=== PATIENT | male | born 2000 | race Caucasian/White ===

== ENCOUNTER 2018-11-22 22:14 | Outpatient (REF) | payer BC, SELFPAY ==
[2018-11-22 22:48] LABS: HCT 47.2 % (40.0-50.0); Mean Corp. HGB Concentration 33.9 g/dL (32.0-36.0); Mean Corpuscular Volume 85.7 fL (80-95); Mean Platelet Volume 8.9 fL (8.0-11.0); Platelet Count 512 x1000/uL (130-400); RBC 5.51 m/cumm (4.50-6.00); White Blood Cell Count 6.08 k/cumm (4.4-10.8)
[2018-11-22 23:18] LABS: Hemoglobin A1C 5.7 % (4.5-6.2)
[2018-11-22 23:30] LABS: ALT 136 U/L (12-78); AST 54 U/L (15-37); Albumin 4.1 g/dL (3.4-5.0); Alkaline Phosphatase 65 U/L (46-116); Anion Gap 12.7 mmol/L (3-11); BUN 15 mg/dL (7-18); Bilirubin, Total 0.6 mg/dL (0.2-1.0); CO2 24.3 mmol/L (21.0-32.0); CREATININE 0.95 mg/dL (0.70-1.30); Calcium 9.6 mg/dL (8.5-10.1); Chloride 103 mmol/L (98-107); Cholesterol 245 mg/dL (50-200); Glucose 86 mg/dL (70-100); HDL Cholesterol 35 mg/dL (40-60); LDL CHOLESTEROL 183 mg/dL (<100); Potassium 4.6 mmol/L (3.5-5.1); Sodium 140 mmol/L (136-145); Triglyceride 199 mg/dL (30-150)
[2018-11-22 23:54] LABS: Total Protein 7.7 g/dL (6.4-8.2)
== END 2018-11-22 22:34 ==
LOC: NCHCN 22:14
PROVIDERS: Visit Provider Family Medicine
DX: E78.1 Pure hyperglyceridemia (principal)
CPT/HCPCS: 80053; 80061; 83721; 85027; 83036

== ENCOUNTER 2019-03-08 21:12 | Outpatient (REF) | payer BC, SELFPAY ==
[2019-03-08 21:24] LABS: ALT 102 U/L (12-78); AST 46 U/L (15-37); Albumin 4.2 g/dL (3.4-5.0); Alkaline Phosphatase 65 U/L (46-116); Bilirubin, Total 0.7 mg/dL (0.2-1.0); Cholesterol 197 mg/dL (50-200); HDL Cholesterol 34 mg/dL (40-60); LDL CHOLESTEROL 144 mg/dL (<100); Total Protein 7.7 g/dL (6.4-8.2); Triglyceride 83 mg/dL (30-150)
[2019-03-08 21:51] LABS: Bilirubin, Direct 0.16 mg/dL (0.00-0.20)
== END 2019-03-08 21:32 ==
LOC: NCHCN 21:12
PROVIDERS: Visit Provider Family Medicine
DX: R74.0 Nonspecific elevation of levels of transaminase and lactic acid dehydrogenase [LDH] (principal); E78.1 Pure hyperglyceridemia
CPT/HCPCS: 80061; 80076; 83721

== ENCOUNTER 2019-08-19 10:47 | Outpatient (REF) | payer BC, SELFPAY ==
[2019-08-19 22:25] LABS: ALT 46 U/L (16-63); AST 21 U/L (15-37); Alkaline Phosphatase 55 U/L (46-116); Anion Gap 9.2 mmol/L (3-11); BUN 17 mg/dL (7-18); CO2 26.8 mmol/L (21.0-32.0); CREATININE 1.03 mg/dL (0.70-1.30); Calcium 9.3 mg/dL (8.5-10.1); Calculated LDL 90 mg/dL; Chloride 104 mmol/L (98-107); Cholesterol 139 mg/dL (50-200); Glucose 96 mg/dL (70-100); HDL Cholesterol 33 mg/dL (40-60); Potassium 4.3 mmol/L (3.5-5.1); Sodium 140 mmol/L (136-145); Total Protein 7.2 g/dL (6.4-8.2); Triglyceride 81 mg/dL (30-150)
== END 2019-08-19 11:07 ==
LOC: NCHCO 10:47
PROVIDERS: Visit Provider Family Medicine
DX: R74.0 Nonspecific elevation of levels of transaminase and lactic acid dehydrogenase [LDH] (principal); R73.9 Hyperglycemia, unspecified; E78.1 Pure hyperglyceridemia; E88.81 Metabolic syndrome and other insulin resistance
CPT/HCPCS: 80053; 80061; 80076

== ENCOUNTER 2021-06-01 14:24 | Outpatient (REF) | payer BC, SELFPAY ==
[2021-06-03 09:51] LABS: HBs Antibody, Quant <3.1 mIU/mL (See Note); Hepatitis B Surface Ab Negative (See Note)
[2021-06-03 10:02] LABS: Hepatitis B Surface Ag Negative (Negative)
[2021-06-03 10:23] LABS: Hepatitis C Ab w Rflx HCV PCR Negative (Negative)
[2021-06-03 10:27] LABS: HIV-1/2 Ag & Ab Screen Negative (Negative)
[2021-06-03 11:02] LABS: Syphilis Serology (RPR) Negative (Negative)
[2021-06-03 15:05] LABS: Chlamydia Result Negative (Negative); GC Result Negative (Negative)
== END 2021-06-01 14:25 | disposition home or self-care (01) ==
LOC: LBN 14:24
PROVIDERS: Visit Provider Nurse Practitioner Family
DX: Z11.3 Encounter for screening for infections with a predominantly sexual mode of transmission (principal); Z11.59 Encounter for screening for other viral diseases; Z11.4 Encounter for screening for human immunodeficiency virus [HIV]
CPT/HCPCS: 86706; 86803; 87340; 87389; 87491; 87591; 86592

== ENCOUNTER 2021-12-22 14:08 | Outpatient (REF) | payer BC, SELFPAY ==
[2021-12-22 16:39] LABS: Abs Immature Grans 0.01 10^3/uL (0.0-0.06); Absolute Basophil Count 0.03 10^3/uL (0.0-0.2); Absolute Eosinophil Count 0.08 10^3/uL (0.0-0.7); Absolute Lymphocyte Count 1.88 10^3/uL (1.2-3.4); Absolute Monocyte Count 0.45 10^3/uL (0.1-0.8); Absolute Neutrophil Count 3.58 10^3/uL (1.2-6.7); Basophils % 0.5; Eosinophils % 1.3; HCT 47.5 % (40.0-50.0); HGB 15.6 g/dL (13.5-17.5); Immature Grans % 0.2; Lymphocytes % 31.2; MCH 28.6 pg (27.0-33.0); MCHC 32.8 % (32.0-36.0); MPV 8.7 fL (8.0-11.0); Monocytes % 7.5; Neutrophils % 59.3; Nucleated RBC 0 %; Platelet Count 518 10^3/uL (130-400); RBC 5.46 10^6/uL (4.36-5.78); RDW-SD 38.3 fL; WBC 6.03 10^3/uL (4.4-10.8)
[2021-12-22 16:59] LABS: Hemoglobin A1C 5.6 % (<5.7)
[2021-12-22 17:30] LABS: ALT 118 U/L (16-63); AST 43 U/L (15-37); Albumin 4.2 g/dL (3.4-5.0); Anion Gap 12.1 mmol/L (3-11); BUN 13 mg/dL (7-18); Bilirubin, Total 0.5 mg/dL (0.2-1.0); CO2 24.9 mmol/L (21.0-32.0); CREATININE 0.9 mg/dL (0.70-1.30); Calcium 9.5 mg/dL (8.5-10.1); Calculated LDL 171 mg/dL (<100); Chloride 103 mmol/L (98-107); Cholesterol 241 mg/dL (<200); Ferritin 114 ng/mL (26-388); Folate 9.6 ng/mL (8.6-20.0); Glucose 92 mg/dL (74-106); HDL Cholesterol 45 mg/dL (40-60); Magnesium 2.1 mg/dL (1.8-2.4); Potassium 4.5 mmol/L (3.5-5.1); Sodium 140 mmol/L (136-145); TSH 1.21 uIU/mL (0.36-3.74); Total Protein 7.9 g/dL (6.4-8.2); Triglyceride 128 mg/dL (<150); Vitamin B12 1178 pg/mL (193-986)
[2021-12-22 17:43] LABS: Alkaline Phosphatase 60 U/L (46-116)
[2021-12-22 18:06] LABS: C-Reactive Protein 0.57 mg/dL (0.0-0.3); FREE T4 0.99 ng/dL (0.76-1.46)
[2021-12-23 00:11] LABS: Vitamin D 25 Total 17.4 ng/mL (30-100)
== END 2021-12-22 14:09 | disposition home or self-care (01) ==
LOC: LBN 14:08
PROVIDERS: Visit Provider Psychiatry & Neurology Psychiatry
DX: F31.12 Bipolar disorder, current episode manic without psychotic features, moderate (principal); Z79.899 Other long term (current) drug therapy
CPT/HCPCS: 80053; 80061; 82306; 82607; 82728; 82746; 83036; 83735; 84439; 84443; 84481; 85025; 86140

== ENCOUNTER 2022-05-02 13:32 | Outpatient (REF) | payer BC, SELFPAY ==
[2022-05-02 23:23] LABS: Lithium < 0.2 mmol/l (0.6-1.2)
== END 2022-05-02 13:33 | disposition home or self-care (01) ==
LOC: NCHCN 13:32
PROVIDERS: Visit Provider Registered Nurse
DX: F31.12 Bipolar disorder, current episode manic without psychotic features, moderate (principal); Z51.81 Encounter for therapeutic drug level monitoring; Z79.899 Other long term (current) drug therapy
CPT/HCPCS: 80178

== ENCOUNTER 2022-07-27 11:17 | Outpatient (REF) | payer BC, SELFPAY ==
[2022-07-27 16:14] LABS: ALT 57 U/L (16-63); AST 30 U/L (15-37); Albumin 3.9 g/dL (3.4-5.0); Alkaline Phosphatase 62 U/L (46-116); Anion Gap 9.1 mmol/L (3-11); BUN 16 mg/dL (7-18); Bilirubin, Total 0.5 mg/dL (0.2-1.0); CO2 26.9 mmol/L (21.0-32.0); CREATININE 0.9 mg/dL (0.70-1.30); Calcium 9.1 mg/dL (8.5-10.1); Chloride 103 mmol/L (98-107); Estimated GFR 122.31 (mL/min/1.73m2); Glucose 92 mg/dL (74-106); Potassium 4.6 mmol/L (3.5-5.1); Sodium 139 mmol/L (136-145); Total Protein 7.8 g/dL (6.4-8.2)
== END 2022-07-27 11:18 | disposition home or self-care (01) ==
LOC: NCHCN 11:17
PROVIDERS: Visit Provider Registered Nurse
DX: R79.89 Other specified abnormal findings of blood chemistry (principal)
CPT/HCPCS: 80053

== ENCOUNTER 2023-09-27 11:05 | Outpatient (REF) | payer BC, SELFPAY ==
[2023-09-27 14:52] LABS: HCT 47.4 % (40.0-50.0); HGB 15.5 g/dL (13.5-17.5); MCH 28.1 pg (27.0-33.0); MCHC 32.7 % (32.0-36.0); MCV 86 fL (80-95); MPV 8.5 fL (8.0-11.0); Platelet Count 524 10^3/uL (130-400); RBC 5.51 10^6/uL (4.36-5.78); RDW 12.8 % (11.8-14.1); RDW-SD 40.2 fL; WBC 6.24 10^3/uL (4.4-10.8)
[2023-09-27 15:07] LABS: Hemoglobin A1C 5.4 % (<5.7)
[2023-09-27 15:15] LABS: ALT 88 U/L (16-63); AST 42 U/L (15-37); Albumin 4.2 g/dL (3.4-5.0); Alkaline Phosphatase 61 U/L (46-116); Anion Gap 9.5 mmol/L (3-11); BUN 17 mg/dL (7-18); Bilirubin, Total 0.5 mg/dL (0.2-1.0); CO2 26.5 mmol/L (21.0-32.0); Calcium 9.8 mg/dL (8.5-10.1); Calculated LDL 132 mg/dL (<100); Chloride 105 mmol/L (98-107); Cholesterol 212 mg/dL (<200); Estimated GFR 107.12 (mL/min/1.73m2); Glucose 97 mg/dL (74-106); HDL Cholesterol 43 mg/dL (40-60); Potassium 4.1 mmol/L (3.5-5.1); Sodium 141 mmol/L (136-145); TSH 1.57 uIU/mL (0.36-3.74); Total Protein 8.2 g/dL (6.4-8.2); Triglyceride 187 mg/dL (<150)
[2023-09-28 10:55] LABS: HIV-1/2 Ag & Ab Screen Negative (Negative)
[2023-09-28 11:18] LABS: Hepatitis C Ab w Rflx HCV PCR Negative (Negative)
[2023-09-28 14:51] LABS: Chlamydia Result Negative (Negative); GC Result Negative (Negative)
== END 2023-09-27 11:06 | disposition home or self-care (01) ==
LOC: NCHCN 11:05
PROVIDERS: PCP Family Medicine; Visit Provider Family Medicine
DX: Z00.00 Encounter for general adult medical examination without abnormal findings; F31.9 Bipolar disorder, unspecified
CPT/HCPCS: 80053; 80061; 82306; 85027; 86803; 87389; 87491; 87591; 83036; 84443

== ENCOUNTER 2024-03-05 06:03 | Day surgery (SDC) | payer OTHER, BC, SELFPAY ==
--- NOTE | 2024-03-04 14:39 | W.PM.HP.N ---
Date of service: 03/05/24 Time of Service: 07:36 Assessment and Plan Assessment and plan (1) Marijuana smoker, episodic: Status: Acute (2) Hyperlipidemia: Status: Acute (3) Right inguinal hernia: Status: Acute Assessment and plan: I discussed the nature of inguinal hernias with the pt and how they form, and consequences of incarceration.? We discussed the warning signs of incarcerations (Severe pain/hardness and inability to reduce the hernia/vomiting/redness and fever) ?and when/how to seek medical attention (our office/PCP or ED).? ?I discussed the surgery in detail and the complications related to the surgery and the anesthesia.? I do recommend that the pt have a nerve block for postop pain control.? We also discussed multi-modality pain management.? Pt. expressed understanding; all questions were answered to the patient satisfaction and they do wish to proceed with surgery.? Risks of the surgery include but are not limited to: Bleeding/infection/pneumonia/damage to blood vessels or bladder or?bowels/blood clots or PE/chronic pain/urinary retention/chronic numbness/reoccurrence/reaction to mesh requiring removal/damage to testicle or sterility/complications of anesthesia.?We also discussed the possibility of postop urinary retention or bruising. ?The pt will have a pre-Op PE to ensure fitness for anesthesia, and preOp cardiac testing as deemed necessary. ?The procedure will be done with abx and under sterile conditions. This is an outpt day surgery.? ??The pt requires a ride home from surgery and someone to stay with the pt for 24 hrs after anesthesia.? No lifting over 5 pounds for 2-3 weeks after surgery.? Also take Miralax postop to avoid constipation. Patient understands the weight restriction and that he may need up to 2 weeks or more off from work depending on his recovery. Although the patient is young and healthy and has no risk factors for prolonged recovery. (4) Smoker: History of Present Illness Narrative: Patient is here today for right inguinal hernia repair. they not having any chest pain or shortness of breath, currently.? They are not experiencing any fever or chills.? They deny any productive cough or upper respiratory tract infection signs or symptoms.? They are not having abdominal pain, or nausea and vomiting.? They have not had any changes in medications, past medical history or past surgical history since previously being seen in the office. They have not had any accidents or have been in the ER since the clinic pre-operative evaluation. ??I reviewed the procedure with the patient today, including risks and benefits of the procedure, and what they could expect at home for recovery.? All questions are answered to the patient?s satisfaction today, and they are stable to proceed with the proposed procedure. No changes in meds or health status Clinic visit 01/06 RN: Pt here area on the lower right that he was told was a hernia. Pt states sometimes he has pain, not all the time. He Was pulling in wires and thinks it happened then. He did not file a workers comp report. He will occ have pain. He denies any problems urinating. He denies any problems with constipation or diarrhea or pain or difficulty moving his bowels. He is a smoker. He was not premature. no prior surgery. He denies any cardiac or pulmonary problems. Pshx wisdom teeth anesthesia - no comp NKDA smoker- / ppd THC- not daily Review of Systems All systems reviewed & are unremarkable except as noted in HPI and below PFSH All Active Problems (Updated 03/05/24 @ 07:02 by Idalia Anand) Marijuana smoker, episodic (Acute) Erectile dysfunction (Acute) Hyperlipidemia (Acute) Right inguinal hernia (Acute) Medical History (Updated 03/05/24 @ 07:02 by Idalia Anand) Psychoactive substance-induced intoxication Smoker Bipolar 1 disorder Metabolic syndrome X pt. unaware of this and asking about it, Seng Son cRNA had discussion with pt. JESSICA (generalized anxiety disorder) History of psychiatric disorder Epididymitis Surgical History Hx of wisdom tooth extraction Social History Smoking/Tobacco Use Status: Current every day Tobacco Type: cigarettes Smoking risk assessment performed?: Yes Alcohol Intake: never Drug use: Occasionally Substance use type: marijuana Details: marijuana: t-2, one bowl Housing: apartment Do you feel safe at home: Yes Do you feel safe in your relationship?: Yes Additional Social history: unable to asssess privately Meds Allergies and Home Medications Allergies Allergy/AdvReac Type Severity Reaction Status Date / Time No Known Drug Allergies Allergy Unknown none Verified 03/05/24 06:27 Home Medications Medication Instructions Recorded Confirmed Type aripiprazole 400 mg intramuscular 400 mg IM QMONTH 12/26/23 02/29/24 History suspension,extended release (Chen Richa) gabapentin 100 mg capsule 100 mg PO TID #42 caps 03/04/24 Rx tramadol 50 mg tablet 50 mg PO Q4H PRN pain (scale score 03/04/24 Rx 7-10) #14 tabs Exam Narrative Exam Narrative: PHYSICAL EXAM GENERAL APPEARANCE: Alert, healthy appearance, oriented, x 3,? in no acute distress HYDRATION: Well hydrated HEAD, EYES, EARS, NECK, THROAT: Head is normocephalic, pupils equal, round, reactive to light and accommodation, ocular movement intact, sclera clear and no jaundice. ?Dentition intact. h pt has a short neck and large bushy rome LUNGS: normal respiration/normal chest excursion. ?Clear to auscultation bilaterally. ?No wheeze. ?HEART: Regular rate and rhythm. no murmurs ABDOMEN: soft and non-tender to palpation.? Normal bowel sounds.? right inguinal herinia Const Other: PHYSICAL EXAM GENERAL APPEARANCE: Alert, healthy appearance, oriented, x 3,? in no acute distress HYDRATION: Well hydrated HEAD, EYES, EARS, NECK, THROAT: Head is normocephalic, pupils equal, round, reactive to light and accommodation, ocular movement intact, sclera clear and no jaundice. ?Dentition intact. LUNGS: normal respiration/normal chest excursion. ?Clear to auscultation bilaterally. ?No wheeze. ?HEART: Regular rate and rhythm. no murmurs ABDOMEN: soft and non-tender to palpation.? Normal bowel sounds.? Right inguinal hernia..? Time Spent Time spent with Patient: <40 minutes Time was spent: preparing to see the patient(eg.review tests), obtaining and/or reviewing separately otained hiistory, ordering medications,tests, procedures, referring, communicating with other health hearing healthcare practitioner, indepentently interpreting results, counseling the patient and care coordination
--- NOTE | 2024-03-04 21:44 | W.PM.DSUDISC ---
Date of service: 03/05/24 Time of Service: 08:59 Discharge Plan Disposition Patient Disposition: Home Condition: Good Discharge Details Reason For Visit: Right inguinal hernia repair Attending Provider: Sarah Liz Primary Care Provider: Hoda Domingo Home Meds and New Rx's Prescriptions: New tramadol 50 mg tablet 50 mg PO Q4H PRN (Reason: pain (scale score 7-10)) Qty: 14 0RF gabapentin 100 mg capsule 100 mg PO TID Qty: 42 2RF Rx Instructions: take daily, not just when you have pain for the next two weeks. Continued Abilify Maintena 400 mg suspension,extended rel recon 400 mg IM QMONTH Discharge Instructions Additional Instructions: Dr. Huber HERNIA REPAIR ? POSTOPERATIVE INSTRUCTIONS Patients who have this type of surgery can usually be expected to return to work within two weeks and have minimal amounts of discomfort. ? ACTIVITY: The day of surgery should be spent resting. However, you can be up for short periods of time, I.E., going to the bathroom or kitchen. Avoid lifting or straining. On the day following surgery, you can be up and about as desired. ? LIFTING: Restrict your lifting to no more than five (5) pounds for two weeks after surgery. ??We will decide when you are done with restrictions and when you can return to work, at your follow-up appointment.? No sexual activity for two weeks.? ? DIET: There are no dietary restrictions following surgery. However, you may want to start with small amounts of liquids to avoid nausea the day of surgery. ? INCISION CARE: You will notice purple skin glue closing the incision.? Do not peel this off- it will wear off on its own.? After 24 hours you may shower. The dressing may be replaced for comfort, but is not necessary. ?An ice bag may be applied to the incision for 72 hours following surgery. ? SIGNS OF INFECTION: It is not unusual to have some black and blue discoloration of the skin around the incision, but also scrotum and penis.? ?It will slowly disappear. If you have any increased redness, drainage, fever (above 100 degrees), please contact your doctor for an examination. ? DISCOMFORT: You may expect to have some mild discomfort at the incision sight. If severe pain develops you should contact your doctor for further instructions. ? URINATION: Patients who have surgery occasionally have problems urinating. If you experience problems and are not able to urinate within 6 hours following your surgery, please call your doctor immediately or go to your nearest Emergency Room for evaluation. ? DRIVING: NO driving for three (3) days after surgery, or if you are still taking narcotic pain medication.? ? MEDICATIONS: Alternate Tylenol 1000mg by mouth every 8 hours and Ibuprofen 600mg every 6 hours. ?Make sure you take ibuprofen with food and not on an empty stomach. ?Take the Tylenol and ibuprofen continuously for the first 72hrs- not just when you have pain.? Use the tramadol for breakthrough pain/pain >7.? Use ICE!?? Twenty minutes on, and then off, continuously for the first 72hours. If you are taking narcotic pain medication, follow the instructions on the label and do not drive. Pain medications can make you very constipated. Make sure you are moving your bowels daily. If not, take Miralax or Milk of Magnesia.?? Anesthesia makes you very constipated.? Take a dose of milk of magnesia the morning after surgery. ? REPORT: Unusual swelling, severe pain, unresolved nausea, signs of infection, or difficulty in urination to your surgeon. Follow up in clinic with Dr. Liz in 2 weeks.? [phone] F/u w/ ENT regarding nodule on vocal chord Activity:: see above Remove Dressings/Wound Care:: 24 hours Shower/Bathe:: 24 hours Diet:: As Tolerated Discharge Orders Discharge Orders: Discharge Order (Routine); Ordered 03/05/24 Ordered By: Sarah Liz DS: Diagnosis Discharge Diagnosis (1) Marijuana smoker, episodic: Status: Acute (2) Hyperlipidemia: Status: Acute (3) Right inguinal hernia: Status: Acute Asessment and Plan: The patient is doing well post-op from their [] surgery.? They are having no nausea or vomiting. They are tolerating liquids and a snack. The pt is not having any chest pain or SOB.? Their pain is adequately controlled. They have been able to urinate.? ?HEENT:? no eye pain/drainage/redness/swelling. Mild sore throat ?Cardio- NSR, no chest pain, BP stable- see VS record ?Pulm: no sob or productive cough. No hemoptysis ?Incision- dressing is c/d/i w/ no excessive bleeding or drainage ?I discussed with the patient the findings at the time of surgery and the patient?s progress. ?We reviewed expectations at home; what the patient could expect for recovery time, and in the post-operative period.? We discussed the importance of walking to avoid blood clots and pneumonia.? We discussed and reviewed the patient's post-operative wound care and dressing needs.?? We reviewed their step-schultz pain management plan, Rx called to the pharmacy of their choice.? We reviewed activity and limitations-see discharge instructions. We reviewed warning signs, and when to seek medical attention- see d/c instructions.?? Patient was given a postoperative follow-up appointment. Patient verbalized understanding of their postoperative instructions, how do to take care of themselves and their incision, and the pain management plan. Please see discharge instructions.? (4) Smoker:
--- NOTE | 2024-03-04 21:52 | W.PM.OP ---
Date of service: 03/05/24 Time of Service: 08:55 Operative Note Operative Note DATE OF PROCEDURE: 03/05/24 PRE-OP DIAGNOSIS: right inguinal hernia POST-OP DIAGNOSIS: same (indirect ) PROCEDURE: open indirect repair w/ mesh SURGEON: Sarah Olivares ELECTRONIC CONSOLE DISPLAY OPERATOR: Maricruz Spencer ANESTHESIA TYPE: Local By Surgeon, General LMA/ETT and Primary Nerve Block Refer to Anesthesia Record ESTIMATED BLOOD LOSS: 5 PATHOLOGY: none sent COMPLICATIONS: None Patient was transported to: same day Patient's condition: stable Procedure Description: INDICATIONS: The pt is here today for surgery regarding symptomatic right inguinal hernia that has failed outpatient conservative medical management and he is here today for repair. Informed consent was obtained, explaining risks and benefits of the procedure including but not limited to bleeding, infection, pneumonia, blood clots, chronic pain, chronic numbness, damage to testicle resulting in removal, recurrence of hernia, reaction to Mesh necessitating removal, and other unforetold complications, and complications of anesthesia-which were addressed by the PRESIDENT [place]. The patient is marked in preOp prior to the procedure DESCRIPTION OF PROCEDURE:? The pt is then brought to the operative room suite. Anesthesia was administered per the Department of Anesthesia. ?A nerve block was performed by anesthesia under US guidance. The patient was prepped and draped in the usual sterile fashion using ChloraPrep scrub solution. Pause for the cause was done. He did receive preop IV antibiotics, and 30 mL of .25% Marcaine w/ epinephrine was used for local anesthetization. A #12 blade was used to make an incision over the external ring. Electrocautery used to provide hemostasis and dissect down to the fascia. The fascia was pretty much obliterated and there was nothing to open. The cord is elevated. The nerve was not identified. There small is a cord lipomas.? Electro-cautery is used to provide hemostasis. A Oliva drain was placed around the cord to assist in mobilization. The cord was explored. ?There was is small hernia sac on the cord. There is no direct hernia pushing through the floor. The hernia sac is dissected off the cord using a combination of blunt dissection and electrocautery.? Electrocautery is used to provide hemostasis.?? There are no contents within the hernia sac.? High ligation of the sac is performed with the 2-0 Vicryl. The hernia sac remnant is than inverted and returned to the abdominal cavity.? A medium size plug is than inserted into the defect through the internal ring, and over sewn to tighten up the ring with 2-0 vicryl.? Please see RN notes from Lot number of the Bard mesh patch/plug.? The cord structures are still able to freely move through the ring itself.? The patch was then placed onto the floor, and using 2-0 Vicryl, sewn into the pubic tubercle and the shelving portions of the inguinal ligament, in the standard Lichenstein fashion.? ?The tails of the mesh are brought around the cord, sewn together w/ 2-0 Vicryl, and tucked under the external oblique.? The wound was copiously irrigated. There was no bleeding noted. The drain was removed. All structures are returned to normal anatomical position. The nerve is not sewn into the mesh, nor caught up in any sutures. The external oblique is re-approximated using 2-0 vicryl in a running fashion. ?Deep tissue was approximated with 3-0 Vicryl in a running fashion, and skin was approximated with 4-0 Monocryl in a running subcuticular fashion. Skin glue and sterile dressings are applied. The patient tolerated the procedure without complications to recovery in stable condition. SARAH OLIVARES, DO
[2024-03-05] VITALS (12 sets, daily range): BP systolic 86–126; BP diastolic 39–83; PULSE 73–105; RESP 18–23; TEMP 36.2–36.6; O2SAT 92–96; BMI 39.0
[2024-03-05] MEDS: Acetaminophen 500 MG TAB 1000 MG PO (06:41)
[2024-03-05] MEDS: Gabapentin 300 MG CAP 600 MG PO (06:42)
[2024-03-05] MEDS: Lactated Ringers 1,000 ML 80 ML IV (07:00)
--- NOTE | 2024-03-05 07:08 | W.ANESPRE ---
General Info Date of Service Date Performed: 03/05/24 Height: 6 ft Weight: 130.7 kg Body Mass Index (BMI): 39.0 Surgical Procedure: Operation Date: 03/05/24 07:40 Proposed Procedure Side Surgeon p Herniorrhaphy Inguinal w/Mesh Right Sarah Liz DO Meds Allergies and Home Medications Allergies Allergy/AdvReac Type Severity Reaction Status Date / Time No Known Drug Allergies Allergy Unknown none Verified 03/05/24 06:27 Home Medication Medication Instructions Recorded aripiprazole 400 mg intramuscular 400 mg IM QMONTH 12/26/23 suspension,extended release (Abilify Maintena) gabapentin 100 mg capsule 100 mg PO TID #42 caps 03/04/24 tramadol 50 mg tablet 50 mg PO Q4H PRN pain (scale score 03/04/24 7-10) #14 tabs Current Visit Medications: Current Medications Generic Name Dose Route Start Last Admin Trade Name Freq PRN Reason Stop Dose Admin Acetaminophen 1,000 mg 03/05/24 06:00 03/05/24 06:41 Acetaminophen 500 Mg Tab PO 04/04/24 05:59 1,000 mg PREOP JARVIS Administration Gabapentin 600 mg 03/05/24 06:00 03/05/24 06:42 Gabapentin 300 Mg Cap PO 04/04/24 05:59 600 mg PREOP JARVIS Administration Ringer's Solution 1,000 mls @ 80 mls/hr 03/05/24 06:00 IV 04/03/24 23:59 INFUSION JARVIS Ondansetron HCl 4 mg/ Sodium 52 mls @ 200 mls/hr 03/04/24 21:41 Chloride IVPB 04/03/24 21:40 Q6H PRN PRN Cefazolin Sodium/Dextrose 2 gm in 50 mls @ 100 mls/hr 03/05/24 06:15 Ancef Duplex IVPB 04/04/24 06:14 PREOP JARVIS IV Miscellaneous Supplies 1 each 03/05/24 06:00 Iv Access IV 04/03/24 23:59 DIRECTED JARVIS Morphine Sulfate 2 mg 03/04/24 21:41 Morphine 4 Mg/Ml Syr IVP 04/03/24 21:40 Q1H PRN PRN Sodium Chloride 0 ml 03/05/24 06:00 Normal Saline Flush 10 Ml Syr IV 04/03/24 23:59 PRN PRN Sodium Chloride 0 ml 03/05/24 06:00 Normal Saline 10 Ml Vial IJ 04/03/24 23:59 DIRECTED PRN Sterile Water 0 ml 03/05/24 06:00 Water,Injection,Sterile 10 Ml Vial IJ 04/03/24 23:59 DIRECTED PRN Tramadol HCl 50 mg 03/04/24 21:41 Tramadol 50 Mg Tab PO 04/03/24 21:40 Q6H PRN PRN Pain PFSH Active Problems Active Problems: Problem Status Onset Code Marijuana smoker, episodic F12.90 Erectile dysfunction N52.9 Hyperlipidemia E78.5 Right inguinal hernia K40.90 Medical History Medical History (Updated 03/05/24 @ 07:02 by Idalia Anand) Psychoactive substance-induced intoxication Smoker Bipolar 1 disorder Metabolic syndrome X pt. unaware of this and asking about it, Seng Son cRNA had discussion with pt. JESSICA (generalized anxiety disorder) History of psychiatric disorder Epididymitis Surgical History Surgical History Hx of wisdom tooth extraction Tobacco Smoking/Tobacco Use Status: Current every day Tobacco Type: cigarettes Alcohol Alcohol Intake: never Substance Use Substance use: Occasionally Substance use type: marijuana Details: marijuana: t-2, one bowl Vital Signs and Lab Results Vital Signs Most Recent Vital Signs in EMR: Most Recent Vital Signs Temp Pulse Resp BP Pulse Ox 36.6 C 105 H 18 118/83 95 03/05/24 06:31 03/05/24 06:31 03/05/24 06:31 03/05/24 06:31 03/05/24 06:31 Lab Results Blood Type / Crossmatch: No Data to Display Complete Blood Count: No Data to Display Complete Metabolic Panel: No Data to Display Liver Function Panel: No Data to Display Coagulation Panel: No Data to Display Cardiac Panel: No Data to Display Arterial Blood Gas: No Data to Display Venous Blood Gas: No Data to Display Pancreas Panel: No Data to Display Thyroid Panel: No Data to Display Infectious Disease: No Data to Display Blood Cultures: No Data to Display Toxicology Panel: No Data to Display Anesthesia Assessment and Plan Anesthesia History Personal History: No History of Anesthesia Complications Family History: No Family History of Anesthesia Complications Exercise Tolerance Exercise Tolerance: Metabolic Equivalents>4 Pertinent Negatives Pertinent Negatives: No Symptoms of GERD Cardiac & Pulmonary Exam Cardiac Exam: Normal S1/S2 Heart Sounds Pulmonary Exam: Clear Bilateral Breath Sounds Implantable Cardiac Device Does patient have a Pacemaker or an ICD?: No Airway Exam Known Difficult Airway: No Mallampati Class: 2 Mouth Opening: Normal (> 3cm) Thyromental Distance: Less than 3 cm Neck Range of Motion: Full ROM Neck Circumference: Normal Teeth Condition: Normal Dentition ASA Classification ASA Score: ASA 2 Emergency Case?: No NPO Status NPO Status: NPO Clears >2 hours, Solids >8 hours Anesthesia Plan Resuscitation Status: Full Code Anesthesia Technique: General Anesthesia Airway Planned: Endotracheal Tube Monitors Used: Standard Monitors and SedLine
[2024-03-05] MEDS: ceFAZolin 2 GM/50 ML BAG IVPB (07:41)
--- NOTE | 2024-03-05 08:22 | W.ANESNERVE ---
Nerve Block Single Injection Procedure Date and Time Date Performed: 03/05/24 Procedure Start: 07:51 Location Where Procedure Performed Procedure Location: Operating Room Procedure Stop: 07:59 Reason Performed: Postoperative Analgesia Requesting Provider: Sarah Liz Timeout Performed Timeout Performed: No Monitoring Used ECG, Blood Pressure, SpO2 and ETCO2 Sterility Sterility: Hand Hygiene, Surgical Cap, Surgical Mask, Sterile Gloves, Eye Protection and Chlorhexidine Sedation Given During Procedure Sedation Given (Indicate Dose Given): No Sedation given Patient Mental Status Patient Mental Status: Performed under general anesthesia Nerve Block 1st Nerve Block: Laterality: Right Block Type: TAP Unilateral (Ilioinguinal Block) Ultrasound Image Saved?: Yes Needle / Catheter Used: 100mm SonoPlex II Local Anesthetic Bolus (Indicate Dose Given): Bupivacaine 0.5% Dose:: 0.5%/10cc (50mg) and Exparel Dose:: 1.33%/10cc (133mg) Additives (Indicate Dose Given): Epinephrine to make 1:200,000 (5mcg/ml) Dose:: 100mcg Ultrasound: Sterile probe cover and gel used Nerve Stimulator: Not Used Paresthesia: None Procedure Tolerated: No Complications and Patient tolerated well Procedure Outcome: Successful Performed By: Agusto Jackson
--- NOTE | 2024-03-05 13:44 | W.ANESPOSTOP ---
Postoperative Evaluation Date, Time and Location Date Performed: 03/05/24 Time Performed: 11:58 Patient Location: Day Surgery Unit Vital Signs Most Recent Imported Vital Signs: Most Recent Vital Signs Temp Pulse Resp BP Pulse Ox 36.3 C L 84 20 126/69 94 03/05/24 11:43 03/05/24 11:43 03/05/24 11:43 03/05/24 11:43 03/05/24 11:43 Pain Score Most Recent Pain Score: Most Recent Pain Score Pain Level 2 03/05/24 11:43 Assessment Mental Status: Awake (Alert & Oriented to Patient Baseline) Airway and Respiratory Function: Patent airway with normal (patient baseline) respiratory exam Cardiovascular Function: Hemodynamically Stable Hydration Status: Adequately Hydrated Nausea & Vomiting: No Nausea or Vomiting Pain: Pain is tolerable per patient Peripheral Nerve Block: Regional nerve block not resolved at time of post operative discharge
== END 2024-03-05 12:07 | disposition home or self-care (01) ==
LOC: SUR 06:03
PROVIDERS: PCP Family Medicine; Visit Provider Surgery
PROC: (CPT 49505; principal; 2024-03-05 07:30)
DX: K40.90 Unilateral inguinal hernia, without obstruction or gangrene, not specified as recurrent; F12.90 Cannabis use, unspecified, uncomplicated; F17.200 Nicotine dependence, unspecified, uncomplicated
CPT/HCPCS: 49505; 76942; C1781; C9290; J0171; J0665; J0690; J1100; J1885; J2001; J2250; J2405; J2704; J3010

== ENCOUNTER 2024-09-10 21:22 | Outpatient (REF) | payer BC, SELFPAY ==
[2024-09-10 15:35] LABS: ALT 126 U/L (16-63); AST 57 U/L (15-37); Albumin 4.1 g/dL (3.4-5.0); Alkaline Phosphatase 65 U/L (46-116); Anion Gap 9.1 mmol/L (3-11); BUN 13 mg/dL (7-18); Bilirubin, Total 0.68 mg/dL (0.2-1.0); CO2 30.9 mmol/L (21.0-32.0); CREATININE 1.1 mg/dL (0.70-1.30); Calcium 10.2 mg/dL (8.5-10.1); Calculated LDL 138 mg/dL (<100); Chloride 103 mmol/L (98-107); Cholesterol 209 mg/dL (<200); Estimated GFR 94.95 (mL/min/1.73m2); Glucose 93 mg/dL (74-106); HDL Cholesterol 46 mg/dL (40-60); Potassium 4.5 mmol/L (3.5-5.1); Sodium 143 mmol/L (136-145); Total Protein 8.6 g/dL (6.4-8.2); Triglyceride 127 mg/dL (<150)
--- OUTSIDE RECORDS SUMMARY | 2024-09-10 21:23 | XMS_ITS | Clinical Summary ---
Author Organization [facility] [place] [address] Care Team Providers Care Supervisor General Name Role Phone Unknown Primary Care Provider Unavailabl e Encounters Date Type Department Care Team Description 08/09/2024 Interpretation Only [facility] in [address] [phone] Lindsey Garcia MD from Last 3 Months Social History Tobacco Use Types Packs/Day Years Used Date Smoking Tobacco: Never Assessed Sex and Gender Information Value Date Recorded Sex Assigned at Not on file Gender Identity Not on file Sexual Orientation Not on file Plan of Treatment Health Maintenance Due Date Last Done Comments HPV vaccine (1 - Male 3-dose series) 2013 HIV screen 2016 Hepatitis C Screening 2016 Hepatitis B vaccine (0-59 yrs) (1) 2017 Tetanus/Diphtheria/Pertussis Vaccines (1 - Tdap) 04/23 Covid-19 Vaccine (1 - 2022- season) 2024 Influenza (Flu) vaccine (1 o f 1 - Influenza standard series) 07/14/2024 Procedures Procedure Name Priority Date/Time Associated Diagnosis Comments XR CHEST PA AND LATERAL STAT 08/09/2024 11:01 AM EDT from Last 3 Months Results * XR Chest PA & Lateral (Generic) (08/09/2024 11:01 AM EDT) PT CLASS E RAD ADMITDTTM [id number] RAD PT RAD INFO [id number]^GARCIA^S AMANTHA RAD EXAM DESC XCXR2^XR CHEST 2V PA AND LATERAL^RIS RAD WORKSTATION ID [id number] RAD Anatomical Region Laterality Modality Chest N/A Radiographic Mary ging Impressions 08/09/2024 11:05 AM EDT No acute cardiopulmonary process. Thank you for letting us participate in the care of this patient. ??If you are a health care provider and have any questions regarding this report, please contact the number below. ??For patients who have questions please contact the health infant caregiver that requested your imaging first. ? Narrative 08/09/2024 11:05 AM EDT EXAMINATION: XR CHEST 2V PA ??AND LATERAL CLINICAL HISTORY: ??Reason for Chest: ??Chest Pain ??Add'l Info: R inferolateral Chest wall pain TECHNIQUE: PA and lateral views of the chest, 2 images COMPARISON: Chest radiograph 12/14/2018 FINDINGS: Azygos fissure within the right upper lobe, a normal anatomic variant. No airspace opacity to suggest pneumonia. No pulmonary vascular congestion. No peribronchial thickening or cuffing. No pneumothorax. No pleural effusions. Normal size of the cardiomediastinal silhouette and josé miguel. No acute osseous findings. No free air beneath the hemidiaphragms. Procedure Note Onesimo Fernandez MD - 08/09/2024 EXAMINATION: XR CHEST 2V PA AND LATERAL CLINICAL HISTORY: Reason for Chest: Chest Pain Add'l Info: Rinferolateral Chest wall pain TECHNIQUE: PA and lateral views of the chest, 2 images COMPARISON: Chest radiograph 12/14/2018 FINDINGS: Azygos fissure within the right upper lobe, a normal anatomic variant.No airspace opacity to suggest pneumonia. No pulmonary vascular congestion.No peribronchial thickening or cuffing. No pneumothorax. No pleuraleffusions. Normal size of the cardiomediastinal silhouette and josé miguel. No acuteosseous findings. No free air beneath the hemidiaphragms. IMPRESSION No acute cardiopulmonary process. Thank you for letting us participate in the care of this patient. If youare a health care provider and have any questions regarding this report,please contact the number below. For patients who have questions please contactthe health infant caregiver that requested your imaging first. Lindsey Garcia MD IMG DX ORDERABLES from Last 3 Months Care Teams Supervisor General Relationship Specialty Start Date End Date Unknown None PCP - General 10/24/18
--- OUTSIDE RECORDS SUMMARY | 2024-09-10 21:23 | XMS_ITS | Encounter Summary ---
Author Organization [facility] [place] [address] Care Team Providers Care Non Categorical Preschool Teacher Name Role Phone Unknown Primary Care Provider Unavailabl e Encounter Details Date Type Department Care Team (Late st Contact Info) Description 08/09/2024 Interpretation Only in [address] [phone] Lindsey Garcia MD [address] [place] [address] [phone] Social History Tobacco Use Types Packs/Day Years Used Date Smoking Tobacco: Never Assessed Sex and Gender Information Value Date Recorded Sex Assigned at Not on file Gender Identity Not on file Sexual Orientation Not on file documented as of this encounter Plan of Treatment Not on file documented as of this encounter Procedures Procedure Name Priority Date/Time Associated Diagnosis Comments XR CHEST PA AND LATERAL STAT 08/09/2024 11:01 AM EDT documented in this encounter Results * XR Chest PA & Lateral (Generic) (08/09/2024 11:01 AM EDT) PT CLASS E RAD ADMITDTTM [id number] RAD PT RAD INFO [id number]^GARCIA^S AMANTHA RAD EXAM DESC XCXR2^XR CHEST 2V PA AND LATERAL^RIS RAD WORKSTATION ID [id number] RAD Anatomical Region Laterality Modality Chest N/A Radiographic Mary ging Impressions 08/09/2024 11:05 AM EDT No acute cardiopulmonary process. Thank you for letting us participate in the care of this patient. ??If you are a health care provider and have any questions regarding this report, please contact the number below. ??For patients who have questions please contact the health care aid that requested your imaging first. ? Narrative [...] patients who have questions please contactthe health care aid that requested your imaging first. Lindsey Garcia MD IMG DX ORDERABLES documented in this encounter Visit Diagnoses Not on filedocumented in this encounter Care Teams Non Categorical Preschool Teacher Relationship Specialty Start Date End Date Unknown None PCP - General 10/24/18 documented as of this encounter
--- OUTSIDE RECORDS SUMMARY | 2024-09-10 21:24 | XMS_ITS ---
Author Organization Unknown Address [address] [place] [address] [phone] Phone Care Team Providers Care Bench Carpenter Name Role Phone RYAN ARAGON Registered Nurse Unavailable BHAVANA Vincent Attending Unavailable DEION Sanchez ER Unavailable BRE Cordova Primary Unavailable UNLISTED PROVIDER - REQUESTED Xhandoff Un available Results XR FINGER(S) 2V OR MORE RT - Completed: 09/10/2023 19:42 LOINC: [place], [place] [address] PACS TIRE BUFFER REPORT Patient Name: ADELAIDA ORTEGA MRN: Sex: : Age: [id number] M 2000 23 Account: Accession: Admit: StayType: [id number] 09/10/2023 E/R Ordered: Order ID: Submitted: Ordering Provider: 09/10/2023 19:31 [id number] VXP RATNA BATEMAN Completed: Technologist: Resulted: 09/10/2023 19:42 CLB 09/11/2023 08:11 Study Description: XR FINGERS 2V OR MORE RT Study Reason: Pain Technique: 2D digital imaging was performed. 3 images were obtained. COMPARISON: Comparison is made with prior examinations. FINDINGS: Bones: No definite acute fracture is identified at this time. No bony destructive lesion is seen. Joints: No dislocation is present. The joint spaces are well maintained. Soft tissues: Unremarkable. IMPRESSION: No definite acute fracture or dislocation at this time. If symptoms persist, a follow-up examination in 7 to 10 days is recommended for further evaluation. Report Digitally Signed by Regan Meraz on 09/11/2023 08:11 AM EDT Social History Type Status Start Date End Date Code Code Syst em Smoking History Current every day smoker 274536777 SNOMED CT Sex Male Vital Signs Vital Sign Value Unit [place] Value [place] Unit Date/Time Recent/Initial? Code Code System Body Mass Index 37.97 kg/m2 09/10/2023 19:25 Initial 76597 -5 [facility] Systolic Blood Pressure 149 mm[Hg] 09/10/2023 19:25 Initial 8480- 6 LOINC Diastolic Blood Pressure 110 mm[Hg] 09/10/2023 19:25 Initial 8462- 4 LOINC Body Surface Area 2.54 m2 09/10/2023 19:25 Initial 3140- 1 LOINC Height 182.880 0 cm 72.00 in 09/10/2023 19:25 Initial 8302- 2 LOINC O2 Saturation 98 % 2022 19:25 Initial 13357 -5 LOINC Pulse 81.0 /min 09/10/2023 19:25 Initial 8867- 4 LOINC Respiration 17 /min 09/10/20 19:25 Initial 9279- 1 LOINC Temperature 36.4 Saira 97.5 F 09/10/20 19:25 Initial 8310- 5 LOINC Weight 127.01 kg 280.00 lbs 09/10/2023 19:25 Initial 11867 -7 [facility] Medications Medication Start Date End Date Route Frequency Dose Code Code System Medication Instructions Home Meds Cyclobenzaprine 10MG Oral Tablet 08/09/2024 Unknown ORAL NEEDED EVERY 12 HOURS 1 TABLET 717837 RxNorm TAKE 1 TABLET ORAL NEEDED EVERY 12 HOURS Hospital Discharge Instructions Should you have any questions prior to discharge, please contact a member of your healthcare team. If you have left the hospital and have any questions, please contact your primary care physician. 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
--- OUTSIDE RECORDS SUMMARY | 2024-09-10 21:24 | XMS_ITS ---
Author Organization Unknown Address [address] [place] [address] [phone] Phone Care Team Providers Care Printing Pressman Name Role Phone ROSA MARIA BRAGG Registered Nurse Unavailable VICKY Cordova Attending Unavailable ANNA TURNER Unavailable BRE Cordova Primary Unavailable UNLISTED PROVIDER - REQUESTED Xhandoff Un available Social History Type Status Start Date End Date Code Code Syst em Smoking History Current every day smoker 339752940 SNOMED CT Sex Male Vital Signs Vital Sign Value Unit Catron Value Catron Unit Date/Time Recent/Initial? Code Code System Body Mass Index 30.21 kg/m2 04/13/2022 18:00 Initial 81883 -5 LOINC Systolic Blood Pressure 126 mm[Hg] 04/13/2022 19:51 Most Recent 8480- 6 LOINC Diastolic Blood Pressure 83 mm[Hg] 04/13/2022 19:51 Most Recent 8462- 4 LOINC Systolic Blood Pressure 140 mm[Hg] 04/13/2022 18:00 Initial 8480- 6 LOINC Diastolic Blood Pressure 101 mm[Hg] 04/13/2022 18:00 Initial 8462- 4 LOINC Body Surface Area 2.65 m2 04/13/2022 18:00 Initial 3140- 1 LOINC Height 203.200 0 cm 80.00 in 04/13/2022 18:00 Initial 8302- 2 LOINC O2 Saturation 99 % 2021 19:51 Most Recent 79884 -5 LOINC O2 Saturation 97 % 2021 18:00 Initial 61685 -5 LOINC Pulse 106.0 /min 04/13/2022 19:51 Most Recent 8867- 4 LOINC Pulse 84.0 /min 04/13/2022 18:00 Initial 8867- 4 LOINC Respiration 15 /min 06/01/20 22 19:51 Most Recent 9279- 1 LOINC Respiration 17 /min 04/13/20 22 18:00 Initial 9279- 1 LOINC Temperature 2.7 Saira 36.9 F 04/13/20 22 19:51 Most Recent 8310- 5 LOINC Temperature 36.3 Saira 97.3 F 04/13/20 22 18:00 Initial 8310- 5 LOINC Weight 124.74 kg 275.00 lbs 04/13/2022 18:00 Initial 74555 -7 LOINC Medications Medication Start Date End Date Route Frequency Dose Code Code System Medication Instructions Home Meds Cyclobenzaprine 10MG Oral Tablet 08/09/2024 Unknown ORAL NEEDED EVERY 12 HOURS 1 TABLET 082660 RxNorm TAKE 1 TABLET ORAL NEEDED EVERY [...] Code Code System BIPOLAR DISORDER 04/13/2022 resolved 88818696 SN OMED-CT HISTORY OF DRUG ABUSE 04/13/2022 resolved 3590041 06 SNOMED-CT Allergies and Adverse Reactions Allergy Substance Reaction Severity Start Date Concern Status Co de Code System No Known Drug Allergies Active 665712777 SNOMED-CT Plan of Treatment Travel 12/15/2020 Encounters Encounter Diagnosis Start Date Code Code Sys tem Unspecified hearing loss, left ear 04/13/2022 SNOMED-CT Personal Care Team Section Performer Name Performer Role Active Date Inactive Da deanna
--- OUTSIDE RECORDS SUMMARY | 2024-09-10 21:25 | XMS_ITS ---
Author Organization Unknown Address [address] [place] [phone] Phone Care Team Providers Care Watch Dial Maker Name Role Phone BHAVANA SEGUNDO MD Attending Unavailable DEION ABBOTT MD ER Unavailable DEBBIE NGUYEN Primary Unavailable Results LIPASE - Collect Date/Time: 05/31/2021 13:02 ID: [id number] [address] [place] [address], [address] LOINC: 3040-3 Test Value Unit Reference Range Code Code System Flag LIPASE 65 U/L L=73 H=393 L COMPREHENSIVE METABOLIC PANE L (CMP) - Collect Date/Time: 05/31/2021 13:02 ID: [id number] [address] [place] [address], [address] LOINC: 36482-7 Test Value Unit Reference Range Code Code System Flag GLUCOSE 99 mg/dL L=70 H=116 2345-7 LOINC BUN 14 mg/dL L=6 H=25 3094-0 LOINC CREATININE 1.06 mg/dL L=0.67 H=1.17 2160-0 LOINC SODIUM SERUM 141 mmol/L L=136 H=145 2951-2 LOINC POTASSIUM SERUM 3.8 mmol/L L=3.4 H=5.2 2823-3 LOINC CHLORIDE SERUM 103 mmol/L L=96 H=110 2075-0 LOINC CARBON DIOXIDE (CO2) 28 mmol/L L=22 H=34 2028-9 LOINC ANION GAP 10.0 mmol/L 20096-5 LOINC CALCIUM SERUM 9.5 mg/dL L=8.2 H=10.2 63292-1 LOINC BILIRUBIN TOTAL 0.7 mg/dL L=0.0 H=1.3 1975-2 LOINC ALK. PHOS. 67 U/L L=46 H=116 6768-6 LOINC SGOT (AST) 26 U/L L=15 H=37 1920-8 LOINC SGPT (ALT) 62 U/L L=12 H=78 1742-6 LOINC TOTAL PROTEIN 8.5 gm/dL L=6.0 H=8.0 2885-2 LOINC H ALBUMIN 4.5 gm/dL L=3.4 H=5.0 1751-7 LOINC AGE 21 years eGFR (non-Afr.Amer.) 87 mL/min 81915-6 LOINC eGFR (Afr-Panamanian) 105 mL/min 50680-5 LOINC TYPE AND SCREEN - Collect Da te/Time: 05/31/2021 13:02 ID: [id number] [address] [place] [address], [address] LOINC: Test Value Unit Reference Range Code Code System Flag Blood Group A 883-9 LOINC Rh (D) POSITIVE 78171-5 LOINC Antibody Screen NEGATIVE 1005-8 LOINC CBC W/ DIFFERENTIAL - Collec t Date/Time: 05/31/2021 13:02 ID: [id number] [address] [place] [address], [address] LOINC: 20961-5 Test Value Unit Reference Range Code Code System Flag WBC 9.19 th/cmm L=5.00 H=10.00 6690-2 LOINC NEUT % 66.7 % L=40.0 H=80.0 LYMPH % 26.0 % L=10.0 H=50.0 MONO % 6.2 % L=2.0 H=12.0 17394-2 LOINC EOS % 0.5 % L=0.0 H=8.0 BASO % 0.3 % L=0.0 H=3.0 IG % 0.3 % L=0.0 H=1.1 2514-8 LOINC NRBC % 0.0 % L=0.0 H=0.0 24900-9 LOINC NEUT abs count 6.1 th/cmm L=1.6 H=8.4 751-8 LOINC LYMPH abs count 2.4 th/cmm L=1.5 H=4.0 731-0 LOINC MONO abs count 0.6 th/cmm L=0.2 H=1.0 742-7 LOINC EOS abs count 0.1 th/cmm L=0.0 H=0.5 711-2 LOINC BASO abs count 0.0 th/cmm L=0.0 H=0.2 704-7 LOINC IG abs count 0.0 th/cmm L=0.0 H=0.1 21094-0 LOINC NRBC abs count 0.0 mil/cmm L=0.0 H=0.0 46649-4 LOINC RBC 5.35 mil/cmm L=4.30 H=6.20 789-8 LOINC HEMOGLOBIN 15.8 gm/dL L=13.0 H=17.0 718-7 LOINC HEMATOCRIT 46 % L=45 H=52 4544-3 LOINC MCV 86 fL L=82 H=92 787-2 LOINC MCH 29.5 pg L=27.0 H=31.0 785-6 LOINC MCHC 34.3 % L=32.0 H=36.0 786-4 LOINC RDW-SD 38.0 fL L=39.0 H=49.0 788-0 LOINC L PLATELET COUNT 498 th/cmm L=150 H=450 777-3 LOINC H Social History Type Status Start Date End Date Code Code Syst em Smoking History Current every day smoker 407648803 SNOMED CT Smoking History Never smoker (Never Smoked) 076169639 SNOMED CT Sex Male Medications Medication Start Date End Date Route Frequency Dose Code Code System Medication Instructions Home Meds Cyclobenzaprine 10MG Oral Tablet 08/09/2024 Unknown ORAL NEEDED EVERY 12 HOURS 1 TABLET 092632 RxNorm TAKE 1 TABLET ORAL NEEDED EVERY [...] Code Code System BIPOLAR DISORDER 04/13/2022 resolved 44901691 SN OMED-CT HISTORY OF DRUG ABUSE 04/13/2022 resolved 2062175 06 SNOMED-CT Allergies and Adverse Reactions Allergy Substance Reaction Severity Start Date Concern Status Co de Code System No Known Drug Allergies Active 990634161 SNOMED-CT Plan of Treatment Travel 12/15/2020 Encounters Encounter Diagnosis Start Date Code Code Sys tem Hematemesis 05/31/2021 SNOMED-CT Personal Care Team Section Performer Name Performer Role Active Date Inactive Da te
--- OUTSIDE RECORDS SUMMARY | 2024-09-10 21:25 | XMS_ITS ---
Author Organization Unknown Address [address] [place] [address] [phone] Phone Care Team Providers Care Military Communications Specialist Name Role Phone RYAN DUENAS Registered Nurse Unavailable EMMY Anderson Attending Unavailable RADHA TURNER Unavailable BRE Cordova Primary Unavailable UNLISTED PROVIDER - REQUESTED Xhandoff Un available Results D-DIMER - Collect Date/Time: 08/09/2024 11:53 [facility] ID: [id number] [address] [place], [place], [address] LOINC: 99376-7 Test Value Unit Reference Range Code Code System Flag D-DIMER 0.33 mg/L L=0.19 H=0.50 74750-7 LOINC XR CHEST 2V PA AND LATERAL - Completed: 08/09/2024 11:01 LOINC: [facility] RADIOLOGY [place], [place] [address] RADIOLOGY ENTRY LEVEL ACCOUNT EXECUTIVE REPORT Patient Name: ADELAIDA ORTEGA MRN: Sex: : Age: [id number] M 2000 24 Account: Accession: Admit: StayType: [id number] 08/09/2024 E Ordered: Order ID: Submitted: Ordering Provider: 08/09/2024 10:37 [id number] SH MADDIE GARCIA Completed: Technologist: Resulted: 08/09/2024 10:42 JJ 08/09/2024 11:05 EXAMINATION: XR CHEST 2V PA AND LATERAL CLINICAL HISTORY: Reason for Chest: Chest Pain Add'l Info: R inferolateral Chest wall pain TECHNIQUE: [...] findings. No free air beneath the hemidiaphragms. IMPRESSION: No acute cardiopulmonary process. Thank you for letting us participate in the care of this patient. If you are a health care provider and have any questions regarding this report, please contact the number below. For patients who have questions please contact the health home care consultant that requested your imaging first. Electronically signed by: Onesimo Fernandez MD [facility] ([phone]), at 08/09/2024 11:05 AM Social History Type Status Start Date End Date Code Code Syst em Smoking History Current every day smoker 444109321 SNOMED CT Sex Male Vital Signs Vital Sign Value Unit [place] Value [place] Unit Date/Time Recent/Initial? Code Code System Body Mass Index 41.37 kg/m2 08/09/2024 10:13 Initial 43281 -5 LOINC Systolic Blood Pressure 140 mm[Hg] 08/09/2024 10:13 Initial 8480- 6 LOINC Diastolic Blood Pressure 84 mm[Hg] 08/09/2024 10:13 Initial 8462- 4 LOINC Body Surface Area 2.65 m2 08/09/2024 10:13 Initial 3140- 1 LOINC Height 182.880 0 cm 72.00 in 08/09/2024 10:13 Initial 8302- 2 LOINC O2 Saturation 96 % 2023 10:13 Initial 15973 -5 LOINC Pulse 108.0 /min 08/09/2024 10:13 Initial 8867- 4 LOINC Respiration 16 /min 08/09/20 10:13 Initial 9279- 1 LOINC Temperature 36.3 Saira 97.3 F 08/09/20 10:13 Initial 8310- 5 LOINC Weight 138.35 kg 305.00 lbs 08/09/2024 10:13 Initial 50776 -7 [facility] Medications Medication Start Date End Date Route Frequency Dose Code Code System Medication Instructions Home Meds Cyclobenzaprine 10MG Oral Tablet 08/09/2024 Unknown ORAL NEEDED EVERY 12 HOURS 1 TABLET 698242 RxNorm TAKE 1 TABLET ORAL NEEDED EVERY 12 HOURS Hospital Discharge Instructions Should you have any questions prior to discharge, please contact a member of your healthcare team. If you have left the hospital and have any questions, please contact your primary care physician. Reason For Referral No Data Found Procedures Procedure Name Date Status Code Code Syste m Right inguinal hernia completed 842223336 SNO MEDCT Problems Problem Start Date Resolved Date Status Code Code System BIPOLAR DISORDER 04/13/2022 resolved 37096966 SN OMED-CT HISTORY OF DRUG ABUSE 04/13/2022 resolved 0096485 06 SNOMED-CT Allergies and Adverse Reactions Allergy Substance Reaction Severity Start Date Concern Status Co de Code System No Known Drug Allergies Active 063214880 SNOMED-CT Plan of Treatment Travel 12/15/2020 Encounters Encounter Diagnosis Start Date Code Code Sys tem Chest pain 08/09/2024 99990694 SNOMED-CT Personal Care Team Section Performer Name Performer Role Active Date Inactive Da te Imaging Narrative Notes [facility] RADIOLOGY [place], [place] [address] RADIOLOGY ENTRY LEVEL ACCOUNT EXECUTIVE REPORT Patient Name: ADELAIDA ORTEGA MRN: Sex: : Age: [id number] M 2000 Account: Accession: Admit: StayType: [id number] 08/09/2024 E Ordered: Order ID: Submitted: Ordering Provider: 08/09/2024 10:37 [id number] MADDIE GARCIA Completed: Technologist: Resulted: 08/09/2024 10:42 JJ 08/09/2024 11:05 EXAMINATION: XR CHEST 2V PA AND LATERAL CLINICAL HISTORY: Reason for Chest: Chest Pain Add'l Info: R inferolateral Chest wall pain TECHNIQUE: [...] findings. No free air beneath the hemidiaphragms. IMPRESSION: No acute cardiopulmonary process. Thank you for letting us participate in the care of this patient. If you are a health care provider and have any questions regarding this report, please contact the number below. For patients who have questions please contact the health home care consultant that requested your imaging first. Electronically signed by: Onesimo Fernandez MD [facility] ([phone]), at 08/09/2024 11:05 AM
--- OUTSIDE RECORDS SUMMARY | 2024-09-10 21:25 | XMS_ITS | Continuity of Care Document ---
Author Organization [place] - [facility], [facility] Address [address] [place] [address] Assessment Encounter Date Assessment Date Assessment LastModified by Organization Details LastModified Time 09/10/2024 09/10/2024 The total time devoted to today's encounter, including both the jmny-jb-dprz time with the patient and/or family/caregi miguelangel and kea-hahr-fk-f julia time I personally spent is 25 minutes in visit, 5 minutes prep, 5 minutes charting; total 35 minutes. [email or web address] Not available 09/10/2024 10:49:20 Plan of Treatment Reminders Order Date Submit Date Provider Last Modified By Organization Details Last Modified Time Details Appointments Follow Up 2023 09:10A M LINH ISAAC Not available Not available Not available Follow Up 2024 09:00A M LINH ISAAC Not available Not available Not available Lab lipid panel, serum - L AC 2023 [facility] [address] [place] [address] [place], [address], 09/10/2024 10:20:35 CMP, serum or plasma - L AC 2023 [facility] (Registration ), [address] [place] [address] [place], [address], 09/10/2024 15:39:41 Referral urologist referral - vasectomy 2023 TIFFANIE Randle MD, [address] [place] [address] Dr, [place], [address], 09/10/2024 11:25:25 Procedures None recorded. Surgeries None recorded. Imaging None recorded. Medication Orders None recorded. Patient TargetsNo targets recorded. Patient Instructions Encounter Date Encounter Id Patient Instructions Last Modified By Organization Details Last Modified Time 09/10/2024 [id number] diet [email or web address] Not available 08/14 10:49:06 exercise [email or web address] Not available 09/10 10:49:06 Reason for Referral Urologist Referral for Vasec santiago requested vasectomy Referring Physician: Linh Gray, Family Medicine, Encounter Date: 09/10/2024 Results Created Date Observation Date Name Description Value Unit Range Abnormal Flag Note LastModifiedBy Organization Detail LastModifiedTime 08/15/20 24 08/09/2024 EKG order addi corral 12 lead Niki Teague [id number] EKG TRANSC [facility] [place] REPORT _ Accoun t: Access ion: Admit: StayTy pe: [id number] E/R Observ ation: Order ID: Submit kee: Chris corral Provid er: 2023 10:40 [id number] BRYCE CALDERÓN _ [place] [id number] Layo Mcclelland al Test Date: 08-09 Pat Name: EMANUEL Rodriguez ment: Layo sheridan ID: [id number] Room: Gender : M Techni dory: : 2000-0 6-11 Reques kee By: CLAIRE GARCIA Order Number : [id number] Zeferino yusuf MD: Tristan gonzalez Measur ements Interv als [place] [facility] Rate: 93 P: 33 MN: 144 QRS: 72 QRSD: 96 T: 0 QT: 352 QTc: 437 Interp retive Statem ents Normal sinus rhythm Possib le Inferi or infarc t , age undete rmined ....si gnific ant Q waves in leads III and aVF with slight ST elevat ions which could be early repola rizati on varian t. No previo us ECG availa ble for compar marisela Electr onical ly Signed On 19:19: 47 EDT by Tristan gonzalez INTERFACE [facility] (Lab) [address] [place] [address], [address], 08/15/2024 01:43:10 Result Notes None recorded. Problems Name Problem SNOMED Code Status Onset Date Resolution Date Notes Provider Name and Address Organization Details Recorded Time Acne 92312320 Active 2013 Ivone mina serrato [facility] 4 09:48:15 Tobacco use cessatio n educatio n Active 2015 [facility] Dayday serrato [facility] 4 09:51:00 [facility] 118575605 [facility] 4 09:50:21 Psychoac tive substanc e-induce d intoxica tion 3211952816 Completed 201603/16/2017 02/16/20 17 - Comments only - Theresa Pettit MD - he admits to recent use of cocaine, hallucin ogenic mushroom s and marijuan a. Agreed to seek further medical and psychiat aj care at [facility] ED. Parents drove him there. ED staff notified and his safe arrival there was confirme d. Problem Code: F19.929; Problem Code Type: ICD-10; Not Available [facility] 3 05:25:52 History of psychiat aj disorder 560872717 Active 2016 [facility] 4 09:49:22 Psychoti c disorder 03870708 Active 2016 [facility] 4 09:50:33 Cannabis abuse 75295338 Active 2016 [facility] 4 09:48:30 Developm ental academic disorder 1306621 Active 2016 [facility] 4 09:48:44 Generali zed anxiety disorder 81733647 Active 2016 [facility] 4 09:49:13 Streptoc occal sore throat 26194691 Completed 201701/10/2018 12/27/19 18 - Comments only - aMrgy godoy APRN, RIG OPERATOR-BC - Patient was treated with penicill in on 12/01/17 - did not take course as prescrib ed. Rapid strep positive today. Recurren t strep pharyngi tis versus strep carrier with viral infectio n. Will treat with augmenti n - reviewed dosing regimen, patient verbaliz ed understa nding. F/U if worsenin g sx, or if sx do not resolve. Problem Code: J02.0; Problem Code Type: ICD-10; Not Available [facility] 3 05:25:53 Pure hypergly ceridemi a 586310736 Active 2017 [facility] 4 09:50:39 Hypergly cemia 87431262 Active 2017 [facility] 4 09:49:26 Liver enzymes level above referenc e range 521864587 Active 2017 [facility] 4 09:49:47 Abnormal weight gain 266162762 [facility] 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 4 09:48:55 Venereal disease screenin g Active 2020 [facility]. 4 09:51:06 Epididym itis 18976774 Active 2020 [facility] 4 09:48:48 Pain of right testicle 46985829272 508165 Active 2020 Ivone serrato, [facility], [facility]. 4 09:50:29 Nausea and vomiting 59856562 Active 2020 Ivone serrato, [facility]. 4 09:50:13 Long-ter m current use of drug therapy 605337945 [facility] 4 09:49:52 COVID-19 078602236 [facility] 4 09:48:38 Adult health examinat ion Active 2021 [facility] 4 09:48:21 Disorder of bone and articula r cartilag e 618270112 Completed 201402/15/2017 Problem Code: 733.99; Problem Code Type: ICD-9; Not Available [facility] 3 05:26:04 Overweig ht 548786446 Completed 201508/09/2023 06/09/20 16 - Comments only - Theresa Pettit MD - mervint jarred gonzalez 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 Problem Code: E66.3; Problem Code Type: ICD-10; Not Available [facility] 3 05:26:04 Elevated blood-pr essure reading without diagnosi s of hyperten buzz 503096214 Completed 201601/26/2018 Problem Code: R03.0; Problem Code Type: ICD-10; [address], [place], [address] , [facility], [facility]. 4 11:05:37 Acute pharyngi tis 697296824 Completed 201704/04/2018 Problem Code: J02.9; Problem Code Type: ICD-10; Not Available [facility] 3 05:26:05 Psychose xual counseli ng Completed 201511/22/2018 Problem Code: Z70.8; Problem Code Type: ICD-10; Not Available [facility] 3 05:26:06 Saman brian 748346594 Completed 201407/29/2015 Problem Code: M79.7; Problem Code Type: ICD-10; Not Available [facility] 3 05:26:06 Adult health examinat ion Completed 201501/26/2018 Problem Code: Z00.00; Problem Code Type: ICD-10; Ivone Naylor [facility] 4 09:48:21 Well child visit Completed 201406/09/2016 Problem Code: Z00.129; Problem Code Type: ICD-10; Not Available [facility] 3 05:26:07 Cannabis dependen ce 78836662 Completed 201608/09/2023 Problem Code: F12.20; Problem Code Type: ICD-10; Not Available [facility] 3 05:26:09 Juvenile [facility] 357790383 Completed 201411/22/2018 Problem Code: M92.50; Problem Code Type: ICD-10; Not Available [facility] 3 05:26:12 Psychoac tive substanc e abuse 48042064 Completed 201608/09/2023 Problem Code: F19.10; Problem Code Type: ICD-10; Not Available [facility] 3 05:26:13 Manic bipolar I disorder in full remissio n 42657405 Completed 201708/09/2023 04/23/20 19 - Comments only - Agusto Vivas - Zohaib in remissio n. Managed by Psychiat ry, Dr. Fahad Madrigal for ariana corral. Problem Code: F31.74; Problem Code Type: ICD-10; Not Available [facility] 3 05:26:14 Anxiety disorder 325257235 Completed 201911/17/2020 Problem Code: F41.9; Problem Code Type: ICD-10; Not Available [facility] 3 05:26:14 Bipolar I disorder 468909901 Active 2022 Ivoneher Naylor [facility] 4 09:49:00 Vitamin D deficien cy 07717306 Active 2022 Ivnoe Dayday [facility] 4 09:51:10 Erectile dysfunct ion 164095809 Active 2022 [facility] 4 09:49:08 Testicul ar finding 314733750 Active 2022 [facility] 4 09:50:54 Hyperlip idemia 12690151 Active 2022 [facility] 4 09:49:39 Right inguinal hernia 253938540 Active 2023 [facility] 4 09:50:43 Smoker 50524950 Active 2023 [facility] 4 09:50:46 Increase d liver function 09855741 Active 2021 [facility] 4 09:52:30 Elevated blood-pr essure reading without diagnosi s of hyperten buzz 543211019 Active 2023 Problem Code: R03.0; Problem Code Type: ICD-10; MAKEDA TORRES [address], [place], [address] , [facility] 4 11:05:37 Injury of penis 883646535 Active 2023 MAKEDA TORRES [address], [place], [address] , [facility] 4 11:02:28 Increase d libido 96224942 Active 2023 MAKEDA TORRES [address], [place], [address] , [facility] 4 11:02:49 Gastroes ophageal reflux disease 821279821 Active 2023 MAKEDA TORRES [address], [place], [address] , [facility] 4 11:04:43 Right upper quadrant pain 484851222 Active [address], [place], [address] , [facility] 4 10:45:09 Problem Notes None recorded. Medical Equipment None Reported. Allergies No known drug allergies Medications Name Sig Start Date Stop Date Status Note LastModified by Organization Details LastModified Time azithromy kevin 250 mg tablet Take 4 tablet by mouth single dose 06/02 completed Not Available Not Available Not Available Zyprexa 10 mg tablet 1 tab q HS 03/[address] Parkinson (psychia [facility] [place]) Not Available Not Available Not Available methylphe nidate 10 mg tablet TAKE ONE TABLET BY MOUTH EVERY DAY AT 1PM. FOR ADHD 09/27 completed Not Available Not Available Not Available methylphe nidate 20 mg tablet TAKE ONE TABLET BY MOUTH EVERY DAY FOR ADHD 09/27 completed Not Available Not Available Not Available Ativan 1 mg tablet 1/2 tab in AM, 1 tab q HS 05/22 completed Not Available Not Available Not Available methylphe nidate 5 mg tablet TAKE 2 TABLETS BY MOUTH DAILY 09/27 completed Not Available Not Available Not Available olanzapin e 5 mg tablet 5 mg in the AM 15 mg in the PM 12/01 completed Not Available Not Available Not Available penicilli n V potassium 500 mg tablet 1 tab twice daily 12/11 completed Not Available Not Available Not Available lithium carbonate 150 mg capsule Take 1 capsule by mouth twice a day 07/27 completed Not Available Not Available Not Available hydroxyzi ne HCl 50 mg tablet TAKE ONE TABLET BY MOUTH AT BEDTIME FOR ANXIETY & INSOMNIA USE 1/2 TABLET IF OVERLY SEDATING 09/27 completed Not Available Not Available Not Available olanzapin e 2.5 mg tablet 09/27 completed Not Available Not Available Not Available omeprazol e 40 mg capsule,d elayed release Take 1 capsule by mouth once a day 06/25 completed Not Available Not Available Not Available tramadol 50 mg tablet TAKE ONE TABLET BY MOUTH EVERY 4 HOURS NEEDED FOR PAIN (SCALE SCOE 7-10) MAXIMUM DAILY DOSE = 6 05/08 completed Not Available Not Available Not Available lorazepam 0.5 mg tablet 1 tab BID prn for anxiety 12/01 completed CV Not Available Not Available Not Available Nicoderm CQ 14 mg/24 hr daily transderm al patch Apply 1 patch external ly daily to hairless area. Rotate skin sites 11/22 completed Not Available Not Available Not Available omeprazol e 20 mg capsule,d elayed release Take 1 capsule by mouth once a day 04/14 completed Not Available Not Available Not Available hydroxyzi ne HCl 25 mg tablet TAKE 1 TABLET BY MOUTH AT BEDTIME NEEDED FOR ANXIETY 05/08 completed through [facility] Not Available Not Available Not Available gabapenti n 100 mg capsule TAKE ONE CAPSULE BY MOUTH THREE TIMES A DAY NOT JUST WHEN YOU HAVE PAIN FOR THE NEXT TWO WEEKS 05/08 completed Not Available Not Available Not Available olanzapin e 20 mg tablet 09/27 completed Not Available Not Available Not Available loratadin e 10 mg tablet 1TAB daily 11/11 completed Not Available Not Available Not Available amoxicill in 875 mg-potass ium clavulana te 125 mg tablet TAKE ONE TABLET BY MOUTH TWICE A DAY FOR 7 DAYS WITH MEALS 05/22 completed Not Available Not Available Not Available Doxycycli ne 100 mg capsule 1TAB twice daily 11/11 completed Not Available Not Available Not Available Ritalin LA 20 mg capsule,e xtended release 1TAB qd 12/26 completed Not Available Not Available Not Available aripipraz ole 20 mg tablet TAKE ONE TABLET BY MOUTH EVERY DAY 09/27 completed Not Available Not Available Not Available aripipraz ole 30 mg tablet TAKE ONE TABLET BY MOUTH AT BEDTIME 09/27 completed Not Available Not Available Not Available Abilify 10 mg tablet Take 2 tabs by mouth daily [address] Parkinson (psychia trist in [place]) ; dose increase d 09/10/19 Not Available Not Available Not Available aripipraz ole 5 mg tablet daily 02/19 completed through [facility] Not Available Not Available Not Available Wellbutri n XL 150 mg 24 hr tablet, extended release 04/14 completed Not Available Not Available Not Available Ritalin LA 10 mg capsule,e xtended release 08/28 completed Not Available Not Available Not Available Benzamyci n gel at bedtime 11/11 completed Not Available Not Available Not Available fluticaso ne propionat e 2 qd 07/02 completed Not Available Not Available Not Available Seroquel 50 mg tablet Take 1 tab by mouth bid prn 11/[address] parkinson 08/01 Not Available Not Available Not Available Abilify Maintena 400 mg suspensio n,extende d rel. intramusc ular syringe monthly active Not Available Not Available Not Available melatonin 10 mg-lemon balm leaf extract 1 mg tablet 2 tabs qhs 2018 active Not Available Not Available Not Avai lable Weekly-D 1,250 mcg (50,000 unit) capsule Take 1 capsule by mouth once a week 09/27 completed Not Available Not Available Not Available Vitals Date Recorded Body height Body mass index (BMI) Body weight Body temperature Oxygen saturation Oxygen saturation in Arterial blood by Pulse oximetry Heart rate Systolic blood pressure Diastolic blood pressure Provider Name and Address Organization Details Last Updated DateTime 4 177.8 cm 43.8 kg/m2 185503. 67 g 98.7 [degF] 98 % 98 % 112 /min 128 mm[Hg] 82 mm[Hg] Jamila Cabrera [facility] 08:59:48 Social History Question Answer Notes LastModified by Organizat ion Details LastModified Time Tobacco Smoking Status Current Every Day Smoker ADOLFO HUSSEIN, [facility] 10/25/2023 08:34:05 What Was The Date Of Your Most Recent Tobacco Screening? 05/22/2024 Information not available 05/22/2024 What Is Your Current Pack Years? 10-19packyea rs Information not available 10/25/2023 At What Age Did You Start Smoking Tobacco? 12 Information not available 10/25/2023 How Much Tobacco Do You Smoke? 0.5 PPD [email or web address] Information not available 02/20/2024 Has Tobacco Cessation Counseling Been Provided? Yes [email or web address] Information not available 11/29/2023 On What Date Was Tobacco Cessation Counseling Provided? 05/22/2024 Declines Information not available 05/22/2024 How Many Years Have You Smoked Tobacco? 11 Information not available 10/25/2023 Do You Or Have You Ever Used Any Other Forms Of Tobacco Or Nicotine? No [email or web address] Information not available 11/29/2023 Sex: Male Functional Status None recorded. Mental Status None recorded. Family History Nothing Reported. Medical History No medical history recorded. Immunizations Vaccine Type Date Status Provider Name and Address Organization Details Recorded Time MMR 04/02/2003 completed Not Available [facility] 04:35:28 MMR 04/30/1999 completed Not Available [facility] 04:35:28 Td (adult), 2 Lf tetanus toxoid, preservative free, adsorbed 07/27/2022 completed Not Available [facility] 09/22/2023 04:35:28 meningococcal MCV4P 06/19/2012 completed Not Available [facility] 09/22/2023 04:35:29 meningococcal MCV4P 08/28/2015 completed Not Available [facility] 09/22/2023 04:35:29 Tdap 07/02/2010 completed Not Available [facility] 04:35:29 Influenza, split virus, quadrivalent, PF 07/27/2022 completed Not Available [facility] 09/22/2023 04:35:29 Pneumococcal Conjugate, unspecified formulation 06/26/2000 completed Not Available [facility] 09/22/2023 04:35:29 Hib, unspecified formulation 1998 completed Not Available [facility] 09/22/2023 04:35:29 Hib, unspecified formulation 1998 completed Not Available [facility] 09/22/2023 04:35:30 DTaP 04/02/2003 completed Not Available [facility] 04:35:30 DTaP 04/30/1999 completed Not Available [facility] 04:35:30 DTaP 1998 completed Not Available [facility] 04:35:30 DTaP 1998 completed Not Available [facility] 04:35:30 DTaP 1998 completed Not Available [facility] 04:35:30 COVID-19, mRNA, LNP-S, PF, 100 mcg/0.5mL dose or 50 mcg/0.25mL dose 07/02/2021 completed Not Available [facility] 09/22/2023 04:35:30 COVID-19, mRNA, LNP-S, PF, 100 mcg/0.5mL dose or 50 mcg/0.25mL dose 07/30/2021 completed Not Available [facility] 09/22/2023 04:35:30 varicella 04/30/1999 completed Not Available [facility] 04:35:31 varicella 06/18/2007 completed Not Available [facility] 04:35:31 pneumococcal polysaccharide PPV23 11/22/2018 completed Not Available [facility] 2022 04:35:31 Hep B, unspecified formulation 1998 completed Not Available [facility] 09/22/2023 04:35:31 Hep B, unspecified formulation 1998 completed Not Available [facility] 09/22/2023 04:35:31 Hep B, unspecified formulation 1998 completed Not Available [facility] 09/22/2023 04:35:31 HPV, quadrivalent 12/06/2013 completed Not Available [facility] 09/22/2023 04:35:31 HPV, quadrivalent 06/03/2013 completed Not Available [facility] 09/22/2023 04:35:32 HPV, quadrivalent 08/05/2013 completed Not Available [facility] 09/22/2023 04:35:32 polio, unspecified formulation 04/02/2003 completed Not Available [facility] 09/22/2023 04:35:32 polio, unspecified formulation 04/30/1999 completed Not Available [facility] 09/22/2023 04:35:32 polio, unspecified formulation 1998 completed Not Available [facility] 09/22/2023 04:35:32 polio, unspecified formulation 1998 completed Not Available [facility] 09/22/2023 04:35:32 polio, unspecified formulation 1998 completed Not Available [facility] 09/22/2023 04:35:32 Past Encounters Encounter ID Performer Location Encounter Start Date Encounter Closed Date Diagnosis/Indication Diagnosis SNOMED-CT Code Diagnosis ICD10 Code [id number] LINH GRAY, [address] [address] 09/10/2024 08:51:45 09/10/2024 09:53:31 Vasectomy requested 596354035 Z30.2 Liver enzy mes level above reference range 456975542 R74.01 Hyperlipidemia 07375680 E78.5 Right uppe r quadrant pain 361518585 R10.11 Obesity 210409753 E66.9 R03.0 Smoker 22543782 F17.200 Bipolar I disorder 35669 6008 F31.9 Health Concerns Section Related Observation LastModified by Organization Detai ls LastModified Time None Recorded Concern Status LastModified by Organization Details LastModified Time None Recorded Payers Encounter Date Sequence Insurance Name Policy Number Policy Daniel Covered Member ID Daniel Member ID Guarantor Name 09/10/2024 1 [place] [facility] [id number] Emanuel S Sweet [id number] Emanuel S Sweet Notes Date Note Type Note Provider Name and Address Organization Details Recorded Time 09/10/2024 text/html HPI Notes: 24-ye ar-old male, reports experiencing intermittent severe cramping pain on his right side, specifically under the right breast area. The pain typically lasts for 15 to 30 seconds but has lasted up to two or three minutes on one occasion, prompting a visit to the ER last month. The patient denies any specific triggers or alleviating factors for the pain, stating that it subsides on its own. He has a history of elevated liver enzymes and cholesterol, as well as being overweight and a current smoker. Expecting his second child soon and is considering a vasectomy. He has a history of penis pain, which resolved on its own after a week. He is currently receiving monthly Abilify injections from [facility] for mood stabilization, which he reports as effective. 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 He plans to take two weeks off from work after the of his second child. He is aware of the need to improve his diet, lose weight, and quit smoking. LINH GRAY, RIG OPERATOR [address], [place], [address], [facility]. 09/10/2024 10:49:30
--- OUTSIDE RECORDS SUMMARY | 2024-09-10 21:25 | XMS_ITS | Data Portability ---
Author Organization [place] - [facility], [facility] Address [address] [place] [address] Assessment Encounter Date Assessment Date Assessment LastModified by Organization Details LastModified Time 02/20/2024 02/20/2024 The total time devoted to today's encounter, including both the morw-ja-snne time with the patient and/or family/caregiv er and hjh-ztbd-qb-fa ce time I personally spent is 30 minutes. [email or web address] Not available 02/20/2024 11:01:48 05/22/2024 05/22/2024 The total time devoted to today's encounter, including both the bnpi-ww-hliw time with the patient and/or family/caregiv er and jwl-mjut-fq-fa ce time I personally spent is 35 minutes. .The patient is a 24-year-old male with a history of obesity, nicotine dependence, and bipolar disorder. His mood is stable on Abilify injections, but he requires attention to his weight management, smoking cessation, and blood pressure control. [email or web address] Not available 05/22/2024 09:36:32 06/11/2024 06/11/2024 The total time devoted to today's encounter, including both the nbdh-zj-yzim time with the patient and/or family/caregiv er and gjy-rzsw-om-fa ce time I personally spent is 30 minutes. The patient is a 24-year-old male presenting with acid reflux, abdominal cramps, back pain, and concerns about a recent penile injury. The acid reflux is likely related to his poor diet, smoking, and caffeine intake, and may be exacerbated by stress. The abdominal cramps and back pain could be due to his occupation or other underlying conditions. The penile injury is causing pain, difficulty getting an erection, and blood in the urine, and may require further evaluation by a urologist. [email or web address] Not available 06/11/2024 11:03:40 09/10/2024 09/10/2024 The total time devoted to today's encounter, including both the kekt-de-aach time with the patient and/or family/caregiv er and chy-uire-my-fa ce time I personally spent is 25 minutes in visit, 5 minutes prep, 5 minutes charting; total 35 minutes. [email or web address] Not available 09/10/2024 10:49:20 Plan of Treatment Reminders Order Date Submit Date Provider Last Modified By Organization Details Last Modified Time Details Appointments Follow Up 2023 09:10A M LINH ISAAC Not available Not available Not available Follow Up 2024 09:00A M LINH ISAAC Not available Not available Not available Lab lipid panel, serum - L AC 2023 024 [facility] (Registration ), [address] [place] [address] , [place], [address], 09/10/2024 10:20:35 CMP, serum or plasma - L AC 2023 024 [facility] (Registration ), [address] [place] [address] [place], [address], 09/10/2024 15:39:41 Referral urologist referral 2023 024 [email or web address] Wellington Condon MD, [address] [facility], [place], [address], 06/17/2024 11:53:54 urologist referral - vasectomy 2023 024 TIFFANIE Randle MD, [address] [place] [address] [place], [address], 09/10/2024 11:25:25 Procedures None recorded. Surgeries None recorded. Imaging None recorded. Medication Orders amoxicill in 875 mg-potass ium clavulana te 125 mg tablet 2023 024 [employer] [address], [place], [address], 05/22/2024 09:00:02 Patient TargetsNo targets recorded. Patient Instructions Encounter Date Encounter Id Patient Instructions Last Modified By Organization Details Last Modified Time 05/22/2024 [id number] It was nice to see you! I recommend getting 30+ mins of exercise most days, maximizing fruit and vegetable intake, eating healthy fats, and limiting carbohydrates, especially simple carbs (soda, pasta, bread, cookies, cereals). - Continue monthly Abilify injections for bipolar disorder management. - Cut down on smoking and consider acupuncture for smoking cessation. - Improve diet and portion control to aid in weight management. - Increase physical activity, such as walking or biking. - Monitor blood pressure and seek medical attention if it worsens. - Attend follow-up appointments to monitor progress and discuss any concerns. Take Care! [email or web address] Not available 05/22/2024 09:35:31 06/11/2024 [id number] - Take hqtr-skm-aveuhql famotidine (Pepcid) as directed for acid reflux - Improve diet, reduce smoking, and address stress - Follow up with a urologist for penile injury evaluation - Monitor and report any worsening or persistent pain in the abdomen, back, or chest [email or web address] Not available 06/11/2024 10:51:42 09/10/2024 [id number] diet [email or web address] Not available 08/14 10:49:06 exercise [email or web address] Not available 09/10 10:49:06 Reason for Referral Urologist Referral for Injur y of penis Referring Physician: [facility], Encounter Date: 06/11/2024 Urologist Referral for Vasec santiago requested vasectomy Referring Physician: [facility], Encounter Date: 09/10/2024 Results Created Date Observation Date Name Description Value Unit Range Abnormal Flag Note LastModifiedBy Organization Detail LastModifiedTime 08/09/20 24 08/09/2024 D-DIM ER D-dimer 0.33 mg/L 0.19 - 0.50 ( Marie l refer ence Not Available [facility] (Lab) [address] [facility], [place], [address], 08/09/2024 18:03:23 07/26/20 24 12/14/2018 XR, chest No observ ation record ed. Not Available 07/26 00:49:50 07/26/20 24 03/16/2021 XR, foot, 3 or more view No observ ation record ed. Not Available 07/26 00:50:55 07/26/20 24 03/17/2021 CT, head + neck, w/o contr ast No observ ation record ed. Not Available 07/26 00:50:58 07/26/20 24 07/21/2021 US, testi aurea No observ ation record ed. Not Available 07/26 00:50:59 07/26/20 24 03/17/2021 CT, chest + abdom en + pelvi s, w/ contr ast No observ ation record ed. Not Available 07/26 00:51:00 07/26/20 24 09/11/2023 XR, finge r(s), 2 or more view No observ ation record ed. Not Available 07/26 00:51:01 08/09/20 24 08/09/2024 xr chest 2V Pa and later al [facility] RADIOL [place] [id number] RADIOL OGY TRANSC RIPTIO N REPORT _ Patien t Name: EMANUEL RIZVI MRN: Sex: : Age: [id number] M [id number] Accoun t: Access ion: Admit: StayTy pe: [id number] 024 E Ordere d: Order ID: Submit kee: Chris Infante er: 2023 10:37 [id number] Patricia DAVIS kee: Techno logist : Result ed: 2023 10:42 JJ 2023 11:05 _ EXAMIN ATION: XR CHEST 2V PA AND LATERA L CLINIC AL HISTOR Y: Reason for Chest: Chest Pain Add'l Info: R infero latera l Chest wall pain TECHNI QUE: PA and latera l views of the chest, 2 images COMPAR SHAINA: Chest radiog raph 12/14/19 19 FINDIN GS: Azygos fissur e within the right upper lobe, a normal anatom ic varian t. No airspa ce opacit y to sugges t pneumo marita. No pulmon deep vascul ar conges tion. No peribr onchia l thicke corina or cuffin g. No pneumo thorax . No pleura l effusi ons. Normal size of the cardio medias tinal silhou ette and josé miguel. No acute osseou s findin gs. No free air beneat h the hemidi aphrag ms. IMPRES ANNA: No acute cardio pulmon deep proces s. Thank you for lettin g us partic ipate in the care of this patien t. If you are a health care [facility] and have any questi ons regard ing this report , please contac t the number below. For patien ts who have questi ons please contac t the health care profes sional that reques kee your imagin g first. Electr onical ly signed by: Crispin garcia MD Radiol josefina howard ([phone]), at 11:05 AM INTERFACE [facility] (Lab) [address] [place], [address], 08/09/2024 18:03:22 08/15/20 24 08/09/2024 EKG order addi corral 12 lead [facility] [place] [id number] EKG TRANSC RIPDALEO N REPORT _ Accoun t: Access ion: Admit: StayTy pe: [id number] 024 E/R Observ ation: Order ID: Submit kee: Chris corral Provid er: 2023 10:40 [id number] BRYCE CALDERÓN _ [place] [id number] [facility] Test Date: 08-09 Pat Name: EMANUEL RIZVI Depart ment: Layo sheridan ID: [id number] Room: Gender : Art Technyandy dory: : [birth year] Reques kee By: CLAIRE GARCIA Order Number : [id number] Zeferino yusfu MD: Tristan Shaw re Measur ements Interv als [place] Rate: 93 P: 33 NC: 144 QRS: 72 QRSD: 96 T: 0 QT: 352 QTc: 437 Interp retive Statem ents Normal sinus rhythm Possib le Inferi or infarc t , age undete rmined ....si gnific ant Q waves in leads III and aVF with slight ST elevat ions which could be early repola rizati on varian t. No previo us ECG availa ble for compar shaina Electr onical ly Signed On 024 19:19: 47 EDT by Tristan gonzalez [facility] (Lab) [address] [place] [address], [address], 08/15/2024 01:43:10 Result Notes None recorded. Problems Name Problem SNOMED Code Status Onset Date Resolution Date Notes Provider Name and Address Organization Details Recorded Time Acne 66971589 [facility] 4 09:48:15 Tobacco use cessatio n educatio n Active 2015 Ivone Dayday [facility] 4 09:51:00 Obesity 745871849 Active 2015 Ivoneher Naylor [facility] 4 09:50:21 Psychoac tive substanc e-induce d intoxica tion 5410174710 Completed 201603/16/2017 02/16/20 17 - Comments only - Theresa Pettit MD - he admits to recent use of cocaine, hallucin ogenic mushroom s and marijuan a. Agreed to seek further medical and psychiat aj care at [facility] ED. Parents drove him there. ED staff notified and his safe arrival there was confirme d. Problem Code: F19.929; Problem Code Type: ICD-10; Not Available [facility] 3 05:25:52 History of psychiat aj disorder 655996972 Active 2016 [facility] 4 09:49:22 Psychoti c disorder 33864443 Active 2016 [facility] Dayday [facility] 4 09:50:33 Cannabis abuse 18448349 Active 2016 Ivone Dayday [facility] 4 09:48:30 Developm ental academic disorder 6271623 Active 2016 Ivone Dayday [facility] 4 09:48:44 Generali zed anxiety disorder 32953343 [facility] 4 09:49:13 Streptoc occal sore throat 53584127 Completed 201701/10/2018 12/27/19 18 - Comments only - Margy godoy APRN, [employer] - Patient was treated with penicill in [...] J02.0; Problem Code Type: ICD-10; Not Available [facility] 3 05:25:53 Pure hypergly ceridemi a 287653413 [facility]. 4 09:50:39 Hypergly cemia 52252230 Active 2017 [facility]. 4 09:49:26 Liver enzymes level above referenc e range 710541315 Active 2017 [facility]. 4 09:49:47 Abnormal weight gain 357193928 Active 2018 [facility]. 4 09:48:09 Metaboli c syndrome X 965225297 Active 2018 [facility]. 4 09:50:01 Headache 06839228 Active 2018 [facility]. 4 09:51:28 Tachycar nevin 3016181 Active 2019 [facility]. 4 09:50:51 Intoxica tion caused by central stimulan t 6769378835 [facility] 4 09:49:44 Melena 3343459 Completed 202011/18/2020 Problem Code: K92.1; Problem Code Type: ICD-10; Not Available [facility] 3 05:25:54 Vomiting 329700686 Active 2020 Ivone Dayday [facility] 4 09:51:17 Diarrhea 51635268 Active 2020 [facility] 4 09:49:05 Left upper quadrant pain 585578502 Completed 202012/18/2020 Problem Code: R10.12; Problem Code Type: ICD-10; Not Available [facility] 3 05:25:54 Gastriti s 5488755 Active 2020 [facility] 4 09:48:55 Venereal disease screenin g Active 2020 [facility] 4 09:51:06 Epididym itis 73213455 Active 2020 [facility] 4 09:48:48 Pain of right testicle 34607076223 464653 [facility] 4 09:50:29 Nausea and vomiting 31289762 Active 2020 [facility] 4 09:50:13 Long-ter m current use of drug therapy 107045572 Active 2021 [facility] 4 09:49:52 COVID-19 656245791 Active 2021 Ivone Seibold null, [facility]. 4 09:48:38 Adult health examinat ion Active 2021 Ivone serrato, [facility] 4 09:48:21 Disorder of bone and articula r cartilag e 590723818 Completed 201402/15/2017 Problem Code: 733.99; Problem Code Type: ICD-9; Not Available [facility] 3 05:26:04 [facility] 959[facility] Completed 201508/09/2023 06/09/20 16 - Comments only - Theresa Pettit MD - wgt jarred gonzalez ed con'd reg phys activity at [facility]. 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 Problem Code: E66.3; Problem Code Type: ICD-10; Not Available [facility] 3 05:26:04 Elevated blood-pr essure reading without diagnosi s of hyperten anna 082178217 Completed 201601/26/2018 Problem Code: R03.0; Problem Code Type: ICD-10; LINH GRAY, [employer] [address], [place], [address] , [facility] 4 11:05:37 Acute pharyngi tis 237372662 Completed 201704/04/2018 Problem Code: J02.9; Problem Code Type: ICD-10; Not Available [facility] 3 05:26:05 Psychose xual counseli ng Completed 201511/22/2018 Problem Code: Z70.8; Problem Code Type: ICD-10; Not Available [facility] 3 05:26:06 Fibromya lgia 513059946 Completed 201407/29/2015 Problem Code: M79.7; Problem Code Type: ICD-10; Not Available [facility] 3 05:26:06 Adult health examinat ion Completed 201501/26/2018 Problem Code: Z00.00; Problem Code Type: ICD-10; Ivone serrato, [facility]. 4 09:48:21 Well child visit Completed 201406/09/2016 Problem Code: Z00.129; Problem Code Type: ICD-10; Not Available [facility] 3 05:26:07 Cannabis dependen ce 83806157 Completed 201608/09/2023 Problem Code: F12.20; Problem Code Type: ICD-10; Not Available [facility] 3 05:26:09 [facility] 513439236 Completed 201411/22/2018 Problem Code: M92.50; Problem Code Type: ICD-10; Not Available [facility] 3 05:26:12 Psychoac tive substanc e abuse 32261136 Completed 201608/09/2023 Problem Code: F19.10; Problem Code Type: ICD-10; Not Available [facility] 3 05:26:13 Manic bipolar I disorder in full [facility] 92074433 Completed 201708/09/2023 04/23/20 19 - Comments only - Agusto Vivas - [facility]ohaib in [facility]. Managed by [facility], Dr. Fahad Madrigal for [facility]. Problem Code: F31.74; Problem Code Type: ICD-10; Not Available [facility] 3 05:26:14 Anxiety disorder 836965243 Completed 201911/17/2020 Problem Code: F41.9; Problem Code Type: ICD-10; Not Available [facility] 3 05:26:14 Bipolar I disorder 188502695 Active 2022 Ivone serrato, [facility]. 4 09:49:00 Vitamin D deficien cy 98363061 Active 2022 Ivone Naylor null, [facility]. 4 09:51:10 Erectile dysfunct ion 467103825 Active 2022 Ivone Naylor null, [facility]. 4 09:49:08 Testicul ar finding 567137166 Active 2022 [facility]. 4 09:50:54 Hyperlip idemia 25914679 Active 2022 [facility] 4 09:49:39 Right inguinal hernia 078104289 [facility] 2023 [facility] 4 09:50:43 Smoker 13357803 Active 2023 [facility] 4 09:50:46 Increase d liver function 01943009 Active 2021 [facility] 4 09:52:30 Elevated blood-pr essure reading without diagnosi s of hyperten anna 463496401 Active 2023 Problem Code: R03.0; Problem Code Type: ICD-10; [address], [place], [address] , [facility] 4 11:05:37 Injury of penis 475886894 Active [address], [place], [address] , [facility] 4 11:02:28 Increase d libido 53892008 Active [address], [place], [address] , [facility]. 4 11:02:49 Gastroes ophageal reflux disease 503812316 Active [address], [place], [address] , [facility]. 4 11:04:43 Right upper quadrant pain 923258361 Active [address], [place], [address] , [place] [facility]. 10:45:09 Problem Notes None recorded. Procedures Surgical History None recorded. Imaging Results Imaging Date Name Status LastModified by Organiz ation Details LastModified Time 12/14/2018 XR, chest completed Information no t available 07/26/2024 00:49:50 03/16/2021 XR, foot, 3 or more view completed Information not available 07/26/2024 00:50:55 03/17/2021 CT, head + neck, w/o contrast completed Information not available 07/26/2024 00:50:58 07/21/2021 US, testicle completed Information not available 07/26/2024 00:50:59 03/17/2021 CT, chest + abdomen + pelvis, w/ contrast completed Information not available 07/26/2024 00:51:00 09/11/2023 XR, finger(s), 2 or more view completed Information not available 07/26/2024 00:51:01 08/09/2024 xr chest 2V Pa and lateral completed [facility] (Lab) [address] [place] [address], [address], 08/09/2024 18:03:22 08/09/2024 EKG order tracing 12 lead completed [facility] (Lab) [address] [place] [address], [address], 08/15/2024 01:43:10 Procedure Notes None recorded. Medical Equipment None Reported. Allergies No known drug allergies Medications Name Sig Start Date Stop Date Status Note LastModified by Organization Details LastModified Time azithromy kevin 250 mg tablet Take 4 tablet by mouth single dose 06/02 completed Not Available Not Available Not Available Zyprexa 10 mg tablet 1 tab q HS 03/[address] Parkinson (psychia trist in [place]) Not Available Not Available Not Available methylphe [...] tab BID prn for anxiety 12/01 completed [facility] Not Available Not Available Not Available Nicoderm [...] BEDTIME NEEDED FOR ANXIETY 05/08 completed through [facility] Not Available Not Available Not Available gabapenti [...] mouth daily [address] Parkinson (psychia [facility] in [place]) ; dose increase d 09/10/19 Not Available Not Available Not Available aripipraz ole 5 mg tablet daily 02/19 completed through [facility] Not Available Not Available Not Available Wellbutri [...] Details Last Updated DateTime 4 177.8 cm 42.2 kg/m2 289429. 16 g 97.9 [degF] 96 % 96 % 97 /min 126 mm[Hg] 90 mm[Hg] RADHA AVELAR RN [facility], [facility] 4 10:04:23 Date Recorded Body height Body mass index (BMI) Body weight Body temperature Oxygen saturation Oxygen saturation in Arterial blood by Pulse oximetry Heart rate Systolic blood pressure Diastolic blood pressure Provider Name and Address Organization Details Last Updated DateTime 4 177.8 cm 42.2 kg/m2 029713. 26 g 97.7 [degF] 96 % 96 % 105 /min 128 mm[Hg] 86 mm[Hg] KARYN THORNTON LPN [facility], [facility] 4 09:27:36 Date Recorded Body height Oxygen saturation Oxygen saturation in Arterial blood by Pulse oximetry Heart rate Body temperature Body mass index (BMI) Body weight Systolic blood pressure Diastolic blood pressure Provider Name and Address Organization Details Last Updated DateTime 4 177.8 cm 96 % 96 % 106 /min 97.5 [degF] 42.2 kg/m2 818941. 16 g 134 mm[Hg] 84 mm[Hg] DONN CASTREJON RN [facility], [facility] 4 09:03:43 Date Recorded Body height Body mass index (BMI) Body weight Body temperature Oxygen saturation Oxygen saturation in Arterial blood by Pulse oximetry Heart rate Systolic blood pressure Diastolic blood pressure Provider Name and Address Organization Details Last Updated DateTime 4 177.8 cm 42.5 kg/m2 384007. 34 g 98 [degF] 96 % 96 % 92 /min 136 mm[Hg] 82 mm[Hg] KARYN THORNTON LPN [facility] 4 10:23:33 Date Recorded Body height Body mass index (BMI) Body weight Body temperature Oxygen saturation Oxygen saturation in Arterial blood by Pulse oximetry Heart rate Systolic blood pressure Diastolic blood pressure Provider Name and Address Organization Details Last Updated DateTime 4 177.8 cm 43.8 kg/m2 187187. 67 g 98.7 [degF] 98 % 98 % 112 /min 128 mm[Hg] 82 mm[Hg] Jamila Rick [facility] 4 08:59:48 Social History Question Answer Notes LastModified by Organizat ion Details LastModified Time Tobacco Smoking Status Current Every Day Smoker KARYN THORNTON LPN [facility] 10/25/2023 08:34:05 What Was The Date Of Your Most Recent Tobacco Screening? 05/22/2024 Information not available 05/22/2024 What Is Your Current Pack Years? 10-19packyea rs Information not available 10/25/2023 At What Age Did You Start Smoking Tobacco? 12 Information not available 10/25/2023 How Much Tobacco Do You Smoke? 0.5 PPD [email or web address] Information not available 02/20/2024 Has Tobacco Cessation Counseling Been Provided? Yes [email or web address] Information not available 11/29/2023 On What Date Was Tobacco Cessation Counseling Provided? 05/22/2024 Declines Information not available 05/22/2024 How Many Years Have You Smoked Tobacco? 11 Information not available 10/25/2023 Do You Or Have You Ever Used Any Other Forms Of Tobacco Or Nicotine? No Information not available 11/29/2023 Sex: Male Functional Status None recorded. Mental Status None recorded. Family History Nothing Reported. Medical History No medical history recorded. Immunizations Vaccine Type Date Status Provider Name and Address Organization Details Recorded Time MMR 04/02/2003 completed Not Available [facility] 04:35:28 MMR 04/30/1999 completed Not Available [facility] 04:35:28 Td (adult), 2 Lf tetanus toxoid, preservative free, adsorbed 07/27/2022 completed Not Available [facility] 09/22/2023 04:35:28 meningococcal MCV4P 06/19/2012 completed Not Available [facility] 09/22/2023 04:35:29 meningococcal MCV4P 08/28/2015 completed Not Available [facility] 09/22/2023 04:35:29 Tdap 07/02/2010 completed Not Available [facility] 04:35:29 Influenza, split virus, quadrivalent, PF 07/27/2022 completed Not Available [facility] 09/22/2023 04:35:29 Pneumococcal Conjugate, unspecified formulation 06/26/2000 completed Not Available [facility] 09/22/2023 04:35:29 Hib, unspecified formulation 1998 completed Not Available [facility] 09/22/2023 04:35:29 Hib, unspecified formulation 1998 completed Not Available [facility] 09/22/2023 04:35:30 DTaP 04/02/2003 completed Not Available [facility] 04:35:30 DTaP 04/30/1999 completed Not Available [facility] 04:35:30 DTaP 1998 completed Not Available [facility] 04:35:30 DTaP 1998 completed Not Available [facility] 04:35:30 DTaP 1998 completed Not Available [facility] 04:35:30 COVID-19, mRNA, LNP-S, PF, 100 mcg/0.5mL dose or 50 mcg/0.25mL dose 07/02/2021 completed Not Available [facility] 09/22/2023 04:35:30 COVID-19, mRNA, LNP-S, PF, 100 mcg/0.5mL dose or 50 mcg/0.25mL dose 07/30/2021 completed Not Available [facility] 09/22/2023 04:35:30 varicella 04/30/1999 completed Not Available [facility] 04:35:31 varicella 06/18/2007 completed Not Available [facility] 04:35:31 pneumococcal polysaccharide PPV23 11/22/2018 completed Not Available [facility] 2022 04:35:31 Hep B, unspecified formulation 1998 completed Not Available [facility] 09/22/2023 04:35:31 Hep B, unspecified formulation 1998 completed Not Available [facility] 09/22/2023 04:35:31 Hep B, unspecified formulation 1998 completed Not Available [facility] 09/22/2023 04:35:31 HPV, quadrivalent 12/06/2013 completed Not Available [facility] 09/22/2023 04:35:31 HPV, quadrivalent 06/03/2013 completed Not Available [facility] 09/22/2023 04:35:32 HPV, quadrivalent 08/05/2013 completed Not Available [facility] 09/22/2023 04:35:32 polio, unspecified formulation 04/02/2003 completed Not Available [facility] 09/22/2023 04:35:32 polio, unspecified formulation 04/30/1999 completed Not Available [facility] 09/22/2023 04:35:32 polio, unspecified formulation 1998 completed Not Available [facility] 09/22/2023 04:35:32 polio, unspecified formulation 1998 completed Not Available [facility] 09/22/2023 04:35:32 polio, unspecified formulation 1998 completed Not Available [facility] 09/22/2023 04:35:32 Past Encounters Encounter ID Performer Location Encounter Start Date Encounter Closed Date Diagnosis/Indication Diagnosis SNOMED-CT Code Diagnosis ICD10 Code [id number] MAKEDA TORRES [address] [address] 09/27/2023 08:12:39 09/27/2023 10:04:46 Bipolar I disorder 912218327 F31.9 Generalize d anxiety disorder 90154526 F41.1 Vitamin D deficiency 347 51114 E55.9 Active or passive immunization 097216025 Z23 [facility] examination 086372652 Z00.00 Venereal d isease screening 291752727 Z11.[id number] [address] 10/25/2023 08:17:01 10/25/2023 09:14:46 Bipolar I disorder 053995792 F31.9 Generalize d anxiety disorder 80324237 F41.1 Obesity 616170164 E66.9 Pain of ri ght testicle 9150759420 7711236 N50.811 Hyperlipidemia 83538036 E78.[id number] [address] 11/28/2023 08:41:10 11/28/2023 09:37:45 Right inguinal hernia 087282935 K40.90 Bipolar I disorder 62559 6008 F31.9 Generalize d anxiety disorder 49661875 F41.1 Hyperlipidemia 54193493 E78.5 Obesity 779564428 E66.[id number] [address] 11/29/2023 10:07:23 11/29/2023 10:44:29 Pain of right testicle 1113320273 5458850 N50.[id number] [address] 02/20/2024 09:50:50 02/20/2024 10:44:40 Bipolar I disorder 156771020 F31.9 Generalize d anxiety disorder 92127483 F41.1 Right inguinal hernia 23 4451526 K40.90 Smoker 84805994 F17.200 Obesity 032619516 E66.9 R03.0 [id number] Valencia Adrian PA-C [address] [address] 05/08/2024 09:21:33 05/08/2024 09:59:04 Acute bilateral otitis media 948820187 H66.93 [id number] DONN CASTREJON RN [address] [address] 05/22/2024 08:54:38 05/22/2024 09:28:00 Obesity 418943514 E66.9 R03.0 Smoker 48842492 F17.200 Bipolar I disorder 76836 6008 F31.9 Elevated blood-pressure reading without diagnosis of hypertension 651289273 R03.[id number] [address] 06/11/2024 10:17:13 06/11/2024 10:52:53 Injury of penis 219452135 S30.93XA Gastroesop hageal reflux disease 425205807 K21.9 [id number] LINH GRAY [address] [address] 09/10/2024 08:51:45 09/10/2024 09:53:31 Vasectomy requested 800735646 Z30.2 Liver enzy mes level above reference range 214575242 R74.01 Hyperlipidemia 75609034 E78.5 Right uppe r quadrant pain 900684986 R10.11 Obesity 102363070 E66.9 R03.0 Smoker 29521975 F17.200 Bipolar I disorder 46264 6008 F31.9 Health Concerns Section Related Observation LastModified by Organization Detai ls LastModified Time None Recorded Concern Status LastModified by Organization Details LastModified Time None Recorded Advance Directives Directive None Recorded Payers Encounter Date Sequence Insurance Name Policy Number Policy Daniel Covered Member ID Daniel Member ID Guarantor Name 02/20/2024 1 [place] [employer] [place] [id number] Emanuel S Sweet [id number] Emanuel S Sweet 05/08/2024 1 [place] [employer] [place] [id number] Emanuel S Sweet [id number] Emanuel S Sweet 05/22/2024 1 [place] [employer] [place] [id number] Emanuel S Sweet [id number] Emanuel S Sweet 06/11/2024 1 [place] [employer] [place] [id number] Emanuel S Sweet [id number] Emanuel Rizvi 09/10/2024 1 [place] [facility] [id number] Emanuel Rizvi [id number] Emanuel Rizvi Notes Date Note Type Note Provider Name and Address Organization Details Recorded Time 02/20/2024 text/html HPI Notes: 23-ye ar-old male patient for follow-up of mood, hypertension and right inguinal hernia. He reports that he has been doing well. Just celebrated his son's birthday. 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 Right inguinal hernia surgery scheduled at [facility] for 03/05. Currently still working but not able to do strenuous activity. Continue with mental health appointments. Changed from every week to every other week. Is only on Abilify monthly injections. Smoking - continues to smoke 1/2 ppd Denies any fever, chills, chest pain, shortness of breath, headache. Denies any GI complaints. LINH GRAY, TINSMITH APPRENTICE [address], [place], [address], [facility]. 02/20/2024 11:50:19 05/08/2024 text/html HPI Notes: Pt is a 24 y/o M here for b/l ear pain that began last night. Described as pressure and radiates to the side of his head. Pt states it is worse in left ear than right. 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 Has tried APAP and ibuprofen without relief. Denies fever, chills, nasal congestion, recent URI, headache, dizziness,decreased hearing, head injury, ear discharge. +smoker. Valencia Adrian PA-C [address], [place], [address], [facility]. 05/08/2024 09:47:41 05/22/2024 text/html HPI Notes: The p atient is here for a routine follow-up and discussion of weight management, smoking cessation, and general health. The patient is a 24-year-old male with a history of obesity, nicotine dependence, and bipolar disorder. He reports no recent concerns regarding his bipolar disorder and confirms that he is receiving monthly Abilify injections, which are helping to stabilize his mood. The patient is a smoker, consuming half a pack of cigarettes per day. He expresses his interest in cutting down his smoking habit and is open to trying acupuncture for smoking cessation. The patient's blood pressure is slightly elevated at 134/84, and he is advised to work on improving his diet and cutting down on smoking to help lower his blood pressure. The patient's weight remains stable at 294 lbs, but his BMI is above 40, indicating obesity. He acknowledges the need to improve his diet and reduce his weight. 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 - He smokes half a pack of cigarettes per day and uses marijuana two to three times a week. - His partner is currently , and they have a 2-year-old son. - Stable housing situation (homeowner for three years) DONN [facility] [place] [facility] 05/22/2024 09:47:49 06/11/2024 text/html HPI Notes: Tony martinez presents with acid reflux, abdominal cramps, back pain, and concerns about a recent penile injury. Acid Reflux: Patient is a 24-year-old male who has been experiencing acid reflux for a couple of weeks. The reflux occurs mostly after eating and is present a lot of the time. The patient's diet is poor, and he is trying to drink more water. He smokes five cigarettes a day but is trying to slow down. He has not taken any kzgo-egv-ryakhye medication for the reflux yet. Abdominal Cramps and Back Pain: The patient has been experiencing cramps on the side of his stomach and back pain, especially when twisting around at work. He believes this is normal due to his job but is concerned about the pain. Chest Pain: The patient occasionally experiences chest pain. Penile Injury: The patient sustained a penile injury during intercourse five days ago, which resulted in pain, difficulty getting an erection, and some blood in the urine. SH - Employment: Works at a job involving twisting motions - Smokin cigarettes per day, trying to cut down - Alcohol: No current alcohol consumption, but craving it - Caffeine: Consumes caffeine - Stress: Expecting second child in September, causing stress LINH GRAY, MAKEDA [address], [place], [address], [facility]. 06/11/2024 11:05:02 09/10/2024 text/html HPI Notes: 24-ye ar-old male, [...] is currently receiving monthly Abilify injections from [facility] for mood stabilization, which he reports as effective. 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 He plans to take two weeks off from work after the of his second child. He is aware of the need to improve his diet, lose weight, and quit smoking. LINH GRAY, MAKEDA [address], [place], [address], [facility]. 09/10/2024 10:49:30
--- OUTSIDE RECORDS SUMMARY | 2024-09-10 21:25 | XMS_ITS | Continuity of Care Document ---
Author Organization [place] [facility], [facility] / [facility] Address [address] [place] [address] Assessment Encounter Date Assessment Date Assessment LastModified by Organization Details LastModified Time 06/11/2024 06/11/2024 The total time devoted to today's encounter, including both the hsin-mi-aodc time with the patient and/or family/caregiv er and tvw-dduw-bz-fa ce time I personally spent is 30 [...] may require further evaluation by a urologist. [email or web address] Not available 06/11/2024 11:03:40 Plan of Treatment Reminders Order Date Submit Date Provider Last Modified By Organization Details Last Modified Time Details Appointments Follow Up 2023 09:10A M LINH ISAAC Not available Not available Not available Follow Up 2024 09:00A M LINH ISAAC Not available Not available Not available Lab None recorded. Referral urologist referral 2023 024 Wellington Condon MD, [address] [facility], [place], [address], 06/17/2024 11:53:54 Procedures None recorded. Surgeries None recorded. Imaging None recorded. Medication Orders None recorded. Patient TargetsNo targets recorded. Patient Instructions Encounter Date Encounter Id Patient Instructions Last Modified By Organization Details Last Modified Time 06/11/2024 [id number] - Take oqur-onn-znaiqxx famotidine (Pepcid) as directed for acid reflux - Improve diet, reduce smoking, and address stress - Follow up with a urologist for penile injury evaluation - Monitor and report any worsening or persistent pain in the abdomen, back, or chest [id number] Not available 06/11/2024 10:51:42 Reason for Referral Urologist Referral for Injur y of penis Referring Physician: Linh Gray, Family Medicine, Encounter Date: 06/11/2024 Results Created Date Observation Date Name Description Value Unit Range Abnormal Flag Note LastModifiedBy Organization Detail LastModifiedTime 07/26/2012/14/2018 XR, chest No observ ation record ed. [...] ation record ed. Not Available 07/26 00:51:00 07/26/2009/11/2023 XR, finge r(s), 2 or more view No observ ation record ed. Not Available 07/26 00:51:01 08/09/20 24 08/09/2024 xr chest 2V Pa and later al [facility] RADIOL O[place] [id number] RADIOL OGY TRANSC RIPTIO N REPORT _ Patien t Name: EMANUEL RIZVI MRN: Sex: : Age: [id number] Accoun t: Access ion: Admit: StayTy pe: [id number] 024 E Ordere d: Order ID: Submit kee: Orderi ng Provid er: 2023 10:37 [id number] Patricia DAVIS kee: Techno logist : Result [...] free air beneat h the hemidi aphrag msGurvinder IMPRES ANNA: No acute cardio pulmon deep proces s. Thank you for katie levi partic ipate in the care of this patien t. If you are a health care [facility] and have any questi ons regard ing this report , please contac t the number below. For kieran ts who have questi ons please contac t the health care dale acuña that reques kee your imagin g first. Electr onical ly signed by: Crispin garcia MD [facility] josefina howard ([phone]), at 024 11:05 AM INTERFACE [facility] (Lab) [address] [place] [address], [address], 08/09/2024 18:03:22 08/15/20 24 08/09/2024 EKG order addi corral 12 lead [facility] [place] Niki quach [id number] EK TRANSC GINA Howard REPORT _ Accoun t: Access ion: Admit: StayTy pe: [id number] 927 024 E/R Observ ation: Order ID: Submit kee: Chris corral Provid er: 2023 10:40 [id number] BRYCE CALDERÓN _ [place] [id number] [facility] Date: 08-09 Pat Name: EMANUEL RIZVI Jennifer ment: Layo sheridan ID: [id number] Room: Gender : Art Scott dory: : [birth year] Reques kee By: CLAIRE GARCIA Order Number : [id number] Zeferino yusuf MD: Tristan gonzalez [employer]asur ements Interv als Warner Rate: 93 P: 33 OR: 144 QRS: 72 QRSD: 96 T: 0 [...] compar shaina Electr onical ly Signed On 19:19: 47 EDT by Tristan gonzalez INTERFACE [facility] (Lab) [address] [place] [address], [address], 08/15/2024 01:43:10 Result Notes None recorded. Problems Name Problem SNOMED Code Status Onset Date Resolution Date Notes Provider Name and Address Organization Details Recorded Time Acne 86178216 Active 2013 Ivone serrato [facility], [facility] 4 09:48:15 Tobacco use cessatio n educatio n Active 2015 Ivone serrato [facility], [facility]. 4 09:51:00 Obesity 893748336 Active 2015 Ivone serrato [facility], [facility]. 4 09:50:21 Psychoac tive substanc e-induce d intoxica tion 0321415119 Completed 201603/16/2017 02/16/20 17 - Comments only - Theresa Pettit MD - he admits to recent use of cocaine, hallucin ogenic mushroom s and marijuan a. Agreed to seek further medical and psychiat aj care [place] [facility] Parents drove him there. ED staff notified and his safe arrival there was confirme d. 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 Active 2016 [facility] 4 09:48:44 Generali zed anxiety disorder 46618882 Active 2016 [facility] 4 09:49:13 Streptoc occal sore throat 04919478 Completed 201701/10/2018 12/27/19 18 - Comments only - MAKEDA Jimenez APRN-BC - Patient was treated with penicill in [...] J02.0; Problem Code Type: ICD-10; Not Available [facility] 3 05:25:53 Pure hypergly ceridemi a 470995163 Active 2017 [facility] 4 09:50:39 Hypergly cemia 79214426 Active 2017 [facility] 4 09:49:26 Liver enzymes level above referenc e range 471075416 Active 2017 [facility] 4 09:49:47 Abnormal weight gain 742061751 Active 2018 [facility] 4 09:48:09 Metaboli c syndrome X 785393900 Active 2018 [facility] 4 09:50:01 Headache 33420183 Active 2018 [facility] 4 09:51:28 Tachycar nevin 9008502 Active 2019 [facility] 4 09:50:51 Intoxica tion caused by central stimulan t 2107593602 Active 2019 [facility] 4 09:49:44 Melena 4761197 Completed 202011/18/2020 Problem Code: K92.1; Problem Code Type: ICD-10; Not Available [facility] 3 05:25:54 Vomiting 262000642 Active 2020 [facility] 4 09:51:17 Diarrhea 58507762 Active 2020 [facility] 4 09:49:05 Left upper quadrant pain 677846154 Completed 202012/18/2020 Problem Code: R10.12; Problem Code Type: ICD-10; Not Available [facility] 3 05:25:54 Gastriti s 8933325 Active 2020 [facility] 4 09:48:55 Venereal disease screenin g Active 2020 [facility] 4 09:51:06 Epididym itis 94339574 Active 2020 [facility] 4 09:48:48 Pain of right testicle 77089450663 021460 Active 2020 [facility] 4 09:50:29 Nausea and vomiting 54858780 Active 2020 Ivone serrato, [facility] 4 09:50:13 Long-ter m current use of drug therapy 298722985 Active 2021 Ivone serrato, [facility] 4 09:49:52 COVID-19 910195912 Active 2021 Ivone serrato, [facility] 4 09:48:38 Adult health examinat ion Active 2021 Ivone serrato, [facility] 4 09:48:21 Disorder of bone and articula r cartilag e 687077140 Completed 201402/15/2017 Problem Code: 733.99; Problem Code Type: ICD-9; Not Available [facility] 3 05:26:04 [place]we[place] ht 910209397 Completed 201508/09/2023 06/09/20 16 - Comments only - Theresa Pettit MD - wgt jarred penny 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 Problem Code: E66.3; Problem Code Type: ICD-10; Not Available [facility] 3 05:26:04 Elevated blood-pr essure reading without diagnosi s of hyperten anna 601378518 Completed 201601/26/2018 Problem Code: R03.0; Problem Code Type: ICD-10; LINH ISAAC, AGRICULTURAL EXTENSION SPECIALIST [address], [place], [address] , [facility] 4 11:05:37 Acute pharyngi tis 816226582 Completed 201704/04/2018 Problem Code: J02.9; Problem Code Type: ICD-10; Not Available [facility] 3 05:26:05 Psychose xual counseli shayna Completed 201511/22/2018 Problem Code: Z70.8; Problem Code Type: ICD-10; Not Available [facility] 3 05:26:06 Fibromya lgia 879624660 Completed 201407/29/2015 Problem Code: M79.7; Problem Code Type: ICD-10; Not Available [facility] 3 05:26:06 Adult health examinat ion Completed 201501/26/2018 Problem Code: Z00.00; Problem Code Type: ICD-10; Ivone serrato [facility] 4 09:48:21 Well child visit Completed 201406/09/2016 Problem Code: Z00.129; Problem Code Type: ICD-10; Not Available [facility] 3 05:26:07 Cannabis dependen ce 70967009 Completed 201608/09/2023 Problem Code: F12.20; Problem Code Type: ICD-10; Not Available [facility] 3 05:26:09 Juvenile [facility]o [facility] y 753491244 Completed 201411/22/2018 Problem Code: M92.50; Problem Code Type: ICD-10; Not Available [facility] 3 05:26:12 Psychoac tive substanc e abuse 30511657 Completed 201608/09/2023 Problem Code: F19.10; Problem Code Type: ICD-10; Not Available [facility] 3 05:26:13 Manic bipolar I disorder in full remiss n 53711590 Completed 201708/09/2023 04/23/20 19 - Comments only - Agusto Penny in remissio n. Managed by Psychiat ry, Dr. Fahad Madrigal for [facility]. Problem Code: F31.74; Problem Code Type: ICD-10; Not Available [facility] 3 05:26:14 Anxiety disorder 432405066 Completed 201911/17/2020 Problem Code: F41.9; Problem Code Type: ICD-10; Not Available [facility] 3 05:26:14 Bipolar I disorder 242970361 [facility] 09:[facility] Vitamin D deficien cy 90466554 Active 2022 Ivone Dayday [facility] 4 09:51:10 Erectile dysfunct ion 478821215 Active 2022 [facility] 4 09:49:08 Testicul ar finding 676325027 Active 2022 [facility] 4 09:50:54 Hyperlip idemia 00463845 Active 2022 [facility] 4 09:49:39 Right inguinal hernia 380964027 Active 2023 [facility] 4 09:50:43 Smoker 19999764 Active 2023 [facility] 4 09:50:46 Increase d liver function 41367163 Active 2021 [facility] 4 09:52:30 Elevated blood-pr essure reading without diagnosi s of hyperten anna 269600302 Active 2023 Problem Code: R03.0; Problem Code Type: ICD-10; [address], [place], [address] , [facility] 4 11:05:37 Injury of penis 383090135 Active [address], [place], [address] , [facility] 4 11:02:28 Increase d libido 24549139 Active [address], [place], [address] , [facility] 4 11:02:49 Gastroes ophageal reflux disease 615144117 Active 2023 MAKEDA TORRES [address], [place], [address] , [facility] 4 11:04:43 Right upper quadrant pain 245693621 Active 2023 MAKEDA TORRES [address], [place], [address] , [facility] 4 10:45:09 Problem Notes None recorded. Medical Equipment None Reported. Allergies No known drug allergies Medications Name Sig Start Date Stop Date Status Note LastModified by Organization Details LastModified Time azithromy kevin 250 mg tablet Take 4 tablet by mouth single dose 06/02 completed Not Available Not Available Not Available Zyprexa 10 mg tablet 1 tab q 03/[address] Parkinson (psychia trist in [place]) Not Available Not Available Not Available methylphe [...] [address] Parkinson (psychia trist in [place]) ; dose increase d 09/10/19 Not Available [...] Updated DateTime 4 177.8 cm 42.5 kg/m2 273766. 34 g 98 [degF] 96 % 96 % 92 /min 136 mm[Hg] 82 mm[Hg] KARYN THORNTON LPN [place] [facility] 4 10:23:33 Social History Question Answer Notes LastModified by Organizat ion Details LastModified Time Tobacco Smoking Status Current Every Day Smoker KARYN THORNTON, DOWEL INSPECTOR null, [place] - [facility]. 10/25/2023 08:34:05 What Was The Date Of Your Most Recent Tobacco Screening? 05/22/2024 Information not available 05/22/2024 What Is Your Current Pack Years? 10-19packyea rs Information not available 10/25/2023 At What Age Did You Start Smoking Tobacco? 12 Information not available 10/25/2023 How Much Tobacco Do You Smoke? 0.5 PPD [email or web address] Information not available 02/20/2024 Has Tobacco Cessation Counseling Been Provided? Yes [email or web address] Information not available 11/29/2023 On What Date Was Tobacco Cessation Counseling Provided? 05/22/2024 Declines Information not available 05/22/2024 How Many Years Have You Smoked Tobacco? 11 Information not available 10/25/2023 Do You Or Have You Ever Used Any Other Forms Of Tobacco Or Nicotine? No [email or web address] Information not available 11/29/2023 Sex: Male Functional Status None recorded. Mental Status None recorded. Family History Nothing Reported. Medical History No medical history recorded. Immunizations Vaccine Type Date Status Provider Name and Address Organization Details Recorded Time MMR 04/02/2003 completed Not Available [facility] 04:35:28 MMR 04/30/1999 completed Not Available [facility] 04:35:28 Td (adult), 2 Lf tetanus toxoid, preservative free, adsorbed 07/27/2022 completed Not Available [facility] 09/22/2023 04:35:28 meningococcal MCV4P 06/19/2012 completed Not Available [facility] 09/22/2023 04:35:29 meningococcal MCV4P 08/28/2015 completed Not Available [facility] 09/22/2023 04:35:29 Tdap 07/02/2010 completed Not Available [facility] 04:35:29 Influenza, split virus, quadrivalent, PF 07/27/2022 completed Not Available [facility] 09/22/2023 04:35:29 Pneumococcal Conjugate, unspecified formulation 06/26/2000 completed Not Available [facility] 09/22/2023 04:35:29 Hib, unspecified formulation 1998 completed Not Available [facility] 09/22/2023 04:35:29 Hib, unspecified formulation 1998 completed Not Available [facility] 09/22/2023 04:35:30 DTaP 04/02/2003 completed Not Available [facility] 04:35:30 DTaP 04/30/1999 completed Not Available [facility] 04:35:30 DTaP 1998 completed Not Available [facility] 04:35:30 DTaP 1998 completed Not Available [facility] 04:35:30 DTaP 1998 completed Not Available [facility] 04:35:30 COVID-19, mRNA, LNP-S, PF, 100 mcg/0.5mL dose or 50 mcg/0.25mL dose 07/02/2021 completed Not Available [facility] 09/22/2023 04:35:30 COVID-19, mRNA, LNP-S, PF, 100 mcg/0.5mL dose or 50 mcg/0.25mL dose 07/30/2021 completed Not Available [facility] 09/22/2023 04:35:30 varicella 04/30/1999 completed Not Available [facility] 04:35:31 varicella 06/18/2007 completed Not Available [facility] 04:35:31 pneumococcal polysaccharide PPV23 11/22/2018 completed Not Available [facility] 2022 04:35:31 Hep B, unspecified formulation 1998 completed Not Available [facility] 09/22/2023 04:35:31 Hep B, unspecified formulation 1998 completed Not Available [facility] 09/22/2023 04:35:31 Hep B, unspecified formulation 1998 completed Not Available [facility] 09/22/2023 04:35:31 HPV, quadrivalent 12/06/2013 completed Not Available [facility] 09/22/2023 04:35:31 HPV, quadrivalent 06/03/2013 completed Not Available [facility] 09/22/2023 04:35:32 HPV, quadrivalent 08/05/2013 completed Not Available [facility] 09/22/2023 04:35:32 polio, unspecified formulation 04/02/2003 completed Not Available [facility] 09/22/2023 04:35:32 polio, unspecified formulation 04/30/1999 completed Not Available [facility] 09/22/2023 04:35:32 polio, unspecified formulation 1998 completed Not Available [facility] 09/22/2023 04:35:32 polio, unspecified formulation 1998 completed Not Available [facility] 09/22/2023 04:35:32 polio, unspecified formulation 1998 completed Not Available [facility] 09/22/2023 04:35:32 Past Encounters Encounter ID Performer Location Encounter Start Date Encounter Closed Date Diagnosis/Indication Diagnosis SNOMED-CT Code Diagnosis ICD10 Code [id number] DONN CASTREJON RN [address] [address] 05/22/2024 08:54:38 05/22/2024 09:28:00 Obesity 458595326 E66.9 R03.0 Smoker 46266066 F17.200 Bipolar I disorder 67514 6008 F31.9 Elevated blood-pressure reading without diagnosis of hypertension 655144269 R03.[id number] [address] 06/11/2024 10:17:13 06/11/2024 10:52:53 Injury of penis 453399854 S30.93XA Gastroesop hageal reflux disease 957616902 K21.9 Health Concerns Section Related Observation LastModified by Organization Detai ls LastModified Time None Recorded Concern Status LastModified by Organization Details LastModified Time None Recorded Payers Encounter Date Sequence Insurance Name Policy Number Policy Daniel Covered Member ID Daniel Member ID Guarantor Name 06/11/2024 1 [place] [facility] [id number] Emanuel Patricia Rizvi [id number] Emanuel S Dmitri Notes Date Note Type Note Provider Name and Address Organization Details Recorded Time 06/11/2024 text/html HPI Notes: Patie nt presents with acid reflux, abdominal cramps, back [...] slow down. He has not taken any zuqd-hcd-adbksaj medication for the reflux yet. Abdominal Cramps [...] child in September, causing stress LINH GRAY, AGRICULTURAL EXTENSION SPECIALIST [address], [place], [address], [place] [facility]. 06/11/2024 11:05:02
--- OUTSIDE RECORDS SUMMARY | 2024-09-10 21:26 | XMS_ITS | Encounter Summary ---
Author Organization [facility] Address [address] [place] [address] Care Team Providers Care Senior Net Software Developer Name Role Phone Theresa Pettit MD Primary Care Provider [phone] Encounter Details Date Type Department Care Team (Late st Contact Info) Description 11/19/2020 Results Only [facility] [phone] Óscar Tapia MD [address] [place] [phone] Social History Tobacco Use Types Packs/Day Years Used Date Smoking Tobacco: Never Assessed Sex and Gender Information Value Date Recorded Sex Assigned at Not on file Gender Identity Male 06/13/2022 9:28 EDT Sexual Orientation Not on file documented as of this encounter Functional Status Functional Status Response Date of Assess ment Because of a physical, menta l, or emotional condition, does this person have difficulty doing errands alone such as visiting a doctor's office or shopping? No 07/23/2015 Cognitive Status Response Date of Assessm ent Because of a physical, menta l, or emotional condition, does this person have serious difficulty concentrating, remembering, or making decisions? No 07/23/2015 documented as of this encounter Plan of Treatment Not on file documented as of this encounter Procedures Procedure Name Priority Date/Time Associated Diagnosis Comments DRUGS OF ABUSE SCREEN, URINE - CV Routine 11/19/2020 10:25 EST URINALYSIS - CV Routine 11/19/2020 10: 21 EST documented in this encounter Results * (ABNORMAL) DRUGS OF ABUSE SCREEN, URINE - CV (11/19/2020 10:25 [facility]) AMPHETAMINES NEG NEG 11/19/2020 10:39 [facility] BARBITURATES,UR - [facility] NEG NEG 11/19/2020 10:39 [facility] BENZODIAZEPINES NEG NEG 10:39 [facility] COCAINE,URINE - [facility] NEG NEG 11/19/2020 10:39 [facility] MAMP (METHAMPHETAMINES - [facility] NEG NEG 11/19/2020 10:39 [facility] MARIJUANA,URINE - [facility] POS(A) NEG 11/19/2020 10:39 [facility] MTD (METHADONE) - [facility] NEG NEG 11/19/2020 10:39 [facility] OPIATES,URINE - [facility] NEG NEG 11/19/2020 10:39 [facility] OXY (OXYCODONE) - [facility] NEG NEG 11/19/2020 10:39 [facility] PCP (PHENCYCLIDINE) - [facility] NEG NEG 11/19/2020 10:39 [facility] PROPOXYPHENE (PPX) - [facility] NEG NEG 11/19/2020 10:39 [facility] TRICYCLIC ANTIDEPRESSANTS - [facility] NEG NEG 11/19/2020 10:39 [facility] Comment: Drug Class ?Cutoff Concentration Amphetamines (AMP) ?500 ng/ml Barbiturates (BAR) ?200 ng/ml Benzodiazepines (BZO) ? 150 ng/ml Cocaine (RAMONA) ? 150 ng/ml Methamphetamine (mAMP) ?500 ng/ml Methadone (MTD) ? 200 ng/ml Opiates (OPI) ? 100 ng/ml Oxycodone (OXY) ? 100 ng/ml Phencyclidine (PCP) ?25 ng/ml Tetrahydrocannabinol (THC) ? 50 ng/ml Propoxyphene (PPX) ?300 ng/ml Tricyclic antidepressants (TCA) ? 300 ng/ml This is a screening assay only, intended for use in clinical monitoring or management of patients. False positive or false negative results can occur. If confirmation testing is needed, please call the lab. Specimens are retained in the laboratory for 7 days. 11/19/2020 10:2 5 EST 11/19/2020 10:25 EST Óscar Tapia MD URINALYSIS ORDER PIPPA Performing Organization Address City/State/[facility] Co de Phone Number [facility] [address] [place] [address] * URINALYSIS - [facility] (11/19/2020 10:21 EST) URINE APPEARANCE - [facility] Clear CLEAR 11/19/2020 12:26 [facility] URINE BILIRUBIN - DIPSTICK - [facility] Negative NEGATIVE 11/19/2020 12:26 [facility] URINE BLOOD - [facility] Negative NEG 11/19/2020 12:26 [facility] URINE COLOR - [facility] Yellow YELLOW 11/19/2020 12:26 [facility] URINE GLUCOSE - DIPSTICK - [facility] Negative NEGATIVE 11/19/2020 12:26 [facility] URINE KETONE - [facility] Negative NEGATIVE 11/19/2020 12:26 [facility] URINE LEUK ESTERASE - [facility] Negative NEG 11/19/2020 12:26 [facility] URINE NITRITE - D[facility] - [facility] Negative NEG 11/19/2020 12:26 [facility] URINE PH - [facility] 7.0 4.0 - 8.0 12:26 [facility] URINE PROTEIN - DIPSTICK - [facility] Negative NEG 11/19/2020 12:26 [facility] URINE SPECIFIC GRAVITY - [facility] <=1.005 1.001 - 1.035 11/19/2020 12:26 [facility] URINE UROBILINOGEN - D[facility] - [facility] 0.2 0.2 - 1.0 11/19/2020 12:26 [facility] 11/19/2020 10:2 1 EST 11/19/2020 12:22 EST Narrative [facility] - 11/19/2020 12:26 EST AOT: 11/19/20 1222: URINALYSIS Óscar Tapia MD CHEMISTRY & BLOO D GAS ORDERABLES [facility] [address] [place] [address] documented in this encounter Visit Diagnoses Not on filedocumented in this encounter Care Teams Senior Net Software Developer Relationship Specialty Start Date End Date Theresa Pettit MD [address] [place] [phone] PCP - General 07/09/15 05/24/22 documented as of this encounter
--- OUTSIDE RECORDS SUMMARY | 2024-09-10 21:26 | XMS_ITS | Encounter Summary ---
Author Organization [facility] Address [address] [place] [address] Care Team Providers Care Manager Customer Service Name Role Phone Theresa Pettit MD Primary Care Provider [phone] Margy uLcero APRN Primary Care Provider + Encounter Details Date Type Department Care Team (Late st Contact Info) Description 03/15/2021 Lab Requisition [facility] Pathology & Laboratory Medicine - [address] [phone] Outr Resulting Lab, Provider Social History Tobacco Use Types Packs/Day Years [...] Procedure Name Priority Date/Time Associated Diagnosis Comments PROLACTIN Routine 03/15/2021 11:58 EDT documented in this encounter Results * (ABNORMAL) PROLACTIN (03/15/2021 11:58 EDT) Prolactin 0.4(L) 2.1 - 17.7 ng/mL 03/15/2021 23:02 EDT [facility] Blood VENOUS BLOOD / Unknown 03/15/2021 11:58 EDT 03/15/2021 21:47 EDT Provider Outr Resulting Lab CHEMISTRY & BLOOD GAS ORDERABLES [facility] [address] [place] [address] documented in this encounter Visit Diagnoses Not on filedocumented in this encounter Care Teams Manager Customer Service Relationship Specialty Start Date End Date Theresa Pettit MD [address] [place] [address] PCP - General 07/09/15 05/24/22 Margy Lucero APRN [address] [place] [address] PCP - General 05/25/22 documented as of this encounter
--- OUTSIDE RECORDS SUMMARY | 2024-09-10 21:26 | XMS_ITS | Clinical Summary ---
Author Organization [facility] Address [address] [place] [address] Care Team Providers Care Director Of Retail Analytics Name Role Phone Margy Lucero Art BRITO Primary Care Provider + Allergies No known active allergies Medications Medication Sig Dispensed Refills Start Date End Date Status ARIPiprazole (ABILIFY) 30 mg tablet Take 1 Tablet by mouth at bedtime. 7 Tablet 06/23/2022 Active hydrOXYzine (ATARAX) 25 mg tablet Take 1 Tablet by mouth every 4 hours as needed for Anxiety. 20 Tablet 06/23/2022 Active methylphenidate HCl (RITALIN;METHYLIN) 10 mg tablet Take 1 Tablet by mouth daily. 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 Resolved Problems Problem Noted Date Diagnosed Date Resolved Date Bipolar affective disorder, current episode mixed ([facility]) 06/22/2022 06/23/2022 Bipolar disorder, current ep isode mixed, moderate ([facility]) 06/22/2022 06/23/2022 Immunizations Name Administration Dates Next Due Covid-19 mRNA Vaccine (MODER NA COVID-19) PF 0.5 ml IM (12 yrs+) 07/30/2021,07/02/2021 Surgical History Surgery Date Site/Laterality Comments WISDOM TOOTH EXTRACTION Medical History Medical History Date Comments Bipolar disorder ([facility]) Social History Tobacco Use Types Packs/Day Years Used Date Smoking Tobacco: Every Day Cigarettes Smokeless Tobacco: Never Tobacco Cessation:Ready to Q uit: Not Asked; Counseling Given: Not Answered Alcohol Use Standard Drinks/Week Comments Not Currently 2 (1 standard drink = 0.6 oz pur e alcohol) Sex and Gender Information Value Date Recorded Sex Assigned at Not on file Gender Identity Male 06/13/2022 9:28 EDT Sexual Orientation Not on file Obstetrics History Last Filed Vital Signs Vital Sign Reading Time Taken Comments Blood Pressure 143/93 07/23/20231934 EDT Pulse 115 07/23/20231934 EDT Temperature 36.9 ??C (98.5 ??F) 07/23/20231934 EDT Respiratory Rate 16 07/23/20231934 EDT Oxygen Saturation 95% 07/23/20231934 EDT Inhaled Oxygen Concentration - - Weight 118.5 kg (261 lb 3.2 oz) 06/22/20222099 EDT Height 184.2 cm (6' 0.5) 06/22/20222099 EDT Body Mass Index 34.94 06/22/20222099 EDT Plan of Treatment Health Maintenance Due Date Last Done Comments Pneumococcal Immunization (1 of 2 - PCV) 2004 Hepatitis B Vaccine (1 of 3 - 19+ 3-dose series) 2017 COVID-19 Vaccine ( - 2022- season) 2023, 07/02/2021 Hepatitis C Screen Completed 09/27/2023, 06/01/2021 Procedures Procedure Name Priority Date/Time Associated Diagnosis Comments HEPATITIS C AB W REFLEX TO HCV RNA BY PCR Routine 09/27/2023 10:00 EST from Last 3 Months or Most Recently Relevant to Health Maintenance Results * HEPATITIS C AB W REFLEX TO HCV RNA BY PCR (09/27/2023 10:00 EST) Hep C Antibody Negative Negative 09/28/2023 11:14 EST [facility] Blood VENOUS BLOOD / Unknown 09/27/2023 10:00 EST 09/27/2023 21:27 EST Provider Outr Resulting Lab CHEMISTRY & BLOOD GAS ORDERABLES [facility] [address] [place] [address] from Last 3 Months or Most Recently Relevant to Health Maintenance Advance Directives For more information, please contact: [phone] * Full Code (Latest Code Status on File) Date Activated Date Inactivated Comments 06/22/2022 21:45 06/23/2022 21:39 Question Answer Comments When the patient has NO PULSE: Full Code / CPR Who Made the Decision? Default/Not Discussed Care Teams Director Of Retail Analytics Relationship Specialty Start Date End Date Margy Lucero APRN [address] [place] [address] PCP - General 05/25/22
--- OUTSIDE RECORDS SUMMARY | 2024-09-10 21:26 | XMS_ITS | Encounter Summary ---
Author Organization [facility] Address [address] [place] [address] Care Team Providers Care Regional Extension Service Specialist Name Role Phone Theresa Pettit MD Primary Care Provider [phone] Encounter Details Date Type Department Care Team (Late st Contact Info) Description 02/14/2017 Historical Results Only [facility] - [address] [place] [address] [place] [address] Lionel Galarza [address] [place] [phone] Social History Tobacco Use Types Packs/Day Years [...] Procedure Name Priority Date/Time Associated Diagnosis Comments ETHYL ALCOHOL - [facility] Routine 02/14/2017 15:20 EDT COMPLETE BLOOD COUNT WITH DIFFERENTIAL (AUTO) Routine 02/14/2017 15:20 EDT THYROID CASCADE Routine 02/14/2017 15:20 EDT COMPREHENSIVE METABOLIC PANEL (CMP) Routine 02/14/2017 15:20 EDT documented in this encounter Results * THYROID CASCADE (02/14/2017 15:20 EDT) Pathologist [facility] TSH 1.30 0.35 - 5.50 uIU/mL 02/14/2017 15:55 EDT [facility] 02/14/2017 15:2 0 EDT 02/14/2017 15:28 EDT Narrative [facility] - 02/14/2017 15:55 EDT Does PT Have a Latex Allergy? UNKNOWN Lionel Galarza CHEMISTRY & BLOOD GA S ORDERABLES Performing Organization Address City/[facility]/ZIP Co de Phone Number [facility] * ETHYL ALCOHOL - [facility] (02/14/2017 15:20 EDT) [facility] ETHYL ALCOHOL - [facility] <3.0 0.0 - 60.0 mg/dL 02/14/2017 15:49 EDT [facility] Comment: *Unconfirmed screening results are to be used for medical purposes only.* 02/14/2017 15:2 0 EDT 02/14/2017 15:28 EDT Narrative [facility] - 02/14/2017 15:55 EDT Does PT Have a Latex Allergy? UNKNOWN Lionel Galarza CHEMISTRY & BLOOD GA S ORDERABLES [facility] * (ABNORMAL) COMPREHENSIVE METABOLIC PANEL (CMP) (02/14/2017 15:20 EDT) Pathologist [facility] Albumin % 4.7 3.4 - 5.0 g/dL 02/14/2017 15:49 EDT [facility] ALKALINE PHOSPHATASE - [facility] 62 42 - 122 U/L 02/14/2017 15:49 EDT [facility] BILIRUBIN TOTAL 1.6(H) 0.0 - 1.0 mg/dL 02/14/2017 15:49 [facility] BUN - [facility] 21(H) 7 - 18 mg/dL 02/14/2017 15:49 [facility] CALCIUM - [facility] 9.3 8.5 - 10.1 mg/dL 02/14/2017 15:49 [facility] Chloride 102 98 - 107 mEq/L 02/14/2017 15:49 [facility] CO2 Total 26 21 - 32 mEq/L 02/14/2017 15:49 [facility] CREATININE 1.07 0.5 - 1.3 mg/dL 02/14/2017 15:49 [facility] Anion Gap 11 5 - 15 02/14/2017 15:49 [facility] GLUCOSE - [facility] 92 70 - 100 mg/dL 02/14/2017 15:49 [facility] Potassium 3.5 3.5 - 5.0 mEq/L 02/14/2017 15:49 [facility] Sodium 139 135 - 145 mEq/L 02/14/2017 15:49 [facility] TOTAL PROTEIN - [facility] 8.8(H) 6.4 - 8.2 gm/dl 02/14/2017 15:49 [facility] SGOT/AST - [facility] 28 10 - 37 U/L 02/14/2017 15:49 [facility] SGPT/ALT - [facility] 69 12 - 78 U/L 02/14/2017 15:49 [facility] 02/14/2017 15:2 0 EDT 02/14/2017 15:28 EDT Narrative [facility] - 02/14/2017 15:55 EDT Does PT Have a Latex Allergy? UNKNOWN Lionel Galarza CHEMISTRY & BLOOD GA S ORDERABLES [facility] * (ABNORMAL) COMPLETE BLOOD COUNT WITH DIFFERENTIAL (AUTO) (02/14/2017 15:20 EDT) ABSOLUTE NEUTROPHIL COUN - [facility] 5.59 1.7 - 7.0 10e3/ul 02/14/2017 15:34 [facility] BASO # - [facility] 0.03 0.0 - 0.3 10e3/uL 02/14/2017 15:34 [facility] BASO % - [facility] 0 0 - 2 % 02/14/2017 15:34 [facility] EOS # - [facility] 0.03(L) 0.05 - 0.5 10e3/uL 02/14/2017 15:34 [facility] EOS % - [facility] 0 0 - 5 % 02/14/2017 15:34 [facility] GRAN % - [facility] 67 40 - 80 % 02/14/2017 15:34 [facility] HEMATOCRIT - [facility] 46.9 36.0 - 52.0 % 02/14/2017 15:34 [facility] HEMOGLOBIN - [facility] 16.2 13.7 - 17.5 g/dl 02/14/2017 15:34 [facility] IG# - [facility] 0.01 0 - 0.07 10e3/uL 02/14/2017 15:34 [facility] IG% - [facility] 0.1 0 - 0.9 % 02/14/2017 15:34 [facility] LYMPH # - [facility] 2.00 0.9 - 2.9 10e3/uL 02/14/2017 15:34 [facility] LYMPH% - [facility] 24 20 - 40 % 02/14/2017 15:34 [facility] MEAN CORPUSCULAR HGB - [facility] 29.1 26 - 34 pg 02/14/2017 15:34 [facility] MEAN CORPUSCULAR HGB CONC - [facility] 34.5 31 - 36 g/dL 02/14/2017 15:34 [facility] MEAN CELL VOLUME - [facility] 84.4 77 - 100 fl 02/14/2017 15:34 [facility] MONO # - [facility] 0.73 0.3 - 0.9 10e3/uL 02/14/2017 15:34 [facility] MONO% - [facility] 9 0 - 12 % 02/14/2017 15:34 EDT [facility] PLATELET COUNT 399 150 - 400 10e3/ul 02/14/2017 15:34 EDT [facility] RED BLOOD COUNT - [facility] 5.56 4.3 - 5.7 10e6/ul 02/14/2017 15:34 EDT [facility] RED CELL DISTRI WIDTH - [facility] 12.4 11.8 - 15.6 % 02/14/2017 15:34 EDT [facility] WHITE BLOOD COUNT - [facility] 8.4 3.5 - 10.5 10e3/ul 02/14/2017 15:34 EDT [facility] 02/14/2017 15:2 0 EDT 02/14/2017 15:28 EDT Narrative [facility] - 02/14/2017 15:34 EDT Does PT Have a Latex Allergy? UNKNOWN Lionel Galarza HEMATOLOGY & PF4 ORD ERABLES [facility] Organization Address City/State/ZIP Co de Phone Number [facility] documented in this encounter Visit Diagnoses Not on filedocumented in this encounter Care Teams Regional Extension Service Specialist Relationship Specialty Start Date End Date Theresa Pettit MD [address] [place] [phone] PCP - General 07/09/15 05/24/22 documented as of this encounter
--- OUTSIDE RECORDS SUMMARY | 2024-09-10 21:26 | XMS_ITS | Encounter Summary ---
Author Organization [facility] Address [address] [place] [address] Care Team Providers Care Tool Analyst Name Role Phone Margy Lucero APRN Primary Care Provider + Encounter Details Date Type Department Care Team (Latest Contact Info) Description 07/23/2023 Travel Social History Tobacco Use Types Packs/Day Years Used Date Smoking Tobacco: Every Day Cigarettes Smokeless Tobacco: Never Alcohol Use Standard Drinks/Week Comments Not Currently 2 (1 standard drink = 0.6 oz pur e alcohol) Sex and Gender Information Value Date Recorded Sex Assigned at Not on file Gender Identity Male 06/13/2022 9:28 EDT Sexual Orientation Not on file documented as of this encounter Functional Status Functional Status Response Date of Assess ment Are you deaf or do you have serious difficulty h earing? No 06/22/2022 Because of a physical, menta l, or [...] on file documented as of this encounter Visit Diagnoses Not on filedocumented in this encounter Care Teams Tool Analyst Relationship Specialty Start Date End Date Margy Lucero APRN [address] [place] [phone] PCP - General 05/25/22 documented as of this encounter
--- OUTSIDE RECORDS SUMMARY | 2024-09-10 21:26 | XMS_ITS | Referral Summary ---
Author Organization [facility] Address [address] [place] [address] Care Team Providers Care Health Care Technician Name Role Phone Margy Lucero Art BRITO [...] Bipolar affective disorder, current episode mixed ([facility]) 06/22/2022 06/23/2022 Bipolar disorder, current ep isode mixed, moderate ([facility]) 06/22/2022 06/23/2022 Immunizations Name Administration Dates Next Due Covid-19 mRNA Vaccine (MODER NA COVID-19) PF 0.5 ml IM (12 yrs+) 07/30/2021,07/02/2021 Social History Tobacco Use Types Packs/Day Years [...] 9:28 EDT Sexual Orientation Not on file Last Filed Vital Signs Vital Sign Reading Time Taken Comments Blood Pressure 143/93 07/23/20231934 EDT Pulse 115 07/23/20231934 EDT Temperature 36.9 ??C (98.5 ??F) 07/23/20231934 EDT Respiratory Rate 16 07/23/20231934 EDT Oxygen Saturation 95% 07/23/20231934 EDT Inhaled Oxygen Concentration - - Weight 118.5 kg (261 lb 3.2 oz) 06/22/20222099 EDT Height 184.2 cm (6' 0.5) 06/22/20222099 EDT Body Mass Index 34.94 06/22/20222099 EDT Functional Status Functional Status Response Date of [...] concentrating, remembering, or making decisions? No 07/23/2015 Plan of Treatment Not on file Procedures Procedure Name Priority Date/Time Associated Diagnosis Comments HEPATITIS C AB W REFLEX TO HCV RNA BY PCR Routine 09/27/2023 10:00 EST from Last 3 Months or Most Recently Relevant to Health Maintenance Results * HEPATITIS C AB W REFLEX TO HCV RNA BY PCR (09/27/2023 10:00 EST) Hep C Antibody Negative Negative 09/28/2023 11:14 EST [facility] Blood VENOUS BLOOD / Unknown 09/27/2023 10:00 EST 09/27/2023 21:27 EST Provider Outr Resulting Lab CHEMISTRY & BLOOD GAS ORDERABLES [facility] [address] [place] [address] from Last 3 Months or Most Recently Relevant to Health Maintenance Advance Directives For more information, please contact: [phone] * Full Code (Latest Code Status on File) Date Activated Date Inactivated Comments 06/22/2022 21:45 06/23/2022 21:39 Question Answer Comments When the patient has NO PULSE: Full Code / CPR Who Made the Decision? Default/Not Discussed Care Teams Health Care Technician Relationship Specialty Start Date End Date Margy Lucero APRN [address] [place] [address] PCP - General 05/25/22
--- OUTSIDE RECORDS SUMMARY | 2024-09-10 21:26 | XMS_ITS | Encounter Summary ---
Author Organization [facility] Address [address] [place] [address] Care Team Providers Care White Sourer Name Role Phone Theresa Petitt MD Primary Care Provider [phone] Encounter Details Date Type Department Care Team (Late st Contact Info) Description 11/19/2020 Results Only [facility] Emergency Department [address] [place] [address] Agusto Otero, PABrayanC [address] [place] [address] Social History Tobacco Use Types Packs/Day [...] Procedure Name Priority Date/Time Associated Diagnosis Comments COVID-19 TESTING Routine 11/19/2020 13:3 0 EST ETHYL ALCOHOL - [facility] Routine 11/19/2020 13:07 EST COMPLETE BLOOD COUNT WITH DIFFERENTIAL (AUTO) Routine 11/19/2020 13:07 EST THYROID CASCADE Routine 11/19/2020 13:07 EST COMPREHENSIVE METABOLIC PANEL (CMP) Routine 11/19/2020 13:07 EST documented in this encounter Results * COVID-19 TESTING (11/19/2020 13:30 EST) Performing Lab [place] [facility] () 11/20/2020 3:35 EST [facility] Comment: Please indicate the Triage Tiertier 1 Test performed or referred by The [address] [address] COVID-19 rt-PCR Result Not Detected Negative 11/20/2020 3:35 EST [facility] Comment: This test has not been FDA cleared or approved. This test has been authorized by FDA under an EUA for use by authorized laboratories. This test has been authorized only for detection of nucleic acid from 2019-nCoV, not for any other viruses or pathogens. This test is only authorized for the duration of the declaration that circumstances exist justifying the authorization of emergency use of in vitro diagnostic tests for detection and/or diagnosis of 2019-nCoV under section 564(b)(1) of Act, 21 U.S.C ? 360bbb-3(b) (1), unless the authorization is terminated or revoked sooner. Negative results do not preclude 2019-nCoV infection and should not be used as the sole basis for treatment or other patient management decisions. Negative results must be combined with clinical observations, patient history, and epidemiological information. Performed on the [facility] [place] Fusion instrument 11/19/2020 13:3 0 EST 11/19/2020 14:16 EST Narrative [facility] - 11/20/2020 3:35 EST TIER 1 [facility] Agusto Otero PA-C MICROBIOLOGY - GENER AL ORDERABLES [facility] [address] [place] [address] * THYROID CASCADE (11/19/2020 13:07 EST) Pathologist [facility] TSH 1.30 0.46 - 4.68 uIU/mL 11/19/2020 15:30 [facility] 11/19/2020 13:0 7 EST 11/19/2020 14:09 EST Agusto Otero PA-C CHEMISTRY & BLOOD GA S ORDERABLES Performing Organization Address City/[facility]/ZIP Co de Phone Number [facility] [address] [place] [address] * ETHYL ALCOHOL - [facility] (11/19/2020 13:07 EST) [facility] ETHYL ALCOHOL - [facility] <10.0 <10 mg/dL 11/19/2020 14:27 [facility] 11/19/2020 13:0 7 EST 11/19/2020 14:09 EST Agusto Otero PA-C CHEMISTRY & BLOOD MS S ORDERABLES Performing Organization Address City/[facility] Co de Phone Number [facility] [address] [place] [address] * (ABNORMAL) COMPREHENSIVE METABOLIC PANEL (CMP) (11/19/2020 13:07 EST) [facility] Albumin % 4.7 3.4 - 4.9 g/dL 11/19/2020 14:27 [facility] ALKALINE PHOSPHATASE - [facility] 58 38 - 126 U/L 11/19/2020 14:27 [facility] BILIRUBIN TOTAL 0.8 0.2 - 1.3 mg/dL 11/19/2020 14:27 [facility] BUN - [facility] 15 10 - 26 mg/dL 11/19/2020 14:27 [facility] CALCIUM - [facility] 10.0 8.5 - 10.5 mg/dL 11/19/2020 14:27 [facility] Chloride 103 96 - 110 mmol/L 11/19/2020 14:27 [facility] CO2 Total 25 21 - 32 mEq/L 11/19/2020 14:27 [facility] CREATININE 0.85 0.66 - 1.25 mg/dL 11/19/2020 14:27 [facility] eGFR >60 11/19/2020 14:27 [facility] Comment: Chronic renal impairment is defined as GFR <60 Multiply result by 1.210 for patients. Anion Gap 11 0 - 18 11/19/2020 14:27 [facility] GLUCOSE - [facility] 95 70 - 100 mg/dL 11/19/2020 14:27 [facility] Potassium 4.2 3.5 - 5.0 mEq/L 11/19/2020 14:27 [facility] Sodium 139 136 - 145 mEq/L 11/19/2020 14:27 [facility] TOTAL PROTEIN - [facility] 7.6 6.2 - 8.2 gm/dL 11/19/2020 14:27 [facility] SGOT/AST - [facility] 34 17 - 59 U/L 11/19/2020 14:27 [facility] SGPT/ALT - [facility] 51(H) 0 - 50 U/L 14:27 [facility] 11/19/2020 13:0 7 EST 11/19/2020 14:09 EST Agusto Otero PA-C CHEMISTRY & BLOOD GA S ORDERABLES Performing Organization Address City/State/[facility] Co de Phone Number [facility] [address] [place] [address] * (ABNORMAL) COMPLETE BLOOD COUNT WITH DIFFERENTIAL (AUTO) (11/19/2020 13:07 EST) ABSOLUTE NEUTROPHIL COUN - [facility] 4.9 2.2 - 8.85 10e3/uL 11/19/2020 14:18 [facility] BASO # - [facility] 0.04 0.01 - 0.11 10e/uL 11/19/2020 14:18 [facility] BASO % - [facility] 1 0 - 2 % 11/19/2020 14:18 [facility] EOS # - [facility] 0.05 0.03 - 0.61 10e3/ul 11/19/2020 14:18 [facility] EOS % - [facility] 1 0 - 5 % 11/19/2020 14:18 [facility] GRAN % - [facility] 64.5 40 - 80 % 11/19/2020 14:18 [facility] HEMATOCRIT - [facility] 45.8 39.5 - 50.2 % 11/19/2020 14:18 [facility] HEMOGLOBIN - [facility] 15.4 13.8 - 17.3 g/dl 11/19/2020 14:18 [facility] IG# - [facility] 0.02 0 - 0.7 10e3/uL 11/19/2020 14:18 [facility] IG% - [facility] 0.3 0 - 0.9 % 11/19/2020 14:18 [facility] LYMPH # - [facility] 2.0 1.09 - 3.3 10e3/ul 11/19/2020 14:18 [facility] LYMPH% - [facility] 26.3 20 - 40 % 11/19/2020 14:18 [facility] MEAN CORPUSCULAR HGB - [facility] 29.2 27.6 - 33.0 pg 11/19/2020 14:18 [facility] MEAN CORPUSCULAR HGB CONC - [facility] 33.6 32.8 - 36.4 g/dL 11/19/2020 14:18 [facility] MEAN CELL VOLUME - [facility] 86.9 81 - 95 fl 11/19/2020 14:18 [facility] MONO # - [facility] 0.6 0.1 - 0.8 10e3/uL 11/19/2020 14:18 [facility] MONO% - [facility] 7.7 0 - 12 % 11/19/2020 14:18 [facility] PLATELET COUNT 444(H) 141 - 377 10e3/ul 11/19/2020 14:18 [facility] RED BLOOD COUNT - [facility] 5.27 4.36 - 5.78 10e3/ul 11/19/2020 14:18 EST [facility] RED CELL DISTRI WIDTH - [facility] 12.0 <14.2 % 11/19/2020 14:18 EST [facility] WHITE BLOOD COUNT - [facility] 7.5 4.0 - 10.4 10e3/ul 11/19/2020 14:18 EST [facility] 11/19/2020 13:0 7 EST 11/19/2020 14:09 EST Agusto Otero PA-C HEMATOLOGY & PF4 ORD ERABLES [facility] [address] [place] [address] documented in this encounter Visit Diagnoses Not on filedocumented in this encounter Care Teams White Sourer Relationship Specialty Start Date End Date Theresa Pettit MD [address] [place] [phone] PCP - General 07/09/15 05/24/22 documented as of this encounter
--- OUTSIDE RECORDS SUMMARY | 2024-09-10 21:26 | XMS_ITS | Encounter Summary ---
Author Organization [facility] Address [address] [place] [address] Care Team Providers Care Disk Grinder Name Role Phone Theresa Pettit MD Primary Care Provider [phone] Encounter Details Date Type Department Care Team (Late st Contact Info) Description 07/10/2015 12:37 EDT - 07/10/2015 23:59 EDT Hospital Encounter [facility] [address] [place] [address] Rigo Salomon MD [address] [place] [phone] Discharge Disposition: Home or Self Care Social History Tobacco Use Types Packs/Day Years Used Date Smoking Tobacco: Never Assessed Sex and Gender Information Value Date Recorded Sex Assigned at Not on file Gender Identity Male 06/13/2022 9:28 EDT Sexual Orientation Not on file documented as of this encounter Discharge Diagnoses Diagnosis V72.5 RADIOLOGICAL EXAM NEC[ICD-9-CM] documented in this encounter Discharge Disposition Disposition Code Departure Means Destination Home or Self Senior Care documented in this encounter Plan of Treatment Not on file documented as of this encounter Visit Diagnoses Not on filedocumented in this encounter Care Teams Disk Grinder Relationship Specialty Start Date End Date Theresa Pettit MD [address] [place] [phone] PCP - General 07/09/15 05/24/22 documented as of this encounter
--- OUTSIDE RECORDS SUMMARY | 2024-09-10 21:26 | XMS_ITS | Encounter Summary ---
Author Organization [facility] Address [address] [place] [address] Care Team Providers Care Acute Care Occupational Therapist Name Role Phone Theresa Pettit MD Primary Care Provider [phone] Encounter Details Date Type Department Care Team (Late st Contact Info) Description 02/19/2017 Historical Results Only [facility] - Main [address] [address] Jesi Chaves [address] [phone] Social History Tobacco Use Types Packs/Day Years [...] Procedure Name Priority Date/Time Associated Diagnosis Comments HEMOGLOBIN A1C Routine 02/19/2017 7:00 EDT BILIRUBIN, TOTAL Routine 02/19/2017 7:00 EDT LIPID PROFILE (INCLUDES CHOLESTEROL, TRIGLYCERIDES, HDL, LDL) Routine 02/19/2017 7:00 EDT BASIC METABOLIC PANEL (BMP) Routine 02/19/2017 7:00 EDT documented in this encounter Results * LIPID PROFILE (INCLUDES CHOLESTEROL, TRIGLYCERIDES, HDL, LDL) (02/19/2017 7:00 EDT) Triglyceride 73 35 - 150 mg/dL 02/19/2017 8:03 EDT [facility] Cholesterol 162 120 - 200 mg/dL 02/19/2017 8:03 EDT [facility] Chol/HDL Ratio 3.4 0 - 5.0 02/19/2017 8:03 EDT [facility] Comment: DESIRABLE RATIO IS LESS THAN 4.1 PATIENTS ARE CONSIDERED AT RISK: WOMEN RATIO >5 MEN RATIO >6 FASTING? - [facility] Unknown 7 7:20 EDT [facility] HDL 47 40 - 60 mg/dL 02/19/2017 8:03 EDT [facility] LDL CHOLESTEROL - [facility] 100 60 - 100 mg/dL 02/19/2017 8:03 EDT [facility] Non HDL Cholesterol 115 mg/dl 02/19/2017 8:03 EDT [facility] Comment: Desirable: ?Less than 130 Borderline High: ??130-159 High: ? 160-189 Very High: ?Greater than or equal to 190 02/19/2017 7:00 EDT 02/19/2017 7:20 EDT Jesi Chaves MATERIAL CHASER CHEMISTRY & BLOOD GAS ORDERABLES [facility] * BILIRUBIN, TOTAL (02/19/2017 7:00 EDT) BILIRUBIN TOTAL 0.9 0.0 - 1.0 mg/dL 02/19/2017 8:03 EDT [facility] 02/19/2017 7:00 EDT 02/19/2017 7:20 EDT Jesi Chaves MATERIAL CHASER CHEMISTRY & BLOOD GAS ORDERABLES [facility] * BASIC METABOLIC PANEL (BMP) (02/19/2017 7:00 EDT) BUN - [facility] 16 7 - 18 mg/dL [facility] - [facility] 9.5 8.5 - 10.1 mg/dL 02/19/2017 8:03 [facility] Chloride 103 98 - 107 mEq/L 02/19/2017 8:03 [facility] CO2 Total 29 21 - 32 mEq/L 02/19/2017 8:03 [facility] CREATININE 1.00 0.5 - 1.3 mg/dL 02/19/2017 8:03 [facility] Anion Gap 8 5 - 15 02/19/2017 8:03 [facility] GLUCOSE - [facility] 93 70 - 100 mg/dL 02/19/2017 8:03 [facility] Potassium 4.0 3.5 - 5.0 mEq/L 02/19/2017 8:03 [facility] Sodium 140 135 - 145 mEq/L 02/19/2017 8:03 [facility] 02/19/2017 7:00 EDT 02/19/2017 7:20 EDT Jesi Chaves MATERIAL CHASER CHEMISTRY & BLOOD GAS ORDERABLES [facility] * HEMOGLOBIN A1C (02/19/2017 7:00 EDT) Hemoglobin A1c 5.7 4.0 - 6.0 % 02/19/2017 20[facility] Est Avg Glucose 117 mg/dL 7 20:34 [facility] 02/19/2017 7:00 EDT 02/19/2017 7:20 EDT Jesi Chaves MATERIAL CHASER CHEMISTRY & BLOOD GAS ORDERABLES [facility] documented in this encounter Visit Diagnoses Not on filedocumented in this encounter Care Teams Acute Care Occupational Therapist Relationship Specialty Start Date End Date Theresa Pettit MD [address] [place] [phone] PCP - General 07/09/15 05/24/22 documented as of this encounter
--- OUTSIDE RECORDS SUMMARY | 2024-09-10 21:26 | XMS_ITS | Encounter Summary ---
Author Organization [facility] Address [address] [place] [address] Care Team Providers Care Rehabilitation Tech Name Role Phone Theresa Pettit MD Primary Care Provider [phone] Margy Lucero APRN Primary Care Provider + Encounter Details Date Type Department Care Team (Late st Contact Info) Description 06/02/2021 Lab Requisition [facility] Pathology & Laboratory Medicine - [address] [phone] Outr Resulting Lab, Provider Social History Tobacco [...] Procedure Name Priority Date/Time Associated Diagnosis Comments CHLAMYDIA/N. GONORRHOEAE AMPLIFIED NUCLEIC ACID Routine 06/01/2021 13:30 EDT documented in this encounter Results * CHLAMYDIA/N. GONORRHOEAE AMPLIFIED RNA (06/01/2021 13:30 EDT) Neisseria gonorrhoeae Result Negative Negative 06/03/2021 14:59 EDT [facility] Chlamydia trachomatis Result Negative Negative 06/03/2021 14:59 EDT [facility] Swab ENTIRE URETHRA / Unknown 06/01/2021 13:30 EDT 06/02/2021 17:14 EDT Provider Outr Resulting Lab MICROBIOLOGY - GENERAL ORDERABLES Performing Organization Address City/State/[facility] Co de Phone Number [facility] [address] [place] [address] documented in this encounter Visit Diagnoses Not on filedocumented in this encounter Care Teams Rehabilitation Tech Relationship Specialty Start Date End Date Theresa Pettit MD [address] [place] [phone] PCP - General 07/09/15 05/24/22 Margy Lucero APRN [address] [place] [phone] PCP - General 05/25/22 documented as of this encounter
--- OUTSIDE RECORDS SUMMARY | 2024-09-10 21:26 | XMS_ITS | Encounter Summary ---
Author Organization [facility] Address [address] [place] [address] Care Team Providers Care Film Cleaner Name Role Phone Theresa Pettit MD Primary Care Provider [phone] Encounter Details Date Type Department Care Team (Late st Contact Info) Description 01/28/2018 Historical Results Only [facility] - Main [address] [id number] Uche Miller MD Social History Tobacco Use Types Packs/Day Years [...] Procedure Name Priority Date/Time Associated Diagnosis Comments COMPLETE BLOOD COUNT WITH DIFFERENTIAL (AUTO) Routine 01/28/2018 9:15 EDT THYROID CASCADE Routine 01/28/2018 9:15 EDT COMPREHENSIVE METABOLIC PANEL (CMP) Routine 01/28/2018 9:15 EDT documented in this encounter Results * (ABNORMAL) COMPREHENSIVE METABOLIC PANEL (CMP) (01/28/2018 9:15 ED) Albumin % 4.8 3.4 - 4.9 g/dL 01/28/2018 10:16 [facility] ALKALINE PHOSPHATASE - [facility] 56 38 - 126 U/L 01/28/2018 10:16 [facility] BILIRUBIN TOTAL 0.8 0.2 - 1.3 mg/dL 01/28/2018 10:16 [facility] BUN - [facility] 12 10 - 26 mg/dL 01/28/2018 10:16 [facility] CALCIUM - [facility] 10.5 8.5 - 10.5 mg/dL 01/28/2018 10:16 [facility] Chloride 104 96 - 110 mmol/L 01/28/2018 10:16 [facility] CO2 Total 23 21 - 32 mEq/L 01/28/2018 10:16 [facility] CREATININE 0.82 0.66 - 1.25 mg/dL 01/28/2018 10:16 [facility] eGFR >60 01/28/2018 10:16 [facility] Comment: Chronic renal impairment is defined as GFR <60 Multiply result by 1.210 for patients. Anion Gap 14 0 - 18 01/28/2018 10:16 [facility] GLUCOSE - [facility] 113(H) 70 - 100 mg/dL 01/28/2018 10:16 [facility] Potassium 4.0 3.5 - 5.0 mEq/L 01/28/2018 10:16 [facility] Sodium 141 136 - 145 mEq/L 01/28/2018 10:16 [facility] TOTAL PROTEIN - [facility] 8.4(H) 6.2 - 8.2 gm/dL 01/28/2018 10:16 [facility] SGOT/AST - [facility] 31 17 - 59 U/L 01/28/2018 10:16 [facility] SGPT/ALT - [facility] 38 21 - 72 U/L 01/28/2018 10:16 [facility] 01/28/2018 9:15 EDT 01/28/2018 9:33 EDT Narrative [facility] - 01/28/2018 10:16 EDT Does PT Have a Latex Allergy? NO Uche Miller MD CHEMISTRY & BLOOD GA S ORDERABLES [facility] * THYROID CASCADE (01/28/2018 9:15 EDT) TSH 0.89 0.46 - 4.68 uIU/mL 01/28/2018 10:47 EDT [facility] 01/28/2018 9:15 EDT 01/28/2018 9:32 EDT Narrative [facility] - 01/28/2018 10:47 EDT Does PT Have a Latex Allergy? NO Uche Miller MD CHEMISTRY & BLOOD GA S ORDERABLES Performing Organization Address City/[facility]/ZIP Co de Phone Number [facility] * (ABNORMAL) COMPLETE BLOOD COUNT WITH DIFFERENTIAL (AUTO) (01/28/2018 9:15 EDT) ABSOLUTE NEUTROPHIL COUN - [facility] 5.91 1.7 - 7.0 10e3/ul 01/28/2018 9:37 EDT [facility] BASO # - [facility] 0.02 0.0 - 0.3 10e3/uL 01/28/2018 9:37 EDT [facility] BASO % - [facility] 0 0 - 2 % 01/28/2018 9:37 EDT [facility] EOS # - [facility] 0.05 0.05 - 0.5 10e3/uL 01/28/2018 9:37 EDT [facility] EOS % - [facility] 1 0 - 5 % 01/28/2018 9:37 EDT [facility] GRAN % - [facility] 70 40 - 80 % 01/28/2018 9:37 EDT [facility] HEMATOCRIT - [facility] 45.0 36.0 - 52.0 % 01/28/2018 9:37 EDT [facility] HEMOGLOBIN - [facility] 15.6 13.7 - 17.5 g/dl 01/28/2018 9:37 [facility] IG# - [facility] 0.01 0 - 0.07 10e3/uL 01/28/2018 9:37 [facility] IG% - [facility] 0.1 0 - 0.9 % 01/28/2018 9:37 [facility] LYMPH # - [facility] 2.06 0.9 - 2.9 10e3/uL 01/28/2018 9:37 [facility] LYMPH% - [facility] 24 20 - 40 % 01/28/2018 9:37 [facility] MEAN CORPUSCULAR HGB - [facility] 29.3 26 - 34 pg 01/28/2018 9:37 [facility] MEAN CORPUSCULAR HGB CONC - [facility] 34.7 31 - 36 g/dL 01/28/2018 9:37 [facility] MEAN CELL VOLUME - [facility] 84.4 77 - 100 fl 01/28/2018 9:37 [facility] MONO # - [facility] 0.45 0.3 - 0.9 10e3/uL 01/28/2018 9:37 [facility] MONO% - [facility] 5 0 - 12 % 01/28/2018 9:37 [facility] PLATELET COUNT 452(H) 150 - 400 10e3/ul 01/28/2018 9:37 [facility] RED BLOOD COUNT - [facility] 5.33 4.3 - 5.7 10e6/ul 01/28/2018 9:37 [facility] RED CELL DISTRI WIDTH - [facility] 12.5 11.8 - 15.6 % 01/28/2018 9:37 [facility] WHITE BLOOD COUNT - [facility] 8.5 3.5 - 10.5 10e3/ul 01/28/2018 9:37 [facility] 01/28/2018 9:15 EDT 01/28/2018 9:33 [facility] - 01/28/2018 9:37 EDT Does PT Have a Latex Allergy? NO Uche Miller MD HEMATOLOGY & PF4 ORD ERABLES [facility] documented in this encounter Visit Diagnoses Not on filedocumented in this encounter Care Teams Film Cleaner Relationship Specialty Start Date End Date Theresa Pettit MD [address] [place] [phone] PCP - General 07/09/15 05/24/22 documented as of this encounter
--- OUTSIDE RECORDS SUMMARY | 2024-09-10 21:26 | XMS_ITS | Encounter Summary ---
Author Organization [facility] Address [address] [place] [address] Care Team Providers Care Packaging Inspector Name Role Phone Margy Lucero DARYL Primary Care Provider + Reason for Visit * Reason Comments Other Desire for Discharge Encounter Details Date Type Department Care Team (Late st Contact Info) Description 07/04/2022 Documentation Visit [facility] Psychiatric Consultation Program - [address] [phone] Monica Qureshi MD [address] [facility] Level [address] [place] [phone] Bipolar I disorder (HCC-CMS) ([facility]) (Primary Dx); Adjustment disorder, unspecified type Social History Tobacco Use Types Packs/Day Years Used Date Smoking Tobacco: Light Smoker Smokeless Tobacco: Never Alcohol Use Standard Drinks/Week Comments Not Currently 0 (1 standard drink = 0.6 oz pur e alcohol) Sex and Gender Information Value Date Recorded Sex Assigned at Not on file Gender Identity Male 06/13/2022 9:28 EDT Sexual Orientation Not on file COVID-19 Exposure Response Date Recorded In the last 10 days, have yo u been in contact with someone who was confirmed or suspected to have Coronavirus/COVID-19? No / Unsure 06/22/2022 15:49 EDT documented as of this encounter Functional Status [...] documented as of this encounter Visit Diagnoses Diagnosis Bipolar I disorder ([facility])- Primary Bipolar I disorder, most recent episode (or current) unspecified Adjustment disorder, unspecified type documented in this encounter Care Teams Packaging Inspector Relationship Specialty Start Date End Date Margy Lucero, DARYL [address] [place] [phone] PCP - General 05/25/22 documented as of this encounter
--- OUTSIDE RECORDS SUMMARY | 2024-09-10 21:26 | XMS_ITS | Encounter Summary ---
Author Organization [facility] Address [address] [place] [address] Care Team Providers Care Business Objects Analyst Name Role Phone Margy Lucero DARYL Primary Care Provider + Encounter Details Date Type Department Care Team (Late st Contact Info) Description 06/23/2022 Plan of Care Documentation [facility] Inpatient Psychiatry [address] [place] [address] Social History Tobacco Use Types Packs/Day Years [...] No 07/23/2015 documented as of this encounter Progress Notes * Leroy Ventura - 06/23/2022 1017 EDT Psychiatry Treatment Plan Admit Date: 06/22/22 Initial Observation Date (if different): 06/22/2022 Hospital day: LOS: 1 day Date of Service: 06/23/2022 Legal Status: Legal status: Voluntary Locus of Harm: Suicidal Ideation with active plan: N Patient's stated reason for hospitalization: need to get back on meds and get my life back Current Stressors: Employment concerns, Relationship issues Target Symptoms: Depressed-reported, Restless-observed Problems being addressed this admission: Depression Identified strengths and barriers: Emanuel Rizvi's Strengths:Interested in / accepting treatment Emanuel Rizvi's Barriers: vulnerability to psychological stress Goals: 1. Emanuel Rizvi will demonstrate stabilization of acute target signs and symptoms 2. Emanuel Rizvi will increase understanding of his illness and treatment interventions 3. Emanuel Rizvi will develop and implement aftercare plan for discharge Interventions / Plans: Psychiatry: Ongoing psychiatric evaluation and counseling Pharmacological management Appropriate medical studies and laboratory monitoring Nursing: See Care Plan documentation Social Work: Assist patient with discharge planning, including identifying discharge options Assisting with referrals Facilitate collaboration with family / support network Conduct treatment groups and encourage participation Collaboration with outpatient providers Advanced Practice Provider: See ARLYN's Assessment and Treatment Plan under History and Physical Outpatient Providers information: Name Number [facility] Psychiatrist Dr. Pickett Therapist Fahad Madrigal [employer] Fighter PCP Margy Lucero Guardian Family Contact Other Pt: Date: MD: Date: AP: Date: RN: Date: SW: Date: documented in this encounter Plan of Treatment Not on file documented as of this encounter Visit Diagnoses Not on filedocumented in this encounter Care Teams Business Objects Analyst Relationship Specialty Start Date End Date Margy Lucero, DARYL [address] [place] [id number] PCP - General 05/25/22 documented as of this encounter
--- OUTSIDE RECORDS SUMMARY | 2024-09-10 21:26 | XMS_ITS | Encounter Summary ---
Author Organization [facility] Address [address] [place] [address] Care Team Providers Care R D Engineer Name Role Phone Theresa Pettit MD Primary Care Provider [phone] Margy Lucero APRN Primary Care Provider + Encounter Details Date Type Department Care Team (Late st Contact Info) Description 11/19/2020 Lab Requisition [facility] Pathology & Laboratory Medicine - [address] [phone] Outr Resulting Lab, Provider Social History Tobacco [...] Procedure Name Priority Date/Time Associated Diagnosis Comments ZZCOVID-19 TEST [facility] PCR Today 11/19/2020 13:30 EST COVID-19 TESTING Routine 11/19/2020 13:3 0 EST documented in this encounter Results * COVID-19 TEST [facility] PCR (11/19/2020 13:30 EST) Swab ENTIRE NASOPHARYNX / Unknown 11/19/2020 13:30 EST 11/19/2020 21:13 EST Provider Outr Resulting Lab MICROBIOLOGY - GENERAL ORDERABLES Performing Organization Address City/[facility] Co de Phone Number [facility] [address] [place] [address] * COVID-19 TESTING (11/19/2020 13:30 EST) COVID-19 rt-PCR Result Negative Negative 11/20/2020 1:06 EST [facility] Comment: This test has not been FDA [...] under section 564(b)(1) of Act, 21 U.S.C ?? 360bbb-3(b) (1), unless the authorization is terminated or revoked sooner. Negative results do not preclude 2019-nCoV infection and should not be used as the sole basis for treatment or other patient management decisions. Negative results must be combined with clinical observations, patient history, and epidemiological information. Performed on the Weher Fusion instrument Performing Lab [facility] 11/20/2020 1:06 EST [facility] Swab 11/19/2020 13:3 0 EST 11/19/2020 21:13 EST Provider Outr Resulting Lab MICROBIOLOGY - GENERAL ORDERABLES Performing Organization Address City/[facility]/ZIP Co de Phone Number [facility] [address] [place] [address] documented in this encounter Visit Diagnoses Not on filedocumented in this encounter Care Teams R D Engineer Relationship Specialty Start Date End Date Theresa Pettit MD [address] [place] [phone] PCP - General 07/09/15 05/24/22 Margy Lucero APRN [address] [place] [phone] PCP - General 05/25/22 documented as of this encounter
--- OUTSIDE RECORDS SUMMARY | 2024-09-10 21:26 | XMS_ITS | Encounter Summary ---
Author Organization [facility] Address [address] [place] [address] Care Team Providers Care Dairy Nutrition Consultant Name Role Phone JazmineMargy Art BRITO Primary Care Provider + Encounter Details Date Type Department Care Team (Late st Contact Info) Description 09/27/2023 Lab Requisition [facility] Pathology & Laboratory Medicine - [address] [address] Outr Resulting Lab, Provider Social History Tobacco [...] Procedure Name Priority Date/Time Associated Diagnosis Comments HIV 1/2 ANTIGEN AND ANTIBODY, 4TH GENERATION Routine 09/27/2023 10:00 EST documented in this encounter Results * HIV 1/2 ANTIGEN AND ANTIBODY, 4TH GENERATION (09/27/2023 10:00 EST) HIV 1 and 2 Antibody/p24 Antigen, 4th Generation Negative Negative 09/28/2023 10:49 EST [facility] Comment:If acute HIV-1 infec tion is suspected in a high risk patient, submit plasma specimen for HIV-1 RNA quantitation test. Blood VENOUS BLOOD / Unknown 09/27/2023 10:00 EST 09/27/2023 21:27 EST Narrative [facility] - 09/28/2023 10:49 EST Fourth Generation assay performed on the Faraaur XPT. Provider Outr Resulting Lab IMMUNOLOGY A ND SEROLOGY ORDERABLES [facility] [address] [place] [address] documented in this encounter Visit Diagnoses Not on filedocumented in this encounter Care Teams Dairy Nutrition Consultant Relationship Specialty Start Date End Date Margy Lucero, HEAD COACH [address] [place] [phone] PCP - General 05/25/22 documented as of this encounter
--- OUTSIDE RECORDS SUMMARY | 2024-09-10 21:26 | XMS_ITS | Encounter Summary ---
Author Organization [facility] Address [address] [place] [address] Care Team Providers Care Veneer Lathe Operator Name Role Phone Theresa Pettit MD Primary Care Provider [phone] Margy Lucero APRN Primary Care Provider + Encounter Details Date Type Department Care Team (Late st Contact Info) Description 06/02/2021 Lab Requisition [facility] Pathology & Laboratory Medicine - [address] [phone] Outr Resulting Lab, Provider Social History Tobacco [...] Procedure Name Priority Date/Time Associated Diagnosis Comments SYPHILIS SEROLOGY Routine 06/01/2021 13: 50 EDT documented in this encounter Results * SYPHILIS SEROLOGY (06/01/2021 13:50 EDT) Syphilis Serology Negative Negative 06/03/2021 10:[address] [facility] Blood VENOUS BLOOD / Unknown 06/01/2021 13:50 EDT 06/02/2021 16:38 EDT Provider Outr Resulting Lab IMMUNOLOGY A ND SEROLOGY ORDERABLES Performing Organization Address City/State/[facility] Co de Phone Number [facility] [address] [place] [address] documented in this encounter Visit Diagnoses Not on filedocumented in this encounter Care Teams Veneer Lathe Operator Relationship Specialty Start Date End Date Theresa Pettit MD [address] [place] [phone] PCP - General 07/09/15 05/24/22 Margy Lucero APRN [address] [place] [phone] PCP - General 05/25/22 documented as of this encounter
--- OUTSIDE RECORDS SUMMARY | 2024-09-10 21:26 | XMS_ITS | Encounter Summary ---
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 declined. Pt requested med to help sleep. Rn notified. * Elsi Vargas - 07/23/20232105 EDT Pt off zoom with psychiatry. Patient asked for cell phone and received. * Elsi Vargas - 07/23/20232041 EDT Pt on zoom with psychiatrist. * Elsi Vargas - 07/23/20232031 EDT Returned to room, given cristhian vic upon request. * Elsi Vargas - 07/23/20232022 EDT Pt returned to hallway, sitting at table. * Elsi Vargas - 07/23/20232012 EDT Pt being seen by [facility] * Elsi Vargas - 07/23/20232009 EDT Pt given another sandwich upon request. Also given water as requested. * Elsi Vargas - 07/23/20232005 EDT Pt returns to room. * Elsi Vargas - 07/23/20232002 EDT Pt asked for a chicken salad sandwich and received. * Elsi Vargas - 07/23/20232000 EDT Pt returns to sit in the hallway. Talking with MHT. * Elsi Vargas - 07/23/20231958 EDT Pt returned to room. Walks back to hallway asking for lights to be dimmed. Returned back to room and started doing push ups. * Elsi Vargas - 07/23/20231954 EDT Pt sitting in hallway, talking with RN. * Melanie Joe RN - 07/23/20231951 EDT Patient has requested that no updates or information be shared with the family at this time he reports that he will text them from his phone once he has rested. He politely requested to have tca staff hold his device until he needed it. Patient wanded by security in triage and was changing into scrubs when RN left the [facility] * Elsi Vargas - 07/23/20231949 EDT Pt went to the bathroom. Returned to room and is laying down in bed. * Tonny Tejeda MD - 07/23/20231946 EDT Emergency Department Visit Medical Decision Making Laboratory data was reviewed. Medical Decision Making Amount and/or Complexity of Data Reviewed Labs: ordered. Risk OTC drugs. Prescription drug management. 23-year-old male with history of bipolar disorder presents requesting psychiatric evaluation. Says that he is feeling more down, angry and disorganized. Feels similar to when he was admitted last year [facility] will be consulted. Of note, there is obvious otitis media with intact tympanic membrane on the right. He was started on Augmentin twice daily. Screening labs ordered per psychiatry's recommendation. They met with the patient and feel that he would best be served by boarding in the emergency department for reevaluation in the morning. Patient signed out to overnight colleague Final diagnoses: Bipolar 1 disorder (HCC) Disposition: No disposition on file Chief complaint: Feeling disorganized and angry HPI Emanuel Rizvi is a 23 y.o. male with history of bipolar 1, cannabis use, nicotine use and learning disability who presents to the ED for evaluation of the above. He was discharged from the psychiatry service on July 04 last year after 12- day admission. Followed by [facility] human services. Saw a therapist in April and was started on Abilify. Due to see a new therapist but not sure when. He denies suicidal ideation. Does state that he feels as though he wants to hurt other people occasionally. No reported ingestions. Says that for the last 2 days he had pain and muffled hearing out of his right ear. Patient's pertinent PMH, FH, SH were reviewed and edited as necessary. Nursing notes reviewed. A medical screening exam was performed. Physical Exam BP (!) 143/93 Pulse (!) 115 Temp 36.9 ??C (98.5 ??F) (Oral) Resp 16 SpO2 95% Physical Exam Vitals and nursing note reviewed. Constitutional: General: He is not in acute distress. Appearance: He is well-developed. HENT: Head: Normocephalic and atraumatic. Eyes: Conjunctiva/sclera: Conjunctivae normal. Pupils: Pupils are equal, round, and reactive to light. Neck: Trachea: No tracheal deviation. Cardiovascular: Rate and Rhythm: Normal rate and regular rhythm. Pulmonary: Effort: Pulmonary effort is normal. No respiratory distress. Musculoskeletal: General: Normal range of motion. Cervical back: Normal range of motion. Skin: General: Skin is dry. Neurological: Mental Status: He is alert and oriented to person, place, and time. Motor: No abnormal muscle tone. Psychiatric: Comments: Flat affect Procedures Procedures * Melanie Joe RN - 07/23/20231946 EDT Patients mother reports to this RN before triage that last admission the patient was started on lithium and it really did not work for him at home. She expressed great concern regarding this medication and asked that he not be placed on it again. This RN reported she would make note. * Elsi Vargas - 07/23/20231945 EDT Pt arrives back to [facility] at 19:43. Willingly changes clothing and talking with MHT. documented in this encounter Plan of Treatment Not on file documented as of this encounter Procedures Procedure Name Priority Date/Time Associated Diagnosis Comments COMPLETE BLOOD COUNT AND DIFFERENTIAL STAT 07/23/2023 20:51 EDT ETHANOL, BLOOD STAT 07/23/2023 20:51 EDT COMPREHENSIVE METABOLIC PANEL (CMP) STAT 07/23/2023 20:51 EDT POCT GLUCOSE, INTERFACED STAT 07/23/2023 20:39 EDT POLYSUBSTANCE USE PANEL, URINE Routine 07/23/2023 20:34 EDT documented in this encounter Results * ETHANOL, BLOOD (07/23/2023 20:51 EDT) [facility] Ethanol, Blood <10 <10 mg/dL mg/dL 07/23/2023 21:14 EDT [facility] Comment:Healthy, non-drinkin g individuals will have an ethanol concentration of <10 mg/dL. Blood VENOUS BLOOD / Unknown Venipuncture / Unknown 07/23/2023 20:51 EDT 07/23/2023 20:53 [facility] - 07/23/2023 21:14 [facility] legal blood alcohol limit = 80 mg/dl (0.08%) Tonny Tejeda MD CHEMISTRY & BLOOD GA S ORDERABLES [facility] [address] [place] [address] * (ABNORMAL) COMPREHENSIVE METABOLIC PANEL (CMP) (07/23/2023 20:51 EDT) Sodium 140 136 - 145 mmol/L 07/23/2023 21:14 [facility] Potassium 3.5 3.5 - 5.0 mmol/L 07/23/2023 21:14 [facility] Chloride 104 96 - 110 mmol/L 07/23/2023 21:14 [facility] CO2 Total 23 22 - 32 mmol/L 07/23/2023 21:14 [facility] Glucose 130(H) 70 - 99 mg/dl 07/23/2023 21:14 [facility] BUN 12 10 - 26 mg/dL 07/23/2023 21:14 [facility] Creatinine 0.87 0.66 - 1.25 mg/dL 07/23/2023 21:14 [facility] eGFR 123 >60 mL/min/1.7 3m2 07/23/2023 21:14 [facility] Total Protein 7.6 6.3 - 8.2 g/dL 07/23/2023 21:14 [facility] Albumin 4.4 3.4 - 4.9 g/dL 07/23/2023 21:14 [facility] Alkaline Phosphatase 67 38 - 126 U/L 07/23/2023 21:14 [facility] AST 35 15 - 46 U/L 07/23/2023 21:14 [facility] ALT 58(H) <50 U/L 07/23/2023 21:14 [facility] Bilirubin, Total 0.8 <1.4 mg/dL 07/23/20 21:14 [facility] Calcium 9.5 8.5 - 10.5 mg/dL 07/23/2023 21:14 [facility] Albumin/Globulin Ratio 1.4 1.0 - 2.5 g/dL 07/23/2023 21:14 [facility] Anion Gap 13 5 - 14 mmol/L 07/23/2023 21:14 [facility] Blood VENOUS BLOOD / Unknown Venipuncture / Unknown 07/23/2023 20:51 EDT 07/23/2023 20:53 EDT Tonny Tejeda MD CHEMISTRY & BLOOD GA S ORDERABLES Performing Organization Address City/State/[facility] Co de Phone Number [facility] [address] [place] [address] * (ABNORMAL) COMPLETE BLOOD COUNT AND DIFFERENTIAL (07/23/2023 20:51 EDT) WBC 11.09(H) 4.00 - 10.40 K/cmm 07/23/2023 20:59 [facility] RBC 5.04 4.36 - 5.78 M/cmm 07/23/2023 20:59 [facility] Hemoglobin 14.4 13.8 - 17.3 g/dL 07/23/2023 20:59 [facility] HCT 42.6 39.5 - 50.2 % 07/23/2023 20:59 [facility] MCV 85 81 - 95 fL 07/23/2023 20:59 [facility] MCH 28.6 27.6 - 33.0 pg 07/23/2023 20:59 [facility] MCHC 33.8 32.8 - 36.4 g/dL 07/23/2023 20:59 [facility] RDW-CV 12.1 <14.2 % 07/23/2023 20:59 [facility] RDW-SD 36.9 <46.0 fl 07/23/2023 20:59 [facility] PLT 523(H) 141 - 377 K/cmm 07/23/2023 20:59 [facility] MPV 8.3(L) 9.5 - 12.7 fL 07/23/2023 20:59 [facility] % Neutrophils 66.5 % 07/23/2023 20:59 [facility] % Lymphocytes 26.5 % 07/23/2023 20:59 [facility] % Monocytes 5.6 % 07/23/2023 20:59 [facility] % Eosinophils 0.6 % 07/23/2023 20:59 [facility] % Basophils 0.5 % 07/23/2023 20:59 [facility] % Immature Grans 0.3 % 07/23/20 20:59 [facility] Absolute Neutrophils 7.37 2.20 - 8.85 K/cmm 07/23/2023 20:59 [facility] Absolute Lymphocytes 2.94 1.09 - 3.30 K/cmm 07/23/2023 20:59 [facility] Absolute Monocytes 0.62 0.10 - 0.80 K/cmm 07/23/2023 20:59 [facility] Absolute Eosinophils 0.07 0.03 - 0.61 K/cmm 07/23/2023 20:59 [facility] ABS Basophils 0.06 0.01 - 0.11 K/cmm 07/23/2023 20:59 [facility] Absolute Immature Grans 0.03 0.00 - 0.06 K/cmm 07/23/2023 20:59 [facility] Type of Differential: Auto 07/23/2023 20:59 [facility] Blood VENOUS BLOOD / Unknown Venipuncture / Unknown 07/23/2023 20:51 EDT 07/23/2023 20:53 EDT Tonny Tejeda MD PACKAGES & DNA PROBE ORDERABLES Performing Organization Address City/[facility]/ZIP Co de Phone Number [facility] [address] [place] [address] * (ABNORMAL) POCT GLUCOSE, INTERFACED (07/23/2023 20:39 EDT) Glucose, POC 127(H) 70 - 100 mg/dL 07/23/2023 20:42 EDT [facility] HN LAB POC COMMENT (GLUCOSE) Test Performed in ED 07/23/2023 20:42 EDT [facility] Blood CAPILLARY BLOOD / Unknown 07/23/2023 20:39 EDT 07/23/2023 20:42 EDT Tonny Tejeda MD POINT OF CARE TEST O RDERABLES Performing Organization Address City/[facility]/ZIP Co de Phone Number [facility] [address] [place] [address] * (ABNORMAL) POLYSUBSTANCE USE PANEL, URINE (07/23/2023 20:34 EDT) Buprenorphine Screen, Urine Negative <5 ng/mL 07/25/2023 11:27 EDT [facility] Oxycodone Screen, Urine Negative <100 ng/mL 07/25/2023 11:27 EDT [facility] Cotinine Screen, Urine Positive(A) <500 ng/mL 07/25/2023 11:27 EDT [facility] Benzodiazepines Screen, Urine Negative <200 ng/mL 07/25/2023 11:27 EDT [facility] Amphetamines Screen, Urine Negative <1000 ng/mL 07/25/2023 11:27 EDT [facility] Cocaine Metabolite Screen, Urine Negative <150 ng/mL 07/25/2023 11:27 EDT [facility] THC Metabolites Screen, Urine Positive(A) <50 ng/mL 07/25/2023 11:27 EDT [facility] Barbiturates Screen, Urine Negative <200 ng/mL 07/25/2023 11:27 EDT [facility] Opiates Screen, Urine Negative <300 ng/mL 07/25/2023 11:27 EDT [facility] Alcohol Metabolite (EtG) Screen, Urine Negative <500 ng/mL 07/25/2023 11:27 EDT [facility] Methadone Screen, Urine Negative <300 ng/mL 07/25/2023 11:27 EDT [facility] Fentanyl Screen with Reflex to Confirmation, U Negative <1 ng/mL 07/25/2023 11:27 EDT [facility] Urine URINE / Unknown Urine Collect / Unknown 07/23/2023 20:34 EDT 07/23/2023 20:37 EDT Narrative [facility] - 07/25/2023 11:27 EDT [facility] [address] [place] [address], [facility], [place] [address] Orthopedic Technician: Ortega Martin MD; CLIA # [id number] Tonny Tejeda MD GEN LAB UNIT COLLECT ORDERABLES [facility] [address] [place] [address], [facility] [address] [place] [address], [facility] [phone] documented in this encounter Visit Diagnoses Diagnosis Bipolar 1 disorder (HCC)- Primary Bipolar I disorder, most recent episode (or current) unspecified Bipolar 1 disorder (HCC-CMS) Bipolar I disorder, most recent episode (or current) unspecified Depression, unspecified depression type Acute otitis media, unspecified otitis media type documented in this encounter Administered Medications Inactive Administered Medications - up to 3 most recent administrations Medication Order MAR Action Action Date Dose Rate Site acetaminophen (TYLENOL) tablet 650 mg 650 mg, oral, NOW X1, 1 dose, On 07/23/23 at 2014, Routine Given 07/23/2023 20:31 EDT 650 mg amoxicillin-clavulanate (AUGMENTIN) 875-125 mg per tablet 1 Tablet 1 Tablet, oral, 2 TIMES DAILY, 14 doses, First dose on 07/23/23 at 2014, Last dose on 07/30/23 at 0900, STAT Given 07/24/2023 8:27 EDT 1 Tablet Given 07/23/2023 20:31 EDT 1 Tablet ARIPiprazole (ABILIFY) tablet 30 mg 30 mg, oral, AT BEDTIME, First dose on 07/23/23 at 2215, Until Discontinued, Routine Given 07/23/2023 22:06 EDT 3 0 mg hydrOXYzine (ATARAX) tablet 25 mg 25 mg, oral, EVERY 4 HOURS PRN, Starting on 07/23/23 at 2151, Until 07/24/23 at 1209, Anxiety, Routine Given 07/23/2023 22:06 EDT 25 mg LORazepam (ATIVAN) tablet 1 mg 1 mg, oral, NOW X1, 1 dose, On 07/23/23 at 2145, STAT Given 07/23/2023 21:47 EDT 1 mg nicotine (NICOTROL) 10 mg inhaler 1 Inhaler 1 Inhaler, inhalation, EVERY 2 HOURS PRN, Starting on 07/23/23 at 2120, Until 07/24/23 at 1209, Smoking Cessation, Routine Given 07/24/2023 7:21 EDT 1 Inhaler Given 07/24/2023 5:42 EDT 1 Inhaler Given 07/23/2023 21:47 EDT 1 Inhaler nicotine inhaler (delivery device) 1 dose, Starting on 07/23/23 at 2129, Until 07/24/23 at 1209 olanzapine zydis (ZYPREXA) disintegrating tablet 10 mg 10 mg, oral, NOW X1, 1 dose, On 07/23/23 at 2300, STAT Given 07/23/2023 22:48 EDT 10 mg documented in this encounter Historical Medications * This list may reflect changes made after this encounter. Medication Sig Dispensed Refills Start Date End Date methylphenidate HCl (RITALIN;METHYLIN) 10 mg tablet Take 1 Tablet by mouth daily. Daily Max: 10 mg 06/05/2023 added in this encounter Active and Recently Administered Medications Times are shown in EDT. Scheduled Medication Order 07/22/2023 07/23/2023 07/24/2023 acetaminophen (TYLENOL) tablet 650 mg (COMPLETED) 650 mg, oral, NOW X1, 1 dose, On 07/23/23 at 2015, Routine 2030 (Given - Provider: Ayesha Feldman RN) amoxicillin-clavulanate (AUGMENTIN) 875-125 mg per tablet 1 Tablet 1 Tablet, oral, 2 TIMES DAILY, 14 doses, First dose on 07/23/23 at 2015, Last dose on Mon07/30/23 at 0900, STAT 2030 (Given - Provider: Ayesha Feldman RN) 0827 (Given - Provider: Kate De La Garza, RN) ARIPiprazole (ABILIFY) tablet 30 mg 30 mg, oral, AT BEDTIME, First dose on Mon07/23/23 at 2215, Until Discontinued, Routine 2205 (Given - Provider: Ayesha Feldman RN) LORazepam (ATIVAN) tablet 1 mg (COMPLETED) 1 mg, oral, NOW X1, 1 dose, On 07/23/23 at 2145, STAT 2147 (Given - Provider: Ayesha Feldman RN) LORazepam (ATIVAN) tablet 1 mg 1 mg, oral, NOW X1, 1 dose, On Mon07/24/23 at 0545, STAT 0542 (Not Given - Provider: Lina James RN - Reason: Patient/family refused) olanzapine zydis (ZYPREXA) disintegrating tablet 10 mg (COMPLETED) 10 mg, oral, NOW X1, 1 dose, On 07/23/23 at 2300, STAT 2248 (Given - Provider: Ayesha Feldman RN) PRN Medication Order 07/22/2023 07/23/2023 07/24/2023 hydrOXYzine (ATARAX) tablet 25 mg 25 mg, oral, EVERY 4 HOURS PRN, Starting on 07/23/23 at 2151, Until Mon07/24/23 at 1209, Anxiety, Routine 2205 (Given - Provider: Ayesha Feldman, IRENE) nicotine (NICOTROL) 10 mg inhaler 1 Inhaler 1 Inhaler, inhalation, EVERY 2 HOURS PRN, Starting on 07/23/23 at 2120, Until Mon07/24/23 at 1209, Smoking Cessation, Routine 2146 (Given - Provider: Ayesha Feldman RN) 0542 (Given - Provider: Lina James, IRENE)0721 (Given - Provider: Kate De La Garza, RN) No Frequency Medication Order 07/22/2023 07/23/2023 07/24/2023 nicotine inhaler (delivery device) 1 dose, Starting on 07/23/23 at 2129, Until 07/24/23 at 1209 documented in this encounter Orders Medications Ordered That Timbo ht Not Have Been Administered Count Last Ordered Date First Ordered Date LORazepam (ATIVAN) tablet 1 mg 1 07/24/2023 nicotine inhaler (delivery device) 1 2022 olanzapine zydis (ZYPREXA) d isintegrating tablet 10 mg 1 07/23/2023 Nursing Count Last Ordered Date First Orde red Date CALL [facility]/SCREENER 1 07/23/2023 documented in this encounter Care Teams Dietary Aide Teacher Relationship Specialty Start Date End Date Margy Lucero, MEDICAID ELIGIBILITY SPECIALIST [address] [place] [phone] PCP - General 05/25/22 documented as of this encounter
--- OUTSIDE RECORDS SUMMARY | 2024-09-10 21:26 | XMS_ITS | Encounter Summary ---
Author Organization [facility] Address [address] [place] [address] Care Team Providers Care Electrical Design Technologist Name Role Phone Theresa Pettit MD Primary Care Provider [phone] Margy Lucero APRN Primary Care Provider + Encounter Details Date Type Department Care Team (Late st Contact Info) Description 06/02/2021 Lab Requisition [facility] Pathology & Laboratory Medicine - [address] [phone] Outr Resulting Lab, Provider Social History Tobacco [...] REFLEX TO HCV RNA BY PCR Routine 06/01/2021 13:50 EDT HEPATITIS B SURFACE ANTIBODY Routine 06/01/2021 13:50 EDT HEPATITIS B SURFACE ANTIGEN Routine 06/01/2021 13:50 EDT documented in this encounter Results * HEPATITIS B SURFACE ANTIBODY (06/01/2021 13:50 EDT) Pathologist [facility] Hep B Surface Ab, Quantitative <3.1 See Note mIU/mL 06/03/2021 9:47 EDT [facility] Comment: Reference Range for Hep B Surface Ab, Quant: Positive: >= 10.0 mIU/mL Negative: ??< 10.0 mIU/mL Patient is presumed to not be immune to infection with Hepatitis B Virus. Hep B Surface Ab, Qualitative Negative See Note 06/03/2021 9:47 EDT [facility] Comment: Reference Range for Hep B Surface Ab, Qual: Unvaccinated: ??Negative Vaccinated: ??Positive Blood VENOUS BLOOD / Unknown 06/01/2021 13:50 EDT 06/02/2021 16:38 EDT Provider Outr Resulting Lab CHEMISTRY & BLOOD GAS ORDERABLES Performing Organization Address [facility] Co de Phone Number [facility] [address] [place] [address] * HEPATITIS B SURFACE ANTIGEN (06/01/2021 13:50 EDT) Pathologist [facility] Hep B Surface Ag Negative Negative 06/03/2021 9:57 EDT [facility] Blood VENOUS BLOOD / Unknown 06/01/2021 13:50 EDT 06/02/2021 16:38 EDT Provider Outr Resulting Lab CHEMISTRY & BLOOD GAS ORDERABLES Performing Organization Address City/[facility]/ZIP Co de Phone Number [facility] [address] [place] [address] * HEPATITIS C AB W REFLEX TO HCV RNA BY PCR (06/01/2021 13:50 EDT) Pathologist [facility] Hep C Antibody Negative Negative 06/03/2021 10:18 EDT [facility] Blood VENOUS BLOOD / Unknown 06/01/2021 13:50 EDT 06/02/2021 16:38 EDT Provider Outr Resulting Lab CHEMISTRY & BLOOD GAS ORDERABLES [facility] [address] [place] [address] documented in this encounter Visit Diagnoses Not on filedocumented in this encounter Care Teams Electrical Design Technologist Relationship Specialty Start Date End Date Theresa Pettit MD [address] [place] [address] PCP - General 07/09/15 05/24/22 Margy Lucero APRN [address] [place] [address] PCP - General 05/25/22 documented as of this encounter
--- OUTSIDE RECORDS SUMMARY | 2024-09-10 21:26 | XMS_ITS | Encounter Summary ---
Author Organization [facility] Address [address] [place] [address] Care Team Providers Care Fiberglass Grinder Name Role Phone Theresa Pettit MD Primary Care Provider Encounter Details Date Type Department Care Team (Late st Contact Info) Description 11/19/2020 Results Only [facility] - Main [address] [address] Tonny Tejeda MD [address] [place] [phone] Social History Tobacco Use Types Packs/Day [...] Procedure Name Priority Date/Time Associated Diagnosis Comments [place] [facility] [place] 11/19/2020 13:20 EST [place]C W/[place] [facility] [place] 11/19/2020 13:07 EST documented in this encounter Results * [place]C W/[place] [facility] [place]11/19/2020 13:20 EST) SPEC W/O [facility] SEE NOTE 11/19/2020 13:50 EST [facility] Comment: ?Emergency Room Specimen(s) without Orders These specimens will be discarded in 4 hours: GENERAL OFFICE DISPATCHER SWAB 11/19/2020 13:2 0 EST 11/19/2020 13:50 EST Tonny Tejeda MD CHEMISTRY & BLOOD GA S ORDERABLES Performing Organization Address [facility] Co de Phone Number [facility] [address] [place] [id number] * SPEC W/O ORDERS [facility] (11/19/2020 13:07 EST) SPEC W/O [facility] SEE NOTE 11/19/2020 13:25 EST [facility] Comment: ?Emergency Room Specimen(s) without Orders These specimens will be discarded in 4 hours: Gold, green, purple and blue 11/19/2020 13:0 7 EST 11/19/2020 13:25 EST Tonny Tejeda MD CHEMISTRY & BLOOD GA S ORDERABLES Performing Organization Address City/[facility] Co de Phone Number [facility] [address] [place] [phone] documented in this encounter Visit Diagnoses Not on filedocumented in this encounter Care Teams Fiberglass Grinder Relationship Specialty Start Date End Date Theresa Pettit MD [address] [place] [phone] PCP - General 07/09/15 05/24/22 documented as of this encounter
--- OUTSIDE RECORDS SUMMARY | 2024-09-10 21:26 | XMS_ITS | Encounter Summary ---
Author Organization [facility] Address [address] [place] [address] Care Team Providers Care Elocution Teacher Name Role Phone Theresa Pettit MD Primary Care Provider [phone] Margy Lucero APRN Primary Care Provider + Encounter Details Date Type Department Care Team (Late st Contact Info) Description 12/23/2021 Lab Requisition [facility] Pathology & Laboratory Medicine - [address] [phone] Outr Resulting Lab, Provider Social History Tobacco [...] Procedure Name Priority Date/Time Associated Diagnosis Comments T3 FREE Routine 12/22/2021 8:55 EST documented in this encounter Results * T3 FREE (12/22/2021 8:55 EST) T3, Free 4.0 2.8 - 5.3 pg/mL 12/23/2021 17:45 EST [facility] Blood VENOUS BLOOD / Unknown 12/22/2021 8:55 EST 12/23/2021 17:07 EST Provider Outr Resulting Lab CHEMISTRY & BLOOD GAS ORDERABLES [facility] [address] [place] [address] documented in this encounter Visit Diagnoses Not on filedocumented in this encounter Care Teams Elocution Teacher Relationship Specialty Start Date End Date Theresa Pettit MD [address] [place] [phone] PCP - General 07/09/15 05/24/22 Margy Lucero APRN [address] [place] [phone] PCP - General 05/25/22 documented as of this encounter
--- OUTSIDE RECORDS SUMMARY | 2024-09-10 21:26 | XMS_ITS | Encounter Summary ---
Author Organization [facility] Address [address] [place] [address] Care Team Providers Care Spot Billing Clerk Name Role Phone Margy Lucero APRN Primary Care Provider + Encounter Details Date Type Department Care Team (Latest Contact Info) Description 05/25/2022 Travel Social History Tobacco Use Types Packs/Day [...] suspected to have Coronavirus/COVID-19? No / Unsure 05/25/2022 1:33 EDT documented as of this encounter Functional [...] on filedocumented in this encounter Care Teams Spot Billing Clerk Relationship Specialty Start Date End Date Margy Lucero APRN [address] [facility] [place] [address] PCP - General 05/25/22 documented as of this encounter
--- OUTSIDE RECORDS SUMMARY | 2024-09-10 21:26 | XMS_ITS ---
Author Organization Unknown Address [address] [place] [phone] Phone Care Team Providers Care Business Banking Representative Name Role Phone BRE MOYA Attending Unavailable Results US TESTICULAR - Completed: 0 07/20/2021 16:40 LOINC: Both testicles exhibit manasa l size and homogeneous internal echo architecture. There are no intratesticular masses. Vascular flow was demonstrated in both testicles, including arterial wave forms. No large hydroceles although there is a small right hydrocele. Two tiny epididymal head cysts are noted on the right side, both measuring 1-2 mm. No large varicoceles. IMPRESSION: 1. No evidence of testicular mass nor testicular torsion. 2. Two tiny right epididymal head cysts measuring 2 mm. 3. Small right hydrocele. Dictated by: CANDICE LOVE M.D. RADIOLOGIST Transcribed by: NATE 07/21/21/11:10 D Tuesday, July 20, 2021 4:39:03 PM [id number] Electronically Reviewed and Signed By: RENO LOVE M.D. RADIOLOGIST 07/21/21 21:58 Copy for: BRE MOYA via link Social History Type Status Start Date End Date Code Code Syst em Smoking History Current every day smoker 911212592 SNOMED CT Smoking History Never smoker (Never Smoked) 694627631 SNOMED CT Sex Male Medications Medication Start Date End Date Route Frequency Dose Code Code System Medication Instructions Home Meds Cyclobenzaprine 10MG Oral Tablet 08/09/2024 Unknown ORAL NEEDED EVERY 12 HOURS 1 TABLET 632361 RxNorm TAKE 1 TABLET ORAL NEEDED EVERY [...] Code Code System BIPOLAR DISORDER 04/13/2022 resolved [id number] SN OMED-CT HISTORY OF DRUG ABUSE 04/13/2022 resolved [id number] SNOMED-CT Allergies and Adverse Reactions Allergy Substance Reaction Severity Start Date Concern Status Co de Code System No Known Drug Allergies Active 050376449 SNOMED-CT Plan of Treatment Travel 12/15/2020 Encounters Encounter Diagnosis Start Date Code Code Sys tem Epididymitis 07/20/2021 [id number] SNOMED-CT Personal Care Team Section Performer Name Performer Role Active Date Inactive Da te
--- OUTSIDE RECORDS SUMMARY | 2024-09-10 21:26 | XMS_ITS | Encounter Summary ---
Author Organization [facility] Address [address] [place] [address] Care Team Providers Care Mold Yard Supervisor Name Role Phone Theresa Pettit MD Primary Care Provider [phone] Reason for Referral * PT/OT/ST (Routine) - Closed Specialty Diagnoses / Procedures Referred By Mary Grace sheridan Referred To Contact Rehab Therapies Diagnoses Right knee pain Daphne Rios MD [address] [place] [phone] Referral ID Status Reason Start Date Expiration Date V isits Requested Visits Authorized [id number] Closed Specialty Services Required 07/23/2015 1 1 Question Answer Reason for Request: pes bursitis Comments Please evaluate and treat per symptoms. No activity or weight bearing restrictions. Reason for Visit * Reason Comments Leg Pain left leg pain doi 8. 11.15 * Consult, Test and Treat (Routine) - Closed Specialty Diagnoses / Procedures Referred By [facility] Referred To Contact Orthopedic Surgery Diagnoses Left knee pain Theresa Pettit MD [address] [place] [phone] [facility] [address] [place] [id number] Referral ID Status Reason Start Date Expiration Date Visits Re quested Visits Authorized [id number] Closed 1 1 Encounter Details Date Type Department Care Team (Late st Contact Info) Description 07/23/2015 11:10 EDT [facility] [address] [address] Daphne Rios MD [address] [place] [address] Right knee pain (Primary Dx); Nonossifying fibroma Social History Tobacco Use Types Packs/Day Years [...] as of this encounter Progress Notes * Ilir García MD - 07/23/2015 1325 EDT CHIEF COMPLAINT: Left knee pain. HISTORY OF PRESENT ILLNESS: Emanuel Rizvi is a 15-year-old otherwise healthy male who twisted his leftknee while playing soccer 3 weeks ago. He had immediate swelling and he was unable to bear weight initially, but after things calmed down he was able to ambulate. He followed up at [facility] where radiographs were obtained. A bone lesion in the proximal metaphysis of the tibia was noted. An MRI was ordered and he was referred to us for further evaluation and management. In the interim, he was placed in a hinged knee brace, given crutches and instructed to be partial weightbearing on his left leg. Of note, he has had knee pain prior to this injury. Specifically, over the summer when he was playing traveling basketball, he had a lot of anterior knee pain around the tibial tubercle and just medial to that. He has never had any prior injuries or fractures to his knee. In the interim, he has not had any physical therapy, pharmacy customer care specialist, injections or other interventions. PAST MEDICAL HISTORY: None. PAST SURGICAL HISTORY: Ear tubes as a child, wisdom teeth removal. MEDICATIONS: Claritin p.r.n. ALLERGIES: No known drug allergies. SOCIAL HISTORY: He lives in [place], [place]. He is a senior in high school. Lives with his parents. Normal growth and development. REVIEW OF SYSTEMS: Per PRISM chart reported negative. OBJECTIVE: On exam, young male in no acute distress, alert and oriented, normal mood and communication. No evidence of cyanosis. Nonlabored breathing, no audible wheezing. His left knee has full flexion and extension. He is stable to varus and valgus stress at full extension and 30 degrees of flexion. He has mild tenderness over the tibial tubercle, moderate tenderness over the pes anserinus. He has a negative Eladio's, negative posterior drawer. He does not have any pain or clicking with Mayank test on the posteromedial and posterolateral joint line. He is neurovascularly intact distally.He ambulates without antalgia. IMAGING: An MRI of his left knee demonstrates no cartilage lesions, an intact ACL, PCL, MCL and LCL. There is increased signal at the patellar tendon insertion and the tibia tubercle suggestive of patellar tendon apophysitis. There is increased signal in the posterior horn of the medial meniscus, but this could simply be artifact. There is also posterior medially cortical based metaphyseal lesionin the proximal femur with isointense signal. No calcifications. No plain films were obtained today. 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 PLAN: We discussed a nonossifying fibroma with the patient and his parents. He can be weightbearingas tolerated and activity as tolerated. He can discontinue the brace and does not need to continue to use the crutches. We discussed the natural history of the disease. All of their questions were answered pertaining to the bone lesion. With respect to his knee pain, he may simply have a combination of pes bursitis and residual Seibert-Schlatter disease. There is mild increased signal on the sagittal view of the medial meniscus, specifically in the posterior horn. This most likely represents nothing but it may be meniscus pathology. 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 If he continues to improve and his pain resolves, he will follow up with us on a p.r.n. basis only. If his pain persists, we will have him follow up with the sports medicine service for further evaluation of his knee pain. Parents will call if this is needed. All his questions were answered and he endorsed understanding. The patient was seen and examined with Dr Rios. ATTENDING ATTESTATION: I saw and examined the patient with the resident. I agree with the findings and plan of care documented in the resident's note. Daphne Rios MD documented in this encounter Plan of Treatment Pending Results Name Type Priority Associated Diagnoses Date /Time OUTSIDE IMAGES - PLAIN FILM MSK Imaging 07/23/2015 13:53 EDT Scheduled Referrals Name Type Priority Associated Diagnoses Orde r Schedule AMB CONS/FOLLOW UP PHYSICAL THERAPY Outpatient Referral Routine Right knee pain Ordered: 07/23/2015 documented as of this encounter Visit Diagnoses Diagnosis Right knee pain- Primary Pain in joint, lower leg Nonossifying fibroma documented in this encounter Historical Medications * This list may reflect changes made after this encounter. Medication Sig Dispensed Refills Start Date End Date LORATADINE (CLARITIN ORAL) Take by mouth daily 06/23/20 22 added in this encounter Care Teams Mold Yard Supervisor Relationship Specialty Start Date End Date Theresa Pettit MD [address] [place] [address] PCP - General 07/09/15 05/24/22 documented as of this encounter
--- OUTSIDE RECORDS SUMMARY | 2024-09-10 21:26 | XMS_ITS | Encounter Summary ---
Author Organization [facility] Address [address] [place] [address] Care Team Providers Care Event Management Consultant Name Role Phone Theresa Pettit MD Primary Care Provider [phone] Reason for Visit * Reason Onset Date Comments Appointment Related 07/24/2015 Encounter Details Date Type Department Care Team (Late st Contact Info) Description 07/24/2015 Telephone [facility] Rehabilitation Therapy - [address] [address] Therapy, Physical Appointment Related Social History Tobacco Use Types Packs/Day Years [...] No 07/23/2015 documented as of this encounter Miscellaneous Notes * Telephone Encounter - Chelsi Turner - 07/24/2015 9403 EDT [facility] REHABILITATION THERAPY - [address] [address] Received therapy referral. Contacted Mr. Rizvi to schedule. Mr. Rizvi states he plans to seek therapy services elsewhere. Chelsi Turner 07/24/2015 14:43 documented in this encounter Plan of Treatment Not on file documented as of this encounter Visit Diagnoses Not on filedocumented in this encounter Care Teams Event Management Consultant Relationship Specialty Start Date End Date Theresa Pettit MD [address] [place] [address] PCP - General 07/09/15 05/24/22 documented as of this encounter
--- OUTSIDE RECORDS SUMMARY | 2024-09-10 21:26 | XMS_ITS | Encounter Summary ---
Author Organization [facility] Address [address] [place] [address] Care Team Providers Care Steel Burner Name Role Phone Margy Lucero APRN Primary Care Provider + Encounter Details Date Type Department Care Team (Latest Contact Info) Description 06/13/2022 Travel Social History Tobacco Use Types Packs/Day [...] suspected to have Coronavirus/COVID-19? No / Unsure 06/13/2022 9:31 EDT documented as of this encounter Functional Status Functional Status Response Date of Assess ment Are you deaf or do you have serious difficulty h earing? No 06/13/2022 Because of a physical, menta l, or [...] on filedocumented in this encounter Care Teams Steel Burner Relationship Specialty Start Date End Date Margy Lucero APRN [address] [facility] [place] [address] PCP - General 05/25/22 documented as of this encounter
--- OUTSIDE RECORDS SUMMARY | 2024-09-10 21:26 | XMS_ITS | Encounter Summary ---
Author Organization [facility] Address [address] [place] [address] Care Team Providers Care Test Administrator Name Role Phone Theresa Pettit MD Primary Care Provider [phone] Encounter Details Date Type Department Care Team (Late st Contact Info) Description 02/05/2018 Historical Results Only [facility] - Main [address] [address] [address]i Chaves [address] [address] Social History Tobacco Use Types [...] Procedure Name Priority Date/Time Associated Diagnosis Comments LIPID PROFILE (INCLUDES CHOLESTEROL, TRIGLYCERIDES, HDL, LDL) Routine 02/05/2018 7:08 EDT documented in this encounter Results * LIPID PROFILE (INCLUDES CHOLESTEROL, TRIGLYCERIDES, HDL, LDL) (02/05/2018 7:08 EDT) Triglyceride 255 <150 mg/dL 02/05/2018 7:39 EDT [facility] Comment: Adult: Normal: ?<150 mg/dl ? Borderline High: 150-199 mg/dl ? High: ?200-499 mg/dl ? Very High: >jn=410 Cholesterol 178 <200 mg/dL 02/05/2018 7:39 EDT [facility] Comment: Acceptable: ??<200 Borderline: ??200-239 High: ?> or = 240 Chol/HDL Ratio 4.2 0 - 5.0 02/05/2018 7:39 [facility] Comment: DESIRABLE RATIO IS LESS THAN 4.1 PATIENTS ARE CONSIDERED AT RISK: WOMEN RATIO >5 MEN RATIO >6 FASTING? - [facility] Unknown 8 7:08 [facility] HDL 42 40 - 60 mg/dL 02/05/2018 7:39 [facility] Comment: ?? Reference Range Low: ? < 40 ??mg/dL Normal: ??40-60 mg/dL High: ?>= 60 mg/dL LDL CHOLESTEROL - [facility] 85 60 - 100 mg/dL 02/05/2018 7:39 [facility] Non HDL Cholesterol 136 mg/dl 02/05/2018 7:39 [facility] Comment: Desirable: ?Less than 130 Borderline High: ??130-159 High: ? 160-189 Very High: ?Greater than or equal to 190 02/05/2018 7:08 EDT 02/05/2018 7:08 EDT Jesi Chaves FOOTWEAR SALES REPRESENTATIVE CHEMISTRY & BLOOD GAS ORDERABLES [facility] documented in this encounter Visit Diagnoses Not on filedocumented in this encounter Care Teams Test Administrator Relationship Specialty Start Date End Date Theresa Pettit MD [address] [place] [phone] PCP - General 07/09/15 05/24/22 documented as of this encounter
--- OUTSIDE RECORDS SUMMARY | 2024-09-10 21:26 | XMS_ITS | Encounter Summary ---
Author Organization [facility] Address [address] [place] [address] Care Team Providers Care Head Shipper Name Role Phone Theresa Pettit MD Primary Care Provider [phone] Encounter Details Date Type Department Care Team (Late st Contact Info) Description 07/09/2015 Results Only Imaging [facility] Emergency Department - [facility] [address] [place], [place] [address] Tip Preciado, PABrayanC [address] [place], [place] [address] Social History Tobacco Use Types Packs/Day Years Used Date Smoking Tobacco: Never Assessed Sex and Gender Information Value Date Recorded Sex Assigned at Not on file Gender Identity Male 06/13/2022 9:28 EDT Sexual Orientation Not on file documented as of this encounter Plan of Treatment Not on file documented as of this encounter Procedures Procedure Name Priority Date/Time Associated Diagnosis Comments MR EXTREMITY KNEE W/WO CONTRAST 07/10/2015 15:21 EDT documented in this encounter Results * MR EXTREMITY KNEE W/WO CONTRAST (07/10/2015 15:21 EDT) Anatomical Region Laterality Modality Other 07/10/2015 15:2 1 EDT 07/11/2015 14:00 EDT Narrative 07/11/2015 14:00 EDT MR EXTREMITY KNEE W/WO CONTRAST ??07/10/2015 3:21 PM Clinical History/Comments: Left knee pain, metadiaphyseal bony lesion.. Comparison: None available Technique: Long and short TE TR images of the left lower extremity were obtained. The cglej-[id number] is centered on the proximal tibial metaphysis. IV contrast was administered. Findings: There is an elongated, cortically based lesion within the posterior aspect of the proximal tibial metadiaphysis. This lesion measures approximately 1.7 cm x 1.3 cm x 4.3 cm and demonstrates multiple hypointense septations, as well as a well-defined peripheral margin of hypointense signal. The lesion is mostly isointense to skeletal muscle on T1-weighted imaging, though scattered tiny areas of hyperintense signal are present as well. On T2-weighted imaging, the lesion is mostly hyperintense. There is probable minimal internal enhancement, best seen on the subtraction images. No associated periosteal reaction, cortical breakthrough, or extraosseous soft tissue component is identified. No surrounding marrow edema is seen. The tibial tuberosity demonstrates a somewhat irregular appearance, with small amount of ill-defined bone marrow edema and enhancement at the tibial tuberosity. In addition, there are mild findings of distal patellar tendinosis with a small peritendinous edema and enhancement. These findings are compatible with clinical diagnosis of Fairbank-Schlatter's disease. Mild proximal patellar tendinosis is also evident. Although not specifically evaluated, the ACL, PCL, medial meniscus, lateral meniscus, medial supporting structures, and lateral supporting structures are grossly intact. No sizable knee joint effusion is seen. Impression: 1. Elongated cortically based lesion within the posterior aspect of the proximal tibial metadiaphysis, as described above. Based on the location of the lesion and lack of associated aggressive features, this abnormality may represent a nonossifying fibroma. However, a specific diagnosis is not possible on MRI as correlation with radiographs is essential. Also, clinical correlation is needed as these lesions should not be painful. In addition, serial radiographic followup is recommended in order to ensure stability. 2. Findings which suggest Santos-Schlatter disease, as described above. Please correlate. I have personally reviewed the images and the above interpretation and agree with the findings. Procedure Note Uche Ramos MD - 07/11/2015 MR EXTREMITY KNEE W/WO CONTRAST 07/10/2015 3:21 PM Clinical History/Comments: Left knee pain, metadiaphyseal bony lesion.. Comparison: None available Technique: Long and short TE TR images of the left lower extremity were obtained. The bqyzd-zq-gcpe is centered on the proximal tibial metaphysis. IV contrast was administered. Findings: There is an elongated, cortically based lesion within the posterior aspect of the proximal tibial metadiaphysis. This lesion measures approximately 1.7 cm x 1.3 cm x 4.3 cm and demonstrates multiple hypointense septations, as well as a well-defined peripheral margin of hypointense signal. The lesion is mostly isointense to skeletal muscle on T1-weighted imaging, though scattered tiny areas of hyperintense signal are present as well. On T2-weighted imaging, the lesion is mostly hyperintense. There is probable minimal internal enhancement, best seen on the subtraction images. No associated periosteal reaction, cortical breakthrough, or extraosseous soft tissue component is identified. No surrounding marrow edema is seen. The tibial tuberosity demonstrates a somewhat irregular appearance, with small amount of ill-defined bone marrow edema and enhancement at the tibial tuberosity. In addition, there are mild findings of distal patellar tendinosis with a small peritendinous edema and enhancement. These findings are compatible with clinical diagnosis of Santos-Schlatter's disease. Mild proximal patellar tendinosis is also evident. Although not specifically evaluated, the ACL, PCL, medial meniscus, lateral meniscus, medial supporting structures, and lateral supporting structures are grossly intact. No sizable knee joint effusion is seen. Impression: 1. Elongated cortically based lesion within the posterior aspect of the proximal tibial metadiaphysis, as described above. Based on the location of the lesion and lack of associated aggressive features, this abnormality may represent a nonossifying fibroma. However, a specific diagnosis is not possible on MRI as correlation with radiographs is essential. Also, clinical correlation is needed as these lesions should not be painful. In addition, serial radiographic followup is recommended in order to ensure stability. 2. Findings which suggest Fairbank-Schlatter disease, as described above. Please correlate. I have personally reviewed the images and the above interpretation and agree with the findings. Tip Preciado PA-C IMG MRI ORDERABLES documented in this encounter Visit Diagnoses Not on filedocumented in this encounter Care Teams Head Shipper Relationship Specialty Start Date End Date Theresa Pettit MD [address] [place] [address] PCP - General 07/09/15 05/24/22 documented as of this encounter
--- OUTSIDE RECORDS SUMMARY | 2024-09-10 21:26 | XMS_ITS | Encounter Summary ---
Author Organization [facility] Address [address] [place] [address] Care Team Providers Care Brake Repairer Railroad Name Role Phone Margy Lucero APRN Primary Care Provider + Encounter Details Date Type Department Care Team (Latest Contact Info) Description 06/22/2022 Travel Social History Tobacco Use Types Packs/Day [...] on filedocumented in this encounter Care Teams Brake Repairer Railroad Relationship Specialty Start Date End Date Margy Lucero APRN [address] [place] [address] PCP - General 05/25/22 documented as of this encounter
--- OUTSIDE RECORDS SUMMARY | 2024-09-10 21:26 | XMS_ITS | Encounter Summary ---
Author Organization [facility] Address [address] [place] [address] Care Team Providers Care New Business Clerk Name Role Phone JazmineMargy Art BRITO Primary Care Provider + Encounter Details Date Type Department Care Team (Late st Contact Info) Description 09/27/2023 Lab Requisition [facility] Pathology & Laboratory Medicine - [address] [address] Outr Resulting Lab, Provider Social History Tobacco [...] RNA BY PCR Routine 09/27/2023 10:00 EST documented in this encounter Results * HEPATITIS C AB W REFLEX TO HCV RNA BY PCR (09/27/2023 10:00 EST) Hep C Antibody Negative Negative 09/28/2023 11:14 EST [facility] Blood VENOUS BLOOD / Unknown 09/27/2023 10:00 EST 09/27/2023 21:27 EST Provider Outr Resulting Lab CHEMISTRY & BLOOD GAS ORDERABLES Performing Organization Address City/State/[facility] Co de Phone Number [facility] [address] [place] [address] documented in this encounter Visit Diagnoses Not on filedocumented in this encounter Care Teams New Business Clerk Relationship Specialty Start Date End Date Margy Lucero APRN [address] [place] [address] PCP - General 05/25/22 documented as of this encounter
--- OUTSIDE RECORDS SUMMARY | 2024-09-10 21:26 | XMS_ITS | Encounter Summary ---
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 prescribed one pill AM/PM, been taking both pills at night because taking it in AM makes pt tired. Encounter Details Date Type Department Care Team (Late st Contact Info) Description 05/25/2022 1:36 EDT - 05/25/2022 2:48 EDT Emergency [facility] Emergency Department [address] [place] [id number] Farhan Fraser MD [address] [place] [address] Abnormal lithium level in blood (Primary Dx) Discharge Disposition: Home or Self Care Social [...] 1:33 EDT documented as of this encounter Last Filed Vital Signs Vital Sign Reading Time Taken Comments Blood Pressure 131/85 05/25/2022 0133 EDT Pulse 91 05/25/2022 0133 EDT Temperature - - Respiratory Rate 18 05/25/2022 0133 EDT Oxygen Saturation 97% 05/25/2022132 EDT Inhaled Oxygen Concentration - - Weight [...] this encounter Discharge Instructions * Discharge Instructions* Farhan Fraser MD - 05/25/2022 2:41 EDT Take #3 tablets - 450mg of Burden nightly Follow-up with PCP regarding repeat Burden level blood draw Return for worsening symptoms or any other concerns. documented in this encounter Medications at Time of Discharge Medication Sig Dispensed Refills Start Date End Date lithium carbonate 150 mg capsuleIndications:mix ed bipolar I disorder Take 150 mg by mouth daily. 06/23/22: last filled per [facility] 05/26/22 30 day supply. Prescribed by Tristan Waterman [phone]. 06/23/2022 LORATADINE (CLARITIN ORAL) Take by mouth daily 06/23/20 documented as of this encounter Discharge Disposition Disposition Code Departure Means Destination Comment s Home or Self Group Home pt discharged to home, parents to accompany. documented in this encounter ED Notes * Natalie Lr RN - 05/25/2022 0231 EDT Pt parents at bedside; parents reporting pt has been trying to contact psychiatrist (Dr Pickett in [place]) for med adjustment for weeks and has not received a call back. Pt and family requesting referral to new psychiatrist. MD notified. * Farhan Fraser MD - 05/25/2022 0227 EDT This patient received an evaluation and medical screening exam for emergent medical conditions at Emergency Department on 05/25/2022 ED Course/Medical Decision Making 22-year-old male with a history of bipolar presents stating that his mind keeps racing even after taking his lithium. Patient was prescribed 150 mg twice daily 3 weeks ago. Patient states he has beentaking 300 mg nightly because it typically causes him to be too tired during the day if he takes itin the morning. Patient states that otherwise he has been compliant with his medications. Patient was trying to contact his psychiatrist this last week but has been unable to make contact. Patient isnot scheduled to follow-up until July. Patient is planning to have a blood draw for his lithium level tomorrow. Burden level drawn and is subtherapeutic at 0.2. Patient states that he has been compliant with his medication. Advised patient to take 450 daily and follow-up with PCP for repeat lithium level blood draw in the next 1 to 2 weeks. Additional 150 mg of Burden taken in the ED. Patient discharged home with his parents. Return precautions provided. Final diagnoses: Abnormal lithium level in blood Data Reviewed this visit No current facility-administered medications for this encounter. Current Outpatient Medications Medication Sig Dispense Refill ??? lithium carbonate 150 mg capsule Take 300 mg by mouth. ??? LORATADINE (CLARITIN ORAL) Take by mouth daily History of Present Illness HPI Emanuel Rizvi is a 22 y.o. male with a history of bipolar presents stating that his mind keeps racing even after taking his lithium. Patient was prescribed 150 mg twice daily 3 weeks ago. Patient stateshe has been taking 300 mg nightly because it typically causes him to be too tired during the day ifhe takes it in the morning. Patient states that otherwise he has been compliant with his medications. Patient was trying to contact his psychiatrist this last week but has been unable to make contact. Patient is not scheduled to follow-up until July. Patient is planning to have a blood draw for his lithium level tomorrow. Review of Symptoms ROS A 6-point review of systems was performed. The historian answered negative to all questions with the exceptions of those explicitly detailed as positives in the HPI. Pertinent negatives are also explicitly stated. Physical Exam Vital Signs Pulse: 91 Resp: 18 SpO2: 97 % BP: 131/85 BP MAP: 96 mm Hg BP Device: BP Machine BP Patient Position: Sitting BP Cuff Location: Left arm O2 Device: None (Room air) Nursing notes and vital signs were reviewed. Physical Exam Vitals and nursing note reviewed. Constitutional: Appearance: Normal appearance. HENT: Head: Normocephalic and atraumatic. Right Ear: External ear normal. Left Ear: External ear normal. Mouth/Throat: Mouth: Mucous membranes are moist. Eyes: Extraocular Movements: Extraocular movements intact. Conjunctiva/sclera: Conjunctivae normal. Pupils: Pupils are equal, round, and reactive to light. Pulmonary: Effort: Pulmonary effort is normal. Musculoskeletal: General: Normal range of motion. Cervical back: Normal range of motion. Skin: General: Skin is warm and dry. Neurological: General: No focal deficit present. Mental Status: He is alert and oriented to person, place, and time. Psychiatric: Attention and Perception: He is inattentive. Mood and Affect: Mood is anxious and elated. Behavior: Behavior normal. Thought Content: Thought content normal. Cognition and Memory: Cognition normal. Judgment: Judgment normal. Procedures Procedures Data Interpretation/Results Laboratory results independently reviewed, significant for: Labs Reviewed LITHIUM - Abnormal Result Value Status Burden 0.2 (*) Final Imaging obtained was reviewed and independently interpreted: No orders to display Disposition Discharged Disposition decisions were made weighing risks and benefits of hospitalization vs. outpatient treatment, the risk for further decompensation, and the patient???s wishes. - If discharged: the patient was stable, improved, or requested discharge. Prior to discharge my usual and customary return precautions were reviewed with the patient and/or family. This included follow-up instructions and reasons to return to the Emergency Department if condition worsens, does notimprove as expected, or other new concerns arise. - If admitted: the patient???s condition was severe enough to require additional inpatient evaluation and treatment, or the patient was at risk of sudden decompensation. documented in this encounter Plan of Treatment Not on file documented as of this encounter Procedures Procedure Name Priority Date/Time Associated Diagnosis Comments LITHIUM STAT 05/25/2022 1:48 EDT documented in this encounter Results * (ABNORMAL) LITHIUM (05/25/2022 1:48 EDT) Burden 0.2(L) 0.6 - 1.2 mmol/L 05/25/2022 2:05 EDT [facility] Comment: 18 years and older: Therapeutic range: 0.6 - 1.2 mEq/L Potentially toxic: >1.5 mEq/L Therapeutic range not established for individuals <18 years old. Blood VENOUS BLOOD / Unknown Venipuncture / Unknown 05/25/2022 1:48 EDT 05/25/2022 1:50 EDT Farhan Fraser MD CHEMISTRY & BL OOD GAS ORDERABLES [facility] [address] [place] [address] documented in this encounter Visit Diagnoses Diagnosis Abnormal lithium level in blood- Primary Other abnormal blood chemistry documented in this encounter Historical Medications * This list may reflect changes made after this encounter. Medication Sig Dispensed Refills Start Date End Date lithium carbonate 150 mg capsuleIndications:mix ed bipolar I disorder Take 150 mg by mouth daily. 06/23/22: last filled per [facility] 05/26/22 30 day supply. Prescribed by Tristan Waterman [phone]. 06/23/2022 added in this encounter Care Teams Team Physician Relationship Specialty Start Date End Date Margy Lucero APRN [address] [place] [id number] PCP - General 05/25/22 documented as of this encounter
--- OUTSIDE RECORDS SUMMARY | 2024-09-10 21:26 | XMS_ITS | Encounter Summary ---
Author Organization [facility] Address [address] [place] [address] Care Team Providers Care Pta Name Role Phone Theresa Pettit MD Primary Care Provider [phone] Margy Lucero APRN Primary Care Provider + Encounter Details Date Type Department Care Team (Late st Contact Info) Description 06/02/2021 Lab Requisition [facility] Pathology & Laboratory Medicine - [address] [phone] Outr Resulting Lab, Provider Social History Tobacco [...] 1/2 ANTIGEN AND ANTIBODY, 4TH GENERATION Routine 06/01/2021 13:50 EDT documented in this encounter Results * HIV 1/2 ANTIGEN AND ANTIBODY, 4TH GENERATION (06/01/2021 13:50 EDT) HIV 1 and 2 Antibody/p24 Antigen, 4th Generation Negative Negative 06/03/2021 10:22 EDT [facility] Comment: If acute HIV-1 infection is suspected in a high risk ??patient, submit plasma specimen for HIV-1 RNA quantitation test. Fourth Generation assay performed on the Siemens Centaur. Blood VENOUS BLOOD / Unknown 06/01/2021 13:50 EDT 06/02/2021 16:38 EDT Provider Outr Resulting Lab IMMUNOLOGY A ND SEROLOGY ORDERABLES [facility] [address] [place] [address] documented in this encounter Visit Diagnoses Not on filedocumented in this encounter Care Teams Pta Relationship Specialty Start Date End Date Theresa Pettit MD [address] [place] [phone] PCP - General 07/09/15 05/24/22 Margy Lucero APRN [address] [place] [phone] PCP - General 05/25/22 documented as of this encounter
--- OUTSIDE RECORDS SUMMARY | 2024-09-10 21:26 | XMS_ITS | Encounter Summary ---
Author Organization [facility] Address [address] [place] [address] Care Team Providers Care Sole Layer Name Role Phone Theresa Pettit MD Primary Care Provider [phone] Encounter Details Date Type Department Care Team (Late st Contact Info) Description 01/27/2018 Historical Results Only [facility] Lab - Main [address] [address] Farhan Fraser MD [address] [place] [phone] Social History Tobacco Use Types Packs/Day [...] Procedure Name Priority Date/Time Associated Diagnosis Comments DRUG SCREEN, PRESCRIPTION/OTC, URINE Routine 01/27/2018 1:25 EDT URINE CHEMICAL (DIP) & SEDIMENT (MICRO) WITHOUT REFLEX TO CULTURE Routine 01/27/2018 1:25 EDT documented in this encounter Results * UA, CHEMICAL AND SEDIMENT ANALYSIS (DIPSTICK AND MICROSCOPIC) (01/27/2018 1:25 EDT) URINE APPEARANCE - [facility] Clear CLEAR 01/27/2018 2:[address] [facility] URINE BILIRUBIN - DIPSTICK - [facility] 1+ NEGATIVE [facility]2018 [facility]: Unable to confirm positive urine bilirubin. If clinical correlation is inconsistent, consider serum bilirubin. URINE BLOOD - [facility] Negative NEG 01/27/2018 2:[address] [facility] URINE COLOR - [facility] Yellow YELLOW 01/27/2018 2:20 [facility] URINE GLUCOSE - DIPSTICK - [facility] Negative NEGATIVE 01/27/2018 2:20 [facility] URINE KETONE - [facility] 2+ NEGATIVE 01/27/2018 2:20 [facility] URINE LEUK ESTERASE - [facility] Negative NEG 01/27/2018 2:20 [facility] URINE NITRITE - DIPSTICK - [facility] Negative NEG 01/27/2018 2:20 [facility] URINE PH - [facility] 6.5 4.0 - 8.0 8 2:20 [facility] URINE PROTEIN - DIPSTICK - [facility] Negative NEG 01/27/2018 2:20 [facility] URINE SPECIFIC GRAVITY - [facility] 1.020 1.001 - 1.035 01/27/2018 2:20 [facility] URINE UROBILINOGEN - DIPSTICK - [facility] 0.2 0.2 - 1.0 01/27/2018 2:20 [facility] 01/27/2018 1:25 EDT 01/27/2018 2:[address] [facility] - 01/27/2018 2:22 EDT Does PT Have a Latex Allergy? NO Farhan Fraser MD URINALYSIS ORD ERABLES [facility] * (ABNORMAL) DRUG SCREEN, PRESCRIPTION/OTC, URINE (01/27/2018 1:25 EDT) [facility] Signature AMPHETAMINES NEG NEG 01/27/2018 [facility] BARBITURATES,UR - [facility] NEG NEG 01/27/2018 2:28 [facility] BENZODIAZEPINES NEG NEG 8 2:28 [facility] COCAINE,URINE - [facility] NEG NEG 01/27/2018 2:28 [facility] MAMP (METHAMPHETAMINES - [facility] NEG NEG 01/27/2018 2:28 [facility] MARIJUANA,URINE - [facility] POS(A) NEG 01/27/2018 2:28 [facility] MTD (METHADONE) - [facility] NEG NEG 01/27/2018 2:28 [facility] OPIATES,URINE - [facility] NEG NEG 01/27/2018 2:28 [facility] OXY (OXYCODONE) - [facility] NEG NEG 01/27/2018 2:28 [facility] PCP (PHENCYCLIDINE) - [facility] NEG NEG 01/27/2018 2:28 [facility] PROPOXYPHENE (PPX) - [facility] NEG NEG 01/27/2018 2:28 [facility] TRICYCLIC ANTIDEPRESSANTS - [facility] NEG NEG 01/27/2018 2:28 [facility] Comment: Drug Class ?Cutoff Concentration [...] retained in the laboratory for 7 days. 01/27/2018 1:25 EDT 01/27/2018 2:[address] [facility] - 01/27/2018 2:28 EDT Does PT Have a Latex Allergy? NO Farhan Fraser MD URINALYSIS ORD ERABLES [facility] documented in this encounter Visit Diagnoses Not on filedocumented in this encounter Care Teams Sole Layer Relationship Specialty Start Date End Date Theresa Pettit MD [address] [place] [phone] PCP - General 07/09/15 05/24/22 documented as of this encounter
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
--- OUTSIDE RECORDS SUMMARY | 2024-09-10 21:26 | XMS_ITS | Encounter Summary ---
Author Organization [facility] Address [address] [place] [address] Care Team Providers Care Social Service Director Name Role Phone Theresa Pettit MD Primary Care Provider [phone] Encounter Details Date Type Department Care Team (Late st Contact Info) Description 02/05/2018 Historical Results Only [facility] - Main [place] [address] [place] [id number] [address] Chaves [address] [address] Social History Tobacco Use Types [...] Procedure Name Priority Date/Time Associated Diagnosis Comments GLUCOSE, SERUM Routine 02/05/2018 7:08 EDT documented in this encounter Results * GLUCOSE, SERUM (02/05/2018 7:08 EDT) [facility] 86 70 - 100 mg/dL 02/05/2018 7:39 EDT [facility] 02/05/2018 7:08 EDT 02/05/2018 7:08 EDT Jesi Anderson Andie DRAPERY HEAD FORMER CHEMISTRY & BLOOD GAS ORDERABLES [facility] documented in this encounter Visit Diagnoses Not on filedocumented in this encounter Care Teams Social Service Director Relationship Specialty Start Date End Date Theresa Pettit MD [address] [place] [phone] PCP - General 07/09/15 05/24/22 documented as of this encounter
--- OUTSIDE RECORDS SUMMARY | 2024-09-10 21:26 | XMS_ITS | Encounter Summary ---
Author Organization [facility] Address [address] [place] [address] Care Team Providers Care Computer Hardware Designer Name Role Phone JazmineMargy Art BRITO Primary Care Provider + Encounter Details Date Type Department Care Team (Late st Contact Info) Description 09/27/2023 Lab Requisition [facility] Pathology & Laboratory Medicine - [address] [address] Outr Resulting Lab, Provider Social History Tobacco [...] Comments CHLAMYDIA/N. GONORRHOEAE AMPLIFIED NUCLEIC ACID Routine 09/27/2023 10:00 EST documented in this encounter Results * CHLAMYDIA/N. GONORRHOEAE AMPLIFIED RNA (09/27/2023 10:00 EST) Neisseria gonorrhoeae Result Negative Negative 09/28/2023 14:46 EST [facility] Chlamydia trachomatis Result Negative Negative 09/28/2023 14:46 EST [facility] Urine URINE / Unknown 09/27/2023 1 0:00 EST 09/27/2023 22:01 EST Provider Outr Resulting Lab MICROBIOLOGY - GENERAL ORDERABLES [facility] [address] [place] [address] documented in this encounter Visit Diagnoses Not on filedocumented in this encounter Care Teams Computer Hardware Designer Relationship Specialty Start Date End Date Margy Lucero APRN [address] [place] [id number] PCP - General 05/25/22 documented as of this encounter
--- OUTSIDE RECORDS SUMMARY | 2024-09-10 21:26 | XMS_ITS | Encounter Summary ---
Author Organization [facility] Address [address] [place] [address] Care Team Providers Care Biologics Specialist Name Role Phone Margy Lucero DARYL Primary Care Provider + Reason for Visit * Reason Comments Psychiatric Evaluation pt states that he needs to be seen for his manic bipolar. denies HI/SI. states that he feels that he needs to be admitted and get some rest * Auth/Cert Specialty Diagnoses / Procedures Referred By Mary Grace sheridan Referred To Contact Diagnoses Bipolar disorder, current episode mixed, moderate (HCC-CMS) Bipolar affective disorder, current episode mixed, current episode severity unspecified (HCC-CMS) Referral ID Status Reason Start Date Expiration Date Visits Re quested Visits Authorized [id number] 06/22/2022 06/23/2022 1 1 Encounter Details Date Type Department Care Team (Latest Contact Info) Description 06/22/2022 15:54 EDT - 06/23/2022 19:15 EDT Hospital Encounter [facility] Inpatient Psychiatry [address] [place] [address] Tonny Tejeda MD [address] [place] [address] Marimar Porter MD [address] [place] [address] Bipolar disorder, current episode mixed, moderate (HCC-CMS) ([facility]) (Primary Dx); Tobacco dependence Discharge Disposition: Home or Self Care Social [...] 15:49 EDT documented as of this encounter Last Filed Vital Signs Vital Sign Reading Time Taken Comments Blood Pressure 139/76 06/23/2022 1017 EDT Pulse 85 06/23/2022 1017 EDT Temperature 36.7 ??C (98 ??F) 06/23/2022 1017 EDT Respiratory Rate 18 06/23/2022 1017 EDT Oxygen Saturation 96% 06/23/2022 1017 EDT Inhaled Oxygen Concentration - - Weight 118.5 kg (261 lb 3.2 oz) 06/22/20222099 EDT Height 184.2 cm (6' 0.5) 06/22/2022 2100 EDT Body Mass Index 34.94 06/22/2022 2100 EDT documented in this encounter Functional Status [...] 07/23/2015 documented as of this encounter Discharge Summaries * Monica Qureshi MD - 07/04/2022 1332 EDT [facility] Discharge Summary Date of Admission: 06/22/11 Date of Discharge: 06/23/22 Admission Diagnoses: 1--Bipolar I disorder, some mixed features 2--Cannabis use disorder 3--Nicotine use disorder 4--History of learning disability. Discharge Diagnoses: 1--Bipolar disorder, admission episode possibly mixed. 2--Adjustment disorder, feeling overwhelmed with new fatherhood and associated stressors. [Also no change in #2, 3, 4 above.] Reason for admission: Mr Rizvi presented to [facility] ED with CC: Anxiety I need to help to get better. This was one of several presentations to [facility] ED in the weeks leading up to admission. Per Dr Porter: [He] has been coming several times to the ED over the last few weeks concern about becoming depressed and feeling stressed with his 4-month-old baby. 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 Mr. Rizvi was previously hospitalized here in February 2017 and in January 2019 and both were involuntary admissions and the main diagnoses have been psychosis NOS. When I ask about his bipolar diagnosis he says that his bipolar is in remission. Patient is talkative but disorganized and is difficult to get full history... When asked about mood he talks about being anxious and concerned when he thinks that his son and his says crying all the time, he talks about needing some peace and quiet. He is irritable at times having difficulties with questions and clearly distracted with noises from another patient in the [facility].He denies suicidal or homicidal ideation but on the other side he reports hopelessness and helplessness. He says that he smokes marijuana that helps him calm down and denies any negative effects likedifficulties with motivation or paranoia. Dr Porter's admission summary was as follows: 22 y.o. significant other man with a history of psychosis and diagnosis of bipolar affective disorder, type I who has not been consistently takingmedications due to concern of side effects or becoming depressed and now he feels hopeless helplessfeeling that things are not right and not clear how to make things better he wants to be observed on the medication to make sure that he gets well and he is able to get back to his girlfriend and son. His sleep and appetite are stable, he is anxiety is increased and his mood appears unstable he reports depression but I observed irritability as well. He was seen in the ED several times over the last few weeks with recommendations to follow-up with his outpatient psychiatrist but he has not been able to do that, he did start taking Abilify 20 mg at bedtime bad he feels that that has not been helping enough. He smokes marijuana daily and she reports that helps him calm down... ?? Psychiatric Diagnoses (including Personality Traits/Disorders): Patient presentation and history isconsistent with bipolar affective disorder and she is now presenting with some mixed features; marijuana use disorder; nicotine use disorder and a history of learning disability. Suicide Risk Assessments: Admission: Modifiable Risk Factors: Agitation;Despair;Psychic distress/anxiety/pain;Decreased self esteem;Substance abuse / dependence;Impulsivity;Hopelessness;Helplessness Non-modifiable risk factors: Male;;Mood disorder;Family history of psychiatric illness Protective factors: Children in home;Sense of responsibility to family & social supports/connections;Positive problem solving;Capacity to establish therapeutic alliance;Capacity for self-observation;Capacity to self-regulate;Willingness to comply with treatment plan;Outpatient care in place;Positive coping skills/potential Overall Acute Risk Rating: moderate Overall Chronic Risk Rating: moderate Describe how level of risk was determined: patient report and record review Discharge: Acute: Low. Long-term: Moderate. Relative to above: Reduction in depression, anxiety, hopelessness and helplessness. Expressed lack of suicidal ideation, intent or plan. Expressed commitment to outpatient follow up. Hospital Course: Mr Rizvi was admitted to [facility] inpatient psychiatry on a voluntary basis. He restarted taking aripiprazole, at a dose of 30 mg at bedtime, and was given oral hydroxyzine 25 mg every 4hours as needed for anxiety. Mr Rizvi evaluated from a general medical perspective by Maria Guadalupe Munson NP, on 06/23/22. Impression was of a generally healthy adult, with tobacco dependence, history of asymptomatic covid, and need for health maintenance activities. He met with Laura Winn DO, and Leroy Ventura, case coordinator. Dr Winn's impression was: Emanuel Rizvi is a 22 y.o. year old man with a history of mood disorder, psychosis, and cannabis use disorder who presented to the hospital with increasing depressive and anxiety symptoms in the settingof stopping Abilify abruptly 3 weeks ago and continued daily cannabis use. Mr Rizvi was adherent to the medication program. His behavior was appropriate. There were no behavioral emergencies or expressed violent ideation toward self or others. On the evening of 06/23/22, Mr Rizvi expressed difficulty being in the environment of inpatient psychiatry. He spoke with Isael Lacey RN, and was reassured. He subsequently said that his father had come to pick him up and requested discharge. He was evaluated by Dr Qureshi and discharged as per his req uest. His father came to inpatient psychiatry and participated in the discharge process, with Yan Bell RN. Mental Status at time of discharge: Alert, participatory. Speech normal in rate, volume, articulation, coherence, spontaneity. Psychomotor activity nl level. No abnl movements observed. Mood as above. Affect euthymic, calm. No evidence of response to internal stimuli. Thought process linear. Content relevant, as above. No evidence of danger toward self or others. Associations. Insight, judgment at least partially intact. He seemed unaware that this is not a desirable way of arranging discharge,but understood the need for mental health follow up and was clear and convincing in his statements that he would obtain this, as described above. Normal expressive and receptive use of language. Gricelo maxine recall of pertinent information, such as details about his outpatient care, as described above. His statements and descriptions had a very straightforward, simple quality, but were well organized, suggesting improvement relative to admission. C-SSRS completed in Flowsheets. Data: No new or pending studies. Discharge instructions: Diet: General. Activity: As tolerated. Medications: 1--Aripiprazole (Abilify) 30 mg by mouth at night. 2--Hydroxyzine 25 mg every 4 hours as needed for anxiety. The following prescriptions were phoned to the [facility]: 1--Aripiprazole 30 mg, 1 by mouth at night, #7. 2--Hydroxyzine 25 mg mg by mouth q 4 h PRN anxiety, #20. Follow up: With Tristan Pickett MD, and the other clinicians at [facility]. Please call Dr Pickett's office tomorrow morning to arrange follow up. ??He, or another member of [facility], may want to see you earlier than your next scheduled appointment. Ask Dr Pickett about any other medications that you should take. ?? If thoughts of harming yourself or anyone else, or any other serious symptom develops, please proceed to your closest hospital emergency department, or call?or [phone]. The need to seek help right away if symptoms worsen, especially thoughts of harm toward himself or anyone else, was emphasized. He volunteered that he would do so, as described above. Mr Rizvi was discharged improved condition. Monica Qureshi MD, MPH Developer Designer Psychiatric Physician documented in this encounter Discharge Instructions * Discharge Instr - AVS First Page* Monica Qureshi MD - 06/23/2022 18:45 EDT You are being discharged home tonight at your request. Please call Dr Pickett's office tomorrow morning to arrange follow up. He, or another member of [facility], may want to see you earlier than your next scheduled appointment. Your medications: 1--Aripiprazole (Abilify) 30 mg by mouth at night. 2--Hydroxyzine 25 mg every 4 hours as needed for anxiety. A short-term prescription for these will be called to [facility] in [place] for you to pickle cutter tonight. Ask Dr Pickett about any other medications that you should take. If thoughts of harming yourself or anyone else, or any other serious symptom develops, please proceed to your closest hospital emergency department, or call or [phone]. * Discharge Instr - Activity* Monica Qureshi MD - 06/23/2022 19:15 EDT General activitity * Discharge Instr - Diet* Monica Qureshi MD - 06/23/2022 19:15 EDT General diet documented in this encounter Medications at Time of Discharge Medication Sig Dispensed Refills Start Date End Date ARIPiprazole (ABILIFY) 30 mg tablet Take 1 Tablet by mouth at bedtime. 7 Tablet 06/23/2022 hydrOXYzine (ATARAX) 25 mg tablet Take 1 Tablet by mouth every 4 hours as needed for Anxiety. 20 Tablet 06/23/2022 documented as of this encounter Ordered Prescriptions Prescription Sig Dispensed Refills Start Date End Da te hydrOXYzine (ATARAX) 25 mg tablet Take 1 Tablet by mouth every 4 hours as needed for Anxiety. 20 Tablet 06/23/2022 ARIPiprazole (ABILIFY) 30 mg tablet Take 1 Tablet by mouth at bedtime. 7 Tablet 06/23/2022 documented in this encounter Discharge Disposition Disposition Code Departure Means Destination Home or Self Care Car Home documented in this encounter Progress Notes * Monica Qureshi MD - 06/23/2022 1831 EDT Developer Designer Note 06/23/22 Call received from Peter Bell RN, at 18:15: Patient Emanuel Rizvi, would like to leave [facility]. His ride is here. Would you like to come up and talk tohim I met with Mr Rizvi via remote access with audio and visual components (Zoom) to which he consented. Location of patient: Inpatient Psychiatry. Location of physician: Office at [facility]. Others present:Yan Bell RN, to set up the IPad for the remote access visit. CC: Desire to return home. S: Mr Rizvi reported that he would like to return to his home. He had already made arrangements fortransportation to his home in [place]. He said that he thought that his father was the one picking him up, and that he was in the hospital, downstairs. Mr Rizvi stated, I have a family. I have a good home life. I want to get back to that. He reported that he had been sent a picture of his 4 month old baby, and wanted to return to his family. With regard to the circumstances that led to his admission, he concurred that he had felt overwhelmed at the time. He said that he felt better: You guys gave me a very good space to clear my head. He said that the medications he had been taking did help and that he was willing to keep taking them. He reported that he had a follow up appointment with his outpatient psychiatrist, Tristan Pickett MD, and was willing to contact the office tomorrow. Specific symptoms were explored. Mood was described as honestly, great; I feel very relaxed. He volunteered that he felt tired andnot manic. He reported no pain. When asked about thoughts of harming himself, or ending his life, and how strong those thoughts might be, he replied: Zero, I don't have those thoughts. He was clear, straightforward and convincingin that regard. He also denied any thoughts of harming any other person, including the baby. He stated, I'm just missing my home. I think it would be best for me. He also said that he had stuff going on, at home that he wanted to attend to, such as paying bills. Outpatient treatment was reviewed. He reported that he sees Tristan Pickett MD, at [facility], and Margy Lucero [CARE CONSULTANT] at the [facility]. He said that Fahad Madrigal is his counselor Medication program was reviewed. He has been taking aripiprazole (Abilify) 30 mg nightly, increasedfrom his previous dose of 20 mg nightly.ydroxyzine 25 mg every 4 hours as needed for anxieity/calmness. He said that these both had been helpful. He volunteered that his pharmacy is the [facility] in [place] and that he could pickle cutter new prescriptions there. When asked about back up plans, ie, what he would do if he again felt overwhelmed, or experienced thoughts of suicide or other serious symptoms, he replied, honestly, come seek help again as he hadthis time. Collateral information: Case d/w Dr Winn prior to this visit. He reported no factors identifiable on admission or during this hospitalization that would preclude discharge. Case d/w Ms Bell. She reported no behavior today or tonight that would suggest heightened risk. O: VS: Blood pressure 139/76, pulse 85, temperature 36.7 ??C (98 ??F), resp. rate 18, height 184.2 cm (72.5), weight (!) 118.5 kg (261 lb 3.2 oz), SpO2 96 %. Gen: WD adult NAPD. Mental status: Alert, participatory. Speech normal in rate, volume, articulation, coherence, spontaneity. Psychomotor activity nl level. No abnl movements observed. Mood as above. Affect euthymic, calm. No evidence of response to internal stimuli. Thought process linear. Content relevant, as above.No evidence of danger toward self or others. Associations. Insight, judgment at least partially intact. He seemed unaware that this is not a desirable way of arranging discharge, but understood the need for mental health follow up and was clear and convincing in his statements that he would obtain t his, as described above. Normal expressive and receptive use of language. Reasonable recall of pertinent information, such as details about his outpatient care, as described above. His statements anddescriptions had a very straightforward, simple quality, but were well organized, suggesting improvement relative to admission. C-SSRS completed in Flowsheets. Data: No new or pending studies. Assessment: 1--Bipolar disorder, admission episode possibly mixed. 2--Adjustment disorder, feeling overwhelmed with new fatherhood and associated stressors. 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 4--Improvement in mood, organization and apparently coping with resumption/dose increase in aripiprazole, supportive and contained environment, and lack of substance use. 5--No detectable reasons to prevent discharge tonight. Plan: 1--Discharge to home. 2--Instructions to Mr Rizvi: You are being discharged home tonight at your request. ?? Please call Dr Pickett's office tomorrow morning to arrange follow up. He, or another member of [facility], may want to see you earlier than your next scheduled appointment. ?? Your medications: 1--Aripiprazole (Abilify) 30 mg by mouth at night. 2--Hydroxyzine 25 mg every 4 hours as needed for anxiety. ?? A short-term prescription for these will be called to [facility] in [place] for you to pickle cutter tonight. Ask Dr Pickett about any other medications that you should take. ?? If thoughts of harming yourself or anyone else, or any other serious symptom develops, please proceed to your closest hospital emergency department, or call or [phone]. 3--I called the following prescriptions to the [facility]: A--Aripiprazole 30 mg, 1 by mouth at night, #7. B--Hydroxyzine 25 mg mg by mouth q 4 h PRN anxiety, #20. 4--The need to seek help right away if symptoms worsen, especially thoughts of harm toward himself or anyone else, was emphasized. He volunteered that he would do so, as described above. > 30 min including discussion with patient and other clinicians, as described above, plus prescriptions and documentation, as above. Monica Qureshi MD, MPH * Scott Winn, DO - 06/23/2022 1158 EDT Inpatient Psychiatry Daily Progress Note Date of Service: 06/23/2022 Admit Date: 06/22/22 Hospital day: LOS: 1 day Legal Status: Legal status: Voluntary Observation Level: Frequent Locus/Risk of Harm: 4 Reason for Admission/Chief Complaint: I need help Patient was admitted voluntarily yesterday evening. Patient noted to have disorganized thought patterns and had difficulty articulating reasons for coming to the hospital. He states that adjustment to being a father has been difficult and he has been under stress. He reports stopping Abilify 3 weeks ago because he was feeling good and his mood and stress levels have increased since. He denies SI, HI. He was restarted on Abilify 30mg po at bedtime yesterday evening. Current Facility-Administered Medications Medication Route Frequency ??? acetaminophen (TYLENOL) tablet 650 mg oral Q4H PRN ??? ARIPiprazole (ABILIFY) tablet 30 mg oral QHS ??? hydrOXYzine (ATARAX) tablet 25 mg oral Q4H PRN ??? LORazepam (ATIVAN) tablet 1 mg oral Q6H PRN ??? melatonin tablet 3 mg oral AT BEDTIME PRN ??? nicotine (NICOTROL) 10 mg inhaler kit 1 Inhaler inhalation Q2H PRN ??? nicotine inhaler (delivery device) ??? nicotine inhaler (delivery device) ??? pantoprazole (PROTONIX) tablet 40 mg oral DAILY BEFORE BREAKFAST Review of Systems: (need 2 systems; may include sleep, appetite, medication side-effects) He denies problems with appetite or medication adverse side effects. Mental Status Exam: (need at least 9 findings) Appearance: appropriate, well-groomed Behavior: tense, good Eye contact Psychomotor activity: increased Musculoskeletal: normal tone, normal bulk and no abnormal movements Gait: steady Speech: normal rate, normal rhythm and normal volume Mood: Concerned Affect: restricted Perceptions: no perceptual disturbances Thought Process: disorganized Thought Content: no overt delusions Impulses: no suicidal ideation Sensorium: alert Orientation: person, place, time and situation Attention: intact Concentration: intact, able to spell world backwards Short Term Memory: intact Prison Memory: intact Language: normal Fund of Knowledge: branch customer service representative of education level Capacity for Abstraction: intact Insight: Fair he recognizes that he has difficulties but is not clear or able to describe his main problems Judgement: fair Physical Exam: BP 139/76 (BP Cuff Location: Right arm, BP Patient Position: Sitting) Pulse 85 Temp 36.7 ??C (98 ??F) Resp 18 Ht 184.2 cm (72.5) Wt (!) 118.5 kg (261 lb 3.2 oz) SpO2 96% BMI 34.94 kg/m?? Data Review: Labs: Results for orders placed or performed during the hospital encounter of 06/22/22 (from the past 24 hour(s)) COVID-19 TESTING Specimen: Nasopharynx; Swab Result Value Ref Range COVID-19 rt-PCR Result Negative Negative Performing Lab [employer] [facility] Lab Other studies: N/A Assessment/Formulation: (include vol/invol, mode of transport to hosp, who referred, risk to self/others) Emanuel Rizvi is a 22 y.o. year old Man with a history of mood disorder, psychosis, and cannabis use disorder who presented to the hospital with increasing depressive and anxiety symptoms in the settingof stopping Abilify abruptly 3 weeks ago and continued daily cannabis use. He would benefit from continued inpatient treatment. Emanuel Rizvi meets criteria for acute level of care. Diagnostic Impression w/ Differential Diagnosis Psychiatric Diagnoses (including Personality Traits/Disorders): Unspecified bipolar disorder (likely bipolar 1 disorder, current episode mixed) Cannabis use disorder, severe Learning disability (per history) Plan: (comment on changes in Level of Observation or Locus Risk of Harm) -Continue Abilify 30mg po at bedtime -Provide structure on unit -encouraged groups Discharge Plan: Discharge planning per multidisciplinary team rounds. Time Specifier:??I spent a total of 35minutes with this patient and in direct floor time today. ??Over 50% of this time was spent in counseling and coordination of care as described in the note. Scott Winn DO 06/23/2022 11:59 * Rao Muhammad - 06/22/20222051 EDT PT was visited first by his father, and then by his mother. Both parents have left. PT is currentlyrelaxing in his bed. * Rao Muhammad - 06/22/20222004 EDT PT is sitting at the table in the milieu relaxing and talking on the telephone. * Rao Muhammad - 06/22/2022 192 EDT PT requested the lights off and is resting calmly on his bed. documented in this encounter H&P Notes * Zack Carias MD - 06/23/2022 0825 EDT Date of Service: 06/23/22 Admit Date : 06/22/2022 PCP: Margy Lucero ([facility]) Subjective: Chief Complaint: Medication management Patient is a 22 y.o. male with bipolar disorder voluntarily admitted to inpatient psychiatry on 06/22/22 for depression management. He reports that lithium started by PCP since couldn't get in with psychiatrist. With use he felt sedated stopepd a few weeks ago. He is a new father to a 4 month old and wants to focus on med management. His son was noted to have poor kidney function in utero and has surgery coming up 07/13. He has previously been admitted to [facility] 2017 and 2019. See psychiatrist intake for further details. Therapist: Ruth Madrigal since 2017 Outpatient psychiatrist: Tristan Pickett network operations project manager: n/a Physically reports the following: +Fatigue- always on the go +trouble sleeping - melatonin 40mg helpful in the past -asymptomatic covid Diana, hx primary series covid Past Medical History: Diagnosis Date ??? Bipolar disorder (HCC) No past surgical history on file. Medications Prior to Admission Medication Sig Dispense Refill Last Dose ??? ARIPiprazole (ABILIFY) 20 mg tablet Take 20 mg by mouth at bedtime. 06/21/2022 ??? lithium carbonate 150 mg capsule Take 300 mg by mouth. (Patient not taking: Reported on 06/22/2022) Not Taking ??? 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 Works for [employer] E[employer]h: less than weekly Tobacco: 1ppd Marijuana: calms down, setivas -smoke about 2x weekly, occ edible for sleep/chill Other substance use: in the past - cocaine- 'not that jerson anymore' Review of Systems A ten point review of systems was performed and was negative except for pertinent positives noted in the HPI Objective: VS: Patient Vitals for the past 24 hrs: BP Temp Temp src Pulse Resp SpO2 Height Weight 06/22/22 2100 135/86 36.8 ??C (98.3 ??F) Temporal 78 18 95 % 184.2 cm (72.5) (!) 118.5 kg (261 lb 3.2 oz)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 Number [facility] [address] [place] [phone] documented in this encounter Visit Diagnoses Diagnosis Bipolar disorder, current episode mixed, moderate ([facility])- Primary Bipolar I disorder, most recent episode (or current) mixed, moderate Bipolar disorder, current episode mixed, moderate (HCC-CMS) Bipolar I disorder, most recent episode (or current) mixed, moderate Tobacco dependence Tobacco use disorder Bipolar disorder (HCC-CMS) Bipolar disorder, unspecified Bipolar affective disorder, current episode mixed (HCC-CMS) Bipolar I disorder, most recent episode (or current) mixed, unspecified documented in this encounter Administered Medications Inactive Administered Medications - up to 3 most recent administrations Medication Order MAR Action Action Date Dose Rate Site ARIPiprazole (ABILIFY) tablet 30 mg 30 mg, oral, AT BEDTIME, First dose on Mon06/22/22 at 2215, Until Discontinued, Routine Given 06/22/2022 22:07 EDT 30 mg hydrOXYzine (ATARAX) tablet 25 mg 25 mg, oral, EVERY 4 HOURS PRN, Starting on Mon06/22/22 at 2145, Until Tova 06/23/22 at 2134, Anxiety, Routine Given 06/23/2022 17:50 EDT 25 mg LORazepam (ATIVAN) tablet 1 mg 1 mg, oral, NOW X1, 1 dose, On Mon06/22/22 at 1900, STAT Given 06/22/2022 18:50 EDT 1 mg LORazepam (ATIVAN) tablet 1 mg 1 mg, oral, EVERY 6 HOURS PRN, Starting on Mon06/22/22 at 2145, Until Mon06/23/22 at 1211, Anxiety, or Agitation, Routine Given 06/23/2022 2:12 EDT 1 mg melatonin tablet 3 mg 3 mg, oral, AT BEDTIME PRN, Starting on Mon06/22/22 at 2145, Until Tova 06/23/22 at 2134, Sleep, Routine Given 06/23/2022 17:51 EDT 3 mg Given 06/22/2022 22:24 EDT 3 mg nicotine (NICOTROL) 10 mg inhaler kit 1 Inhaler 1 Inhaler, inhalation, EVERY 2 HOURS PRN, Starting on Mon06/22/22 at 2149, Until Mon06/23/22 at 2134, Smoking Cessation, Routine Given 06/23/2022 17:51 EDT 1 Inhaler Given 06/23/2022 16:05 EDT 1 Inhaler Given 06/23/2022 13:13 EDT 1 Inhaler nicotine inhaler (delivery device) 1 dose, Starting on Mon06/22/22 at 2205, Until Tova 06/23/22 at 2134 nicotine inhaler (delivery device) 1 dose, Starting on Mon06/23/22 at 0213, Until Mon06/23/22 at 2134 pantoprazole (PROTONIX) tablet 40 mg 40 mg, oral, DAILY BEFORE BREAKFAST, First dose on Mon06/23/22 at 0700, Until Discontinued, Routine Given 06/23/2022 6:37 EDT 40 mg documented in this encounter Discontinued Medications Medication Sig Discontinue Reason Start Date End Da te LORATADINE (CLARITIN ORAL) Take by mouth daily 06/23/2022 lithium carbonate 150 mg capsuleIndications:mix ed bipolar I disorder Take 150 mg by mouth daily. 06/23/22: last filled per [facility] 05/26/22 30 day supply. Prescribed by Tristan Waterman [phone]. 06/23/2022 ARIPiprazole (ABILIFY) 20 mg tablet Take 20 mg by mouth at bedtime. 06/23/22: last filled per [facility] 06/16/22 30day supply. Prescribed by Tristan Pickett [phone]. 06/23/2022 lithium (ESKALITH) 450 mg CR tablet Take 450 mg by mouth at bedtime. 06/23/22: Last filled per [facility] 05/26/22 30day supply. Prescribed by Tristan Pickett [phone]. 06/23/2022 documented as of this encounter Historical Medications * This list may reflect changes made after this encounter. Medication Sig Dispensed Refills Start Date End Date lithium (ESKALITH) 450 mg CR tablet Take 450 mg by mouth at bedtime. 06/23/22: Last filled per [facility] 05/26/22 30day supply. Prescribed by Tristan Pickett [phone]. 06/23/2022 ARIPiprazole (ABILIFY) 20 mg tablet Take 20 mg by mouth at bedtime. 06/23/22: last filled per [facility] 06/16/22 30day supply. Prescribed by Tristan Pickett [phone]. 06/23/2022 added in this encounter Active and Recently Administered Medications Times are shown in EDT. Scheduled Medication Order 06/21/2022 06/22/2022 06/23/2022 ARIPiprazole (ABILIFY) tablet 30 mg 30 mg, oral, AT BEDTIME, First dose on Mon06/22/22 at 2215, Until Discontinued, Routine 2207 (Given - Provider: Sakshi Alba RN) 2100 (Canceled Entry - Provider: Batch Job User Admin - Comment: Automatically canceled at discontinue of medication order) LORazepam (ATIVAN) tablet 1 mg (COMPLETED) 1 mg, oral, NOW X1, 1 dose, On Mon06/22/22 at 1900, STAT 1850 (Given - Provider: Qian Callahan RN) pantoprazole (PROTONIX) tablet 40 mg 40 mg, oral, DAILY BEFORE BREAKFAST, First dose on Mon06/23/22 at 0700, Until Discontinued, Routine 0637 (Given - Provid er: Sakshi Alba RN) PRN Medication Order 06/21/2022 06/22/2022 06/23/2022 acetaminophen (TYLENOL) tablet 650 mg 650 mg, oral, EVERY 4 HOURS PRN, Starting on Mon06/22/22 at 2145, Until Tova 06/23/22 at 2134, Mild Pain 1-3, Routine hydrOXYzine (ATARAX) tablet 25 mg 25 mg, oral, EVERY 4 HOURS PRN, Starting on Mon06/22/22 at 2145, Until Mon06/23/22 at 2134, Anxiety, Routine 1750 (Given - Provid er: Chasidy Lacey RN) LORazepam (ATIVAN) tablet 1 mg (CANCELED) 1 mg, oral, EVERY 6 HOURS PRN, Starting on Mon06/22/22 at 2145, Until Tova 06/23/22 at 1211, Anxiety, or Agitation, Routine 0212 (Given - Provid er: Sakshi Alba RN) melatonin tablet 3 mg 3 mg, oral, AT BEDTIME PRN, Starting on Mon06/22/22 at 2145, Until Mon06/23/22 at 2134, Sleep, Routine 2224 (Given - Provider: Sakshi Alba RN) 1751 (Given - Provider: Chasidy Lacey RN) nicotine (NICOTROL) 10 mg inhaler kit 1 Inhaler 1 Inhaler, inhalation, EVERY 2 HOURS PRN, Starting on Mon06/22/22 at 2149, Until Tova 06/23/22 at 2134, Smoking Cessation, Routine 2207 (Given - Provider: Sakshi Alba, RN) 0213 (Given - Provider: Sakshi Alba, RN)0651 (Given - Provider: Sakshi Alba, RN)0915 (Given - Provider: Chasidy Lacey, RN)1136 (Given - Provider: Chasidy Lacey, RN)1313 (Given - Provider: Chasidy Lacey, RN)1605 (Given - Provider: Chasidy Lacey, IRENE)1751 (Given - Provider: Chasidy Lacey, IRENE) No Frequency Medication Order 06/21/2022 06/22/2022 06/23/2022 nicotine inhaler (delivery device) 1 dose, Starting on Mon06/22/22 at 2205, Until Tova 06/23/22 at 2134 nicotine inhaler (delivery device) 1 dose, Starting on Mon06/23/22 at 0213, Until Tova 06/23/22 at 2134 documented in this encounter Orders Medications Ordered That Timbo ht Not Have Been Administered Count Last Ordered Date First Ordered Date nicotine inhaler (delivery device) 2 202106/22/2022 acetaminophen (TYLENOL) tablet 650 mg 1 08/2022 LORazepam (ATIVAN) tablet 1 mg 1 06/22/2022 Nursing Count Last Ordered Date First Orde red Date CALL PHYSICIAN SPECIALTY CONSULT 06/22/20 CALL [facility]/SCREENER 1 06/22/2022 PATIENT AT LOW RISK FOR VTE: RISK OF MECHANICAL PROPHYLAXIS OUTWEIGHS 1 06/22/2022 Admission Count Last Ordered Date First Orde red Date ADMIT TO IP PSYCH 1 06/22/2022 PSYCH BED REQUEST 1 06/22/2022 Discharge Count Last Ordered Date First Orde red Date DISCHARGE PATIENT 1 06/23/2022 documented in this encounter Care Teams Biologics Specialist Relationship Specialty Start Date End Date Margy Lucero, FAMILY DAY CARE PROVIDER [address] [place] [address] PCP - General 05/25/22 documented as of this encounter
== END 2024-09-10 21:23 | disposition home or self-care (01) ==
LOC: NCHCN 21:22
PROVIDERS: PCP Family Medicine; Visit Provider Family Medicine
DX: R74.01 Elevation of levels of liver transaminase levels (principal); E78.5 Hyperlipidemia, unspecified
CPT/HCPCS: 80053; 80061

== ENCOUNTER 2024-10-08 18:22 | Outpatient (REF) | payer BC, SELFPAY ==
[2024-10-08 14:45] LABS: Abs Immature Grans 0.02 10^3/uL (0.0-0.06); Absolute Basophil Count 0.05 10^3/uL (0.0-0.2); Absolute Monocyte Count 0.59 10^3/uL (0.1-0.8); Absolute Neutrophil Count 5.08 10^3/uL (1.2-6.7); Basophils % 0.6 %; Eosinophils % 1.1 %; HCT 47.4 % (40.0-50.0); HGB 15.4 g/dL (13.5-17.5); Immature Grans % 0.2 %; Lymphocytes % 33.2 %; MCH 28.7 pg (27.0-33.0); MCHC 32.5 % (32.0-36.0); MCV 88 fL (80-95); MPV 8.6 fL (8.0-11.0); Monocytes % 6.8 %; Neutrophils % 58.1 %; Platelet Count 487 10^3/uL (130-400); RBC 5.36 10^6/uL (4.36-5.78); RDW 12.4 % (11.8-14.1); RDW-SD 40.2 fL; WBC 8.74 10^3/uL (4.4-10.8)
[2024-10-08 14:53] LABS: ALT 164 U/L (16-63); AST 68 U/L (15-37); Albumin 4.2 g/dL (3.4-5.0); Alkaline Phosphatase 58 U/L (46-116); Anion Gap 10.7 mmol/L (3-11); BUN 16 mg/dL (7-18); Bilirubin, Total 0.73 mg/dL (0.2-1.0); CO2 27.3 mmol/L (21.0-32.0); Chloride 104 mmol/L (98-107); Estimated GFR 106.45 (mL/min/1.73m2); Glucose 100 mg/dL (74-106); Lipase 23 U/L (<78); Potassium 4.1 mmol/L (3.5-5.1); Sodium 142 mmol/L (136-145); Total Protein 8.3 g/dL (6.4-8.2)
[2024-10-08 14:57] LABS: Calcium 9.7 mg/dL (8.5-10.1)
--- OUTSIDE RECORDS SUMMARY | 2024-10-08 18:25 | XMS_ITS | Encounter Summary ---
Author Organization [facility] [place] [address] Care Team Providers Care X Ray Operator Name Role Phone Unknown Primary Care Provider Unavailabl e Encounter Details Date Type Department Care Team (Late st Contact Info) Description 08/09/2024 Interpretation Only [facility] in [address] [phone] Lindsey Garcia MD [address] [place] [address] [phone] Social History Tobacco Use Types Packs/Day Years [...] AM EDT) PT CLASS E RAD ADMITDTTM [id number] RAD PT RAD INFO [id number]^GARCIA^S AMANTHA RAD EXAM DESC XCXR2^XR CHEST 2V PA AND LATERAL^RIS RAD WORKSTATION ID [id number] RAD Anatomical Region Laterality Modality Chest N/A Radiographic Mary ging Impressions 08/09/2024 11:05 AM EDT No acute cardiopulmonary process. Thank you for letting us participate in the care of this patient. ??If you are a health care provider and have any questions regarding this report, please contact the number below. ??For patients who have questions please contact the health child care that requested your imaging first. ? Electronically signed by: Onesimo Fernandez MD, [facility] ([phone]), at 08/09/2024 11:05 AM Narrative 08/09/2024 11:05 AM EDT EXAMINATION: XR [...] patients who have questions please contactthe health child care that requested your imaging first. Electronically signed by: Onesimo Fernandez MD, [facility] [place]([phone]), at 08/09/2024 11:05 AM Lindsey Garcia MD IMG DX ORDERABLES documented in this encounter Visit Diagnoses Not on filedocumented in this encounter Care Teams X Ray Operator Relationship Specialty Start Date End Date Unknown None PCP - General 10/24/18 documented as of this encounter
--- OUTSIDE RECORDS SUMMARY | 2024-10-08 18:25 | XMS_ITS ---
Author Organization Unknown Address [address] [place] [phone] Phone Care Team Providers Care Windmill Technician Name Role Phone RYAN DUENAS Registered Nurse Unavailable EMMY Anderson Attending Unavailable RADHA TURNER Unavailable BRE Cordova Primary Unavailable UNLISTED PROVIDER - REQUESTED Xhandoff Un available Results D-DIMER - Collect Date/Time: 08/09/2024 11:53 [facility] ID: [id number] - [id number] [address] [place], [place], [address] LOINC: 33962-2 Test Value Unit Reference Range Code Code System Flag D-DIMER 0.33 mg/L L=0.19 H=0.50 49778-8 LOINC XR CHEST 2V PA AND LATERAL - Completed: 08/09/2024 11:01 LOINC: [facility] [place], [place] [address] RADIOLOGY ELEMENTARY VOCAL MUSIC TEACHER REPORT Patient Name: ADELAIDA ORTEGA MRN: Sex: : Age: [id number] M 2000 Account: Accession: Admit: StayType: [id number] 08/09/2024 E Ordered: Order ID: Submitted: Ordering Provider: 08/09/2024 10:37 [id number] SH MADDIE GARCIA Completed: Technologist: Resulted: 08/09/2024 [...] who have questions please contact the health customer care voice consultant that requested your imaging first. Electronically signed by: Onesimo Fernandez MD [facility] ([phone]), at 08/09/2024 11:05 AM Social History Type Status Start Date End Date Code Code Syst em Smoking History Current every day smoker 390298771 SNOMED CT Sex Male Vital Signs Vital Sign Value Unit [place] Value [place] Unit Date/Time Recent/Initial? Code Code System Body Mass Index 41.37 kg/m2 08/09/2024 10:13 Initial 59709 -5 LOINC Systolic Blood Pressure 140 mm[Hg] 08/09/2024 10:13 Initial 8480- 6 LOINC Diastolic Blood Pressure 84 mm[Hg] 08/09/2024 10:13 Initial 8462- 4 LOINC Body Surface Area 2.65 m2 08/09/2024 10:13 Initial 3140- 1 LOINC Height 182.880 0 cm 72.00 in 08/09/2024 10:13 Initial 8302- 2 LOINC O2 Saturation 96 % 2023 10:13 Initial 62892 -5 LOINC Pulse 108.0 /min 08/09/2024 10:13 Initial 8867- 4 LOINC Respiration 16 /min 08/09/20 10:13 Initial 9279- 1 LOINC Temperature 36.3 Saira 97.3 F 08/09/20 10:13 Initial 8310- 5 LOINC Weight 138.35 kg 305.00 lbs 08/09/2024 10:13 [facility] 58828 -7 [facility]ations Medication Start Date End Date Route Frequency Dose Code Code System Medication Instructions Home Meds Cyclobenzaprine 10MG Oral Tablet 08/09/2024 Unknown ORAL NEEDED EVERY 12 HOURS 1 TABLET 159781 RxNorm TAKE 1 TABLET ORAL NEEDED EVERY 12 HOURS Hospital Discharge Instructions Should you have any questions prior to discharge, please contact a member of your healthcare team. If you have left the hospital and have any questions, please contact your primary care physician. Reason For Referral No Data Found Procedures Procedure Name Date Status Code Code Syste m Right inguinal hernia completed 711064842 SNO MEDCT Problems Problem Start Date Resolved Date Status Code Code System BIPOLAR DISORDER 04/13/2022 resolved 26626008 SN OMED-CT HISTORY OF DRUG ABUSE 04/13/2022 resolved 4814583 06 SNOMED-CT Allergies and Adverse Reactions Allergy Substance Reaction Severity Start Date Concern Status Co de Code System No Known Drug Allergies Active 807125250 SNOMED-CT Plan of Treatment Travel 12/15/2020 Encounters Encounter Diagnosis Start Date Code Code Sys tem Chest pain 08/09/2024 97302145 SNOMED-CT Personal Care Team Section Performer Name Performer Role Active Date Inactive Da te Imaging Narrative Notes [facility] [place], [place] [address] RADIOLOGY ELEMENTARY VOCAL MUSIC TEACHER REPORT Patient Name: ADELAIDA ORTEGA MRN: Sex: : Age: [id number] M 2000 Account: Accession: Admit: StayType: [id number] 08/09/2024 E Ordered: Order ID: Submitted: Ordering Provider: 08/09/2024 10:37 [id number] MADDIE GARCIA Completed: Technologist: Resulted: 08/09/2024 10:42 [...] who have questions please contact the health customer care voice consultant that requested your imaging first. Electronically signed by: Onesimo Fernandez MD [facility] ([phone]), at 08/09/2024 11:05 AM
--- OUTSIDE RECORDS SUMMARY | 2024-10-08 18:25 | XMS_ITS | Clinical Summary ---
Author Organization [facility] [place] [address] Care Team Providers Care Assembly Machine Set Up Mechanic Name Role Phone Unknown Primary Care Provider Unavailabl e Encounters Date Type Department Care Team Description 08/09/2024 Interpretation Only [facility] in [address] [phone] Lindsey Garcia MD from Last [...] - Tdap) 04/23 Covid-19 Vaccine (1 - 2023- season) 2024 Influenza (Flu) vaccine (1 o f 1 - Influenza standard series) 07/14/2024 Procedures Procedure Name Priority Date/Time Associated Diagnosis Comments XR CHEST PA AND LATERAL STAT 08/09/2024 11:01 AM EDT from Last 3 Months Results * XR Chest PA & Lateral (Generic) (08/09/2024 11:01 AM EDT) PT CLASS E RAD ADMITDTTM [id number] RAD PT RAD INFO [id number]^GARCIA^S AMANTHA RAD EXAM DESC XCXR2^XR CHEST 2V PA AND LATERAL^RIS RAD WORKSTATION ID [id number] RAD Anatomical Region Laterality Modality Chest N/A Radiographic Mary ging Impressions 08/09/2024 11:05 AM EDT No acute cardiopulmonary process. Thank you for letting us participate in the care of this patient. ??If you are a health care provider and have any questions regarding this report, please contact the number below. ??For patients who have questions please contact the health direct care counselor that requested your imaging first. ? Electronically signed by: Onesimo Fernandez MD, [facility] ([phone]), at 08/09/2024 11:05 AM Narrative 08/09/2024 11:05 [...] patients who have questions please contactthe health direct care counselor that requested your imaging first. Electronically signed by: Onesimo Fernandez MD, [facility]([phone]), at 08/09/2024 11:05 AM Lindsey Garcia MD IMG DX ORDERABLES from Last 3 Months Care Teams Assembly Machine Set Up Mechanic Relationship Specialty Start Date End Date Unknown None PCP - General 10/24/18
--- OUTSIDE RECORDS SUMMARY | 2024-10-08 18:25 | XMS_ITS ---
Author Organization Unknown Address [address] [place] [phone] Phone Care Team Providers Care Orchard Manager Name Role Phone RYAN ARAGON Registered Nurse Unavailable BHAVANA Vincent Attending Unavailable DEION Sanchez [facility] Unavailable BRE Cordova Primary Unavailable UNLISTED PROVIDER - REQUESTED Xhandoff Un available Results XR FINGER(S) 2V OR MORE RT - Completed: 09/10/2023 19:42 LOINC: [place], [place] [address] PACS REHAB/PRE VOCATIONAL COUNSELOR REPORT Patient Name: ADELAIDA ORTEGA MRN: Sex: : Age: [id number] M 2000 23 Account: Accession: Admit: StayType: [id number] 09/10/2023 E/R Ordered: Order ID: Submitted: Ordering Provider: 09/10/2023 19:31 [id number] VXP RATNA BATEMAN Completed: Technologist: Resulted: 09/10/2023 [...] em Smoking History Current every day smoker 341142367 SNOMED CT Sex Male Vital Signs Vital Sign Value Unit [place] Value [place] Unit Date/Time Recent/Initial? Code Code System Body Mass Index 37.97 kg/m2 09/10/2023 19:25 Initial 22494 -5 [facility] Systolic Blood Pressure 149 mm[Hg] 09/10/2023 19:25 Initial 8480- 6 LOINC Diastolic Blood Pressure 110 mm[Hg] 09/10/2023 19:25 Initial 8462- 4 LOINC Body Surface Area 2.54 m2 09/10/2023 19:25 Initial 3140- 1 LOINC Height 182.880 0 cm 72.00 in 09/10/2023 19:25 Initial 8302- 2 LOINC O2 Saturation 98 % 2022 19:25 Initial 44500 -5 LOINC Pulse 81.0 /min 09/10/2023 19:25 Initial 8867- 4 LOINC Respiration 17 /min 09/10/20 19:25 Initial 9279- 1 LOINC Temperature 36.4 Saira 97.5 F 09/10/20 19:25 Initial 8310- 5 LOINC Weight 127.01 kg 280.00 lbs 09/10/2023 19:25 Initial 57508 -7 [facility] Medications Medication Start Date End Date Route Frequency Dose Code Code System Medication Instructions Home Meds Cyclobenzaprine 10MG Oral Tablet 08/09/2024 Unknown ORAL NEEDED EVERY 12 HOURS 1 TABLET 737834 RxNorm TAKE 1 TABLET ORAL NEEDED EVERY [...] Code Code System BIPOLAR DISORDER 04/13/2022 resolved 52302475 SN OMED-CT HISTORY OF DRUG ABUSE 04/13/2022 resolved 3607451 06 SNOMED-CT Allergies and Adverse Reactions Allergy Substance Reaction Severity Start Date Concern Status Co de Code System No Known Drug Allergies Active 506337773 SNOMED-CT Plan of Treatment Travel 12/15/2020 Encounters Encounter Diagnosis Start Date Code Code Sys tem 09/10/2023 30206901154816558 SNOMED-CT Personal Care Team Section Performer Name Performer Role Active Date Inactive Da te
--- OUTSIDE RECORDS SUMMARY | 2024-10-08 18:25 | XMS_ITS ---
Author Organization Unknown Address [address] [place] [phone] Phone Care Team Providers Care Institute Scientist Name Role Phone ROSA MARIA BRAGG Registered Nurse Unavailable VICKY Cordova Attending Unavailable ANNA TURNER Unavailable BRE Cordova Primary Unavailable UNLISTED PROVIDER - REQUESTED Xhandoff Un available Social History Type Status Start Date End Date Code Code Syst em Smoking History Current every day smoker 393130228 SNOMED CT Sex Male Vital Signs Vital Sign Value Unit [place] Value [place] Unit Date/Time Recent/Initial? Code Code System Body Mass Index 30.21 kg/m2 04/13/2022 18:00 Initial 40481 -5 LOINC Systolic Blood Pressure 126 mm[Hg] [...] Saturation 99 % 2021 19:51 Most Recent 75297 -5 LOINC O2 Saturation 97 % 2021 18:00 Initial 20041 -5 LOINC Pulse 106.0 /min 04/13/2022 19:51 [...] 124.74 kg 275.00 lbs 04/13/2022 18:00 Initial 08680 -7 LOINC Medications Medication Start Date End Date Route Frequency Dose Code Code System Medication Instructions Home Meds Cyclobenzaprine 10MG Oral Tablet 08/09/2024 Unknown ORAL NEEDED EVERY 12 HOURS 1 TABLET 668272 RxNorm TAKE 1 TABLET ORAL NEEDED EVERY [...] Code Code System BIPOLAR DISORDER 04/13/2022 resolved 00159994 SN OMED-CT HISTORY OF DRUG ABUSE 04/13/2022 resolved 7084217 06 SNOMED-CT Allergies and Adverse Reactions Allergy Substance Reaction Severity Start Date Concern Status Co de Code System No Known Drug Allergies Active 941310920 SNOMED-CT Plan of Treatment Travel 12/15/2020 Encounters Encounter Diagnosis Start Date Code Code Sys tem Unspecified hearing loss, left ear 04/13/2022 SNOMED-CT Personal Care Team Section Performer Name Performer Role Active Date Inactive Da deanna
--- OUTSIDE RECORDS SUMMARY | 2024-10-08 18:26 | XMS_ITS | Data Portability ---
Author Organization [place] - [facility], [facility] Address [address] [place] [address] Assessment Encounter Date Assessment Date Assessment LastModified by Organization Details LastModified Time 02/20/2024 02/20/2024 The total time devoted to today's encounter, including both the ayof-rt-egsb time with the patient and/or family/caregiv er and mxf-yafs-df-fa ce time I personally spent is 30 minutes. [email or web address] Not available 02/20/2024 11:01:48 05/22/2024 05/22/2024 The total time devoted to today's encounter, including both the cfdp-rt-tvsv time with the patient and/or family/caregiv er and lfi-fwju-eq-fa ce time I personally spent is 35 minutes. .The patient is a 24-year-old male with a history of obesity, nicotine dependence, and bipolar disorder. His mood is stable on Abilify injections, but he requires attention to his weight management, smoking cessation, and blood pressure control. [email or web address] Not available 05/22/2024 09:36:32 06/11/2024 06/11/2024 The total time devoted to today's encounter, including both the thjw-sh-agkl time with the patient and/or family/caregiv er and wcx-flgy-ai-fa ce time I personally spent is 30 [...] may require further evaluation by a urologist. [email or web address] Not available 06/11/2024 11:03:40 09/10/2024 09/10/2024 The total time devoted to today's encounter, including both the ulvz-gz-xxmj time with the patient and/or family/caregiv er and ymx-aioa-xk-fa ce time I personally spent is 25 minutes in visit, 5 minutes prep, 5 minutes charting; total 35 minutes. [email or web address] Not available 09/10/2024 10:49:20 Plan of Treatment Reminders Order Date Submit Date Provider Last Modified By Organization Details Last Modified Time Details Appointments Acute 2023 10:20A M JUDIE ANDERSON Not available Not available Not available Follow Up 2024 09:00A M LINH ISAAC Not available Not available Not available Lab lipid panel, serum - L AC 2023 024 oss2 [facility] (Registration ), [address] [place] [address] , [place], [address], 09/19/2024 13:29:21 CMP, serum or plasma - L AC 2023 024 [facility] (Registration ), [address] [place] [address] [place], [address], 09/10/2024 15:39:41 Referral urologist referral 2023 024 [email or web address] Wellington Condon MD, [address] [facility], [place], [address], 06/17/2024 11:53:54 urologist referral - vasectomy 2023 024 TIFFANIE Randle MD, [address] [place] [address] [place], [address], 09/10/2024 11:25:25 Procedures None recorded. Surgeries None recorded. Imaging None recorded. Medication Orders amoxicill in 875 mg-potass ium clavulana te 125 mg tablet 2023 024 [employer], [address], [place], [address], 05/22/2024 09:00:02 Patient TargetsNo targets recorded. Patient Instructions Encounter Date Encounter Id Patient Instructions Last Modified By Organization Details Last Modified Time 05/22/2024 [id number] It was nice to see you! I [...] progress and discuss any concerns. Take Care! [email or web address] Not available 05/22/2024 09:35:31 06/11/2024 [id number] - Take vnmk-dku-rwhjpcr famotidine (Pepcid) as directed for acid reflux - Improve diet, reduce smoking, and address stress - Follow up with a urologist for penile injury evaluation - Monitor and report any worsening or persistent pain in the abdomen, back, or chest [email or web address] Not available 06/11/2024 10:51:42 09/10/2024 [id number] diet [email or web address] Not available 08/14 10:49:06 exercise [email or web address] Not available 09/10 10:49:06 Reason for Referral Urologist Referral for Injur y of penis Referring Physician: [facility], Encounter Date: 06/11/2024 Urologist Referral for Vasec santiago requested vasectomy Referring Physician: [facility], Encounter Date: 09/10/2024 Results Created Date Observation Date Name Description Value Unit Range Abnormal Flag Note LastModifiedBy Organization Detail LastModifiedTime 08/09/20 24 08/09/2024 D-DIM ER D-dimer 0.33 mg/L 0.19 - 0.50 ( Marie l refer ence Not Available [facility] (Lab) [address] [place] [address], [address], 08/09/2024 18:03:23 09/10/20 24 09/10/2024 COMPR EHENS APRIL METAB OLIC PANEL calcium 10.2 mg/dL 8.5-10 .1 high Not Available [address] [place], [address] 09/10/2024 15:39:41 09/10/2009/10/2024 COMPR EHENS APRIL METAB OLIC PANEL glucose 93 mg/dL 74-106 normal Not Available Eloisa neal [address] [place], [address] 09/10/2024 15:39:41 09/10/2009/10/2024 COMPR EHENS APRIL METAB OLIC PANEL BUN 13 mg/dL 7-18 normal Not Available Eloisa neal [address] [place], [address] 09/10/2024 15:39:41 09/10/2009/10/2024 COMPR EHENS APRIL METAB OLIC PANEL creatinine 1.1 mg/dL 0.70-1 .30 normal Not Available [address] [place], [address] 09/10/2024 15:39:41 09/10/2009/10/2024 COMPR EHENS APRIL METAB OLIC PANEL estimated GFR 94.95 mL/min /1.73M 2 The eGFR is calcu lated from a serum creat inine using the CKD-E PI 2020 equat ion. Other varia bles requi red for the equat ion are gende r and age; this equat ion does not inclu de a race coeff icien t. This equat ion has simil ar overa ll perfo rmanc e to previ ous equat ions excep t value s may diffe r, in parti cular , in patie nts with highe r value s of eGFR and young er-ag ed adult s. Not Available [address] [place], [address] 09/10/2024 15:39:41 09/10/2009/10/2024 COMPR EHENS APRIL METAB OLIC PANEL total protein 8.6 g/dL 6.4-8. 2 high Not Available [address] [place], [address] 09/10/2024 15:39:41 09/10/2009/10/2024 COMPR EHENS APRIL METAB OLIC PANEL albumin 4.1 g/dL 3.4-5. 0 normal Not Available [address] [place], [address] 09/10/2024 15:39:41 09/10/2009/10/2024 COMPR EHENS APRIL METAB OLIC PANEL bilirubin, total 0.68 mg/dL 0.2-1. 0 normal Not Available [address] [place], [address] 09/10/2024 15:39:41 09/10/2009/10/2024 COMPR EHENS APRIL METAB OLIC PANEL alk phos 65 U/L 46-116 normal Not Available [address] [place], [address] 09/10/2024 15:39:41 09/10/2009/10/2024 COMPR EHENS APRIL METAB OLIC PANEL sodium 143 mmol/ L 136-14 5 normal Not Available [address] [place], [address] 09/10/2024 15:39:41 09/10/2009/10/2024 COMPR EHENS APRIL METAB OLIC PANEL potassium 4.5 mmol/ L 3.5-5. 1 normal Not Available [address] [place], [address] 09/10/2024 15:39:41 09/10/2009/10/2024 COMPR EHENS APRIL METAB OLIC PANEL chloride 103 mmol/ L 98-107 normal Not Available [address] [place], [address] 09/10/2024 15:39:41 09/10/20 24 09/10/2024 COMPR EHENS APRIL METAB OLIC PANEL CO2 30.9 mmol/ L 21.0-3 2.0 normal Not Available [address] [place], [address] 09/10/2024 15:39:41 09/10/2009/10/2024 COMPR EHENS APRIL METAB OLIC PANEL anion gap 9.1 mmol/ L 3-11 normal Not Available [address] [place], [address] 09/10/2024 15:39:41 09/10/2009/10/2024 COMPR EHENS APRIL METAB OLIC PANEL AST 57 U/L 15-37 high Not Available Eloisa [address] [place], [address] 09/10/2024 15:39:41 09/10/2009/10/2024 COMPR EHENS APRIL METAB OLIC PANEL ALT 126 U/L 16-63 high Not Available Eloisa [address] [place], [address] 09/10/2024 15:39:41 09/10/2009/10/2024 LIPID 2 cholesterol 209 mg/dL <200 high Not Available [address] [place], [address] 09/10/2024 15:39:42 09/10/2009/10/2024 LIPID 2 triglyceride 127 mg/dL <150 Not Available [address] [place], [address] 09/10/2024 15:39:42 09/10/2009/10/2024 LIPID 2 HDL cholesterol 46 mg/dL 40-60 Not Available [address] [place], [address] 09/10/2024 15:39:42 09/10/2009/10/2024 LIPID 2 calculated LDL 138 mg/dL <100 high Natio nal Brooke stero l Educa tion Progr am (NCEP -ATPI II) class ifica tions : Brooke stero l <200 mg/dL Charley able Brooke stero l 200-2 39 mg/dL Borde rline High Brooke stero l >or=2 40 mg/dL High HDL <40 mg/dL Low HDL >or=6 0 mg/dL High LDL <100 mg/dL Optim al LDL 100-1 29 mg/dL Near Optim al/Ab ove Optim al LDL 130-1 59 mg/dL Borde rline High LDL 160-1 89 mg/dL High LDL >or=1 90 mg/dL Very High *The above refer ence range is for adult s 18 years or older . Not Available [facility] [address] [facility] [place], [address] 09/10/2024 15:39:42 10/08/2010/08/2024 urina lysis , dipst ick Leukocytes Negati ve Not Available [address], [address], 10/08/2024 11:28:08 10/08/20 24 10/08/2024 urina lysis , dipst ick Nitrite negati ve Not Available [address], [address], 10/08/2024 11:28:08 10/08/20 24 10/08/2024 urina lysis , dipst ick Urobilinogen .2 Not Available [address], [address], 10/08/2024 11:28:08 10/08/20 24 10/08/2024 urina lysis , dipst ick Protein Trace Not Available [address], [address], 10/08/2024 11:28:08 10/08/20 24 10/08/2024 urina lysis , dipst ick pH 6.5 Not Available [address], [address], 10/08/2024 11:28:08 10/08/20 24 10/08/2024 urina lysis , dipst ick Blood Negati ve Not Available [address], [address], 10/08/2024 11:28:08 10/08/20 24 10/08/2024 urina lysis , dipst ick Specific Castle 1.015 Not Available [address], [address], 10/08/2024 11:28:08 10/08/2010/08/2024 urina lysis , dipst ick Ketone Small Not Available [address], [address], 10/08/2024 11:28:08 10/08/20 24 10/08/2024 urina lysis , dipst ick Bilirubin Negati ve Not Available [address], [address], 10/08/2024 11:28:08 10/08/2010/08/2024 urina lysis , dipst ick Glucose Negati ve Not Available [address], [address], 10/08/2024 11:28:08 10/08/20 24 10/08/2024 urina lysis , dipst ick Appearance Slight ly Cloudy Not Available [address], [address], 10/08/2024 11:28:08 10/08/20 24 10/08/2024 urina lysis , dipst ick Color Yellow Not Available [address], [address], 10/08/2024 11:28:08 07/26/20 24 12/14/2018 XR, chest No observ ation record ed. Not Available 07/26 00:49:50 07/26/20 24 03/16/2021 XR, foot, 3 or more view No observ ation record ed. Not Available 07/26 00:50:55 07/26/20 24 03/17/2021 CT, head + neck, w/o contr ast No observ ation record ed. Not Available 07/26 00:50:58 07/26/20 24 07/21/2021 US, testi aurea No observ ation [facility] ed. [email or web address] Not Available 07/26 00:50:59 07/26/20 24 03/17/2021 CT, chest + abdom en + pelvi s, w/ contr ast No observ ation record ed. [email or web address] Not Available 07/26 00:51:00 07/26/20 24 09/11/2023 XR, finge r(s), 2 or more view No observ ation record ed. [email or web address] Not Available 07/26 00:51:01 08/09/20 24 08/09/2024 xr chest 2V Pa and later al [facility] [place] [id number] RADIOL OGY TRANSC RIPTIO N REPORT _ Patien t Name: EMANUEL RIZVI MRN: Sex: : Age: [id number] Accoun t: Access ion: Admit: StayTy pe: [id number] 024 E Jaime d: Order ID: Submit kee: Chris Infante er: 2023 10:37 [id number] Patricia GARCIA kee: Techno logist : Result ed: 2023 [...] t. If you are a health care [facility] er and have any questi ons regard ing this report , please contac t the number below. For patien ts who have questi ons please contac t the [facility] that reques kee your imagin g first. Electr onical ly signed by: Crispin garcia MD Radiol josefina howard ([phone]), at 024 11:05 AM [facility] (Lab) [address] [place] [address], [address], 08/09/2024 18:03:22 08/15/20 24 08/09/2024 EKG order addi ng 12 lead [facility] [place] [id number] EKG TRANSC RIPGIAN N REPORT _ Accoun t: Access ion: Admit: StayTy pe: [id number] 927 024 E/R Observ ation: Order ID: Submit kee: Chris corral Provid er: 2023 10:40 [id number] BRYCE CALDERÓN N _ [place] [id number] [facility]: 08-09 Pat Name: EMANUEL RIZVI Jennifer ment: Layo sheridan ID: [id number] Room: Gender : Art Scott dory: : [birth year] Reques kee By: CLAIRE GARCIA Order Number : [id number] Zeferino yusuf MD: Tristan gonzalez Measur ements Interv als [place] Rate: 93 P: 33 MI: 144 QRS: 72 QRSD: 96 T: 0 [...] 024 19:19: 47 EDT by Tristan gonzalez INTERFACE [facility] (Lab) [address] [place] [address], [address], 08/15/2024 01:43:10 Result Notes None recorded. Problems Name Problem SNOMED Code Status Onset Date Resolution Date Notes Provider Name and Address Organization Details Recorded Time Acne 39291682 [facility] 09:48[facility]15 Tobacco use cessatio n educatio n Active 2015 [facility] 09:51:00 Obesity 821324317 Active 2015 [facility] 4 09:50[facility]21 Psychoac tive substanc e-induce d intoxica tion 4270044615 Completed 201603/16/2017 02/16/20 17 - Comments only - Theresa Pettit MD - he admits to recent use of cocaine, hallucin ogenic mushroom s and marijuan a. Agreed to seek further medical and psychiat aj care at [facility]. Parents drove him there. ED staff notified and his safe arrival there was confirme d. Problem Code: F19.929; Problem Code Type: ICD-10; Not Available [facility] 3 05:25:52 History of psychiat aj disorder 557938574 Active 2016 [facility]oneher [facility] 4 09:49:22 Psychoti c disorder 02403411 Active 2016 Ivone Dayday [facility] 4 09:50:33 Cannabis abuse 08610979 Active 2016 [facility] 4 09:48:30 Developm ental academic disorder 3287606 [facility] 4 09:48:44 Generali zed anxiety disorder 37962115 [facility] 4 09:49:13 Streptoc occal sore throat 76448671 Completed 201701/10/2018 12/27/19 18 - Comments only - MAKEDA Jimenez APRN- - Patient was treated with penicill in [...] J02.0; Problem Code Type: ICD-10; Not Available [facility] 3 05:25:53 Pure hypergly ceridemi a 663891143 Active 2017 [facility], [facility]. 4 09:50:39 Hypergly cemia 06608079 Active 2017 [facility], [facility], [facility]. 4 09:49:26 Liver enzymes level above referenc e range 942056326 Active 2017 [facility], [facility] 4 09:49:47 Abnormal weight gain 463178036 Active 2018 [facility], [facility] 4 09:48:09 Metaboli c syndrome X 069677464 Active 2018 [facility], [facility] 4 09:50:01 Headache 13375699 Active 2018 [facility], [facility], [facility]. 4 09:51:28 Tachycar nevin 6405758 Active 2019 [facility], [facility]. 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 4 09:49:44 Melena 0994351 Completed 202011/18/2020 Problem Code: K92.1; Problem Code Type: ICD-10; Not Available [facility] 3 05:25:54 Vomiting 295699514 Active 2020 [facility] 4 09:51:17 Diarrhea 72337732 Active 2020 [facility] 4 09:49:05 Left upper quadrant pain 444700293 Completed 202012/18/2020 Problem Code: R10.12; Problem Code Type: ICD-10; Not Available [facility] 3 05:25:54 Gastriti s 1175190 [facility] 4 09:48:55 Venereal disease screenin g Active 2020 [facility] 4 09:51:06 Epididym itis 01990791 Active 2020 [facility] 4 09:48:48 Pain of right testicle 78463043600 836809 [facility] 4 09:50:29 Nausea and vomiting 77629568 Active [facility] 4 09:50:13 Long-ter m current use of drug therapy 160340236 Active 2021 Ivone [facility] 4 09:49:52 COVID-19 648923502 Active 2021 [facility] 4 09:48:38 Adult health examinat ion Active 2021 Ivone [facility] 4 09:48:21 Disorder of bone and articula r cartilag e 287012109 Completed 201402/15/2017 Problem Code: 733.99; Problem Code Type: ICD-9; Not Available [facility] 3 05:26:04 Overwe[place] ht 933020265 Completed 201508/09/2023 06/09/20 16 - Comments only - Theresa Pettit MD - wgt jarred penny 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 Problem Code: E66.3; Problem Code Type: ICD-10; Not Available [facility] 3 05:26:04 Elevated blood-pr essure reading without diagnosi s of hyperten anna 097745359 Completed 201601/26/2018 Problem Code: R03.0; Problem Code Type: ICD-10; LINH GRAY, DAY CARE SUPERVISOR [address], [place], [address] [facility]. 4 11:05:37 Acute pharyngi tis 913114382 Completed 201704/04/2018 Problem Code: J02.9; Problem Code Type: ICD-10; Not Available [facility] 3 05:26:05 Psychose xual counseli ng Completed 201511/22/2018 Problem Code: Z70.8; Problem Code Type: ICD-10; Not Available [facility] 3 05:26:06 Fibromya lgia 086009713 Completed 201407/29/2015 Problem Code: M79.7; Problem Code Type: ICD-10; Not Available [facility] 3 05:26:06 Adult health examinat ion Completed 201501/26/2018 Problem Code: Z00.00; Problem Code Type: ICD-10; Ivone serrato, [facility]. 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 Managed by Psychiat ry, Dr. Fahad Madrigal for [facility]. Problem Code: F31.74; Problem Code Type: ICD-10; Not Available [facility] 3 05:26:14 Anxiety disorder 717006144 Completed 201911/17/2020 Problem Code: F41.9; Problem Code Type: ICD-10; Not Available [facility] 3 05:26:14 Bipolar I disorder 117864264 Active 2022 Ivone mina null, [facility]. 4 09:49:00 Vitamin D deficien cy 11434816 Active 2022 Ivone mohitradha null, [facility], [facility]. 4 09:51:10 Erectile dysfunct ion 942494137 Active 2022 Ivone mina null, [facility]. 4 09:49:08 Testicul ar finding 416604432 Active 2022 Ivone mohitradha null, [facility]. 4 09:50:54 Hyperlip idemia 52213084 Active 2022 [facility] 4 09:49:39 Right inguinal hernia 812176323 Active 2023 [facility] 09:50:43 Smoker 21598257 Active 2023 [facility] 09:50:46 Increase d liver function 88856004 Active 2021 [facility] 09:52:30 Elevated blood-pr essure reading without diagnosi s of hyperten anna 271817718 Active 2023 Problem Code: R03.0; Problem Code Type: ICD-10; MAKEDA TORRES [address], [place], [address] , [facility] 11:05:37 Injury of penis 379762377 Active [address], [place], [address] , [facility] 11:02:28 Increase d libido 08949627 Active [address], [place], [address] , [facility] 4 11:02:49 Gastroes ophageal reflux disease 855557997 Active [address], [place], [address] , [facility] 4 11:04:43 Right upper quadrant pain 558792367 Active [address], [place], [address] , [facility] 10:45:09 Problem Notes None recorded. Procedures Surgical History None recorded. Imaging Results Imaging Date Name Status LastModified by [facility]iz [facility] Details LastModified Time 12/14/2018 XR, chest completed [...] xr chest 2V Pa and lateral completed [facility] (Lab) [address] [place] [address], [address], 08/09/2024 18:03:22 08/09/2024 EKG order tracing 12 lead completed [facility] (Lab) [address] [place] [address], [address], 08/15/2024 01:43:10 Procedure Notes None recorded. Medical Equipment None Reported. Allergies No known drug allergies Medications Name Sig Start Date Stop Date Status Note LastModified by Organization Details LastModified Time cyclobenz aprine 10 mg tablet Take 1 tablet 3 times a day by oral route as needed, for chest wall pain. 2023 active Not Available Not Available Not Avai lable azithromy kevin 250 mg tablet Take 4 tablet by mouth single dose 06/02 completed Not Available Not Available Not Available Zyprexa 10 mg tablet 1 tab q HS 03/[address] Parkinson ([facility] in [place]) Not Available Not Available Not Available methylphe nidate 10 mg tablet TAKE ONE TABLET BY MOUTH EVERY DAY AT 1PM. FOR ADHD 11/15 /2023 completed Not Available Not Available Not Available [...] by mouth daily [address] [facility] [facility] [place] ; dose increase d 09/10/19 Not Available Not Available Not Available aripipraz ole 5 mg tablet daily 02/19 completed through [facility] Not Available Not Available Not Available Wellbutri [...] Updated DateTime 4 177.8 cm 42.2 kg/m2 677798. 16 g 97.9 [degF] 96 % 96 % 97 /min 126 mm[Hg] 90 mm[Hg] RADHA AVELAR RN [facility] 4 10:04:23 Date Recorded Body height Body mass index (BMI) Body weight Body temperature Oxygen saturation Oxygen saturation in Arterial blood by Pulse oximetry Heart rate Systolic blood pressure Diastolic blood pressure Provider Name and Address Organization Details Last Updated DateTime 4 177.8 cm 42.2 kg/m2 579340. 26 g 97.7 [degF] 96 % 96 % 105 /min 128 mm[Hg] 86 mm[Hg] KARYN THORNTON LPN [facility] 4 09:27:36 Date Recorded Body height Oxygen saturation Oxygen saturation in Arterial blood by Pulse oximetry Heart rate Body temperature Body mass index (BMI) Body weight Systolic blood pressure Diastolic blood pressure Provider Name and Address Organization Details Last Updated DateTime 4 177.8 cm 96 % 96 % 106 /min 97.5 [degF] 42.2 kg/m2 848305. 16 g 134 mm[Hg] 84 mm[Hg] DONN CASTREJON RN [facility] 4 09:03:43 Date Recorded Body height Body mass index (BMI) Body weight Body temperature Oxygen saturation Oxygen saturation in Arterial blood by Pulse oximetry Heart rate Systolic blood pressure Diastolic blood pressure Provider Name and Address Organization Details Last Updated DateTime 4 177.8 cm 42.5 kg/m2 027685. 34 g 98 [degF] 96 % 96 [...] Updated DateTime 4 177.8 cm 43.8 kg/m2 234227. 67 g 98.7 [degF] 98 % 98 % 112 /min 128 mm[Hg] 82 mm[Hg] Jamila Oscarniecyrancho [facility] 4 08:59:48 Date Recorded Body height Oxygen saturation Oxygen saturation in Arterial blood by Pulse oximetry Heart rate Body temperature Body mass index (BMI) Body weight Systolic blood pressure Diastolic blood pressure Provider Name and Address Organization Details Last Updated DateTime 4 177.8 cm 95 % 95 % 107 /min 97.1 [degF] 44.8 kg/m2 231616. 82 g 142 mm[Hg] 84 mm[Hg] DONN CASTREJON RN [facility] 4 10:16:58 Social History Question Answer Notes LastModified by Organizat ion Details LastModified Time Tobacco Smoking Status Current Every Day Smoker KARYN THORNTON LPN [facility], [facility], [facility] 10/25/2023 08:34:05 What Was The Date Of Your Most Recent Tobacco Screening? 10/08/2024 Information not available 10/08/2024 What Is Your Current Pack Years? 10-19packyea rs Information not available 10/25/2023 At What Age Did You Start Smoking Tobacco? 12 Information not available 10/25/2023 How Much Tobacco Do You Smoke? 0.5 PPD [email or web address] Information not available 02/20/2024 Has Tobacco Cessation Counseling Been Provided? Yes Information not available 11/29/2023 On What Date Was Tobacco Cessation Counseling Provided? 10/08/2024 Declines Information not available 10/08/2024 How Many Years Have You Smoked Tobacco? [...] Recorded Time MMR 04/02/2003 completed Not Available [facility] 04:35:28 MMR 04/30/1999 completed Not Available [facility] 04:35:28 Td (adult), 2 Lf tetanus toxoid, preservative free, adsorbed 07/27/2022 completed Not Available [facility] 09/22/2023 04:35:28 meningococcal MCV4P 06/19/2012 completed Not Available [facility] 09/22/2023 04:35:29 meningococcal MCV4P 08/28/2015 completed Not Available [facility] 09/22/2023 04:35:29 Tdap 07/02/2010 completed Not Available [facility] 04:35:29 Influenza, split virus, quadrivalent, PF 07/27/2022 completed Not Available [facility] 09/22/2023 04:35:29 Pneumococcal Conjugate, unspecified formulation 06/26/2000 completed Not Available [facility] 09/22/2023 04:35:29 Hib, unspecified formulation 1998 completed Not Available [facility] 09/22/2023 04:35:29 Hib, unspecified formulation 1998 completed Not Available [facility] 09/22/2023 04:35:30 DTaP 04/02/2003 completed Not Available [facility] 04:35:30 DTaP 04/30/1999 completed Not Available [facility] 04:35:30 DTaP 1998 completed Not Available [facility] 04:35:30 DTaP 1998 completed Not Available [facility] 04:35:30 DTaP 1998 completed Not Available [facility] 04:35:30 COVID-19, mRNA, LNP-S, PF, 100 mcg/0.5mL dose or 50 mcg/0.25mL dose 07/02/2021 completed Not Available [facility] 09/22/2023 04:35:30 COVID-19, mRNA, LNP-S, PF, 100 mcg/0.5mL dose or 50 mcg/0.25mL dose 07/30/2021 completed Not Available [facility] 09/22/2023 04:35:30 varicella 04/30/1999 completed Not Available [facility] 04:35:31 varicella 06/18/2007 completed Not Available [facility] 04:35:31 pneumococcal polysaccharide PPV23 11/22/2018 completed Not Available [facility] 2022 04:35:31 Hep B, unspecified formulation 1998 completed Not Available [facility] 09/22/2023 04:35:31 Hep B, unspecified formulation 1998 completed Not Available [facility] 09/22/2023 04:35:31 Hep B, unspecified formulation 1998 completed Not Available [facility] 09/22/2023 04:35:31 HPV, quadrivalent 12/06/2013 completed Not Available [facility] 09/22/2023 04:35:31 HPV, quadrivalent 06/03/2013 completed Not Available [facility] 09/22/2023 04:35:32 HPV, quadrivalent 08/05/2013 completed Not Available [facility] 09/22/2023 04:35:32 polio, unspecified formulation 04/02/2003 completed Not Available [facility] 09/22/2023 04:35:32 polio, unspecified formulation 04/30/1999 completed Not Available [facility] 09/22/2023 04:35:32 polio, unspecified formulation 1998 completed Not Available [facility] 09/22/2023 04:35:32 polio, unspecified formulation 1998 completed Not Available [facility] 09/22/2023 04:35:32 polio, unspecified formulation 1998 completed Not Available [facility] 09/22/2023 04:35:32 Past Encounters Encounter ID Performer Location Encounter Start Date Encounter Closed Date Diagnosis/Indication Diagnosis SNOMED-CT Code Diagnosis ICD10 Code [id number] [address] [address] 09/27/2023 08:12:39 09/27/2023 10:04:46 Bipolar I disorder 397567767 F31.9 Generalize d anxiety disorder 95288385 F41.1 Vitamin D deficiency 347 27710 E55.9 Active or passive immunization 919146717 Z23 Adult heal th examination 438481207 Z00.00 Venereal d isease screening 109913119 Z11.[id number] [address] 10/25/2023 08:17:01 10/25/2023 09:14:46 Bipolar I disorder 740299496 F31.9 Generalize d anxiety disorder 67182990 F41.1 Obesity 278467295 E66.9 Pain of ri ght testicle 7540055294 9117198 N50.811 Hyperlipidemia 13101593 E78.[id number] [address] 11/28/2023 08:41:10 11/28/2023 09:37:45 Right inguinal hernia 899070275 K40.90 Bipolar I disorder 97244 6008 F31.9 Generalize d anxiety disorder 66512452 F41.1 Hyperlipidemia 28707778 E78.5 Obesity 451123679 E66.[id number] [address] 5 11/29/2023 10:07:23 11/29/2023 10:44:29 Pain of right testicle 6029288329 5309862 N50.[id number] [address] 02/20/2024 09:50:50 02/20/2024 10:44:40 Bipolar I disorder 055084794 F31.9 Generalize d anxiety disorder 09239474 F41.1 Right inguinal hernia 23 9357772 K40.90 Smoker 39468771 F17.200 Obesity 446326902 E66.9 R03.0 [id number] Valencia Adrian PA-C [address] [address] 05/08/2024 09:21:33 05/08/2024 09:59:04 Acute bilateral otitis media 082806963 H66.93 [id number] DONN CASTREJON RN [address] [address] 05/22/2024 08:54:38 05/22/2024 09:28:00 Obesity 087679677 E66.9 R03.0 Smoker 59557432 F17.200 Bipolar I disorder 14030 6008 F31.9 Elevated blood-pressure reading without diagnosis of hypertension 673157058 R03.[id number] [address] 06/11/2024 10:17:13 06/11/2024 10:52:53 Injury of penis 387714197 S30.93XA Gastroesop hageal reflux disease 489085185 K21.9 [id number] MAKEDA TORRES [address] [address] 09/10/2024 08:51:45 09/10/2024 09:53:31 Vasectomy requested 496283540 Z30.2 Liver enzy mes level above reference range 594670184 R74.01 Hyperlipidemia 08660867 E78.5 Right uppe r quadrant pain 813532373 R10.11 Obesity 098510355 E66.9 R03.0 Smoker 42579583 F17.200 Bipolar I disorder 04884 6008 F31.9 [id number] JUDIE ANDERSON MD [address] [address] 10/08/2024 10:08:45 10/08/2024 11:41:11 Hydronephrosis 89381073 N13.30 Left upper quadrant pain 831645725 R10.12 Chest wall pain 26344528 6 R07.89 Increased liver function 46611418 R94.5 Dysuria 38880815 R30.0 Health Concerns Section Related Observation LastModified by Organization Detai ls LastModified Time None Recorded Concern Status LastModified by Organization Details LastModified Time None Recorded Advance Directives Directive None Recorded Payers Encounter Date Sequence Insurance Name Policy Number Policy Daniel Covered Member ID Daniel Member ID Guarantor Name 02/20/2024 1 [place] [employer] [place] [id number] Emanuel S Sweet [id number] Emanuel S Sweet 05/08/2024 1 [place] [employer] [place] [id number] Emanuel S Sweet [id number] Emanuel S Sweet 05/22/2024 1 [place] [employer] [place] [id number] Emanuel S Sweet [id number] Emanuel S Sweet 06/11/2024 1 [place] [employer] [place] [id number] Emanuel S Sweet [id number] Emanuel S Sweet 09/10/2024 1 [place] [employer] [place] [id number] Emanuel S Sweet [id number] Emanuel S Sweet Notes Date Note Type Note Provider Name and Address Organization Details Recorded Time 02/20/2024 text/html 23-year-old male patient for follow-up of mood, hypertension and right inguinal hernia. He reports that he has been doing well. Just celebrated his son's birthday. 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 Right inguinal hernia surgery scheduled at [facility] for 03/05. Currently still working but not able to do strenuous activity. Continue with mental health appointments. Changed from every week to every other week. Is only on Abilify monthly injections. Smoking - continues to smoke 1/2 ppd Denies any fever, chills, chest pain, shortness of breath, headache. Denies any GI complaints. LINH GRAY, MAKEDA [address], [place], [address], [place] - [facility]. 02/20/2024 11:50:19 05/08/2024 text/html Pt is a 24 y/o M here [...] dizziness,decreased hearing, head injury, ear discharge. +smoker. [address], [place], [address], [place] - [facility]. 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 05/22/2024 09:47:49 06/11/2024 text/html Patient presents with acid reflux, abdominal cramps, back [...] slow down. He has not taken any [id number] medication for the reflux yet. Abdominal Cramps [...] Expecting second child in September, causing stress [address], [place], [address], [facility]. 06/11/2024 11:05:02 09/10/2024 text/html 24-year-old male , reports experiencing intermittent severe cramping pain on [...] is currently receiving monthly Abilify injections from [facility] for mood stabilization, which he reports as effective. 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 He plans to take two weeks off from work after the of his second child. He is aware of the need to improve his diet, lose weight, and quit smoking. [address], [place], [address], [facility] 09/10/2024 10:49:30
--- OUTSIDE RECORDS SUMMARY | 2024-10-08 18:26 | XMS_ITS | Continuity of Care Document ---
Author Organization [place] - [facility], [facility] Address [address] [place] [address] Assessment Encounter Date Assessment Date Assessment LastModified by Organization Details LastModified Time 09/10/2024 09/10/2024 The total time devoted to today's encounter, including both the drhg-xc-vpdt time with the patient and/or family/caregi miguelangel and hgk-weqd-kd-f julia time I personally spent is 25 minutes in visit, 5 minutes prep, 5 minutes charting; total 35 minutes. [email or web address] Not available 09/10/2024 10:49:20 Plan of Treatment Reminders Order Date Submit Date Provider Last Modified By Organization Details Last Modified Time Details Appointments Acute 20 2023 10:20A M JUDIE ANDERSON Not available Not available Not available Follow Up 2024 09:00A M LINH ISAAC Not available Not available Not available Lab lipid panel, serum - L AC [address] [facility] (Registration ), [address] [place] [address] [place], [address], 09/19/2024 13:29:21 CMP, serum or plasma - L AC 2023 024 [facility] (Registration ), [address] [place] [address] [place], [address], 09/10/2024 15:39:41 Referral urologist referral - vasectomy 2023 TI[address]le MD[address], [place], [address], 09/10/2024 11:25:25 Procedures None recorded. Surgeries None recorded. Imaging None recorded. Medication Orders None recorded. Patient TargetsNo targets recorded. Patient Instructions Encounter Date Encounter Id Patient Instructions Last Modified By Organization Details Last Modified Time 09/10/2024 [id number] diet [email or web address] Not available 08/14 10:49:06 exercise [email or web address] Not available 09/10 10:49:06 Reason for Referral Urologist Referral for Vasec santiago requested vasectomy Referring Physician: Linh [place], Family Medicine, Encounter Date: 09/10/2024 Results Created Date Observation Date Name Description Value Unit Range Abnormal Flag Note LastModifiedBy Organization Detail LastModifiedTime 08/15/20 24 08/09/2024 EKG order addi corral 12 lead Niki Teague [id number] EKG TRANSC BRENDA Austin REPORT _ Accoun t: Access ion: Admit: StayTy pe: [id number] 25 [id number] 927 024 E/R Observ ation: Order ID: Submit kee: Chris corral Provid er: 2023 10:40 [id number] BRYCE CALDERÓN _ [place] [id number] Layo Mcclelland al Test Date: 08-09 Pat Name: EMANUEL Rodriguez ment: Layo sheridan ID: [id number] Room: Gender : M Techni dory: : 2000-0 6-11 Reques kee By: CLAIRE GARCIA Order Number : [id number] Zeferino yusuf MD: Tristan gonzalez Measur ements Interv als [place] Rate: 93 P: 33 [place]: 144 QRS: 72 QRSD: 96 T: 0 [...] 19:19: 47 EDT by Tristan gonzalez INTERFACE [facility] (Lab) [address] [place] [address], [address], 08/15/2024 01:43:10 Result Notes None recorded. Problems Name Problem SNOMED Code Status Onset Date Resolution Date Notes Provider Name and Address Organization Details Recorded Time Acne 80917982 Active 2013 Ivone mina serrato [facility] 4 09:48:15 Tobacco use cessatio n educatio n Active 2015 [facility] mina serrato [facility] 4 09:51:00 Obesity 988185185 [facility] [place] [facility] 4 09:50:21 Psychoac tive substanc e-induce d intoxica tion 7638854410 Completed 201603/16/2017 02/16/20 17 - Comments only - Theresa Pettit MD - he admits to recent use of cocaine, hallucin ogenic mushroom s and marijuan a. Agreed to seek further medical and psychiat aj care at [facility]. Parents drove him there. ED staff notified and his safe arrival there was confirme d. Problem Code: F19.929; Problem Code Type: ICD-10; Not Available [facility] 3 05:25:52 History of psychiat aj disorder 807756214 Active 2016 [facility] 4 09:49:22 Psychoti c disorder 20901502 Active 2016 [facility] 4 09:50:33 Cannabis abuse 96546315 Active 2016 [facility] 4 09:48:30 Developm ental academic disorder 3239917 Active 2016 [facility] 4 09:48:44 Generali zed anxiety disorder 54782478 Active 2016 [facility] 4 09:49:13 Streptoc occal sore throat 44334583 Completed 201701/10/2018 12/27/19 18 - Comments only - Margy godoy APRN, [employer] - Patient was treated with penicill in [...] J02.0; Problem Code Type: ICD-10; Not Available [facility] 3 05:25:53 Pure hypergly ceridemi a 245084457 Active 2017 [facility] 4 09:50:39 Hypergly cemia 67521563 Active 2017 [facility] 4 09:49:26 Liver enzymes level above referenc e range 118337601 Active 2017 [facility] 4 09:49:47 Abnormal weight gain 831494020 Active 2018 [facility]. 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 6658251733 Active 2019 [facility] 4 09:49:44 Melena 2166843 Completed 202011/18/2020 Problem Code: K92.1; Problem Code Type: ICD-10; Not Available [facility] 3 05:25:54 Vomiting 068328728 Active 2020 [facility] 4 09:51:17 Diarrhea 09578525 Active 2020 [facility] 4 09:49:05 Left upper quadrant pain 044530638 Completed 202012/18/2020 Problem Code: R10.12; Problem Code Type: ICD-10; Not Available [facility] 3 05:25:54 Gastriti s 5412586 Active 2020 [facility] 4 09:48:55 Venereal disease screenin g Active 2020 [facility] 4 09:51:06 Epididym itis 24067035 Active 2020 [facility] 4 09:48:48 Pain of right testicle 79919631953 539596 [facility] 4 09:50:29 Nausea and vomiting 84253506 Active 2020 Ivone serrato, [facility]. 4 09:50:13 Long-ter m current use of drug therapy 075292618 [facility] 4 09:49:52 COVID-19 583208640 [facility] 4 09:48:38 Adult health examinat ion Active [facility] 4 09:48:21 Disorder of bone and articula r cartilag e 257236040 Completed 201402/15/2017 Problem Code: 733.99; Problem Code Type: ICD-9; Not Available [facility] 3 05:26:04 [place] ht 493701116 Completed 201508/09/2023 06/09/20 16 - Comments only - Theresa Pettit MD - mervint jarred gonzalez 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 Problem Code: E66.3; Problem Code Type: ICD-10; Not Available [facility] 3 05:26:04 Elevated blood-pr essure reading without diagnosi s of hyperten buzz 638717773 Completed 201601/26/2018 Problem Code: R03.0; Problem Code Type: ICD-10; LINH GRAY, MA[address], [place], [address] , [facility]. 4 11:05:37 Acute pharyngi tis 949726495 Completed 201704/04/2018 Problem Code: J02.9; Problem Code Type: ICD-10; Not Available [facility] 3 05:26:05 Psychose xual counseli ng Completed 201511/22/2018 Problem Code: Z70.8; Problem Code Type: ICD-10; Not Available [facility] 3 05:26:06 Fibromya lgia 787668396 Completed 201407/29/2015 Problem Code: M79.7; Problem Code Type: ICD-10; Not Available [facility] 3 05:26:06 Adult health examinat ion Completed 201501/26/2018 Problem Code: Z00.00; Problem Code Type: ICD-10; 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 Managed by Psychiat ry, Dr. Fahad Madrigal for ariana corral. Problem Code: F31.74; Problem Code Type: ICD-10; Not Available [facility] 3 05:26:14 Anxiety disorder 741576312 Completed 201911/17/2020 Problem Code: F41.9; Problem Code Type: ICD-10; Not Available [facility] 3 05:26:14 Bipolar I disorder 021079252 Active 2022 Ivone Dayday [facility] 4 09:49:00 Vitamin D deficien cy 44577505 Active 2022 [facility] 4 09:51:10 Erectile dysfunct ion 560675967 Active 2022 [facility] 4 09:49:08 Testicul ar finding 768399849 Active 2022 [facility] 4 09:50:54 Hyperlip idemia 39400451 Active 2022 [facility] 4 09:49:39 Right inguinal hernia 541836094 Active 2023 [facility] 4 09:50:43 Smoker 21907164 Active 2023 [facility] 4 09:50:46 Increase d liver function 55303251 Active 2021 [facility] 4 09:52:30 Elevated blood-pr essure reading without diagnosi s of hyperten buzz 539880987 Active 2023 Problem Code: R03.0; Problem Code Type: ICD-10; MAKEDA TORRES [address], [place], [address] , [facility] 4 11:05:37 Injury of penis 582428854 Active 2023 MAKEDA TORRES [address], [place], [address] , [facility] 4 11:02:28 Increase d libido 86115116 Active 2023 MAKEDA TORRES [address], [place], [address] , [facility] 4 11:02:49 Gastroes ophageal reflux disease 779008114 Active [address], [place], [address] , [facility] 4 11:04:43 Right upper quadrant pain 609317911 Active [address], [place], [address] , [facility] 4 10:45:09 Problem Notes None recorded. Medical [...] q HS 03/[address] Parkinson (psychia [facility] [place]) Not Available Not Available Not Available methylphe [...] [address] Parkinson (psychia [facility] in [place]) ; dose increase d 09/10/19 Not Available Not Available Not Available aripipraz ole 5 mg tablet daily 02/19 completed through [facility] Not Available Not Available Not Available Wellbutri [...] Updated DateTime 4 177.8 cm 43.8 kg/m2 732995. 67 g 98.7 [degF] 98 % 98 % 112 /min 128 mm[Hg] 82 mm[Hg] Jamila Cabrera [facility] 08:59:48 Social History Question Answer Notes LastModified by Organizat ion Details LastModified Time Tobacco Smoking Status Current Every Day Smoker KARYN THORNTON LPN null, [facility] 10/25/2023 08:34:05 What Was The Date Of Your Most Recent Tobacco Screening? 10/08/2024 Information not available 10/08/2024 What Is Your Current Pack Years? 10-19packyea rs Information not available 10/25/2023 At What Age Did You Start Smoking Tobacco? 12 Information not available 10/25/2023 How Much Tobacco Do You Smoke? 0.5 PPD [email or web address] Information not available 02/20/2024 Has Tobacco Cessation Counseling Been Provided? Yes [email or web address] Information not available 11/29/2023 On What Date Was Tobacco Cessation Counseling Provided? 10/08/2024 Declines Information not available 10/08/2024 How Many Years Have You Smoked Tobacco? 11 Information not available 10/25/2023 Do You Or Have You Ever Used Any Other Forms Of Tobacco Or Nicotine? No [email or web address] Information not available 11/29/2023 Sex: Male Functional Status None recorded. Mental Status None recorded. Family History Nothing Reported. Medical History No medical history recorded. Immunizations Vaccine Type Date Status Provider Name and Address Organization Details Recorded Time MMR 04/02/2003 completed Not Available [facility] 04:35:28 MMR 04/30/1999 completed Not Available [facility] 04:35:28 Td (adult), 2 Lf tetanus toxoid, preservative free, adsorbed 07/27/2022 completed Not Available [facility] 09/22/2023 04:35:28 meningococcal MCV4P 06/19/2012 completed Not Available [facility] 09/22/2023 04:35:29 meningococcal MCV4P 08/28/2015 completed Not Available [facility] 09/22/2023 04:35:29 Tdap 07/02/2010 completed Not Available [facility] 04:35:29 Influenza, split virus, quadrivalent, PF 07/27/2022 completed Not Available [facility] 09/22/2023 04:35:29 Pneumococcal Conjugate, unspecified formulation 06/26/2000 completed Not Available [facility] 09/22/2023 04:35:29 Hib, unspecified formulation 1998 completed Not Available [facility] 09/22/2023 04:35:29 Hib, unspecified formulation 1998 completed Not Available [facility] 09/22/2023 04:35:30 DTaP 04/02/2003 completed Not Available [facility] 04:35:30 DTaP 04/30/1999 completed Not Available [facility] 04:35:30 DTaP 1998 completed Not Available [facility] 04:35:30 DTaP 1998 completed Not Available [facility] 04:35:30 DTaP 1998 completed Not Available [facility] 04:35:30 COVID-19, mRNA, LNP-S, PF, 100 mcg/0.5mL dose or 50 mcg/0.25mL dose 07/02/2021 completed Not Available [facility] 09/22/2023 04:35:30 COVID-19, mRNA, LNP-S, PF, 100 mcg/0.5mL dose or 50 mcg/0.25mL dose 07/30/2021 completed Not Available [facility] 09/22/2023 04:35:30 varicella 04/30/1999 completed Not Available [facility] 04:35:31 varicella 06/18/2007 completed Not Available [facility] 04:35:31 pneumococcal polysaccharide PPV23 11/22/2018 completed Not Available [facility] 2022 04:35:31 Hep B, unspecified formulation 1998 completed Not Available [facility] 09/22/2023 04:35:31 Hep B, unspecified formulation 1998 completed Not Available [facility] 09/22/2023 04:35:31 Hep B, unspecified formulation 1998 completed Not Available [facility] 09/22/2023 04:35:31 HPV, quadrivalent 12/06/2013 completed Not Available [facility] 09/22/2023 04:35:31 HPV, quadrivalent 06/03/2013 completed Not Available [facility] 09/22/2023 04:35:32 HPV, quadrivalent 08/05/2013 completed Not Available [facility] 09/22/2023 04:35:32 polio, unspecified formulation 04/02/2003 completed Not Available [facility] 09/22/2023 04:35:32 polio, unspecified formulation 04/30/1999 completed Not Available [facility] 09/22/2023 04:35:32 polio, unspecified formulation 1998 completed Not Available [facility] 09/22/2023 04:35:32 polio, unspecified formulation 1998 completed Not Available [facility] 09/22/2023 04:35:32 polio, unspecified formulation 1998 completed Not Available [facility] 09/22/2023 04:35:32 Past Encounters Encounter ID Performer Location Encounter Start Date Encounter Closed Date Diagnosis/Indication Diagnosis SNOMED-CT Code Diagnosis ICD10 Code [id number] MAKEDA TORRES [address] [address] 09/10/2024 08:51:45 09/10/2024 09:53:31 Vasectomy requested 559719449 Z30.2 Liver enzy mes level above reference range 580331658 R74.01 Hyperlipidemia 31313202 E78.5 Right uppe r quadrant pain 951977588 R10.11 Obesity 271828304 E66.9 R03.0 Smoker 97876866 F17.200 Bipolar I disorder 96151 6008 F31.9 Health Concerns Section Related Observation LastModified by Organization Detai ls LastModified Time None Recorded Concern Status LastModified by Organization Details LastModified Time None Recorded Payers Encounter Date Sequence Insurance Name Policy Number Policy Daniel Covered Member ID Daniel Member ID Guarantor Name 09/10/2024 1 [place] [employer] [place] [id number] Emanuel Rizvi [id number] Emanuel S Sweet Notes Date Note Type Note Provider Name and Address Organization Details Recorded Time 09/10/2024 text/html 24-year-old male , reports experiencing [...] is currently receiving monthly Abilify injections from [facility] for mood stabilization, which he reports as effective. 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 He plans to take two weeks off from work after the of his second child. He is aware of the need to improve his diet, lose weight, and quit smoking. LINH GRAY, [employer] [address], [place], [address], [facility]. 09/10/2024 10:49:30
--- OUTSIDE RECORDS SUMMARY | 2024-10-08 18:26 | XMS_ITS ---
Author Organization Unknown Address [address] [place] [address] [phone] Phone Care Team Providers Care Lay Out Inspector Name Role Phone BHAVANA SEGUNDO MD Attending Unavailable DEION ABBOTT MD ER Unavailable DEBBIE NGUYEN Primary Unavailable Results LIPASE - Collect Date/Time: 05/31/2021 13:02 [facility] ID: [id number] [address] [place] [address], [address] LOINC: 3040-3 Test Value Unit Reference Range Code Code System Flag LIPASE 65 U/L L=73 H=393 L COMPREHENSIVE METABOLIC PANE L (CMP) - Collect Date/Time: 05/31/2021 13:02 [facility] ID: [id number] [address] [place] [address], [address] LOINC: 98128-2 Test Value Unit Reference Range Code Code [...] H=34 2028-9 LOINC ANION GAP 10.0 mmol/L 33580-3 LOINC CALCIUM SERUM 9.5 mg/dL L=8.2 H=10.2 22478-6 LOINC BILIRUBIN TOTAL 0.7 mg/dL L=0.0 H=1.3 1975-2 LOINC ALK. PHOS. 67 U/L L=46 H=116 6768-6 LOINC SGOT (AST) 26 U/L L=15 H=37 1920-8 LOINC SGPT (ALT) 62 U/L L=12 H=78 1742-6 LOINC TOTAL PROTEIN 8.5 gm/dL L=6.0 H=8.0 2885-2 LOINC H ALBUMIN 4.5 gm/dL L=3.4 H=5.0 1751-7 LOINC AGE 21 years eGFR (non-Afr.Amer.) 87 mL/min 59670-0 LOINC eGFR (Afr-Greek) 105 mL/min 37839-5 LOINC TYPE AND SCREEN - Collect Da te/Time: 05/31/2021 13:02 [facility] ID: [id number] [address] [place] [address], [address] LOINC: Test Value Unit Reference Range Code Code System Flag Blood Group A 883-9 LOINC Rh (D) POSITIVE 00895-2 LOINC Antibody Screen NEGATIVE 1005-8 LOINC CBC W/ DIFFERENTIAL - Collec t Date/Time: 05/31/2021 13:02 [facility] ID: [id number] [address] [place] [address], [address] LOINC: 37848-7 Test Value Unit Reference Range Code Code System Flag WBC 9.19 th/cmm L=5.00 H=10.00 6690-2 LOINC NEUT % 66.7 % L=40.0 H=80.0 LYMPH % 26.0 % L=10.0 H=50.0 MONO % 6.2 % L=2.0 H=12.0 83710-0 LOINC EOS % 0.5 % L=0.0 H=8.0 BASO % 0.3 % L=0.0 H=3.0 IG % 0.3 % L=0.0 H=1.1 2514-8 LOINC NRBC % 0.0 % L=0.0 H=0.0 72673-1 LOINC NEUT abs count 6.1 th/cmm L=1.6 H=8.4 751-8 LOINC LYMPH abs count 2.4 th/cmm L=1.5 H=4.0 731-0 LOINC MONO abs count 0.6 th/cmm L=0.2 H=1.0 742-7 LOINC EOS abs count 0.1 th/cmm L=0.0 H=0.5 711-2 LOINC BASO abs count 0.0 th/cmm L=0.0 H=0.2 704-7 LOINC IG abs count 0.0 th/cmm L=0.0 H=0.1 38773-0 LOINC NRBC abs count 0.0 mil/cmm L=0.0 H=0.0 76274-8 LOINC RBC 5.35 mil/cmm L=4.30 H=6.20 789-8 [...] em Smoking History Current every day smoker 731551829 SNOMED CT Smoking History Never smoker (Never Smoked) 315098696 SNOMED CT Sex Male Medications Medication Start Date End Date Route Frequency Dose Code Code System Medication Instructions Home Meds Cyclobenzaprine 10MG Oral Tablet 08/09/2024 Unknown ORAL NEEDED EVERY 12 HOURS 1 TABLET 916024 RxNorm TAKE 1 TABLET ORAL NEEDED EVERY [...] Code Code System BIPOLAR DISORDER 04/13/2022 resolved 53127807 SN OMED-CT HISTORY OF DRUG ABUSE 04/13/2022 resolved 4829617 06 SNOMED-CT Allergies and Adverse Reactions Allergy Substance Reaction Severity Start Date Concern Status Co de Code System No Known Drug Allergies Active 861466860 SNOMED-CT Plan of Treatment Travel 12/15/2020 Encounters Encounter Diagnosis Start Date Code Code Sys tem Hematemesis 05/31/2021 SNOMED-CT Personal Care Team Section Performer Name Performer Role Active Date Inactive Da te
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
--- OUTSIDE RECORDS SUMMARY | 2024-10-08 18:27 | XMS_ITS | Encounter Summary ---
Author Organization [facility] Address [address] [place] [address] Care Team Providers Care Placing Judge Name Role Phone Theresa Pettit MD Primary Care Provider [phone] Margy Lucero APRN Primary Care Provider + Encounter Details Date Type Department Care Team (Late st Contact Info) Description 06/02/2021 Lab Requisition [facility] Pathology & Laboratory Medicine - [address] [id number] Outr Resulting Lab, Provider Social History Tobacco Use Types Packs/Day Years Used Date Smoking Tobacco: Never Assessed Sex and Gender Information Value Date Recorded Sex Assigned at Not on file Legal Sex Male 18:21 EST Gender Identity Male 06/13/2022 9:28 EDT Sexual Orientation Not on file documented as of this encounter Functional Status * Because of a physical, mental, or emotional condition, does this person have difficulty doing errands alone such as visiting a doctor's office or shopping? Answer Date of Assessment Author No 07/23/2015 11:05 EDT documented as of this encounter Mental Status * Because of a physical, mental, or emotional condition, does this person have serious difficulty concentrating, remembering, or making decisions? Answer Entry Date Author No 07/23/2015 11:05 EDT documented in this encounter Plan of Treatment [...] HEPATITIS B SURFACE ANTIBODY (06/01/2021 13:50 EDT) Hep B Surface Ab, Quantitative <3.1 See Note mIU/mL 06/03/2021 9:47 EDT [facility] Comment: Reference Range for Hep B Surface Ab, Quant: Positive: >= 10.0 mIU/mL Negative: ??< 10.0 mIU/mL Patient is presumed to not be immune to infection with Hepatitis B Virus. Hep B Surface Ab, Qualitative Negative See Note 06/03/2021 9:47 EDT [facility] Comment: Reference Range for Hep B Surface Ab, Qual: Unvaccinated: ??Negative Vaccinated: ??Positive Blood VENOUS BLOOD / Unknown 06/01/2021 13:50 EDT 06/02/2021 16:38 EDT us Provider Outr Resulting Lab CHEMISTRY & BLOOD GA S ORDERABLES Final Result Performing Organization Address City/[facility]/ZIP Co de Phone Number [facility] [address] [place] [address] * HEPATITIS B SURFACE ANTIGEN (06/01/2021 13:50 EDT) Hep B Surface Ag Negative Negative 06/03/2021 9:57 EDT [facility] Blood VENOUS BLOOD / Unknown 06/01/2021 13:50 EDT 06/02/2021 16:38 EDT us Provider Outr Resulting Lab CHEMISTRY & BLOOD GA S ORDERABLES Final Result [facility] [address] [place] [address] * HEPATITIS C AB W REFLEX TO HCV RNA BY PCR (06/01/2021 13:50 EDT) Hep C Antibody Negative Negative 06/03/2021 10:18 EDT [facility] Blood VENOUS BLOOD / Unknown 06/01/2021 13:50 EDT 06/02/2021 16:38 EDT us Provider Outr Resulting Lab CHEMISTRY & BLOOD GA S ORDERABLES Final Result Performing Organization Address City/State/[facility] Co de Phone Number [facility] [address] [place] [address] documented in this encounter Visit Diagnoses Not on filedocumented in this encounter Care Teams Placing Judge Relationship Specialty Start Date End Date Theresa Pettit MD [address] [place] [address] PCP - General 07/09/15 05/24/22 Margy Lucero APRN [address] [place] [address] PCP - General 05/25/22 documented as of this encounter
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
--- OUTSIDE RECORDS SUMMARY | 2024-10-08 18:27 | XMS_ITS | Encounter Summary ---
Author Organization [facility] Address [address] [place] [address] Care Team Providers Care Hydrocrane Operator Name Role Phone Margy Lucero DARYL Primary [...] as of this encounter Functional Status * Are you deaf or do you have serious difficulty hearing? Answer Date of Assessment Author No 06/13/2022 9:27 EDT Fidel Broderick, IRENE * Because of a physical, mental, or [...] on filedocumented in this encounter Care Teams Hydrocrane Operator Relationship Specialty Start Date End Date Margy Lucero, EYEGLASS MAKER [address] [place] [phone] PCP - General 05/25/22 documented as of this encounter
--- OUTSIDE RECORDS SUMMARY | 2024-10-08 18:27 | XMS_ITS | Encounter Summary ---
Author Organization [facility] Address [address] [place] [address] Care Team Providers Care Patient Office Rep Name Role Phone Margy Lucero DARYL Primary [...] 9:48 EDT - 06/13/2022 11:48 EDT Emergency [facility] Emergency Department [address] [place] [address] Maggy Flores, PA-C [address] [facility], [address] [place] [address] Bipolar affective disorder, remission status unspecified (HCC-CMS) ([facility]) (Primary Dx) Discharge Disposition: Home or Self [...] EDT documented in this encounter Functional Status * Are you deaf or do you have serious difficulty hearing? Answer Date of Assessment Author No 06/13/2022 9:27 EDT Fidel Broderick RN * Because of a physical, mental, [...] us speak with your parents. Please contact [facility] as needed, please return to the ED if you develop suicidal ideation or other concerning symptoms. documented in this encounter Medications at Time of Discharge lithium carbonate 150 mg capsuleIndicatio ns:mixed bipolar I disorder Take 150 mg by mouth daily. 06/23/22: last filled per [facility] 05/26/22 30 day supply. Prescribed by Tristan Waterman [phone]. 2 LORATADINE (CLARITIN ORAL) Take by mouth daily 2 documented as of this encounter Discharge Disposition Disposition Code Departure Means Destination Home or Self Senior Living documented in this encounter Consult Notes * [...] with 2 previous psychiatric hospitalizations to [facility], most recently [id number], who presents to the Emergency Department with [...] History: Hospitalization: 2 previous hospitalizations to [facility] Diagnoses: Probable bipolar disorder, cannabis use disorder, nicotine use disorder, learning disorder Outpatient Providers: Dr. Pickett at [facility] for med management; See Fahad Madrigal in [...] Differential: Auto LITHIUM Result Value Ref Range [place] <0.2 (L) 0.6 - 1.2 mmol/L COMPREHENSIVE [...] with 2 previous psychiatric hospitalizations to [facility], most recently in 2018, who presents to [...] outpatient servicesin place, including a psychiatrist at [facility] and an individual counselor. He is agreeable to recommendation for discharge and follow up with Dr. Pickett to discuss resumption of aripiprazole. Furthermore, he is agreeable to calling [facility] crisis or returning to the ED if [...] aripiprazole or an alternative. -Patient to use [facility] service, [facility], or present to the closest [...] diagnoses: Bipolar affective disorder, remission status unspecified ([facility]) ([facility]) Disposition: Discharged Chief complaint: psychiatric evaluation HPI [...] si. no hi. Procedures Procedures * Felipe Ash, RN - 06/13/2022 1100 EDT Urine requested, [...] encounter Results * TSH (06/13/2022 10:37 EDT) TSH 0.94 0.47 - 4.68 mIU/L 06/13/2022 11:38 EDT [facility] Blood VENOUS BLOOD / Unknown Venipuncture / Unknown 06/13/2022 10:37 EDT 06/13/2022 10:42 EDT Narrative [facility] - 06/13/2022 11:38 EDT The results of this assay can be falsely lowered due to the consumption of Biotin. us Maggy Flores PA-C CHEMISTRY & BLOOD GAS O RDERABLES Final Result [facility] [address] [place] [address] * (ABNORMAL) COMPREHENSIVE METABOLIC PANEL (CMP) (06/13/2022 10:37 [facility]) Sodium 143 136 - 145 mmol/L 06/13/2022 11:03 [facility] Potassium 4.0 3.5 - 5.0 mmol/L 06/13/2022 11:03 [facility] Chloride 105 96 - 110 mmol/L 06/13/2022 11:03 [facility] CO2 Total 24 22 - 32 mmol/L 06/13/2022 11:03 [facility] Glucose 96 70 - 100 mg/dL 06/13/2022 11:03 [facility] BUN 20 10 - 26 mg/dL 06/13/2022 11:03 [facility] Creatinine 0.86 0.66 - 1.25 mg/dL 06/13/2022 11:03 [facility] eGFR 124 >60 mL/min/1.7 3m2 06/13/2022 11:03 [facility] Total Protein 8.1 6.3 - 8.2 g/dL 06/13/2022 11:03 [facility] Albumin 5.0(H) 3.4 - 4.9 g/dL 06/13/2022 11:03 [facility] Alkaline Phosphatase 62 38 - 126 U/L 06/13/2022 11:03 [facility] AST 54(H) 15 - 46 U/L 06/13/2022 11:03 [facility] ALT 71(H) <50 U/L 06/13/2022 11:03 [facility] Bilirubin, Total 1.1 <1.4 mg/dL 06/13/20 11:03 [facility] Calcium 10.2 8.5 - 10.5 mg/dL 06/13/2022 11:03 [facility] Albumin/Globulin Ratio 1.6 1.0 - 2.5 06/13/2022 11:03 [facility] Anion Gap 14 5 - 14 06/13/2022 11:03 [facility] Blood VENOUS BLOOD / Unknown Venipuncture / Unknown 06/13/2022 10:37 EDT 06/13/2022 10:42 EDT Maggy LARKIN-C CHEMISTRY & BLOOD GAS O RDERABLES Final Result Performing Organization Address [facility] de Phone Number [facility] [address] [place] [address] * (ABNORMAL) LITHIUM (06/13/2022 10:37 EDT) [place] <0.2(L) 0.6 - 1.2 mmol/L 06/13/2022 11:03 EDT [facility] Comment: 18 years and older: Therapeutic range: 0.6 - 1.2 mEq/L Potentially toxic: >1.5 mEq/L Therapeutic range not established for individuals <18 years old. Blood VENOUS BLOOD / Unknown Venipuncture / Unknown 06/13/2022 10:37 EDT 06/13/2022 10:42 EDT Maggy LARKIN-C CHEMISTRY & BLOOD GAS O RDERABLES Final Result Performing Organization Address [facility] [place] [facility] de Phone Number [facility] [address] [place] [address] * (ABNORMAL) COMPLETE BLOOD COUNT AND DIFFERENTIAL (06/13/2022 10:36 EDT) WBC 9.84 4.00 - 10.40 K/cmm 06/13/2022 10:46 EDT [facility] RBC 5.24 4.36 - 5.78 M/cmm 06/13/2022 10:46 EDT [facility] Hemoglobin 15.3 13.8 - 17.3 gm/dL 06/13/2022 10:46 EDT [facility] HCT 45.4 39.5 - 50.2 % 06/13/2022 10:46 EDT [facility] MCV 87 81 - 95 fl 06/13/2022 10:46 EDT [facility] MCH 29.2 27.6 - 33.0 pg 06/13/2022 10:46 [facility] MCHC 33.7 32.8 - 36.4 gm/dL 06/13/2022 10:46 [facility] RDW-CV 12.6 <14.2 % 06/13/2022 10:46 [facility] RDW-SD 39.7 <46.0 fl 06/13/2022 10:46 [facility] PLT 493(H) 141 - 377 K/cmm 06/13/2022 10:46 [facility] MPV 8.4(L) 9.5 - 12.7 fl 06/13/2022 10:46 [facility] % Neutrophils 61.8 % 06/13/2022 10:46 [facility] % Lymphocytes 27.5 % 06/13/2022 10:46 [facility] % Monocytes 8.9 % 06/13/2022 10:46 [facility] % Eosinophils 1.2 % 06/13/2022 10:46 [facility] % Basophils 0.4 % 06/13/2022 10:46 [facility] % Immature Grans 0.2 % 06/13/20 10:46 [facility] Absolute Neutrophils 6.07 2.20 - 8.85 K/cmm 06/13/2022 10:46 [facility] Absolute Lymphocytes 2.71 1.09 - 3.30 K/cmm 06/13/2022 10:46 [facility] Absolute Monocytes 0.88(H) 0.10 - 0.80 K/cmm 06/13/2022 10:46 [facility] Absolute Eosinophils 0.12 0.03 - 0.61 K/cmm 06/13/2022 10:46 [facility] ABS Basophils 0.04 0.01 - 0.11 K/cmm 06/13/2022 10:46 [facility] Absolute Immature Grans 0.02 0.00 - 0.06 K/cmm 06/13/2022 10:46 EDT [facility] Type of Differential: Auto 06/13/2022 10:46 EDT [facility] Blood VENOUS BLOOD / Unknown Venipuncture / Unknown 06/13/2022 10:36 EDT 06/13/2022 10:42 EDT Maggy Flores PA-C PACKAGES & DNA PROBE OR DERABLES Final Result [facility] [address] [place] [address] documented in this encounter Visit Diagnoses Diagnosis Bipolar affective disorder, remission status unspecified (HCC-CMS)- Primary documented in this encounter Orders Nursing Count Last Ordered Date First Orde red Date CALL PHYSICIAN SPECIALTY CONSULT 1 06/13/20 22 documented in this encounter Care Teams Patient Office Rep Relationship Specialty Start Date End Date Margy Lucero, HAND SALTER [address] [place] [phone] PCP - General 05/25/22 documented as of this encounter
--- OUTSIDE RECORDS SUMMARY | 2024-10-08 18:27 | XMS_ITS | Encounter Summary ---
Author Organization [facility] Address [address] [place] [address] Care Team Providers Care Motion Picture Equipment Supervisor Name Role Phone Theresa Pettit MD Primary Care Provider [phone] Encounter Details Date Type Department Care Team (Late st Contact Info) Description 02/05/[address] [facility] - Main [address] [address] Jesi Chaves FNP [address] [place] [phone] Social History Tobacco Use Types Packs/Day [...] Triglyceride 255 <150 mg/dL 02/05/2018 7:39 EDT [facility] Comment: Adult: Normal: ?<150 mg/dl ? Borderline High: 150-199 mg/dl ? High: ?200-499 mg/dl ? Very High: >rv=280 Cholesterol 178 <200 mg/dL 02/05/2018 7:39 EDT [facility] Comment: Acceptable: ??<200 Borderline: ??200-239 High: ?> or = 240 Chol/HDL Ratio 4.2 0 - 5.0 02/05[facility]2018 [facility] Comment: DESIRABLE RATIO IS LESS THAN 4.1 PATIENTS ARE CONSIDERED AT RISK: WOMEN RATIO >5 MEN RATIO >6 FASTING? - [facility] Unknown 8 7:08 EDT [facility] HDL 42 40 - 60 mg/dL 02/05/2018 7:39 [facility] Comment: ?? Reference Range Low: ? < 40 ??mg/dL Normal: ??40-60 mg/dL High: ?>= 60 mg/dL LDL CHOLESTEROL - [facility] 85 60 - 100 mg/dL 02/05/2018 7[facility] Non HDL Cholesterol 136 mg/dl 02/05/2018 7:39 T [facility] Comment: Desirable: ?Less than 130 Borderline High: ??130-159 High: ? 160-189 Very High: ?Greater than or equal to 190 02/05/2018 7:08 EDT 02/05/2018 7:08 EDT us Jesi Chaves HEMSTITCHING MACHINE OPERATOR CHEMISTRY & BLOOD GAS GELY CABALLERO Final Result [facility] documented in this encounter Visit Diagnoses Not on filedocumented in this encounter Care Teams Motion Picture Equipment Supervisor Relationship Specialty Start Date End Date Theresa Pettit MD [address] [place] [phone] PCP - General 07/09/15 05/24/22 documented as of this encounter
--- OUTSIDE RECORDS SUMMARY | 2024-10-08 18:27 | XMS_ITS | Encounter Summary ---
Author Organization [facility] Address [address] [place] [address] Care Team Providers Care Biology Instructor Name Role Phone Margy Lucero APRN Primary [...] on filedocumented in this encounter Care Teams Biology Instructor Relationship Specialty Start Date End Date Margy Lucero APRN [address] [facility] [place] [address] PCP - General 05/25/22 documented as of this encounter
--- OUTSIDE RECORDS SUMMARY | 2024-10-08 18:27 | XMS_ITS | Encounter Summary ---
Author Organization [facility] Address [address] [place] [address] Care Team Providers Care Risk Management Consultant Name Role Phone LuceroMargy Art BRITO Primary Care Provider + Encounter Details Date Type Department Care Team (Late st Contact Info) Description 09/27/2023 Lab Requisition [facility] Pathology & Laboratory Medicine - [facility] [address] [place] [address] Outr Resulting Lab, Provider Social History Tobacco [...] 4th Generation Negative Negative 09/28/2023 10:49 EST [facility] Comment:If acute HIV-1 infec tion is suspected in a high risk patient, submit plasma specimen for HIV-1 RNA quantitation test. Blood VENOUS BLOOD / Unknown 09/27/2023 10:00 EST 09/27/2023 21:27 EST Narrative [facility] - 09/28/2023 10:49 EST Fourth Generation assay performed on the Siemens Centaur XPT. us Provider Outr Resulting Lab IMMUNOLOGY AND SEROL OGY ORDERABLES Final Result [facility] [address] [place] [address] documented in this encounter Visit Diagnoses Not on filedocumented in this encounter Care Teams Risk Management Consultant Relationship Specialty Start Date End Date Margy Lucero, LABOR SUPERVISOR [address] [place] [address] PCP - General 05/25/22 documented as of this encounter
--- OUTSIDE RECORDS SUMMARY | 2024-10-08 18:27 | XMS_ITS | Encounter Summary ---
Author Organization [facility] Address [address] [place] [address] Care Team Providers Care Wheel Installer Name Role Phone LuceroMargy Art BRITO Primary Care Provider + Encounter Details Date Type Department Care Team (Late st Contact Info) Description 09/27/2023 Lab Requisition [facility] Pathology & Laboratory Medicine - [address] [address] Outr Resulting Lab, Provider Social History Tobacco [...] gonorrhoeae Result Negative Negative 09/28/2023 14:46 EST [facility] Chlamydia trachomatis Result Negative Negative 09/28/2023 14:46 EST [facility] Urine URINE / Unknown 09/27/2023 1 0:00 EST 09/27/2023 22:01 EST us Provider Outr Resulting Lab MICROBIOLOGY - GENER AL ORDERABLES Final Result Performing Organization Address City/State/[facility] Co de Phone Number [facility] [address] [place] [address] documented in this encounter Visit Diagnoses Not on filedocumented in this encounter Care Teams Wheel Installer Relationship Specialty Start Date End Date Margy Lucero, DARYL [address] [place] [address] PCP - General 05/25/22 documented as of this encounter
--- OUTSIDE RECORDS SUMMARY | 2024-10-08 18:27 | XMS_ITS | Clinical Summary ---
Author Organization [facility] Address [address] [place] [address] Care Team Providers Care Mandarin Teacher Name Role Phone Margy Lucero Art BRITO Primary Care Provider + Allergies No known active allergies Medications ARIPiprazole (ABILIFY) 30 mg tablet Take 1 Tablet by mouth at bedtime. 7 Tablet 06/23/2022 Active hydrOXYzine (ATARAX) 25 mg tablet Take 1 Tablet by mouth every 4 hours as needed for Anxiety. 20 Tablet 06/23/2022 Active methylphenidate HCl (RITALIN;METHYLI N) 10 mg tablet Take 1 Tablet by mouth daily. 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) 06/22/2022 06/23/2022 Bipolar disorder, current ep isode mixed, moderate ([facility]) 06/22/2022 06/23/2022 Immunizations Name Administration Dates Next Due Covid-19 mRNA Vaccine (MODER NA COVID-19) PF 0.5 ml IM (12 yrs+) 07/30/2021,07/02/2021 Surgical History Surgery Date Site/Laterality Comments WISDOM TOOTH EXTRACTION Medical History Medical History Date Comments Bipolar disorder ([facility]) Social History Tobacco Use Types Packs/Day [...] 19+ 3-dose series) 2017 COVID-19 Vaccine ( season) 2024, 07/02/2021 Hepatitis C Screen Completed 09/27/2023, 06/01/2021 Procedures Procedure Name Priority Date/Time Associated Diagnosis Comments HEPATITIS C AB W REFLEX TO HCV RNA BY PCR Routine 09/27/2023 10:00 EST from Last 3 Months or Most Recently Relevant to Health Maintenance Results * HEPATITIS C AB W REFLEX TO HCV RNA BY PCR (09/27/2023 10:00 EST) Hep C Antibody Negative Negative 09/28/2023 11:14 EST [facility] Blood VENOUS BLOOD / Unknown 09/27/2023 10:00 EST 09/27/2023 21:27 EST us Provider Outr Resulting Lab CHEMISTRY & BLOOD GA S ORDERABLES Final Result [facility] [address] [place] [address] from Last 3 Months or Most Recently Relevant to Health Maintenance Insurance [facility] Advance Directives For more information, please contact: [phone] * Full Code (Latest Code Status on File) Date Activated Date Inactivated Comments 06/22/2022 21:45 06/23/2022 21:39 Question Answer Comments When the patient has NO PULSE: Full Code / CPR Who Made the Decision? Default/Not Discussed Care Teams Mandarin Teacher Relationship Specialty Start Date End Date Margy Lucero, DARYL [address] [place] [address] PCP - General 05/25/22
--- OUTSIDE RECORDS SUMMARY | 2024-10-08 18:27 | XMS_ITS | Encounter Summary ---
Author Organization [facility] Address [address] [place] [address] Care Team Providers Care Assistant Service Manager Name Role Phone Theresa Pettit MD Primary Care Provider [phone] Margy Lucero APRN Primary Care Provider + Encounter Details Date Type Department Care Team (Late st Contact Info) Description 03/15/2021 Lab Requisition [facility] Pathology & Laboratory Medicine - [address] [id number] Outr Resulting Lab, Provider Social History Tobacco [...] 2.1 - 17.7 ng/mL 03/15/2021 23:02 EDT [facility] Blood VENOUS BLOOD / Unknown 03/15/2021 11:58 EDT 03/15/2021 21:47 EDT us Provider Outr Resulting Lab CHEMISTRY & BLOOD GA S ORDERABLES Final Result Performing Organization Address City/State/[facility] Co de Phone Number [facility] [address] [place] [address] documented in this encounter Visit Diagnoses Not on filedocumented in this encounter Care Teams Assistant Service Manager Relationship Specialty Start Date End Date Theresa Pettit MD [address] [place] [place] [address] PCP - General 07/09/15 05/24/22 Margy Lucero APRN [address] [place] [address] PCP - General 05/25/22 documented as of this encounter
--- OUTSIDE RECORDS SUMMARY | 2024-10-08 18:27 | XMS_ITS | Encounter Summary ---
Author Organization [facility] Address [address] [place] [address] Care Team Providers Care Nurse Discharge Name Role Phone Theresa Pettit MD Primary Care Provider Encounter Details Date Type Department Care Team (Late st Contact Info) Description 11/19/2020 Results Only [facility] - Main [address] [address] Tonny Tejeda MD [address] [place] [phone] Social History Tobacco Use Types Packs/Day [...] Associated Diagnosis Comments SPEC W/O ORDERS - [facility] Routine 11/19/2020 13:20 EST SPEC W/O ORDERS - [facility] Routine 11/19/2020 13:07 EST documented in this encounter Results * SPEC W/O ORDERS [facility] (11/19/2020 13:20 EST) [facility] W/O [facility] SEE NOTE 11/19/2020 13:50 EST [facility] Comment: ?Emergency Room Specimen(s) without Orders These specimens will be discarded in 4 hours: RECEPTION CENTRE MANAGER SWAB 11/19/2020 13:2 0 EST 11/19/2020 13:50 EST Tonny Tejeda MD CHEMISTRY & BLOOD GAS ORDERAB LES Final Result Performing Organization Address City/[facility]/ZIP Co de Phone Number [facility] [address] [place] [phone] * SPEC W/O ORDERS [facility] (11/19/2020 13:07 EST) [facility] SEE NOTE 11/19/2020 13:25 EST [facility] Comment: ?Emergency Room Specimen(s) without Orders These specimens will be discarded in 4 hours: Gold, green, purple and blue 11/19/2020 13:0 7 EST 11/19/2020 13:25 EST Tonny Tejeda MD CHEMISTRY & BLOOD GAS ORDERAB LES Final Result Performing Organization Address City/[facility]/ZIP Co de Phone Number [facility] [address] [place] [address] documented in this encounter Visit Diagnoses Not on filedocumented in this encounter Care Teams Nurse Discharge Relationship Specialty Start Date End Date Theresa Pettit MD [address] [place] [phone] PCP - General 07/09/15 05/24/22 documented as of this encounter
--- OUTSIDE RECORDS SUMMARY | 2024-10-08 18:27 | XMS_ITS | Encounter Summary ---
Author Organization [facility] Address [address] [place] [address] Care Team Providers Care Environmental Lawyer Name Role Phone Theresa Pettit MD Primary Care Provider [phone] Margy Lucero APRN Primary Care Provider + Encounter Details Date Type Department Care Team (Late st Contact Info) Description 06/02/2021 Lab Requisition [facility] Pathology & Laboratory Medicine - [address] [address] Outr Resulting Lab, Provider Social History Tobacco [...] gonorrhoeae Result Negative Negative 06/03/2021 14:59 EDT [facility] Chlamydia trachomatis Result Negative Negative 06/03/2021 14:59 EDT [facility] Swab ENTIRE URETHRA / Unknown 06/01/2021 13:30 EDT 06/02/2021 17:14 EDT us Provider Outr Resulting Lab MICROBIOLOGY - GENER AL ORDERABLES Final Result [facility] [address] [place] [address] documented in this encounter Visit Diagnoses Not on filedocumented in this encounter Care Teams Environmental Lawyer Relationship Specialty Start Date End Date Theresa Pettit MD [address] [place] [address] PCP - General 07/09/15 05/24/22 Margy Lucero APRN [address] [place] [address] PCP - General 05/25/22 documented as of this encounter
--- OUTSIDE RECORDS SUMMARY | 2024-10-08 18:27 | XMS_ITS | Encounter Summary ---
Author Organization [facility] Address [address] [place] [address] Care Team Providers Care Infantry Indirect Fire Crewmember Name Role Phone Margy Lucero DARYL Primary Care Provider + Encounter Details Date Type Department Care Team (Late st Contact Info) Description 06/23/2022 Plan of Care Documentation [facility] Inpatient Psychiatry [address] [place] [address] Social History Tobacco Use Types [...] 07/23/2015 11:05 EDT documented in this encounter Progress Notes * Leroy Ventura [...] RADHIKA Psychiatrist Dr. Pickett Therapist Fahad Madrigal Cattle Sprayer PCP Margy Lucero Guardian Family Contact Other Pt: Date: MD: Date: AP: Date: RN: Date: SW: Date: documented in this encounter Plan of Treatment Not on file documented as of this encounter Visit Diagnoses Not on filedocumented in this encounter Care Teams Infantry Indirect Fire Crewmember Relationship Specialty Start Date End Date Margy Lucero, DARYL [address] [place] [phone] PCP - General 05/25/22 documented as of this encounter
--- OUTSIDE RECORDS SUMMARY | 2024-10-08 18:27 | XMS_ITS | Encounter Summary ---
Author Organization [facility] Address [address] [place] [address] Care Team Providers Care Director Business Systems Name Role Phone Theresa Pettit MD Primary Care Provider [phone] Margy Lucero APRN Primary Care Provider + Encounter Details Date Type Department Care Team (Late st Contact Info) Description 11/19/2020 Lab Requisition [facility] Pathology & Laboratory Medicine - [address] [id number] Outr Resulting Lab, Provider Social History Tobacco [...] Priority Date/Time Associated Diagnosis Comments ZZCOVID-19 TEST [facility] PCR Today 11/19/2020 13:30 EST COVID-19 TESTING Routine 11/19/2020 13:3 0 EST documented in this encounter Results * COVID-19 TEST [facility] PCR (11/19/2020 13:30 EST) Swab ENTIRE NASOPHARYNX / Unknown 11/19/2020 13:30 EST 11/19/2020 21:13 EST Provider Outr Resulting Lab MICROBIOLOGY - GENER AL ORDERABLES Final Result Performing Organization Address [facility] Co de Phone Number [facility] [address] [place] [address] * COVID-19 TESTING (11/19/2020 13:30 EST) COVID-19 rt-PCR Result Negative Negative 11/20/2020 1:06 EST [facility] Comment: This test has [...] history, and epidemiological information. Performed on the [employer] Fusion instrument Performing Lab [employer] [facility] 11/20/2020 1:06 EST [facility] Swab 11/19/2020 13:3 0 EST 11/19/2020 21:13 EST us Provider Outr Resulting Lab MICROBIOLOGY - GENER AL ORDERABLES Final Result Performing Organization Address [facility] Co de Phone Number [facility] [address] [place] [address] documented in this encounter Visit Diagnoses Not on filedocumented in this encounter Care Teams Director Business Systems Relationship Specialty Start Date End Date Theresa Pettit MD [address] [place] [place] [address] PCP - General 07/09/15 05/24/22 Margy Lucero APRN [address] [place] [address] PCP - General 05/25/22 documented as of this encounter
--- OUTSIDE RECORDS SUMMARY | 2024-10-08 18:27 | XMS_ITS | Encounter Summary ---
Author Organization [facility] Address [address] [place] [address] Care Team Providers Care Electric Motor Mechanic Name Role Phone Theresa Pettit MD Primary Care Provider [phone] Encounter Details Date Type Department Care Team (Late st Contact Info) Description 11/19/2020 Results Only [facility] [phone] Óscar Tapia MD [address] [place] [phone] Social History Tobacco Use Types Packs/Day [...] Comments DRUGS OF ABUSE SCREEN, URINE - [facility] Routine 11/19/2020 10:25 EST URINALYSIS - [facility] Routine 11/19/2020 10: 21 EST documented in this encounter Results * (ABNORMAL) DRUGS OF ABUSE SCREEN, URINE - [facility] (11/19/2020 10:25 EST) AMPHETAMINES NEG NEG 11/19/2020 10:39 [facility] BARBITURATES,UR - [facility] NEG NEG 11/19/2020 10:39 [facility] BENZODIAZEPINES NEG NEG 10:39 [facility] COCAINE,URINE - [facility] NEG NEG 11/19/2020 10:39 [facility] MAMP (METHAMPHETAMINES - [facility] NEG NEG 11/19/2020 10:39 [facility] MARIJUANA,URINE - [facility] POS(A) NEG 11/19/2020 10:39 [facility] MTD (METHADONE) - [facility] NEG NEG 11/19/2020 10:39 [facility] OPIATES,URINE - [facility] NEG NEG 11/19/2020 10:39 [facility] OXY (OXYCODONE) - [facility] NEG NEG 11/19/2020 10:39 [facility] PCP (PHENCYCLIDINE) - [facility] NEG NEG 11/19/2020 10:39 [facility] PROPOXYPHENE (PPX) - [facility] NEG NEG 11/19/2020 10:39 [facility] TRICYCLIC ANTIDEPRESSANTS - [facility] NEG NEG 11/19/2020 10:39 [facility] Comment: Drug Class ?Cutoff Concentration [...] 11/19/2020 10:25 EST Óscar Tapia MD URINALYSIS ORDERABLES Fi nal Result Performing Organization Address City/State/[facility] Co de Phone Number [facility] [address] [place] [address] * URINALYSIS - [facility] (11/19/2020 10:21 EST) URINE APPEARANCE - [facility] Clear CLEAR 11/19/2020 12:26 EST [facility] URINE BILIRUBIN - DIPSTICK - [facility] Negative NEGATIVE 11/19/2020 12:26 EST [facility] URINE BLOOD - [facility] Negative NEG 11/19/2020 12:26 [facility] URINE COLOR - [facility] Yellow YELLOW 11/19/2020 12:26 [facility] URINE GLUCOSE - DIPSTICK - [facility] Negative NEGATIVE 11/19/2020 12:26 [facility] URINE KETONE - [facility] Negative NEGATIVE 11/19/2020 12:26 EST [facility] URINE LEUK ESTERASE - [facility] Negative NEG 11/19/2020 12:26 EST [facility] URINE NITRITE - DIPSTICK - [facility] Negative NEG 11/19/2020 12:26 [facility] URINE PH - [facility] 7.0 4.0 - 8.0 12:26 [facility] URINE PROTEIN - DIPSTICK - [facility] Negative NEG 11/19/2020 12:26 [facility] URINE SPECIFIC GRAVITY - [facility] <=1.005 1.001 - 1.035 11/19/2020 12:26 [facility] URINE UROBILINOGEN - DIPSTICK - [facility] 0.2 0.2 - 1.0 11/19/2020 12:26 [facility] 11/19/2020 10:2 1 EST 11/19/2020 12:22 EST Narrative [facility] - 11/19/2020 12:26 EST AOT: 11/19/20 1222: URINALYSIS us Óscarjayne Tapia MD CHEMISTRY & BLOOD GAS OR DERABLES Final Result Performing Organization Address City/State/[facility] Co de Phone Number [facility] [address] [place] [phone] documented in this encounter Visit Diagnoses Not on filedocumented in this encounter Care Teams Electric Motor Mechanic Relationship Specialty Start Date End Date Theresa Pettit MD [address] [place] [phone] PCP - General 07/09/15 05/24/22 documented as of this encounter
--- OUTSIDE RECORDS SUMMARY | 2024-10-08 18:27 | XMS_ITS | Encounter Summary ---
Author Organization [facility] Address [address] [place] [address] Care Team Providers Care Short Story Writer Name Role Phone Theresa Pettit MD Primary Care Provider [phone] Margy Lucero APRN Primary Care Provider + Encounter Details Date Type Department Care Team (Late st Contact Info) Description 12/23/2021 Lab Requisition [facility] Pathology & Laboratory Medicine - [address] [id number] Outr Resulting Lab, Provider Social History Tobacco [...] 2.8 - 5.3 pg/mL 12/23/2021 17:45 EST [facility] Blood VENOUS BLOOD / Unknown 12/22/2021 8:55 EST 12/23/2021 17:07 EST us Provider Outr Resulting Lab CHEMISTRY & BLOOD GA S ORDERABLES Final Result Performing Organization Address City/State/[facility] Co de Phone Number [facility] [address] [place] [phone] documented in this encounter Visit Diagnoses Not on filedocumented in this encounter Care Teams Short Story Writer Relationship Specialty Start Date End Date Theresa Pettit MD [address] [place] [phone] PCP - General 07/09/15 05/24/22 Margy Lucero APRN [address] [place] [address] PCP - General 05/25/22 documented as of this encounter
--- OUTSIDE RECORDS SUMMARY | 2024-10-08 18:27 | XMS_ITS | Encounter Summary ---
Author Organization [facility] Address [address] [place] [address] Care Team Providers Care Applications Sales Representative Name Role Phone Theresa Pettit MD Primary Care Provider [phone] Encounter Details Date Type Department Care Team (Late st Contact Info) Description 02/05/2018 Historical Results Only [facility] - Main [address] [address] Jesi Chaves FNP [address] [place] [phone] Social History Tobacco Use Types Packs/Day [...] Results * GLUCOSE, SERUM (02/05/2018 7:08 EDT) GLUCOSE - [facility] 86 70 - 100 mg/dL 02/05/2018 7:39 EDT [facility] 02/05/2018 7:08 EDT 02/05/2018 7:08 EDT us Jesi Chaves FOOD SERVICE SUPERVISOR CHEMISTRY & BLOOD GAS GELY CABALLERO Final Result [facility] documented in this encounter Visit Diagnoses Not on filedocumented in this encounter Care Teams Applications Sales Representative Relationship Specialty Start Date End Date Theresa Pettit MD [address] [place] [phone] PCP - General 07/09/15 05/24/22 documented as of this encounter
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
--- OUTSIDE RECORDS SUMMARY | 2024-10-08 18:27 | XMS_ITS | Encounter Summary ---
Author Organization [facility] Address [address] [place] [address] Care Team Providers Care Director Retirement Name Role Phone Margy Lucero DARYL Primary Care Provider + Reason for Visit * Reason Comments Other Desire for Discharge Encounter Details Date Type Department Care Team (Late st Contact Info) Description 07/04/2022 Documentation Visit [facility] Psychiatric Consultation Program - [address] [phone] Monica Qureshi MD [address] [facility] [address] [place] [address] Bipolar I disorder (HCC-CMS) ([facility]) (Primary Dx); Adjustment disorder, unspecified type Social [...] encounter Visit Diagnoses Diagnosis Bipolar I disorder ([facility])- Primary Bipolar I disorder, most recent episode (or current) unspecified Adjustment disorder, unspecified type documented in this encounter Care Teams Director Retirement Relationship Specialty Start Date End Date Margy Lucero, CTE TEACHER [address] [place] [address] PCP - General 05/25/22 documented as of this encounter
--- OUTSIDE RECORDS SUMMARY | 2024-10-08 18:27 | XMS_ITS | Referral Summary ---
Author Organization [facility] Address [address] [place] [address] Care Team Providers Care Lockstitch Machine Operator Name Role Phone Margy Lucero Art BRITO [...] Bipolar affective disorder, current episode mixed ([facility]) 06/22/2022 06/23/2022 Bipolar disorder, current ep isode mixed, moderate ([facility]) 06/22/2022 06/23/2022 Immunizations Name Administration Dates Next [...] Mass Index 34.94 06/22/20222099 EDT Functional Status * Are you deaf or do you have serious difficulty hearing? Answer Date of Assessment Author No 06/22/2022 15:50 EDT Paulo Cox RN * Because of a physical, mental, or emotional condition, does this person have difficulty doing errands alone such as visiting a doctor's office or shopping? Answer Date of Assessment Author No 07/23/2015 11:05 EDT Mental Status * Because of a physical, mental, or emotional condition, does this person have serious difficulty concentrating, remembering, or making decisions? Answer Entry Date Author No 07/23/2015 11:05 EDT Plan of Treatment Not on file Procedures Procedure Name Priority Date/Time Associated Diagnosis Comments HEPATITIS C AB W REFLEX TO HCV RNA BY PCR Routine 09/27/2023 10:00 EST from Last 3 Months or Most Recently Relevant to Health Maintenance Results * HEPATITIS C AB W REFLEX TO HCV RNA BY PCR (09/27/2023 10:00 EST) Hep C Antibody Negative Negative 09/28/2023 11:14 EST [facility] Blood VENOUS BLOOD / Unknown 09/27/2023 10:00 EST 09/27/2023 21:27 EST us Provider Outr Resulting Lab CHEMISTRY & BLOOD GA S ORDERABLES Final Result [facility] [address] [place] [address] from Last 3 Months or Most Recently Relevant to Health Maintenance Insurance [facility] Address: [address] [address] Advance Directives For more information, please contact: [phone] * Full Code (Latest Code Status on File) Date Activated Date Inactivated Comments 06/22/2022 21:45 06/23/2022 21:39 Question Answer Comments When the patient has NO PULSE: Full Code / CPR Who Made the Decision? Default/Not Discussed Care Teams Lockstitch Machine Operator Relationship Specialty Start Date End Date Margy Lucero, DARYL [address] [place] [address] PCP - General 05/25/22
--- OUTSIDE RECORDS SUMMARY | 2024-10-08 18:27 | XMS_ITS | Encounter Summary ---
Author Organization [facility] Address [address] [place] [address] Care Team Providers Care Oil Well Fishing Tool Technician Name Role Phone Theresa Pettit MD Primary Care Provider [phone] Margy Lucero APRN Primary Care Provider + Encounter Details Date Type Department Care Team (Late st Contact Info) Description 06/02/2021 Lab Requisition [facility] Pathology & Laboratory Medicine - [address] [id number] Outr Resulting Lab, Provider Social History Tobacco [...] 4th Generation Negative Negative 06/03/2021 10:22 EDT [facility] Comment: If acute HIV-1 infection is suspected in a high risk ??patient, submit plasma specimen for HIV-1 RNA quantitation test. Fourth Generation assay performed on the Siemens MogoTixaur. Blood VENOUS BLOOD / Unknown 06/01/2021 13:50 EDT 06/02/2021 16:38 EDT us Provider Outr Resulting Lab IMMUNOLOGY AND SEROL OGY ORDERABLES Final Result [facility] [address] [place] [id number] documented in this encounter Visit Diagnoses Not on filedocumented in this encounter Care Teams Oil Well Fishing Tool Technician Relationship Specialty Start Date End Date Theresa Pettit MD [address] [place] [address] PCP - General 07/09/15 05/24/22 Margy Lucero APRN [address] [place] [address] PCP - General 05/25/22 documented as of this encounter
--- OUTSIDE RECORDS SUMMARY | 2024-10-08 18:27 | XMS_ITS | Encounter Summary ---
Author Organization [facility] Address [address] [place] [address] Care Team Providers Care Delivery Technician Name Role Phone Theresa Pettit MD Primary Care Provider [phone] Encounter Details Date Type Department Care Team (Late st Contact Info) Description 11/19/2020 Results Only [facility] Emergency Department [address] [place] [address] Agusto Otero, PABrayanC [address] [place] [address] Social History Tobacco Use Types [...] 11/19/2020 13:3 0 EST ETHYL ALCOHOL - [facility] Routine 11/19/2020 13:07 EST COMPLETE BLOOD COUNT WITH DIFFERENTIAL (AUTO) Routine 11/19/2020 13:07 EST THYROID CASCADE Routine 11/19/2020 13:07 EST COMPREHENSIVE METABOLIC PANEL (CMP) Routine 11/19/2020 13:07 EST documented in this encounter Results * COVID-19 TESTING (11/19/2020 13:30 EST) Performing Lab [place] [facility] () 11/20/2020 3:35 EST [facility] Comment: Please indicate the Triage Tiertier 1 Test performed or referred by [facility] [place] [phone] COVID-19 rt-PCR Result Not Detected Negative 11/20/2020 3:35 EST [facility] Comment: This test has not been [...] history, and epidemiological information. Performed on the eSofther Fusion instrument 11/19/2020 13:3 0 EST 11/19/2020 14:16 EST Narrative [facility] - 11/20/2020 3:35 EST TIER 1 UV PANTHER us Agusto Otero PA-C MICROBIOLOGY - GENERAL ORDER PIPPA Final Result [facility] [address] [place] [address] * THYROID CASCADE (11/19/2020 13:07 EST) [facility] TSH 1.30 0.46 - 4.68 uIU/mL 11/19/2020 15:30 [facility] 11/19/2020 13:0 7 EST 11/19/2020 14:09 EST Agusto Otero PA-C CHEMISTRY & BLOOD GAS ORDERA BLES Final Result Performing Organization Address [facility]/ZIP Co de Phone Number [facility] [address] [place] [address] * ETHYL ALCOHOL - [facility] (11/19/2020 13:07 EST) [facility] ETHYL ALCOHOL - [facility] <10.0 <10 mg/dL 11/19/2020 14:27 [facility] 11/19/2020 13:0 7 EST 11/19/2020 14:09 EST Agusto Otero PA-C CHEMISTRY & BLOOD GAS ORDERA BLES Final Result Performing Organization Address City/[facility]/ZIP Co de Phone Number [facility] [address] [place] [address] * (ABNORMAL) COMPREHENSIVE METABOLIC PANEL (CMP) (11/19/2020 13:07 EST) [facility] Albumin % 4.7 3.4 - 4.9 g/dL 11/19/2020 14:27 [facility] ALKALINE PHOSPHATASE - [facility] 58 38 - 126 U/L 11/19/2020 14:27 [facility] BILIRUBIN TOTAL 0.8 0.2 - 1.3 mg/dL 11/19/2020 14:27 [facility] BUN - [facility] 15 10 - 26 mg/dL 11/19/2020 14:27 [facility] CALCIUM - [facility] 10.0 8.5 - 10.5 mg/dL 11/19/2020 14:27 [facility] Chloride 103 96 - 110 mmol/L 11/19/2020 14:27 [facility] CO2 Total 25 21 - 32 mEq/L 11/19/2020 14:27 [facility] CREATININE 0.85 0.66 - 1.25 mg/dL 11/19/2020 14:27 [facility] eGFR >60 11/19/2020 14:27 [facility] Comment: Chronic renal impairment is defined as GFR <60 Multiply result by 1.210 for patients. Anion Gap 11 0 - 18 11/19/2020 14:27 [facility] GLUCOSE - [facility] 95 70 - 100 mg/dL 11/19/2020 14:27 [facility] Potassium 4.2 3.5 - 5.0 mEq/L 11/19/2020 14:27 [facility] Sodium 139 136 - 145 mEq/L 11/19/2020 14:27 [facility] TOTAL PROTEIN - [facility] 7.6 6.2 - 8.2 gm/dL 11/19/2020 14:27 [facility] SGOT/AST - [facility] 34 17 - 59 U/L 11/19/2020 14:27 [facility] SGPT/ALT - [facility] 51(H) 0 - 50 U/L 14:27 [facility] 11/19/2020 13:0 7 EST 11/19/2020 14:09 EST us Agusto Otero PA-C CHEMISTRY & BLOOD GAS ORDERA BLES Final Result [facility] [address] [place] [address] * (ABNORMAL) COMPLETE BLOOD COUNT WITH DIFFERENTIAL (AUTO) (11/19/2020 13:07 EST) ABSOLUTE NEUTROPHIL COUN - [facility] 4.9 2.2 - 8.85 10e3/uL 11/19/2020 14:18 [facility] BASO # - [facility] 0.04 0.01 - 0.11 10e/uL 11/19/2020 14:18 [facility] BASO % - [facility] 1 0 - 2 % 11/19/2020 14:18 [facility] EOS # - [facility] 0.05 0.03 - 0.61 10e3/ul 11/19/2020 14:18 [facility] EOS % - [facility] 1 0 - 5 % 11/19/2020 14:18 [facility] GRAN % - [facility] 64.5 40 - 80 % 11/19/2020 14:18 [facility] HEMATOCRIT - [facility] 45.8 39.5 - 50.2 % 11/19/2020 14:18 [facility] HEMOGLOBIN - [facility] 15.4 13.8 - 17.3 g/dl 11/19/2020 14:18 [facility] IG# - [facility] 0.02 0 - 0.7 10e3/uL 11/19/2020 14:18 [facility] IG% - [facility] 0.3 0 - 0.9 % 11/19/2020 14:18 [facility] LYMPH # - [facility] 2.0 1.09 - 3.3 10e3/ul 11/19/2020 14:18 [facility] LYMPH% - [facility] 26.3 20 - 40 % 11/19/2020 14:18 [facility] MEAN CORPUSCULAR HGB - [facility] 29.2 27.6 - 33.0 pg 11/19/2020 14:18 [facility] MEAN CORPUSCULAR HGB CONC - [facility] 33.6 32.8 - 36.4 g/dL 11/19/2020 14:18 [facility] MEAN CELL VOLUME - [facility] 86.9 81 - 95 fl 11/19/2020 14:18 [facility] MONO # - [facility] 0.6 0.1 - 0.8 10e3/uL 11/19/2020 14:18 [facility] MONO% - [facility] 7.7 0 - 12 % 11/19/2020 14:18 [facility] PLATELET COUNT 444(H) 141 - 377 10e3/ul 11/19/2020 14:18 [facility] RED BLOOD COUNT - [facility] 5.27 4.36 - 5.78 10e3/ul 11/19/2020 14:18 [facility] RED CELL DISTRI WIDTH - [facility] 12.0 <14.2 % 11/19/2020 14:18 [facility] WHITE BLOOD COUNT - [facility] 7.5 4.0 - 10.4 10e3/ul 11/19/2020 14:18 [facility] 11/19/2020 13:0 7 EST 11/19/2020 14:09 EST us Agusto Otero PA-C HEMATOLOGY & PF4 ORDERABLES Final Result Performing Organization Address City/State/[facility] Co de Phone Number [facility] [address] [place] [address] documented in this encounter Visit Diagnoses Not on filedocumented in this encounter Care Teams Delivery Technician Relationship Specialty Start Date End Date Theresa Pettit MD [address] [place] [phone] PCP - General 07/09/15 05/24/22 documented as of this encounter
--- OUTSIDE RECORDS SUMMARY | 2024-10-08 18:27 | XMS_ITS | Encounter Summary ---
Author Organization [facility] Address [address] [place] [address] Care Team Providers Care Supervisor Mending Name Role Phone Margy Lucero DARYL Primary [...] on filedocumented in this encounter Care Teams Supervisor Mending Relationship Specialty Start Date End Date Margy Lucero, DARYL [address] [place] [phone] PCP - General 05/25/22 documented as of this encounter
--- OUTSIDE RECORDS SUMMARY | 2024-10-08 18:27 | XMS_ITS | Encounter Summary ---
Author Organization [facility] Address [address] [place] [address] Care Team Providers Care Digital Printer Name Role Phone Theresa Pettit MD Primary Care Provider [phone] Encounter Details Date Type Department Care Team (Late st Contact Info) Description 01/28/2018 Historical Results Only [facility] - Main [place] [address] [place] [address] [id number] Uche Miller MD Social History Tobacco Use [...] (ABNORMAL) COMPREHENSIVE METABOLIC PANEL (CMP) (01/28/2018 9:15 EDT) Albumin % 4.8 3.4 - 4.9 g/dL 01/28/2018 10:16 [facility] ALKALINE PHOSPHATASE - [facility] 56 38 - 126 U/L 01/28/2018 10:16 [facility] BILIRUBIN TOTAL 0.8 0.2 - 1.3 mg/dL 01/28/2018 10:16 [facility] BUN - [facility] 12 10 - 26 mg/dL 01/28/2018 10:16 [facility] CALCIUM - [facility] 10.5 8.5 - 10.5 mg/dL 01/28/2018 10:16 [facility] Chloride 104 96 - 110 mmol/L 01/28/2018 10:16 [facility] CO2 Total 23 21 - 32 mEq/L 01/28/2018 10:16 [facility] CREATININE 0.82 0.66 - 1.25 mg/dL 01/28/2018 10:16 [facility] eGFR >60 01/28/2018 10:16 [facility] Comment: Chronic renal impairment is defined as GFR <60 Multiply result by 1.210 for patients. Anion Gap 14 0 - 18 01/28/2018 10:16 [facility] GLUCOSE - [facility] 113(H) 70 - 100 mg/dL 01/28/2018 10:16 [facility] Potassium 4.0 3.5 - 5.0 mEq/L 01/28/2018 10:16 [facility] Sodium 141 136 - 145 mEq/L 01/28/2018 10:16 [facility] TOTAL PROTEIN - [facility] 8.4(H) 6.2 - 8.2 gm/dL 01/28/2018 10:16 [facility] SGOT/AST - [facility] 31 17 - 59 U/L 01/28/2018 10:16 [facility] SGPT/ALT - [facility] 38 21 - 72 U/L 01/28/2018 10:16 EDT [facility] 01/28/2018 9:15 EDT 01/28/2018 9:33 EDT Narrative [facility] - 01/28/2018 10:16 EDT Does PT Have a Latex Allergy? NO Uche Miller MD CHEMISTRY & BLOOD GAS ORDERABLE S Final Result [facility] * THYROID CASCADE (01/28/2018 9:15 EDT) TSH 0.89 0.46 - 4.68 uIU/mL 01/28/2018 10:47 EDT [facility] 01/28/2018 9:15 EDT 01/28/2018 9:32 EDT Narrative [facility] - 01/28/2018 10:47 EDT Does PT Have a Latex Allergy? NO us Uche Miller MD CHEMISTRY & BLOOD GAS ORDERABLE S Final Result [facility] * (ABNORMAL) COMPLETE BLOOD COUNT WITH DIFFERENTIAL (AUTO) (01/28/2018 9:15 EDT) Pathologist [facility] ABSOLUTE NEUTROPHIL COUN - [facility] 5.91 1.7 - 7.0 10e3/ul 01/28/2018 9:37 EDT [facility] BASO # - [facility] 0.02 0.0 - 0.3 10e3/uL 01/28/2018 9:37 EDT [facility] BASO % - [facility] 0 0 - 2 % 01/28/2018 9:37 EDT [facility] EOS # - [facility] 0.05 0.05 - 0.5 10e3/uL 01/28/2018 9:37 EDT [facility] EOS % - [facility] 1 0 - 5 % 01/28/2018 9:37 EDT [facility] GRAN % - [facility] 70 40 - 80 % 01/28/2018 9:37 EDT [facility] HEMATOCRIT - [facility] 45.0 36.0 - 52.0 % 01/28/2018 9:37 [facility] HEMOGLOBIN - [facility] 15.6 13.7 - 17.5 g/dl 01/28/2018 9:37 [facility] IG# - [facility] 0.01 0 - 0.07 10e3/uL 01/28/2018 9:37 [facility] IG% - [facility] 0.1 0 - 0.9 % 01/28/2018 9:37 [facility] LYMPH # - [facility] 2.06 0.9 - 2.9 10e3/uL 01/28/2018 9:37 [facility] LYMPH% - [facility] 24 20 - 40 % 01/28/2018 9:37 [facility] MEAN CORPUSCULAR HGB - [facility] 29.3 26 - 34 pg 01/28/2018 9:37 [facility] MEAN CORPUSCULAR HGB CONC - [facility] 34.7 31 - 36 g/dL 01/28/2018 9:37 [facility] MEAN CELL VOLUME - [facility] 84.4 77 - 100 fl 01/28/2018 9:37 [facility] MONO # - [facility] 0.45 0.3 - 0.9 10e3/uL 01/28/2018 9:37 [facility] MONO% - [facility] 5 0 - 12 % 01/28/2018 9:37 [facility] PLATELET COUNT 452(H) 150 - 400 10e3/ul 01/28/2018 9:37 [facility] RED BLOOD COUNT - [facility] 5.33 4.3 - 5.7 10e6/ul 01/28/2018 9:37 [facility] RED CELL DISTRI WIDTH - [facility] 12.5 11.8 - 15.6 % 01/28/2018 9:37 [facility] WHITE BLOOD COUNT - [facility] 8.5 3.5 - 10.5 10e3/ul 01/28/2018 9:37 [facility] 01/28/2018 9:15 EDT 01/28/2018 9:33 EDT Narrative [facility] - 01/28/2018 9:37 EDT Does PT Have a Latex Allergy? NO us Uche Miller MD HEMATOLOGY & PF4 ORDERABLES Fin al Result [facility] documented in this encounter Visit Diagnoses Not on filedocumented in this encounter Care Teams Digital Printer Relationship Specialty Start Date End Date Theresa Pettit MD [address] [place] [phone] PCP - General 07/09/15 05/24/22 documented as of this encounter
--- OUTSIDE RECORDS SUMMARY | 2024-10-08 18:27 | XMS_ITS | Encounter Summary ---
Author Organization [facility] Address [address] [place] [address] Care Team Providers Care Trim Machine Operator Name Role Phone Theresa Pettit MD Primary Care Provider [phone] Margy Lucero APRN Primary Care Provider + Encounter Details Date Type Department Care Team (Late st Contact Info) Description 06/02/2021 Lab Requisition [facility] Pathology & Laboratory Medicine - [address] [id number] Outr Resulting Lab, Provider Social History Tobacco [...] Syphilis Serology Negative Negative 06/03/2021 10:56 EDT [facility] Blood VENOUS BLOOD / Unknown 06/01/2021 13:50 EDT 06/02/2021 16:38 EDT us Provider Outr Resulting Lab IMMUNOLOGY AND SEROL OGY ORDERABLES Final Result [facility] [address] [place] [address] documented in this encounter Visit Diagnoses Not on filedocumented in this encounter Care Teams Trim Machine Operator Relationship Specialty Start Date End Date Theresa Pettit MD [address] [place] [address] PCP - General 07/09/15 05/24/22 Margy Lucero APRN [address] [place] [address] PCP - General 05/25/22 documented as of this encounter
--- OUTSIDE RECORDS SUMMARY | 2024-10-08 18:27 | XMS_ITS | Encounter Summary ---
Author Organization [facility] Address [address] [place] [address] Care Team Providers Care Ambulance Dispatcher Name Role Phone Theresa Pettit MD Primary Care Provider Encounter Details Date Type Department Care Team (Late st Contact Info) Description 01/27/2018 Historical Results Only [facility] - Main [address] [address] Farhan Fraser MD [address] [place] [phone] Social History Tobacco Use Types Packs/Day [...] MICROSCOPIC) (01/27/2018 1:25 EDT) URINE APPEARANCE - [facility] Clear [facility] BILIRUBIN - [place] - [facility] 1+ NEGATIVE 01/27/2018 2:20 [facility] Comment: Unable to confirm positive urine bilirubin. If clinical correlation is inconsistent, consider serum bilirubin. URINE BLOOD - [facility] Negative NEG 01/27/2018 2:20 [facility]INE COLOR - [facility] Yellow YELLOW 01/27/2018 2:20 [facility] URINE GLUCOSE - [place] - [facility] Negative NEGATIVE 01/27/2018 2:20 [facility] URINE KETONE - [facility] 2+ NEGATIVE 01/27/2018 2:20 [facility] URINE LEUK ESTERASE - [facility] Negative NEG 01/27/2018 2:20 [facility] URINE NITRITE - [place] - [facility] Negative NEG 01/27/2018 2:20 [facility] URINE PH - [facility] 6.5 4.0 - 8.0 8 2:20 [facility] URINE PROTEIN - [place] - [facility] Negative NEG 01/27/2018 2:20 [facility] URINE SPECIFIC GRAVITY - [facility] 1.020 1.001 - 1.035 01/27/2018 2:20 [facility] URINE UROBILINOGEN - [place] - [facility] 0.2 0.2 - 1.0 01/27/2018 2:20 [facility] 01/27/2018 1:25 EDT 01/27/2018 2:12 EDT Narrative [facility] - 01/27/2018 2:22 EDT Does PT Have a Latex Allergy? NO us Farhan Fraser MD URINALYSIS ORDERABLES Final Result [facility] * (ABNORMAL) DRUG SCREEN, PRESCRIPTION/OTC, URINE (01/27/2018 1:25 EDT) AMPHETAMINES NEG NEG 01/27/2018 2:28 EDT [facility] BARBITURATES,UR - [facility] NEG NEG 01/27/2018 2:28 EDT [facility] BENZODIAZEPINES NEG NEG 8 2:28 EDT [facility] COCAINE,URINE - [facility] NEG NEG 01/27/2018 2:28 [facility] MAMP (METHAMPHETAMINES - [facility] NEG NEG 01/27/2018 2:28 [facility] MARIJUANA,URINE - [facility] POS(A) NEG 01/27/2018 2:28 [facility] MTD (METHADONE) - [facility] NEG NEG 01/27/2018 2:28 [facility] OPIATES,URINE - [facility] NEG NEG 01/27/2018 2:28 [facility] OXY (OXYCODONE) - [facility] NEG NEG 01/27/2018 2:28 [facility] PCP (PHENCYCLID[facility]) - [facility] NEG NEG 01/27/2018 2:28 [facility] PROPOXYPHENE (PPX) - [facility] NEG NEG 01/27/2018 2:28 [facility] TRICYCLIC ANTIDEPRESSANTS - [facility] NEG NEG 01/27/2018 2:28 EDT [facility] Comment: Drug Class ?Cutoff Concentration [...] 01/27/2018 1:25 EDT 01/27/2018 2:12 EDT Narrative [facility] - 01/27/2018 2:28 EDT Does PT Have a Latex Allergy? NO us Farhan Fraser MD URINALYSIS ORDERABLES Final Result [facility] documented in this encounter Visit Diagnoses Not on filedocumented in this encounter Care Teams Ambulance Dispatcher Relationship Specialty Start Date End Date Theresa Pettit MD [address] [place] [phone] PCP - General 07/09/15 05/24/22 documented as of this encounter
--- OUTSIDE RECORDS SUMMARY | 2024-10-08 18:27 | XMS_ITS | Encounter Summary ---
Author Organization [facility] Address [address] [place] [address] Care Team Providers Care Dye Room Helper Name Role Phone Margy Lucero APRN Primary [...] on filedocumented in this encounter Care Teams Dye Room Helper Relationship Specialty Start Date End Date Margy Lucero APRN [address] [place] [phone] PCP - General 05/25/22 documented as of this encounter
--- OUTSIDE RECORDS SUMMARY | 2024-10-08 18:27 | XMS_ITS | Encounter Summary ---
Author Organization [facility] Address [address] [place] [address] Care Team Providers Care Weapons Electrical Engineering Officer Name Role Phone Margy Lucero [facility] Primary Care Provider + Reason for Visit [...] 1:36 EDT - 05/25/2022 2:48 EDT Emergency [facility] Emergency Department [address] [place] [address] Farhan Fraser MD [address] [place] [address] Abnormal lithium level in blood [...] Reading Time Taken Comments Blood Pressure 131/85 05/25/2022132 EDT Pulse 91 05/25/2022132 EDT Temperature - - Respiratory Rate 18 05/25/2022132 EDT Oxygen Saturation 97% 05/25/2022 013 EDT Inhaled Oxygen Concentration - - Weight - - Height - - Body Mass Index - - documented in this encounter Functional Status * Because of [...] EDT Take #3 tablets - 450mg of Kirk nightly Follow-up with PCP regarding repeat Kirk level blood draw Return for worsening symptoms or any other concerns. documented in this encounter Medications at Time of Discharge lithium carbonate 150 mg capsuleIndicatio ns:mixed bipolar I disorder Take 150 mg by mouth daily. 06/23/22: last filled per [facility] 05/26/22 30 day supply. Prescribed by Tristan Waterman [phone]. 2 LORATADINE (CLARITIN ORAL) Take by mouth daily 2 documented as of this encounter Discharge Disposition Disposition Code Departure Means Destination Comment s Home or Self Detention pt discharged to home, parents to accompany. documented in this encounter ED Notes * Natalie Lr RN - 05/25/2022 0231 EDT Pt parents at bedside; parents reporting pt has been trying to contact psychiatrist (Dr Pickett in [place]) for med adjustment for weeks and has not received a call back. Pt and family requesting referral to new psychiatrist. MD notified. * Farhan Fraser MD - 05/25/2022 0227 EDT This patient received an evaluation and medical screening exam for emergent medical conditions at [facility] Emergency Department on 05/25/2022 ED Course/Medical Decision [...] blood draw for his lithium level tomorrow. Kirk level drawn and is subtherapeutic at 0.2. Patient states that he has been compliant with his medication. Advised patient to take 450 daily and follow-up with PCP for repeat lithium level blood draw in the next 1 to 2 weeks. Additional 150 mg of Kirk taken in the ED. Patient discharged home [...] Reviewed LITHIUM - Abnormal Result Value Status Kirk 0.2 (*) Final Imaging obtained was reviewed [...] Results * (ABNORMAL) LITHIUM (05/25/2022 1:48 EDT) Kirk 0.2(L) 0.6 - 1.2 mmol/L 05/25/2022 2:05 EDT [facility] Comment: 18 years and older: Therapeutic range: 0.6 - 1.2 mEq/L Potentially toxic: >1.5 mEq/L Therapeutic range not established for individuals <18 years old. Blood VENOUS BLOOD / Unknown Venipuncture / Unknown 05/25/2022 1:48 EDT 05/25/2022 1:50 EDT Farhan Fraser MD CHEMISTRY & BLOOD GAS ORDERABLES Final Result [facility] [address] [place] [address] documented in this encounter Visit Diagnoses Diagnosis Abnormal lithium level in blood- Primary Other abnormal blood chemistry documented in this encounter Historical Medications * This list may reflect changes made after this encounter. lithium carbonate 150 mg capsuleIndicatio ns:mixed bipolar I disorder Take 150 mg by mouth daily. 06/23/22: last filled per [facility] 05/26/22 30 day supply. Prescribed by Tristan Waterman [phone]. 2 added in this encounter Care Teams Weapons Electrical Engineering Officer Relationship Specialty Start Date End Date Margy Lucero, [facility] [address] [place] [phone] PCP - General 05/25/22 documented as of this encounter
--- OUTSIDE RECORDS SUMMARY | 2024-10-08 18:27 | XMS_ITS | Encounter Summary ---
Author Organization [facility] Address [address] [place] [address] Care Team Providers Care Picture Hanger Name Role Phone LuceroMargy Art BRITO Primary Care Provider + Encounter Details Date Type Department Care Team (Late st Contact Info) Description 09/27/2023 Lab Requisition [facility] Pathology & Laboratory Medicine - [facility] [address] [place] [address] Outr Resulting Lab, Provider Social History Tobacco [...] C Antibody Negative Negative 09/28/2023 11:14 EST [facility] Blood VENOUS BLOOD / Unknown 09/27/2023 10:00 EST 09/27/2023 21:27 EST us Provider Outr Resulting Lab CHEMISTRY & BLOOD GA S ORDERABLES Final Result [facility] [address] [place] [address] documented in this encounter Visit Diagnoses Not on filedocumented in this encounter Care Teams Picture Hanger Relationship Specialty Start Date End Date Margy Lucero, CANAL DRIVER [address] [place] [phone] PCP - General 05/25/22 documented as of this encounter
--- OUTSIDE RECORDS SUMMARY | 2024-10-08 18:28 | XMS_ITS | Encounter Summary ---
Author Organization [facility] Address [address] [place] [address] Care Team Providers Care Motor Runner Name Role Phone Theresa Pettit MD Primary Care Provider [phone] Encounter Details Date Type Department Care Team (Late st Contact Info) Description 07/10/2015 12:37 EDT - 07/10/2015 23:59 EDT Hospital Encounter [facility] [address] [place] [address] Rigo Salomon MD [address] [place] [phone] Discharge Disposition: Home or Self Care Social [...] Code Departure Means Destination Home or Self Intermediate documented in this encounter Plan of Treatment Not on file documented as of this encounter Visit Diagnoses Not on filedocumented in this encounter Care Teams Motor Runner Relationship Specialty Start Date End Date Theresa Pettit MD [address] [place] [phone] PCP - General 07/09/15 05/24/22 documented as of this encounter
--- OUTSIDE RECORDS SUMMARY | 2024-10-08 18:28 | XMS_ITS | Encounter Summary ---
Author Organization [facility] Address [address] [place] [address] Care Team Providers Care Claims Consultant Name Role Phone Theresa Pettit MD Primary Care Provider [phone] Encounter Details Date Type Department Care Team (Late st Contact Info) Description 02/19/2017 Historical Results Only [facility] - Main [address] [address] Jesi Chaves FNP [address] [place] [phone] Social History Tobacco Use Types Packs/Day [...] CHOLESTEROL, TRIGLYCERIDES, HDL, LDL) (02/19/2017 7:00 EDT) Pathologist [facility] Triglyceride 73 35 - 150 mg/dL 02/19/2017 8:[address] [facility] Cholesterol 162 120 - 200 mg/dL [facility] Chol/HDL Ratio 3.4 0 - 5.0 02/19/2017 [facility] Comment: DESIRABLE RATIO IS LESS THAN 4.1 PATIENTS ARE CONSIDERED AT RISK: WOMEN RATIO >5 MEN RATIO >6 FASTING? - [facility] Unknown 7 7:[address] [facility] HDL 47 40 - 60 mg/dL 02/19/2017 [facility] LDL CHOLESTEROL - [facility] 100 60 - 100 mg/dL 02/19/2017 8:03 [facility] Non HDL Cholesterol 115 mg/dl 02/19/2017 8:03 [facility] Comment: Desirable: ?Less than 130 Borderline High: ??130-159 High: ? 160-189 Very High: ?Greater than or equal to 190 02/19/2017 7:00 EDT 02/19/2017 7:20 EDT us Jesi Chaves OXYGEN SYSTEM TESTER CHEMISTRY & BLOOD GAS GELY CABALLERO Final Result [facility] * BILIRUBIN, TOTAL (02/19/2017 7:00 EDT) BILIRUBIN TOTAL 0.9 0.0 - 1.0 mg/dL 02/19/2017 8:03 [facility] 02/19/2017 7:00 EDT 02/19/2017 7:20 EDT Jesi Chaves OXYGEN SYSTEM TESTER CHEMISTRY & BLOOD GAS ORDE RABPAKO Final Result Performing Organization Address City/[facility]/ZIP Co de Phone Number [facility] * BASIC METABOLIC PANEL (BMP) (02/19/2017 7:00 EDT) BUN - [facility] 16 7 - 18 mg/dL 02/19/2017 8:03 [facility] CALCIUM - [facility] 9.5 8.5 - 10.1 mg/dL 02/19/2017 8:03 [facility] Chloride 103 98 - 107 mEq/L 02/19/2017 8:03 [facility] CO2 Total 29 21 - 32 mEq/L 02/19/2017 8:03 [facility] CREATININE 1.00 0.5 - 1.3 mg/dL 02/19/2017 8:03 [facility] Anion Gap 8 5 - 15 02/19/2017 8:03 [facility] GLUCOSE - [facility] 93 70 - 100 mg/dL 02/19/2017 8:03 [facility] Potassium 4.0 3.5 - 5.0 mEq/L 02/19/2017 8:03 [facility] Sodium 140 135 - 145 mEq/L 02/19/2017 8:03 [facility] 02/19/2017 7:00 EDT 02/19/2017 7:20 EDT us Jesi Chaves OXYGEN SYSTEM TESTER CHEMISTRY & BLOOD GAS ORDE RABLES Final Result Performing Organization Address City/[facility]/ZIP Co de Phone Number [facility] * HEMOGLOBIN A1C (02/19/2017 7:00 EDT) Hemoglobin A1c 5.7 4.0 - 6.0 % 02/19/2017 20:34 [facility] Est Avg Glucose 117 mg/dL 7 20:[address] [facility] 02/19/2017 7:00 EDT 02/19/2017 7:20 EDT us Jesi Chaves OXYGEN SYSTEM TESTER CHEMISTRY & BLOOD GAS GELY CABALLERO Final Result [facility] documented in this encounter Visit Diagnoses Not on filedocumented in this encounter Care Teams Claims Consultant Relationship Specialty Start Date End Date Theresa Pettit MD [address] [place] [phone] PCP - General 07/09/15 05/24/22 documented as of this encounter
--- OUTSIDE RECORDS SUMMARY | 2024-10-08 18:28 | XMS_ITS | Encounter Summary ---
Author Organization [facility] Address [address] [place] [address] Care Team Providers Care Plastic Technician Name Role Phone Theresa Pettit MD Primary Care Provider [phone] Encounter Details Date Type Department Care Team (Late st Contact Info) Description 02/14/2017 Historical Results Only [facility] - Main [place] [address] [place] [address] Lionel Galarza [address] [place] [phone] Social History Tobacco Use Types Packs/Day Years [...] Date/Time Associated Diagnosis Comments ETHYL ALCOHOL - [facility] Routine 02/14/2017 15:20 EDT COMPLETE BLOOD COUNT WITH DIFFERENTIAL (AUTO) Routine 02/14/2017 15:20 EDT THYROID CASCADE Routine 02/14/2017 15:20 EDT COMPREHENSIVE METABOLIC PANEL (CMP) Routine 02/14/2017 15:20 EDT documented in this encounter Results * THYROID CASCADE (02/14/2017 15:20 EDT) Pathologist [facility] TSH 1.30 0.35 - 5.50 uIU/mL 02/14/2017 15:55 EDT [facility] 02/14/2017 15:2 0 EDT 02/14/2017 15:28 EDT Narrative [facility] - 02/14/2017 15:55 EDT Does PT Have a Latex Allergy? UNKNOWN Lionel Galarza CHEMISTRY & BLOOD GAS ORDERABLES Final Result Performing Organization Address [facility]/ZIP Co de Phone Number [facility] * ETHYL ALCOHOL - [facility] (02/14/2017 15:20 EDT) Pathologist [facility] ETHYL ALCOHOL - [facility] <3.0 0.0 - 60.0 mg/dL 02/14/2017 15:49 EDT [facility] Comment: *Unconfirmed screening results are to be used for medical purposes only.* 02/14/2017 15:2 0 EDT 02/14/2017 15:28 EDT Narrative [facility] - 02/14/2017 15:55 EDT Does PT Have a Latex Allergy? UNKNOWN Lionel Galarza CHEMISTRY & BLOOD GAS ORDERABLES Final Result [facility] * (ABNORMAL) COMPREHENSIVE METABOLIC PANEL (CMP) (02/14/2017 15:20 EDT) Pathologist [facility] Albumin % 4.7 3.4 - 5.0 g/dL 02/14/2017 15:49 EDT [facility] ALKALINE PHOSPHATASE - [facility] 62 42 - 122 U/L 02/14/2017 15:49 EDT [facility] BILIRUBIN TOTAL 1.6(H) 0.0 - 1.0 mg/dL 02/14/2017 15:49 [facility] BUN - [facility] 21(H) 7 - 18 mg/dL 02/14/2017 15:49 [facility] CALCIUM - [facility] 9.3 8.5 - 10.1 mg/dL 02/14/2017 15:49 [...] [facility] GLUCOSE - [facility] 92 70 - 100 mg/dL 02/14/2017 15:49 [facility] Potassium 3.5 3.5 - 5.0 mEq/L 02/14/2017 15:49 [facility] Sodium 139 135 - 145 mEq/L 02/14/2017 15:49 [facility] TOTAL PROTEIN - [facility] 8.8(H) 6.4 - 8.2 gm/dl 02/14/2017 15:49 [facility] SGOT/AST - [facility] 28 10 - 37 U/L 02/14/2017 15:49 [facility] SGPT/ALT - [facility] 69 12 - 78 U/L 02/14/2017 15:49 [facility] 02/14/2017 15:2 0 EDT 02/14/2017 15:28 [facility] - 02/14/2017 15:55 EDT Does PT Have a Latex Allergy? UNKNOWN us Lionel Galarza CHEMISTRY & BLOOD GAS ORDERABLES Final Result [facility] * (ABNORMAL) COMPLETE BLOOD COUNT WITH DIFFERENTIAL (AUTO) (02/14/2017 15:20 EDT) ABSOLUTE NEUTROPHIL COUN - [facility] 5.59 1.7 - 7.0 10e3/ul 02/14/2017 15:34 [...] 0.73 0.3 - 0.9 10e3/uL 02/14/2017 15:34 EDT [facility] MONO% - [facility] 9 0 - 12 % 02/14/2017 15:34 EDT [facility] PLATELET COUNT 399 150 - 400 10e3/ul 02/14/2017 15:34 EDT [facility] RED BLOOD COUNT - [facility] 5.56 4.3 - 5.7 10e6/ul 02/14/2017 15:34 EDT [facility] RED CELL DISTRI WIDTH - [facility] 12.4 11.8 - 15.6 % 02/14/2017 15:34 EDT [facility] WHITE BLOOD COUNT - [facility] 8.4 3.5 - 10.5 10e3/ul 02/14/2017 15:34 [facility] 02/14/2017 15:2 0 EDT 02/14/2017 15:28 EDT Narrative [facility] - 02/14/2017 15:34 EDT Does PT Have a Latex Allergy? UNKNOWN us Lionel Galarza HEMATOLOGY & PF4 ORDERABLES Maddy garcia Result [facility] documented in this encounter Visit Diagnoses Not on filedocumented in this encounter Care Teams Plastic Technician Relationship Specialty Start Date End Date Theresa Pettit MD [address] [place] [phone] PCP - General 07/09/15 05/24/22 documented as of this encounter
--- OUTSIDE RECORDS SUMMARY | 2024-10-08 18:28 | XMS_ITS | Encounter Summary ---
Author Organization [facility] Address [address] [place] [address] Care Team Providers Care Roofer Metal Name Role Phone Theresa Pettit MD Primary Care Provider [phone] Encounter Details Date Type Department Care Team (Late st Contact Info) Description 07/09/2015 Results Only Imaging [facility] - [facility] [address] [place], [place] [address] Tip Preciado, PABrayanC [address] [place], [place] [address] Social History Tobacco Use Types Packs/Day Years [...] the left lower extremity were obtained. The [id number] is centered on the proximal tibial metaphysis. [...] the left lower extremity were obtained. The [id number] is centered on the proximal tibial metaphysis. [...] to ensure stability. 2. Findings which suggest Fontana-Schlatter disease, as described above. Please correlate. I have personally reviewed the images and the above interpretation and agree with the findings. us Tip Preciado PA-C IMG MRI ORDERABLES Final R esult documented in this encounter Visit Diagnoses Not on filedocumented in this encounter Care Teams Roofer Metal Relationship Specialty Start Date End Date Theresa Pettit MD [address] [place] [phone] PCP - General 07/09/15 05/24/22 documented as of this encounter
--- OUTSIDE RECORDS SUMMARY | 2024-10-08 18:28 | XMS_ITS | Encounter Summary ---
Author Organization [facility] Address [address] [place] [address] Care Team Providers Care Welt Edge Rounder Name Role Phone Theresa Pettit MD Primary Care Provider [phone] Reason for Visit * Reason Onset Date Comments Appointment Related 07/24/2015 Encounter Details Date Type Department Care Team (Late st Contact Info) Description 07/24/2015 Telephone [facility] Rehabilitation Therapy - [address] [address] Therapy, Physical Appointment Related Social [...] 07/23/2015 11:05 EDT documented in this encounter Miscellaneous Notes * Telephone Encounter - Chelsi Turner - 07/24/2015 1443 EDT [facility] - [address] [address] Received therapy referral. Contacted Mr. Rizvi to schedule. Mr. Rizvi states he plans to seek therapy services elsewhere. Chelsi Turner 07/24/2015 14:43 documented in this encounter Plan of Treatment Not on file documented as of this encounter Visit Diagnoses Not on filedocumented in this encounter Care Teams Welt Edge Rounder Relationship Specialty Start Date End Date Theresa Pettit MD [address] [place] [phone] PCP - General 07/09/15 05/24/22 documented as of this encounter
--- OUTSIDE RECORDS SUMMARY | 2024-10-08 18:28 | XMS_ITS | Encounter Summary ---
Author Organization [facility] Address [address] [place] [address] Care Team Providers Care Classifying Machine Operator Name Role Phone Theresa Pettit MD Primary Care Provider [phone] Reason for Referral * PT/OT/ST (Routine) - Closed Specialty Diagnoses / Procedures Referred By [facility] t Referred To Contact Rehab Therapies Diagnoses Right knee pain Daphne Rios MD Phone: tel: fax: Referral ID Status Reason Start Date Expiration Date V isits Requested Visits Authorized [id number] Closed Specialty Services Required 07/23/2015 1 1 Question Answer Reason for Request: pes bursitis Comments Please evaluate and treat per symptoms. No activity or weight bearing restrictions. Reason for Visit * Reason Comments Leg Pain left leg pain doi 8. 11.15 * Consult, Test and Treat (Routine) - Closed Specialty Diagnoses / Procedures Referred By [facility] Referred To Contact Orthopedic Surgery Diagnoses Left knee pain Theresa Pettit MD [address] [place] [phone] Phone: tel: fax: [facility] Sports Medicine Program [place] [address] [place] [address] Phone: tel: fax: Referral ID Status Reason Start Date Expiration Date Visits Re quested Visits Authorized [id number] Closed 1 1 Encounter Details Date Type Department Care Team (Late st Contact Info) Description 07/23/2015 11:10 EDT Office Visit [facility] Pediatric Orthopedics - [address] [phone] Daphne Rios MD [address] [place] [phone] Right knee pain (Primary Dx); [...] documented in this encounter Progress Notes * Ilir García MD - 07/23/2015 8750 EDT CHIEF COMPLAINT: Left knee pain. HISTORY OF PRESENT ILLNESS: Emanuel Rizvi is a 15-year-old otherwise healthy male who twisted his leftknee while playing soccer 3 weeks ago. He had immediate swelling and he was unable to bear weight initially, but after things calmed down he was able to ambulate. He followed up at [facility] where radiographs were obtained. A bone [...] he has not had any physical therapy, animal care attendant, injections or other interventions. PAST MEDICAL HISTORY: None. PAST SURGICAL HISTORY: Ear tubes as a child, wisdom teeth removal. MEDICATIONS: Claritin p.r.n. ALLERGIES: No known drug allergies. SOCIAL HISTORY: He lives in [place], [place]. He is a senior in high [...] a combination of pes bursitis and residual Lincoln-Schlatter disease. There is mild increased signal on the sagittal view of the medial meniscus, specifically in the posterior horn. This most likely represents nothing but it may be meniscus pathology. 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 If he continues [...] may reflect changes made after this encounter. LORATADINE (CLARITIN ORAL) Take by mouth daily 06/23/2022 added in this encounter Care Teams Classifying Machine Operator Relationship Specialty Start Date End Date Theresa Pettit MD [address] [place] [phone] PCP - General 07/09/15 05/24/22 documented as of this encounter
== END 2024-10-08 18:23 | disposition home or self-care (01) ==
LOC: NCHCN 18:22
PROVIDERS: PCP Family Medicine; Visit Provider Family Medicine
DX: R10.12 Left upper quadrant pain (principal)
CPT/HCPCS: 80053; 83690; 85025

== ENCOUNTER 2025-04-16 20:29 | Outpatient (REF) | payer OTHER, SELFPAY ==
[2025-04-10 21:27] LABS: HCT 49.8 % (40.0-50.0); HGB 16.3 g/dL (13.5-17.5); MCH 28.3 pg (27.0-33.0); MCHC 32.7 % (32.0-36.0); MCV 87 fL (80-95); MPV 8.9 fL (8.0-11.0); Platelet Count 529 10^3/uL (130-400); RBC 5.75 10^6/uL (4.36-5.78); RDW 12.4 % (11.8-14.1); RDW-SD 39.1 fL; WBC 10.41 10^3/uL (4.4-10.8)
[2025-04-10 21:46] LABS: ALT 177 U/L (16-63); AST 69 U/L (15-37); Albumin 4.6 g/dL (3.4-5.0); Alkaline Phosphatase 66 U/L (46-116); Anion Gap 8.1 mmol/L (3-11); BUN 13 mg/dL (7-18); Bilirubin, Total 1.1 mg/dL (0.2-1.0); CO2 29.9 mmol/L (21.0-32.0); CREATININE 1.1 mg/dL (0.70-1.30); Calcium 10.1 mg/dL (8.5-10.1); Chloride 100 mmol/L (98-107); Estimated GFR 94.95 (mL/min/1.73m2); Glucose 101 mg/dL (74-106); Potassium 3.8 mmol/L (3.5-5.1); Sodium 138 mmol/L (136-145); TSH (W/Ref FT4) 1.52 uIU/mL (0.36-3.74); Total Protein 8.9 g/dL (6.4-8.2)
== END 2025-04-16 20:30 | disposition home or self-care (01) ==
LOC: NCHCN 20:29
PROVIDERS: PCP Family Medicine; Visit Provider Family Medicine
DX: F31.9 Bipolar disorder, unspecified (principal)
CPT/HCPCS: 80053; 85027; 84443